=== PATIENT | male | born 1945 | race Caucasian/White ===

== ENCOUNTER 2022-10-17 13:44 | Inpatient (IN) | payer OTHER ==
--- OUTSIDE RECORDS SUMMARY | 2022-10-17 14:17 | XMS REPORT | Continuity of Care Document ---
:1945 Author Organization [facility] t Address [address] [place] [address] Care Team Providers Name Role Phone No, Pcp [facility] Primary Care Physician Unavailable HARISH SUMMERS Attending Clinician Unavailable Radha Art Attending Clinician Unavailable Jimmy Mcgill Attending Clinician Payers Payer Name Policy Type Policy Number Effective Date Expiration Date S bran [employer] MEDICARE [id number] 2019 ADVANTAGE HMO 00:00:00 Problems Condition Condition Condition Status Onset Resolution Last Treating Co mments Source Name Details Category Date Date Treatment Clinician Date BILATERAL BILATERAL Diagnosis Active 2013-12-07 Memoria INCISIONAL INCISIONAL 3-03 09:07:00 l HERNIA HERNIA 00:00: Ari Active 00 11/30/2013 [facility] OBSTR OBSTR Diagnosis Active 2013-12-07 Wi moria INCISIONAL INCISIONAL 09:07:00 l HERNIA HERNIA Ari Active [facility] Injury of Injury of Problem Resolve 2013-12-09 Memoria kidney kidney d 21:08:07 l without without Ari open wound open wound into into abdominal abdominal cavity cavity (disorder) (disorder) Resolved Problem 12/09/2013 [facility] Allergies, Adverse Reactions, Alerts Allergy Allergy Status Severity Reaction(s) Onset Inactive Treating Comm ents Source Name Type Date Date Clinician Morphine Propensi Active Nausea [facility]: Medical reaction 00 Center s morphine morphine Active Jose Chapman Social History Social Habit Start Date Stop Date Quantity Comments Source History SDOH [facility] Alcohol Std Drinks [facility] History SDOH [facility] Alcohol Binge Medical [facility] History SDCA [facility] Alcohol Comment Medical C enter Tobacco Comment 2019-02-10 2019-02-10 had use marijuana [facility] before [facility] Tobacco use and 2019-02-10 2019-02-[address] [facility] exposure 00:00:00 00:00:00 Medical Center Alcohol intake 2019-02-10 2019-02-10 [facility] alcohol Medical Center (finding) History SDOH 2019-02-10 2019-02-[address] [facility] Alcohol Frequency 00:00:00 00:00:00 [facility] Social History 2013-11-30 2013-11-30 [facility] 18:01:34 18:01:34 Sex Assigned At [address] [facility] 00:00[facility]00 [facility]00 [facility] Center Smoking Status Start Date Stop Date Source Never smoker [facility] Medications Ordered Filled Start Stop Current Ordering Indication Dosage Frequency Signature Comments Components Source Medication Medication Date Date Medication? Clinician (SIG) Name Name zolpidem Yes 10mg Take [address] (AMBIEN) 10 5-14 by mouth Luke s mg tablet 13:06: every Medical 19 night as Center needed for Insomnia. aspirin 325 Yes 325mg Take [address] MG tablet 5-14 mg by [facility] 13:06: mouth as Medical 19 needed for Center Pain. Zofran No 4 mg, 2 Memoria 3-10 mL, Route: l 16:51: IVP, Drug form: INJ, Q4H, Dosing Weight 77.8, kg, PRN Nausea, Start date: 12/07/13 11:51:00, Duration: 30 day, Stop date: 01/06/14 11:50:00(S sanjiv as: Zofran) Demerol HCl No 75 mg, 1.5 Memoria 3-10 mL, Route: l 16:51: IM, Drug form: SOLN, Q3H, Dosing Weight 77.8, kg, PRN Pain, Start date: 12/07/13 11:51:00, Duration: 4 day, Stop date: 12/11/13 11:50:00Sa me as: Demerol "Use Precaution in Elderly, Seizure disorders, and Renal impairment " Morphine 2013- No 1 mg, 0.5 [facility] [place] carmen 3-10 mL, Route: l 16:51: IVP, Drug form: INJ, Q2H, Dosing Weight 77.8, kg, PRN Pain, Start date: 12/07/13 11:51:00, Duration: 30 day, Stop date: 01/06/14 11:50:00(S sanjiv as:MORPhin e Sulfate) Phenergan 2013- No 25 mg, 1 [facility] [place]ia [place] carmen 3-10 mL, Route: l 16:51: IM, Drug form: INJ, Q3H, Dosing Weight 77.8, kg, PRN Nausea, Start date: 12/07/13 11:51:00, Duration: 30 day, Stop date: 01/06/14 11:50:00, to be given with DemerolDo not give IV push. (Same as: Phenergan) Ketorolac No 30 mg, Memori a 3-10 Route: IV, l 16:51: Drug form: INJ, ONCE, Dosing Weight 77.8, kg, Start date: 12/07/13 11:51:00, Duration: 1 doses or times, Stop date: 12/07/13 11:51:00 Naloxone 2013- No 0.04 mg, Memor ia 3-10 0.1 mL, l 15:03: Route: IVP, Drug form: INJ, Q2MIN, Dosing Weight 77.8, kg, PRN Narcotic Reversal, Start date: 12/07/13 10:03:00, Duration: 8 doses or times, Stop date: Limited # of times(Same as: Narcan) Flumazenil 2013- No 0.2 mg, 2 Me moria 3-10 mL, Route: l 15:03: IVP, Drug form: INJ, PRN, Dosing Weight 77.8, kg, PRN Benzodiaze pine Reversal, Initial dose, Start date: 12/07/13 10:03:00, Duration: 30 day, Stop date: 01/06/14 10:02:00(S sanjiv as: Romazicon) Hydromorpho 2013-0 No 0.5 mg, Mem oria ne 3-10 0.5 mL, l 15:03: Route: IVP, Drug form: INJ, Q5Min, Dosing Weight 77.8, kg, PRN Pain Score 7-10, Start date: 12/07/13 10:03:00, Duration: 4 doses or times, Stop date: Limited # of times Fentanyl 2013- No 25 Memoria 3-10 microgram, l 15:03: 0.5 mL, Route: IVP, Drug form: INJ, Q5Min, Dosing Weight 77.8, kg, PRN Pain Score 4-6, Start date: 12/07/13 10:03:00, Duration: 4 doses or times, Stop date: Limited # of times(Same as: Sublimaze) Preservati ve free. Labetalol No 10 mg, 2 [facility] maria [place] carmen 3-10 mL, Route: l 15:03: IVP, Drug form: INJ, Q5Min, Dosing Weight 77.8, kg, PRN Elevated BP, Start date: 12/07/13 10:03:00, Duration: 5 doses or times, Stop date: Limited # of times(Same as: Normodyne, Trandate) Push over 2 minutes Give bolus over 2-3 minutes. Oxycodone 2013-0 No 5 mg, 1 Memor ia 3-10 tab, l 15:03: Route: PO, Drug form: TAB, Q4H, Dosing Weight 77.8, kg, PRN Pain Score 4-6, Start date: 12/07/13 10:03:00, Duration: 30 day, Stop date: 01/06/14 10:02:00(S sanjiv as: OxyIR) Acetaminoph 2013-0 No 1,000 mg, M emoria en 3-10 100 mL, l 15:03: Route: IVPB, Drug form: INJ, ONCE, Dosing Weight 77.8, kg, PRN Pain Score 1-3, Start date: 12/07/13 10:03:00, Duration: 1 doses or times, Stop date: Limited # of timesInfus e over 15 minutes Do not exceed 4gm/day of acetaminop hen Ondansetron 2013-0 No 4 mg, 2 Mem oria 3-10 mL, Route: l 15:03: IVP, Drug form: INJ, ONCE, Dosing Weight 77.8, kg, PRN Nausea & Vomiting, Start date: 12/07/13 10:03:00(S sanjiv as: Zofran) Hydralazine 2013-0 No 10 mg, 0.5 Memoria 3-10 mL, Route: l 15:03: IVP, Drug form: INJ, Q20Min, Dosing Weight 77.8, kg, PRN Elevated BP, Start date: 12/07/13 10:03:00, Duration: 2 doses or times, Stop date: Limited # of times(Same as: Apresoline ) Push over 5 minutes Calcium 2013-0 No 1,000 mL, Memor ia Chloride 3-10 Rate: 125 l 0.0014 15:03: ml/hr, [place] MEQ/ML / 00 Infuse Potassium over: 8 Chloride hr, Route: 0.004 IV, Dosing MEQ/ML / Weight Sodium 77.8 kg, Chloride Total 0.103 Volume: MEQ/ML / 1,000, Sodium Start Lactate date: 0.028 12/07/13 MEQ/ML 10:03:00, Injectable Duration: Solution 30 day, Stop date: 01/06/14 10:02:00 Calcium 2013-0 No 1,000 mL, Memor ia Chloride 3-10 Rate: 25 l 0.0014 15:02: ml/hr, [place] MEQ/ML / 00 Infuse Potassium over: 40 Chloride hr, Route: 0.004 IV, Dosing MEQ/ML / Weight Sodium 77.8 kg, Chloride Total 0.103 Volume: MEQ/ML / 1,000, Sodium Start Lactate date: 0.028 12/07/13 MEQ/ML 10:02:00, Injectable Duration: Solution 30 day, Stop date: 01/06/14 10:01:00 Vital Signs Vital Name Observation Time Observation Value Comments Source Systolic (mm Hg) 2013-12-07 17:45:00 [facility] rial Ari Diastolic (mm Hg) 2013-12-07 17:45:00 Mem orial [place] Respitory Rate 2013-12-07 17:45:00 Memori al Ari Diastolic (mm Hg) 2013-12-07 17:30:00 Mem orial Ari Systolic (mm Hg) 2013-12-07 17:30:00 [employer] rial [place] Respitory Rate 2013-12-07 17:30:00 Memori al [place] Diastolic (mm Hg) 2013-12-07 17:15:00 Mem orial Ari Systolic (mm Hg) 2013-12-07 17:15:00 [facility] rial [place] Respitory Rate 2013-12-07 17:15:00 Memori al [place] Heart Rate 2013-12-07 14:25:00 [facility] Ari BMI Calculated 2013-12-01 17:57:00 Mem[facility] al [place] Weight 2013-12-01 17:57:00 [facility] Height 2013-12-01 17:57:00 177.8 cm [facility] [place] Heart Rate 2013-11-30 17:43:00 [facility] Ari Weight 2013-11-30 17:37:00 [facility] [place] Height 2013-11-30 17:37:00 177.8 cm [facility] BMI Calculated 2013-11-30 17:37:00 Mem[facility] al [place] Procedures Procedure Date / Time Performed Performing Clinician Sour e Nephrectomy [facility] [place] Encounters Start End Encounter Admission Attending Care Care Encounter Source Date/Time Date/Time Type Type Clinicians Facility Department ID 2022-10-10 Outpatient [facility] [id number] [place] 07:55:04 [id number] [facility] 2022-09-06 Outpatient [facility] [id number] [place] 06:09:48 [id number] [facility] 2022-08-15 Outpatient [facility] [id number] [place] 17:56:14 [id number] [facility] 2022-08-10 Outpatient [facility] [id number] [place] 08:47:10 [id number] [facility] 2022-07-23 Outpatient [facility] [id number] [place] 12:26:07 [id number] [facility] 2022-07-19 Outpatient [facility] [id number] [place] 14:19:15 [id number] [facility] 2022-07-04 Outpatient [facility] [id number] [place] 14:50:47 [id number] Health 2022-06-30 2022-06-30 Outpatient [facility] [id number] [place] 12:30:00 12:30:00 HARISH [facility] 2013-12-07 2013-12-07 [facility] [id number] [facility] 14:07:00 18:45:00 Surgery r [place] [id number] l [address] 2013-12-07 2013-12-07 Outpatient Artem [id number] 09:07:00 13:45:00 Jimmy [id number] Alfredo [id number] Results Test Description Test Time Test Comments Results Result Sourc e Comments U/S, NECK 2019-02-10 Reason for FINAL REPORT PATIENT ID: 14:36:00 Exam:->R22.1 [id number] INDICATION:Right neck mass. Request for image guided fine-needle aspiration. COMPARISON: None. TECHNIQUE / IMPRESSION: Ultrasound of the neck. Fine-needle aspiration was not performed. FINDINGS:The patient's right neck was palpated and a soft small lump at the level of the right mid sternocleidomastoid was palpated. The patient reports that one week ago, at the time of ENT evaluation, there was a masslike swelling in this part of the right neck. He reports that it is markedly decreased in size since then. Ultrasound of this lump demonstrates a 2.3 x 1.8 x 0.5 cm circumscribed slightly hyperechoic lesion, probably representing residual inflammation or infection. Given the marked decrease in size of the patient's right neck mass a biopsy was not performed. No enlarged cervical lymph nodes were demonstrated. The patient is scheduled to return to the ENT clinic. Signed: Rikki Art MDReport Verified Date/Time: 02/10/2019 14:36:41 Reading Location: [address] Ultrasound Reading Room NECK SOFT TIS 2019-01-20 CLINICAL INDICATION: WO 09:06:13 R22.1 Localized swelling, mass and lump, neckMODALITY: [employer] [address] (Iterative dose reduction technique is used).TECHNIQUE: Images are obtained without contrast; helical scans through the neck from the skull base to the thoracic inlet were performed.Computed tomography dose index is 9.5 mGy.IMPRESSION:1. There is a 1.6 cm cyst in the tail of the left parotid gland.2. Diffuse enlargement of the right sternocleidomastoid muscle with diffuse inflammatory changes in the right mid and posterior neck extending to the right paraspinous musculature. Diffuse infiltrating infection such as myositis is considered the most likely diagnosis. Neoplastic infiltration (such as lymphoma) cannot be excluded. Biopsy will likely be required.3. This study of the neck was performed without contrast. Postcontrast imaging may be useful had a neck evaluation and biopsy may be a more beneficial process.FINDINGS:COMPARI SON: Ultrasound of the neck performed 01/13/2019The nasopharynx, oropharynx, oral cavity, hypopharynx and larynx are intact.The tonsils and parapharyngeal spaces are intact.The bilateral submandibular glands and right parotid gland appear normal.The cystic lesion identified in the left neck on ultrasound of 01/13/2019 corresponds to a cyst in the tail of the left parotid gland which measures 1.6 x 1.4 x 1.3 cm. This may be a lymphoepithelial cyst if the patient is HIV positive. Percutaneous biopsy could be performed.There is diffuse enlargement of the right sternocleidomastoid muscle. Inflammatory change is seen throughout the right mid and posterior neck extending to the right paraspinous musculature. The findings suggest a diffuse inflammatory/infiltrativ e process although a neoplastic process cannot be entirely excluded. There is obliteration of fascial planes, infiltration of subcutaneous fat with inflammation and mild skin thickening over this site in the right mid/posterior neck.The thyroid gland is normal.There is no significant adenopathy in the neck, supraclavicular fossa, axilla or superior mediastinum.Intrinsic musculature and osseous structures are intact. Vascular structures are normal.The visualized skull base is intact. Prevertebral soft tissues are intact.The paranasal sinuses and visualized portions of the orbits are normal.The lung apices and visualized portions of superior mediastinum appear intact.RS 436: [id number] (For official use only.) BLOOD BANK RESULTS 2013-12-07 15:05:00 Test Item Value Reference Range Interpretation Comme nts ABO/Rh (test code = ABO/Rh) A POS [facility] B[facility] [id number] 15:05:00 Test Item Value Reference Range Interpretation Comments Antibody Scrn (test Negative (12/07/2013 code = Antibody Scrn) 10:05:00 [employer]) [facility] [employer] [id number] 17:50:00 Test Item Value Reference Range Interpretation Comments Antibody Scrn (test Negative (12/01/2013 code = Antibody Scrn) 11:50:00 [employer]) [facility] [employer] [id number] 17:50:00 Test Item Value Reference Range Interpretation Comments ABO/Rh (test code = ABO/Rh) A POS [facility] [employer] [id number] 17:15:00 Test Item Value Reference Range Interpretation Comments ALANINE AMINOTRANSFERASE 20 See_Comment [A utomated message] (test code = ALANINE The sys tem which AMINOTRANSFERASE) generated this result transmitted ref erence range: <=65. Th e reference range was not used to int erpret this result as normal/abnormal . [facility] [employer] [id number] 17:15:00 Test Item Value Reference Range Interpretation Comments Albumin Lvl (test code = Albumin Lvl) 3.9 3.5-5.0 [facility] [employer] [id number] 17:15:00 Test Item Value Reference Range Interpretation Comments Alk Phos (test code = Alk Phos) 47 39-136 [facility] [employer] [id number] 17:15:00 Test Item Value Reference Range Interpretation Comments Bili Direct (test code 0.1 See_Comment [Aut omated message] The = Bili Direct) system which generated this result tra nsmitted reference range : <=0.3. The reference r tyrese was not used to int erpret this result as wilfrid l/abnormal. [employer]2014-03-03 17:15:00 Test Item Value Reference Range Interpretation Comments Total Protein (test code = Total 8.3 6.4-8.4 Protein) [facility] [employer] [id number] 17:15:00 Test Item Value Reference Range Interpretation Comments Bili Total (test code = Bili Total) 0.4 0.2-1.3 [facility] [employer]2014-03-03 17:15:00 Test Item Value Reference Range Interpretation Comments ASPARTATE TRANSAMINASE 39 See_Comment [Aut omated message] (test code = ASPARTATE The s ystem which TRANSAMINASE) generated this result transmitted ref erence range: <=37. Th e reference range was not used to interpr et this result as normal/abnormal . [facility]2014-03-03 17:15:00 Test Item Value Reference Range Interpretation Comments Globulin (test code = Globulin) 4.4 2.0-4.0 [facility]2014-03-03 17:15:00 Test Item Value Reference Range Interpretation Comments A/G Ratio (test code = A/G Ratio) 0.9 0.7-1.6 [facility]2014-03-03 17:15:00 Test Item Value Reference Range Interpretation Comments Bili Indirect (test 0.3 See_Comment [Automa jeffry message] The code = Bili Indirect) system which generated this result tra nsmitted reference range : <=1.0. The reference r tyrese was not used to int erpret this result as normal/abnormal . [facility] [id number] 17:15:00 Test Item Value Reference Range Interpretation Comments Calcium Lvl (test code = Calcium Lvl) 9.3 8.5-10.5 [facility] [id number] 17:15:00 Test Item Value Reference Range Interpretation Comments eGFR (test code = eGFR) 62 [facility] [id number] 17:15:00 Test Item Value Reference Range Interpretation Comments Creatinine Lvl (test code = Creatinine 1.2 0.5-1.4 Lvl) [facility]2014-03-03 17:15:00 Test Item Value Reference Range Interpretation Comments BUN (test code = BUN) 21 7-22 [facility] [id number] 17:15:00 Test Item Value Reference Range Interpretation Comments Glucose Lvl (test code = Glucose Lvl) 94 70-99 [id number] 17:15:00 Test Item Value Reference Range Interpretation Comments AGAP (test code = AGAP) 10.8 10.0-20.0 [facility] H[id number] 17:15:00 Test Item Value Reference Range Interpretation Comments Sodium Lvl (test code = Sodium Lvl) 138 135-145 [facility] H[id number] 17:15:00 Test Item Value Reference Range Interpretation Comments Potassium Lvl (test code = Potassium 4.8 3.5-5.1 Lvl) [facility] Ho[id number] 17:15:00 Test Item Value Reference Range Interpretation Comments CO2 (test code = CO2) 28 24-32 [facility] Hos[id number] 17:15:00 Test Item Value Reference Range Interpretation Comments Chloride Lvl (test code = Chloride Lvl) 104 95-109 [id number] 17:15:00 Test Item Value Reference Range Interpretation Comments MPV (test code = MPV) 7.7 7.4-10.4 [facility] H[id number] 17:15:00 Test Item Value Reference Range Interpretation Comments RBC X 10x6 (test code = RBC X 10x6) 4.29 4.70-6.10 [facility] [id number] 17:15:00 Test Item Value Reference Range Interpretation Comments Hgb (test code = Hgb) 14.4 14.0-18.0 [facility] [id number] 17:15:00 Test Item Value Reference Range Interpretation Comments MCHC (test code = MCHC) 34.3 32.0-36.0 [facility] H[id number] 17:15:00 Test Item Value Reference Range Interpretation Comments Hct (test code = Hct) 42.0 42.0-54.0 [facility] H[id number] 17:15:00 Test Item Value Reference Range Interpretation Comments RDW (test code = RDW) 14.0 11.5-14.5 [facility] H[id number] 17:15:00 Test Item Value Reference Range Interpretation Comments Platelet (test code = Platelet) 270 133-450 [facility] H[id number] 17:15:00 Test Item Value Reference Range Interpretation Comments MCV (test code = MCV) 97.9 80.0-94.0 [facility] Hos[id number] 17:15:00 Test Item Value Reference Range Interpretation Comments MCH (test code = MCH) 33.6 pg 27.0-31.0 [facility] H[id number] 17:15:00 Test Item Value Reference Range Interpretation Comments WBC X 10x3 (test code = WBC X 10x3) 5.3 3.7-10.4 [facility] [id number] 17:15:00 Test Item Value Reference Range Interpretation Comments INR (test code = INR) 0.92 0.85-1.17 [facility] [id number] 17:15:00 Test Item Value Reference Range Interpretation Comments aPTT (test code = aPTT) 28.2 s 22.9-35.8 [facility] [id number] 17:15:00 Test Item Value Reference Range Interpretation Comments PROTIME (test code = PROTIME) 12.3 s 12.0-14.7 [facility] H[id number] 17:15:00 Test Item Value Reference Range Interpretation Comments Eosinophils # (test code 0.2 See_Comment [A utomated message] The = Eosinophils #) system whic h generated this result tra nsmitted reference range : <=0.5. The reference r tyrese was not used to int erpret this result as normal/abnormal . [facility] H[id number] 17:15:00 Test Item Value Reference Range Interpretation Comments Basophils # (test code 0.0 See_Comment [Aut omated message] The = Basophils #) system which generated this result tra nsmitted reference range : <=0.2. The reference r tyrese was not used to int erpret this result as normal/abnormal . [facility] H[id number] 17:15:00 Test Item Value Reference Range Interpretation Comments Monocytes # (test code 0.6 See_Comment [Aut omated message] The = Monocytes #) system which generated this result tra nsmitted reference range : <=0.8. The reference r tyrese was not used to int erpret this result as normal/abnormal . [facility] H[id number] 17:15:00 Test Item Value Reference Range Interpretation Comments Lymphocytes # (test code = Lymphocytes 1.3 1.0-5.5 #) [facility] [id number] 17:15:00 Test Item Value Reference Range Interpretation Comments Segs-Bands # (test code = Segs-Bands #) 3.2 1.5-8.1 [facility] H[id number] 17:15:00 Test Item Value Reference Range Interpretation Comments Basophils (test code = 0.2 See_Comment [Aut omated message] The Basophils) system which ge nerated this result tra nsmitted reference range : <=1.0. The reference r tyrese was not used to int erpret this result as normal/abnormal . [facility] H[id number] 17:15:00 Test Item Value Reference Range Interpretation Comments Eosinophils (test code = 4.0 See_Comment [A utomated message] The Eosinophils) system which ge nerated this result tra nsmitted reference range : <=4.0. The reference r tyrese was not used to int erpret this result as normal/abnormal . [facility] H[id number] 17:15:00 Test Item Value Reference Range Interpretation Comments Monocytes (test code = Monocytes) 11.1 2.0-12.0 [facility] H[id number] 17:15:00 Test Item Value Reference Range Interpretation Comments Lymphocytes (test code = Lymphocytes) 24.0 20.0-40.0 [facility] H[id number] 17:15:00 Test Item Value Reference Range Interpretation Comments Segs (test code = Segs) 60.7 45.0-75.0 [facility]
--- NOTE | 2022-10-17 16:09 | RAD REPORT ---
EXAM DESCRIPTION: Paige Single View10/17/2022 4:03 pm CLINICAL HISTORY: Osteomyelitis COMPARISON: none FINDINGS: The medial right lung base is hazy The remainder of the lungs appear clear of acute infiltrate. The heart is normal size IMPRESSION: Medial right lung base is hazy which may indicate a mild infiltrate.
[2022-10-17 16:43] LABS: Protime INR 1.23
[2022-10-17 16:46] LABS: Potassium 4.9 mmol/L (3.5-5.1)
[2022-10-17 16:49] LABS: Absolute Lymphocytes (CBC) 1.3 K/uL (0.7-4.9); Hematocrit 29.8 % (39.6-49.0); Lymphocytes % 9.1 % (15.3-44.8); MCV 80.7 fL (80-100); MPV 7.2 fL (7.6-11.3); RBC Red Blood Cell Count 3.69 M/uL (4.33-5.43)
--- NOTE | 2022-10-17 17:42 | P.HP ---
Certification for Inpatient Patient admitted to: Inpatient With expected LOS: >2 Midnights Practitioner: I am a practitioner with admitting privileges, knowledge of patient current condition, hospital course, and medical plan of care. Services: Services provided to patient in accordance with Admission requirements found in Title 42 Section 412.3 of the Code of Federal Regulations Patient History Date of Service: 10/17/22 Reason for admission: SACRAL OSTEOMYELITIS History of Present Illness: MR PRATT CAME OUT OF [place] AFTER HE WAS PARALYZED WAIST DOWN FALLING FROM ROOF OR SO. IN [place] HE DEVELOPED LARGE BEDSORE IN THE BACK AND BOTH HEELS. HE CAME TO [facility] TIME A WEEK AGO. I ORDERED MRI OF SPINE AND IT WAS DONE TODAY. HE HAS SACRAL OM AND HAS SEVERE SMELL FROM THE WOUND. HE LIVES WITH WHO HAS DEMENTIA AND NOW HE IS TOTALLY PARALYZED. I DECIDED TO ADMIT HIM AND GIVE 6 WEEKS OF ABX AT LTAC. Allergies No Known Allergies Allergy (Unverified 10/17/22 14:19) Home medications list reviewed: Yes - Past Medical/Surgical History Diabetic: No Past Medical History: Patient denies medical history Review of Systems 10-point ROS is otherwise unremarkable General: Weakness Musculoskeletal: As per HPI Integumentary: As per HPI Neurological: As per HPI Physical Examination - Vital Signs Temperature: 99.4 F Blood Pressure: 138/67 Pulse: 109 Respirations: 16 Pulse Ox (%): 96 - Physical Exam General: Oriented x3, Moderate distress HEENT: Atraumatic, PERRLA, Mucous membr. moist/pink, EOMI, Sclerae nonicteric Neck: Supple, 2+ carotid pulse no bruit, No LAD, Without JVD or thyroid abnormality Respiratory: Clear to auscultation bilaterally, Normal air movement Cardiovascular: Regular rate/rhythm, Normal S1 S2 Gastrointestinal: Normal bowel sounds, No tenderness Musculoskeletal: No tenderness Integumentary: No rashes, Pressure ulcer (LARGE COVER ALMOST WHOLE BACK. DEEP TO BONE. PUTRID SMELL. SLOUGH POS IN 1/4 OF IT.) Neurological: Normal speech, Abnormal strength (PARAPLEGIC TOTAL.) Lymphatics: No axilla or inguinal lymphadenopathy - Studies Laboratory Data (last 24 hrs) 10/17/22 16:23: Sodium 129 L, Potassium 4.9, BUN 13, Creatinine 0.53 L, Glucose 120 H 10/17/22 16:23: PT 13.5 H, INR 1.23, APTT 30.7 10/17/22 16:23: WBC 14.50 H, Hgb 9.5 L, Hct 29.8 L, Plt Count 687 H Assessment and Plan - Problems (Diagnosis) (1) Osteomyelitis of sacrum Current Visit: No Status: Chronic Plan: CULTURE THE ULCER AEROBIC AND ANEROBIC IV [facility]. 6 WEEKS OF ABX [facility] PUMP AIR MATTRESS. REFER TO LTAC. PROGNOSIS POOR. (2) Pressure ulcer of sacral region, stage 4 Current Visit: No Status: Acute - Advance Directives Does patient have a Living Will: No Does patient have a Durable POA for Healthcare: No
[2022-10-17 17:44] VITALS: BMI 21.5
[2022-10-17] MEDS ORDERED: Meropenem 1000 MG/VIAL IV ONE (20:31)
[2022-10-17] MEDS ORDERED: NA CHLORIDE 0.9% 100 ML IV ONE (20:47)
[2022-10-17] MEDS ORDERED: Meropenem 1,000 MG in NA CHLORIDE 0.9% 100 ML IV SCH (21:00)
[2022-10-17] MEDS: ACETAMINOPHEN 325 MG TABLET PO PRN (21:06)
[2022-10-17] MEDS: Meropenem 1,000 MG in NA CHLORIDE 0.9% 100 ML IV SCH (21:07)
[2022-10-17] MEDS: ENOXAPARIN 40 MG/0.4 ML SQ SCH (21:07)
[2022-10-17 21:46] LABS: Specific Gravity < 1.005 (1.005-1.030); Urine Bacteria 20-50 /HPF (<20); Urine Bilirubin NEGATIVE (Negative); Urine Blood Negative (Negative); Urine Clarity Clear (Clear); Urine Color Colorless (Yellow); Urine Crystals Unidentified Few /HPF (None Seen); Urine Glucose NEGATIVE (Negative); Urine Protein NEGATIVE (Negative); Urine RBC <5 /HPF (None Seen); Urine Urobilinogen Normal (Normal)
[2022-10-17] MEDS: D5 0.9 NS 1,000 ML IV SCH (22:18)
[2022-10-17] MEDS: TRAZODONE 50 MG TABLET PO SCH (22:18)
[2022-10-18] MEDS ORDERED: Meropenem 1000 MG/VIAL IV ONE ×3 (01:16→16:40)
[2022-10-18] MEDS ORDERED: NA CHLORIDE 0.9% 100 ML IV ONE (01:17)
[2022-10-18] MEDS: Meropenem 1,000 MG in NA CHLORIDE 0.9% 100 ML IV SCH ×3 (01:41→16:41)
[2022-10-18] MEDS: COLLAGENASE 30 GM OINTMENT TOP SCH (09:00)
[2022-10-18] MEDS ORDERED: NA CHLORIDE 0.9% 100 ML ONE ×2 (09:07→16:41)
--- NOTE | 2022-10-18 10:33 | RAD REPORT ---
EXAM DESCRIPTION: RAD - Chest Single View - 10/17/2022 11:49 pm CLINICAL HISTORY: 77 years Male PICC line placement TECHNIQUE: One view of the chest. COMPARISON: No prior exams provided for comparison. FINDINGS: Right-sided PICC line tip projects over the SVC. Lower thoracic/lumbar fusion hardware par tially visualized. Right infrahilar infiltrate. The lungs are otherwise clear without focal consolidation, effusion, or pneumothorax. Aortic atherosclerosis. The cardiomediastinal silhouette and central pulmonary vasculature are normal . No acute osseous abnormalities. Chronic arthrosis of the right shoulder. IMPRESSION: Right-sided PICC line in good position. Right infrahilar infiltrate concerning for infection. Electronically signed by: Luly Ovalles MD 10/18/2022 12:12 AM LABOR AND DELIVERY REGISTERED NURSE Due to temporary technical issues with the PACS/Fluency reporting system, reports are being signed by the in house radiologists without review as a courtesy to insure prompt reporting. The interpreting radiologist is fully responsible for the content of the report.
[2022-10-18] MEDS: D5 0.9 NS 1,000 ML IV SCH (11:10)
--- NOTE | 2022-10-18 12:55 | P.PN ---
Subjective Date of Service: 10/18/22 Chief Complaint: SACRAL OSTEOMYELITIS Subjective: Improving HE IS BED BOUND , PARALYZED AND NOT HAVING ANY ACUTE SS. HE IS HERE FOR SACRAL ACUTE ON CHRONIC OSTEOMYELITIS. Review of Systems 10-point ROS is otherwise unremarkable Physical Examination - Vital Signs Temperature: 97.7 F Blood Pressure: 103/56 Pulse: 86 Respirations: 16 Pulse Ox (%): 96 - Physical Exam General: Alert, In no apparent distress HEENT: Atraumatic, PERRLA, EOMI Neck: Supple, JVD not distended Respiratory: Clear to auscultation bilaterally, Normal air movement Cardiovascular: Regular rate/rhythm, Normal S1 S2 Gastrointestinal: Normal bowel sounds, No tenderness Musculoskeletal: No tenderness Integumentary: Pressure ulcer (LARGE AND DEEP ULCER INVOLVES WHOLE GLUTEAL AND SACRAL DEPENDENT SURFACE. ) Neurological: Normal speech, Normal tone, Normal affect Lymphatics: No axilla or inguinal lymphadenopathy - Studies Laboratory Data (last 24 hrs) 10/17/22 16:23: Sodium 129 L, Potassium 4.9, BUN 13, Creatinine 0.53 L, Glucose 120 H 10/17/22 16:23: PT 13.5 H, INR 1.23, APTT 30.7 10/17/22 16:23: WBC 14.50 H, Hgb 9.5 L, Hct 29.8 L, Plt Count 687 H Medications List Reviewed: Yes Assessment And Plan - Current Problems (Diagnosis) (1) Osteomyelitis of sacrum Current Visit: No Status: Chronic Plan: CULTURE THE ULCER AEROBIC AND ANEROBIC IV [facility]. 6 WEEKS OF ABX [facility] PUMP AIR MATTRESS. REFER TO LTAC. PROGNOSIS POOR. IV ABX HE DOES NOT WANT LTAC HE WANTS TO GO HOME WITH IV ABX. SW IS AWARE. (2) Pressure ulcer of sacral region, stage 4 Current Visit: No Status: Acute
[2022-10-18] MEDS: TRAMADOL HCL 50 MG TAB PO PRN (14:25)
[2022-10-18] MEDS: ENOXAPARIN 40 MG/0.4 ML SQ SCH (16:42)
[2022-10-18] MEDS: TRAZODONE 50 MG TABLET PO SCH (20:58)
[2022-10-18] MEDS: JUVEN PACKET PO SCH (20:58)
[2022-10-18] MEDS: ACETAMINOPHEN 325 MG TABLET PO PRN (20:59)
[2022-10-18] MEDS: ENSURE ENLIVE 237 ML CAN PO SCH (20:59)
[2022-10-19] MEDS ORDERED: NA CHLORIDE 0.9% 100 ML ONE ×3 (00:38→16:23)
[2022-10-19] MEDS ORDERED: Meropenem 1000 MG/VIAL IV ONE ×3 (00:40→16:19)
[2022-10-19] MEDS: Meropenem 1,000 MG in NA CHLORIDE 0.9% 100 ML IV SCH ×3 (00:42→16:25)
[2022-10-19] MEDS: D5 0.9 NS 1,000 ML IV SCH ×2 (00:42→13:52)
[2022-10-19] MEDS: TRAMADOL HCL 50 MG TAB PO PRN ×3 (04:11→21:51)
[2022-10-19 04:37] LABS: Absolute Lymphocytes (CBC) 2.2 K/uL (0.7-4.9); Hematocrit 23.9 % (39.6-49.0); Lymphocytes % 25.8 % (15.3-44.8); MCV 79.6 fL (80-100)
[2022-10-19 04:49] LABS: Magnesium 1.7 mg/dL (1.6-2.4); Potassium 3.8 mmol/L (3.5-5.1)
[2022-10-19] MEDS ORDERED: MAGNESIUM SULFATE 1 gm IVPB 1 GM/100 ML BAG IV ONE (05:30)
[2022-10-19] MEDS: ENSURE ENLIVE 237 ML CAN PO SCH ×2 (09:00→20:39)
[2022-10-19] MEDS: JUVEN PACKET PO SCH ×3 (09:00→20:42)
[2022-10-19] MEDS: COLLAGENASE 30 GM OINTMENT TOP SCH (09:02)
[2022-10-19] MEDS: MEDIHONEY 44 ML TOPICAL TUBE TOP SCH (09:03)
--- NOTE | 2022-10-19 13:54 | P.PN ---
Subjective Date of Service: 10/19/22 Chief Complaint: SACRAL OSTEOMYELITIS Subjective: No new changes HE IS BED BOUND , PARALYZED AND NOT HAVING ANY ACUTE SS. HE IS HERE FOR SACRAL ACUTE ON CHRONIC OSTEOMYELITIS. I AM WAITING FOR ANTIBIOTIC APPROVAL AND COST. HE MAY NOT BE ABLE TO AFFORD. HE IS REFUSING TO GO TO LTAC. NOW DC WILL BE DELAYED UNTIL SATURDAY. Physical Examination - Vital Signs Temperature: 97.4 F Blood Pressure: 111/66 Pulse: 86 Respirations: 16 Pulse Ox (%): 94 - Physical Exam General: Alert, In no apparent distress HEENT: Atraumatic, PERRLA, EOMI Neck: Supple, JVD not distended Respiratory: Clear to auscultation bilaterally, Normal air movement Cardiovascular: Regular rate/rhythm, Normal S1 S2 Gastrointestinal: Normal bowel sounds, No tenderness Musculoskeletal: No tenderness Integumentary: No rashes Neurological: Abnormal strength (PAAPLEGIC.) Lymphatics: No axilla or inguinal lymphadenopathy - Studies Laboratory Data (last 24 hrs) 10/19/22 04:21: Sodium 134 L, Potassium 3.8, BUN 16, Creatinine 0.38 L, Glucose 118 H, Magnesium 1.7 10/19/22 04:21: WBC 8.40, Hgb 7.8 L, Hct 23.9 L, Plt Count 578 H 10/18/22 17:14: Phosphorus 2.9 Microbiology Data (last 24 hrs): 10/17/22 19:55 Wound - Sacral Gram Stain - Final Medications List Reviewed: Yes Assessment And Plan - Current Problems (Diagnosis) (1) Osteomyelitis of sacrum Current Visit: No Status: Chronic Plan: CULTURE THE ULCER AEROBIC AND ANEROBIC IV [facility]. 6 WEEKS OF ABX [facility]CI PUMP AIR MATTRESS. REFER TO LTAC. PROGNOSIS POOR. IV ABX HE DOES NOT WANT LTAC HE WANTS TO GO HOME WITH IV ABX. SW IS AWARE. (2) Pressure ulcer of sacral region, stage 4 Current Visit: No Status: Acute (3) Paraplegia Current Visit: Yes Status: Chronic Plan: HE FELL FROM ATTIC AT HOME AND IS PARLAYZED SINCE THEN. THIS LEAD TO LARGE BEDSORE HE HAS IN THE SACRUM AND TWO HEEL AREAS.
[2022-10-19] MEDS: ENOXAPARIN 40 MG/0.4 ML SQ SCH (16:24)
[2022-10-19] MEDS: TRAZODONE 50 MG TABLET PO SCH (20:40)
[2022-10-20] MEDS ORDERED: NA CHLORIDE 0.9% 100 ML ONE ×3 (00:39→16:22)
[2022-10-20] MEDS ORDERED: Meropenem 1000 MG/VIAL IV ONE ×3 (00:40→16:24)
[2022-10-20] MEDS: Meropenem 1,000 MG in NA CHLORIDE 0.9% 100 ML IV SCH ×3 (00:43→16:51)
[2022-10-20] MEDS: D5 0.9 NS 1,000 ML IV SCH ×2 (03:26→16:50)
[2022-10-20 03:56] LABS: Absolute Lymphocytes (CBC) 2.2 K/uL (0.7-4.9); Hematocrit 24.9 % (39.6-49.0); Lymphocytes % 26.8 % (15.3-44.8); MCV 79.7 fL (80-100); RBC Red Blood Cell Count 3.13 M/uL (4.33-5.43)
[2022-10-20] MEDS: JUVEN PACKET PO SCH ×2 (09:00→20:58)
[2022-10-20] MEDS: ENSURE ENLIVE 237 ML CAN PO SCH ×2 (09:00→20:58)
[2022-10-20] MEDS: MEDIHONEY 44 ML TOPICAL TUBE TOP SCH (10:13)
[2022-10-20] MEDS: ENOXAPARIN 40 MG/0.4 ML SQ SCH (16:50)
[2022-10-20] MEDS: TRAZODONE 50 MG TABLET PO SCH (20:58)
[2022-10-20] MEDS: TRAMADOL HCL 50 MG TAB PO PRN (20:58)
[2022-10-21] MEDS ORDERED: Meropenem 1000 MG/VIAL IV ONE ×3 (01:28→14:39)
[2022-10-21] MEDS ORDERED: NA CHLORIDE 0.9% 100 ML IV ONE (01:30)
[2022-10-21] MEDS: Meropenem 1,000 MG in NA CHLORIDE 0.9% 100 ML IV SCH ×3 (01:45→16:17)
[2022-10-21 05:12] LABS: Absolute Lymphocytes (CBC) 2.1 K/uL (0.7-4.9); Hematocrit 25.7 % (39.6-49.0); Lymphocytes % 22.5 % (15.3-44.8); MCV 79.7 fL (80-100); MPV 7.1 fL (7.6-11.3); RBC Red Blood Cell Count 3.23 M/uL (4.33-5.43)
[2022-10-21 05:30] LABS: Potassium 3.9 mmol/L (3.5-5.1)
[2022-10-21] MEDS ORDERED: NA CHLORIDE 0.9% 100 ML ONE ×2 (08:12→14:39)
[2022-10-21] MEDS: JUVEN PACKET PO SCH ×2 (09:00→20:25)
[2022-10-21] MEDS: ENSURE ENLIVE 237 ML CAN PO SCH ×2 (09:00→20:25)
[2022-10-21] MEDS: D5 0.9 NS 1,000 ML IV SCH ×2 (09:42→19:20)
[2022-10-21] MEDS: MEDIHONEY 44 ML TOPICAL TUBE TOP SCH (09:43)
[2022-10-21] MEDS: TRAMADOL HCL 50 MG TAB PO PRN (10:46)
[2022-10-21] MEDS ORDERED: HYDROMORPHONE HCL 1 MG/ML INJ IV PRN (11:06)
--- NOTE | 2022-10-21 11:24 | P.PN ---
Subjective Date of Service: 10/21/22 Chief Complaint: SACRAL OSTEOMYELITIS Subjective: No new changes HE IS BED BOUND , PARALYZED AND NOT HAVING ANY ACUTE SS. HE IS HERE FOR SACRAL ACUTE ON CHRONIC OSTEOMYELITIS. I AM WAITING FOR ANTIBIOTIC APPROVAL AND COST. HE MAY NOT BE ABLE TO AFFORD. HE IS REFUSING TO GO TO LTAC. NOW DC WILL BE DELAYED UNTIL SATURDAY. HE HAS ABDOMEN PAIN AND THAT DID NOT IMPROVE AFTER BM FROM [facility] Review of Systems 10-point ROS is otherwise unremarkable General: Weakness Gastrointestinal: Abdominal Pain (DIFFUSE) Physical Examination - Vital Signs Temperature: 96.7 F Blood Pressure: 115/73 Pulse: 88 Respirations: 18 Pulse Ox (%): 97 - Physical Exam General: Oriented x3, Mild distress HEENT: Atraumatic, PERRLA, EOMI Neck: Supple, JVD not distended Respiratory: Clear to auscultation bilaterally, Normal air movement Cardiovascular: Regular rate/rhythm, Normal S1 S2 Gastrointestinal: Normal bowel sounds, No tenderness Musculoskeletal: No tenderness Integumentary: No rashes, Pressure ulcer ([facility] SPINE WITH PARAPLEGIA. 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.) Neurological: Normal speech, Normal tone, Normal affect Lymphatics: No axilla or inguinal lymphadenopathy - Studies Laboratory Data (last 24 hrs) 10/21/22 04:45: Sodium 134 L, Potassium 3.9, BUN 11, Creatinine 0.39 L, Glucose 114 H 10/21/22 04:45: WBC 9.20, Hgb 8.4 L, Hct 25.7 L, Plt Count 662 H Microbiology Data (last 24 hrs): 10/17/22 19:55 Wound - Sacral Gram Stain - Final 10/17/22 19:55 Wound - Sacral Culture & Sensitivity - Final Proteus Mirabilis Medications List Reviewed: Yes Assessment And Plan - Current Problems (Diagnosis) (1) Osteomyelitis of sacrum Current Visit: No Status: Chronic Plan: CULTURE THE ULCER AEROBIC AND ANEROBIC IV [facility]. 6 WEEKS OF ABX [facility]CI PUMP AIR MATTRESS. REFER TO LTAC. PROGNOSIS POOR. IV ABX HE DOES NOT WANT LTAC HE WANTS TO GO HOME WITH IV ABX. SW IS AWARE. IV ABX FOR 6 WEEKS OFF LOAD ALL ORDERS GIVEN TO RN (2) Pressure ulcer of sacral region, stage 4 Current Visit: No Status: Acute (3) Paraplegia Current Visit: Yes Status: Chronic Plan: HE FELL FROM ATTIC AT HOME AND IS PARLAYZED SINCE THEN. THIS LEAD TO LARGE BEDSORE HE HAS IN THE SACRUM AND TWO HEEL AREAS. (4) Abdominal pain, diffuse Current Visit: Yes Status: Chronic Plan: HE NEVER TOLD ME WHEN HE CAME IN THE BEGINING. HE MENTIONED LAST NIGHT. ON EXAM HE HAS NO REBOUND OR REGIDITY. I WAS HOPING THIS WILL IMPROVE AFTER SEVERE CONSTIPATION GETS BETTER. HE WILL GET CT SCAN ABDOMEN AND PELVIS TODAY. (5) Anemia Current Visit: Yes Status: Chronic Plan: HE HAS IMPROVED TO 8.4 GM. WILL DO CHILD. THIS CAN BE FROM ANEMIA OF CHRONIC DISEASE LIKE WOUND INFECTION HE HAS.
[2022-10-21 11:56] LABS: RBC Red Blood Cell Count 3.32 M/uL (4.33-5.43)
--- NOTE | 2022-10-21 15:52 | RAD REPORT ---
EXAM DESCRIPTION: CTAbdomen Pelvis W Contrast - 10/21/2022 3:35 pm CLINICAL HISTORY: Abdominal pain. Abdominal pain COMPARISON: Sacrum/Coccyx Wo Cont dated 10/17/2022 TECHNIQUE: Biphasic CT imaging of the abdomen and pelvis was performed with 100 ml non-ionic IV cont rast. All CT scans are performed using dose optimization technique as appropriate and may include automated exposure control or mA/KV adjustment according to patient size. FINDINGS: Areas of atelectasis are present in both lung bases. The liver, spleen, pancreas, adrenal glands and kidneys are within normal limits. No bowel obstruction, free air, free fluid or abscess. There is moderate retained stool. Mild inflamm ation in the rectal region present. Large soft tissue ulceration in the region of the sacrum. No gladys dence of significant lymphadenopathy. Hardware is present in the spine. IMPRESSION: Large soft tissue ulceration present sacral level. No drainable fluid collection seen. O steomyelitis is likely still present, recently diagnosed 10/17/2022 MRI. Mild stercoral colitis suspected in the rectal region.
[2022-10-21] MEDS: ENOXAPARIN 40 MG/0.4 ML SQ SCH (16:17)
[2022-10-21] MEDS: HYDROMORPHONE HCL 1 MG/ML INJ IV PRN ×2 (17:17→23:25)
[2022-10-21] MEDS: METRONIDAZOLE 500mg IVPB 500 MG/100 ML BAG IV SCH ×2 (17:48→23:03)
[2022-10-21] MEDS: TRAZODONE 50 MG TABLET PO SCH (20:25)
[2022-10-22] MEDS: D5 0.9 NS 1,000 ML IV SCH ×4 (00:53→22:00)
[2022-10-22] MEDS ORDERED: NA CHLORIDE 0.9% 100 ML IV ONE (00:53)
[2022-10-22] MEDS ORDERED: Meropenem 1000 MG/VIAL IV ONE ×3 (00:53→15:24)
[2022-10-22] MEDS: Meropenem 1,000 MG in NA CHLORIDE 0.9% 100 ML IV SCH ×3 (00:53→16:26)
[2022-10-22 05:51] LABS: Absolute Lymphocytes (CBC) 1.6 K/uL (0.7-4.9); Hematocrit 25.7 % (39.6-49.0); Lymphocytes % 18.5 % (15.3-44.8); MPV 6.9 fL (7.6-11.3); RBC Red Blood Cell Count 3.21 M/uL (4.33-5.43)
[2022-10-22] MEDS: METRONIDAZOLE 500mg IVPB 500 MG/100 ML BAG IV SCH ×4 (05:55→23:38)
[2022-10-22] MEDS: TRAMADOL HCL 50 MG TAB PO PRN ×2 (05:55→15:44)
[2022-10-22 06:02] LABS: Magnesium 1.9 mg/dL (1.6-2.4); Potassium 4.3 mmol/L (3.5-5.1)
[2022-10-22] MEDS ORDERED: NA CHLORIDE 0.9% 100 ML ONE (07:18)
--- NOTE | 2022-10-22 08:00 | PN ---
Subjective: Patient is stable. Denies chest pain, nausea, vomiting. He says he is having abdominal pain for few days. He is also constipated. Physical Examination: Chest: Clear. Heart: Regular. Abdomen: No guarding, rebound, or rigidity, but there is tenderness which is diffuse in the abdomen a nd sacrum ulcer is large, deep to the bone. Assessment And Plan: 1.Large decubitus ulcer, stage IV with osteomyelitis. I would prefer antibiotic which will penetrat e the bone, for 6 weeks, meropenem is one of them. Culture is growing Proteus mirabilis, but I suspe ct there will be multi-bacterial culture because he also has gram-positive cocci in chains and cluste rs. Do not be surprised if he has methicillin resistant staphylococcus aureus with Proteus _ anaerobic organism which may not have cultured. His discharge from the ulcer was severely putrid. 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 We are waiting for [employer] in approval for ant ibiotics at home. 2.Abdominal pain which is new for him and also weight loss. Patient will get a CT abdomen and pelvi s with contrast tomorrow. He has anemia which is unexplained at this point. I will be working up th e anemia part also while he is here. He is a new patient to me. [facility] just about 3 days ago and he has no primary doctor, I decided to admit him under my service. EUGENIE/LUCY Voice ID: [id number] Report ID: [id number]
[2022-10-22] MEDS: JUVEN PACKET PO SCH ×2 (08:25→21:00)
[2022-10-22] MEDS: ENSURE ENLIVE 237 ML CAN PO SCH ×2 (08:25→21:00)
[2022-10-22] MEDS: MEDIHONEY 44 ML TOPICAL TUBE TOP SCH (08:25)
[2022-10-22] MEDS: HYDROMORPHONE HCL 1 MG/ML INJ IV PRN (13:36)
[2022-10-22] MEDS: ENOXAPARIN 40 MG/0.4 ML SQ SCH (16:27)
--- NOTE | 2022-10-22 17:10 | P.PN ---
Subjective Date of Service: 10/22/22 Chief Complaint: SACRAL OSTEOMYELITIS Subjective: Improving HE IS BED BOUND , PARALYZED AND NOT HAVING ANY ACUTE SS. HE IS HERE FOR SACRAL ACUTE ON CHRONIC OSTEOMYELITIS. I AM WAITING FOR ANTIBIOTIC APPROVAL AND COST. HE MAY NOT BE ABLE TO AFFORD. HE IS REFUSING TO GO TO LTAC. NOW DC WILL BE DELAYED UNTIL SATURDAY. HE HAS ABDOMEN PAIN AND THAT DID NOT IMPROVE AFTER BM FROM [facility] HE IS STABLE. HIS PAIN IS OFF AND ON AND NOT SEVERE BUT HE YELLS AND GETS ANGRY AT TIMES AND AT TIMES HE IS VERY NICE. Physical Examination - Vital Signs Temperature: 97.3 F Blood Pressure: 113/62 Pulse: 85 Respirations: 14 Pulse Ox (%): 97 - Physical Exam General: Oriented x3, Mild distress HEENT: Atraumatic, PERRLA, EOMI Neck: Supple, JVD not distended Respiratory: Clear to auscultation bilaterally, Normal air movement Cardiovascular: Regular rate/rhythm, Normal S1 S2 Gastrointestinal: Normal bowel sounds, No tenderness Musculoskeletal: No tenderness Integumentary: Pressure ulcer (LARGE SACRAL ULCER.) Neurological: Normal speech, Normal tone, Normal affect Lymphatics: No axilla or inguinal lymphadenopathy - Studies Laboratory Data (last 24 hrs) 10/22/22 05:30: Sodium 133 L, Potassium 4.3, BUN 8, Creatinine 0.31 L, Glucose 115 H, Magnesium 1.9 10/22/22 05:30: WBC 8.80, Hgb 8.3 L, Hct 25.7 L, Plt Count 607 H 10/22/22 05:00: Magnesium Cancelled Medications List Reviewed: Yes Assessment And Plan - Current Problems (Diagnosis) (1) Osteomyelitis of sacrum Current Visit: No Status: Chronic Plan: CULTURE THE ULCER AEROBIC AND ANEROBIC IV [facility]. 6 WEEKS OF ABX KCI PUMP AIR MATTRESS. REFER TO LTAC. PROGNOSIS POOR. IV ABX HE DOES NOT WANT LTAC HE WANTS TO GO HOME WITH IV ABX. SW IS AWARE. IV ABX FOR 6 WEEKS OFF LOAD ALL ORDERS GIVEN TO RN IV ABX AT HOME. OFF LOADING AIR MATTRESS AT HOME. (2) Pressure ulcer of sacral region, stage 4 Current Visit: No Status: Acute (3) Paraplegia Current Visit: Yes Status: Chronic Plan: HE FELL FROM ATTIC AT HOME AND IS PARLAYZED SINCE THEN. THIS LEAD TO LARGE BEDSORE HE HAS IN THE SACRUM AND TWO HEEL AREAS. (4) Abdominal pain, diffuse Current Visit: Yes Status: Chronic Plan: HE NEVER TOLD ME WHEN HE CAME IN THE BEGINING. HE MENTIONED LAST NIGHT. ON EXAM HE HAS NO REBOUND OR REGIDITY. I WAS HOPING THIS WILL IMPROVE AFTER SEVERE CONSTIPATION GETS BETTER. HE WILL GET CT SCAN ABDOMEN AND PELVIS TODAY. (5) Anemia Current Visit: Yes Status: Chronic Plan: HE HAS IMPROVED TO 8.4 GM. WILL DO CHILD. THIS CAN BE FROM ANEMIA OF CHRONIC DISEASE LIKE WOUND INFECTION HE HAS.
[2022-10-22] MEDS: TRAZODONE 50 MG TABLET PO SCH (21:00)
[2022-10-22 23:17] VITALS: O2SAT 95
[2022-10-23] MEDS: Meropenem 1,000 MG in NA CHLORIDE 0.9% 100 ML IV SCH ×3 (00:57→14:26)
[2022-10-23 04:55] LABS: Hematocrit 26.8 % (39.6-49.0); Lymphocytes % 22.9 % (15.3-44.8); MCV 79.9 fL (80-100); RBC Red Blood Cell Count 3.36 M/uL (4.33-5.43)
[2022-10-23 05:07] LABS: Potassium 4.2 mmol/L (3.5-5.1)
[2022-10-23] MEDS: METRONIDAZOLE 500mg IVPB 500 MG/100 ML BAG IV SCH ×3 (05:20→17:21)
[2022-10-23] MEDS ORDERED: Meropenem 1000 MG/VIAL IV ONE (08:52)
[2022-10-23] MEDS: MEDIHONEY 44 ML TOPICAL TUBE TOP SCH (09:00)
[2022-10-23] MEDS ORDERED: NA CHLORIDE 0.9% 100 ML ONE (10:16)
[2022-10-23] MEDS: D5 0.9 NS 1,000 ML IV SCH (10:20)
[2022-10-23] MEDS: ENSURE ENLIVE 237 ML CAN PO SCH ×2 (10:23→21:56)
[2022-10-23] MEDS: JUVEN PACKET PO SCH ×2 (10:23→21:00)
--- NOTE | 2022-10-23 12:46 | P.DS ---
Admission Date: 10/17/22 Discharge Date: 10/23/22 Disposition: DC HOME/HOME HEALTH CARE Discharge Condition: SERIOUS Reason for Admission: SACRAL OSTEOMYELITIS - Problems (1) Osteomyelitis of sacrum Current Visit: No Status: Chronic (2) Pressure ulcer of sacral region, stage 4 Current Visit: No Status: Acute (3) Paraplegia Current Visit: Yes Status: Chronic (4) Abdominal pain, diffuse Current Visit: Yes Status: Chronic (5) Anemia Current Visit: Yes Status: Chronic Brief History of Present Illness: [place] PR[place] CAME [place] AFTER HE WAS PARALYZED WAIST DOWN FALLING FROM ROOF OR SO. IN [place] HE DEVELOPED LARGE BEDSORE IN THE BACK AND BOTH HEELS. HE CAME TO [facility]ENTER FIRST TIME A WEEK AGO. I ORDERED MRI OF SPINE AND IT WAS DONE TODAY. HE HAS SACRAL OM AND HAS SEVERE SMELL FROM THE WOUND. HE LIVES WITH WHO HAS DEMENTIA AND NOW HE IS TOTALLY PARALYZED. I DECIDED TO ADMIT HIM AND GIVE 6 WEEKS OF ABX AT LTAC. Hospital Course: HAS DEEP ULCER WITH OSTEOMYELTIS IN SACRUM AND TWO SMALL HEEL ULCERS SINCE HIS STAY IN [place] RECENTLY AFTER HE BROKE HIS SPINE. MRI CONFIRMED ABOVE DIAGNOSIS. I SUSPECT MULTIBACTERIAL ISSUE HERE AND SO I CHOSE MERREM FOR HIS OM. HE IS STABLE FOR DISCHARGE. HE WILL HAVE KCI PUMP, AIR MATTTRESS AND IV ABX FOR 6 WEEKS. [facility] WILL TAKE CARE OF HIM. HIS ABDOMEN PAIN IS LOT BETTER AFTER ADDING FLAGYL FOR COLITIS. HE HAS NO DIARRHEA BUT RATHER CONSTIPATION. Vital Signs/Physical Exam: Temp Pulse Resp BP Pulse Ox 97.2 F 89 16 109/68 94 10/23/22 08:00 10/23/22 08:00 10/23/22 08:00 10/23/22 08:00 10/23/22 08:00 General: Oriented x3, Mild distress, Moderate distress HEENT: Atraumatic, PERRLA, EOMI Neck: Supple, JVD not distended Respiratory: Clear to auscultation bilaterally, Normal air movement Cardiovascular: Regular rate/rhythm, Normal S1 S2 Gastrointestinal: Normal bowel sounds, No tenderness Musculoskeletal: No tenderness Integumentary: No rashes, Pressure ulcer (LARGE DECUBITUS ULCER.) Neurological: Normal speech, Normal tone, Normal affect Lymphatics: No axilla or inguinal lymphadenopathy Laboratory Data at Discharge: WBC 8.90 K/uL (4.3-10.9) 10/23/22 04:23 Hgb 8.7 g/dL (13.6-17.9) L 10/23/22 04:23 Hct 26.8 % (39.6-49.0) L 10/23/22 04:23 Plt Count 636 K/uL (152-406) H 10/23/22 04:23 PT 13.5 SECONDS (9.5-12.5) H 10/17/22 16:23 INR 1.23 10/17/22 16:23 APTT 30.7 SECONDS (24.3-36.9) 10/17/22 16:23 Sodium 133 mmol/L (136-145) L 10/23/22 04:23 Potassium 4.2 mmol/L (3.5-5.1) 10/23/22 04:23 BUN 9 mg/dL (7-18) 10/23/22 04:23 Creatinine 0.33 mg/dL (0.70-1.30) L 10/23/22 04:23 Glucose 120 mg/dL (74-106) H 10/23/22 04:23 Phosphorus 2.9 mg/dL (2.5-4.9) 10/18/22 17:14 Magnesium 1.9 mg/dL (1.6-2.4) 10/22/22 05:30 Home Medications: Gabapentin 300 mg PO TID 10/23/22 Medihoney [Medihoney Woundcare Gel*] 1 appl TOP DAILY tube 10/23/22 Trazodone [Desyrel*] 50 mg PO BEDTIME #90 10/23/22 New Medications: Trazodone [Desyrel*] 50 mg PO BEDTIME #90
[2022-10-23] MEDS: ENOXAPARIN 40 MG/0.4 ML SQ SCH (17:23)
[2022-10-23] MEDS: TRAZODONE 50 MG TABLET PO SCH (21:55)
[2022-10-24] MEDS: METRONIDAZOLE 500mg IVPB 500 MG/100 ML BAG IV SCH ×3 (00:13→14:33)
[2022-10-24] MEDS: D5 0.9 NS 1,000 ML IV SCH ×2 (00:40→04:46)
[2022-10-24] MEDS: Meropenem 1,000 MG in NA CHLORIDE 0.9% 100 ML IV SCH ×2 (00:43→09:48)
[2022-10-24 05:15] LABS: Absolute Lymphocytes (CBC) 1.9 K/uL (0.7-4.9); Hematocrit 26.3 % (39.6-49.0); Lymphocytes % 23.9 % (15.3-44.8); MCV 79.3 fL (80-100); MPV 6.6 fL (7.6-11.3); RBC Red Blood Cell Count 3.31 M/uL (4.33-5.43)
[2022-10-24] MEDS: JUVEN PACKET PO SCH (09:00)
[2022-10-24] MEDS ORDERED: NA CHLORIDE 0.9% 100 ML ONE (09:39)
[2022-10-24] MEDS ORDERED: Meropenem 1000 MG/VIAL IV ONE (09:39)
[2022-10-24] MEDS: ENSURE ENLIVE 237 ML CAN PO SCH (09:48)
[2022-10-24] MEDS: MEDIHONEY 44 ML TOPICAL TUBE TOP SCH (11:46)
[2022-10-24 13:12] VITALS: BP 102/60; TEMP 98.1
[2022-10-24 17:27] LABS: Albumin, (SPE) 2.2 g/dL (3.8-4.8); Alpha-1-Globulins 0.6 g/dL (0.2-0.3); Gamma Globulins 1.7 g/dL (0.8-1.7); INTERPRETATION REPORT
== END 2022-10-24 15:50 | disposition home health service (06) | DRG 539 ==
LOC: 2ND 14:13 → UNDODISIN 10-19 15:18
PROVIDERS: ADMIT Internal Medicine; ATTEND Internal Medicine
PROC: 02HV33Z Insertion of Infusion Device into Superior Vena Cava, Percutaneous Approach (ICD-10-PCS; principal; 2022-10-17)
DX: M86.8X8 Other osteomyelitis, other site (principal); L89.154 Pressure ulcer of sacral region, stage 4; E44.1 Mild protein-calorie malnutrition; G82.21 Paraplegia, complete; D63.1 Anemia in chronic kidney disease; K59.00 Constipation, unspecified; B96.4 Proteus (mirabilis) (morganii) as the cause of diseases classified elsewhere; Z68.21 Body mass index [BMI] 21.0-21.9, adult; Z74.01 Bed confinement status; Z79.899 Other long term (current) drug therapy
CPT/HCPCS: 36415; 71045; 72195; 74177; 80048; 81001; 82607; 82728; 82747; 83540; 83735; 84100; 84165; 84466; 85025; 85044; 85610; 85730; 86140; 87070; 87077; 87186; 87205; 99215; J1170; J1650; J2185; J3475; J3590; J7042; Q9967; U0003

== ENCOUNTER 2023-01-17 14:03 | Observation (INO) | payer OTHER ==
--- OUTSIDE RECORDS SUMMARY | 2023-01-17 14:07 | XMS REPORT | Continuity of Care Document ---
:1945 Author Organization [facility] t Address [address] [place] [address] [place] [id number] Care Team Providers Name Role Phone No, Pcp [facility] Primary Care Physician Unavailable ARIS ORTIZ Attending Clinician Unavailable HARISH SUMMERS Attending Clinician Unavailable Radha Art Attending Clinician Unavailable Jimmy Mcgill Attending Clinician Payers Payer Name Policy Type Policy Number Effective Date Expiration Date S bran [employer] MEDICARE [id number] 2019 ADVANTAGE HMO 00:00:00 Problems Condition Condition Condition Status Onset Resolution Last Treating Co mments Source Name Details Category Date Date Treatment Clinician Date BILATERAL BILATERAL Diagnosis Active 2013-12-07 Memoria INCISIONAL INCISIONAL 3-03 09:07:00 l HERNIA HERNIA 00:00: [place] Active 00 11/30/2013 [facility] Injury of Injury of Problem Resolve 2013-12-09 Memoria kidney kidney d 21:08:07 l without without [place] open wound open wound into into abdominal abdominal cavity cavity (disorder) (disorder) Resolved Problem 12/09/2013 [facility] OBSTR OBSTR Diagnosis Active 2013-12-07 Mem oria INCISIONAL INCISIONAL 09:07:00 l HERNIA HERNIA [place] Active [facility] Allergies, Adverse Reactions, Alerts Allergy Allergy Status Severity Reaction(s) Onset Inactive Treating Comm ents Source Name Type Date Date Clinician Morphine Propensi Active Nausea And 2019-[address] [facility] adverse [facility]: Medical reaction 00 Center s morphine morphine Active Jose a arelis Chapman Social History Social Habit Start Date Stop Date Quantity Comments Source History SDOH [facility] Alcohol Std Drinks [facility] History SDOH [facility] Alcohol Binge Medical [facility] History SDOH [facility] Alcohol Comment Medical C enter Alcohol intake 2019-02-10 2019-02-10 [facility]er [facility] Center (finding) History SDOH 2019-02-10 2019-02-[address] [facility] Alcohol Frequency 00:00:00 00:00:00 Medical Center Tobacco Comment 2019-02-10 2019-02-10 had use marijuana [facility] before [facility] Tobacco use and 2019-02-10 2019-02-[address] [facility] exposure 00:00:00 00:00:00 Medical Center Social History 2013-11-30 2013-11-30 [facility] 18:01:34 18:01:34 Sex Assigned At [address] [facility] 00:[facility]00 [facility]00 [facility] Center Smoking Status Start Date Stop Date Source Never smoker [facility] Medications Ordered Filled Start Stop Current [...] as Medical 19 needed for Center Pain. zolpidem Yes 10mg Take 10 mg [facility] [...] 01/06/14 11:50:00(S sanjiv as: Zofran) Demerol HCl 2013- No 75 mg, 1.5 Memoria 3-10 mL, Route: l 16:51: IM, Drug [place] 00 form: SOLN, Q3H, Dosing Weight 77.8, kg, PRN Pain, Start date: 12/07/13 11:51:00, Duration: 4 day, Stop date: 12/11/13 11:50:00Sa me as: Demerol "Use Precaution in Elderly, Seizure disorders, and Renal impairment " Morphine No 1 mg, 0.5 [facility] [place] carmen 3-10 mL, Route: l 16:51: IVP, Drug [place] 00 form: INJ, Q2H, Dosing Weight 77.8, kg, PRN Pain, Start date: 12/07/13 11:51:00, Duration: 30 day, Stop date: 01/06/14 11:50:00(S sanjiv as:MORPhin e Sulfate) Phenergan 2013- No 25 mg, 1 [facility] [place] carmen 3-10 mL, Route: l 16:51: IM, Drug [place] 00 form: INJ, Q3H, Dosing Weight 77.8, kg, PRN Nausea, Start date: 12/07/13 11:51:00, Duration: 30 day, Stop date: 01/06/14 11:50:00, to be given with DemerolDo not give IV push. (Same as: Phenergan) Ketorolac 2013-0 No 30 mg, Memori a 3-10 Route: IV, l 16:51: Drug form: Ari 00 INJ, ONCE, Dosing Weight 77.8, kg, Start date: 12/07/13 11:51:00, Duration: 1 doses or times, Stop date: 12/07/13 11:51:00 Zofran 2013-0 No 4 mg, 2 Memoria 3-10 mL, Route: l 16:51: IVP, Drug [place] 00 form: INJ, Q4H, Dosing Weight 77.8, kg, [...] Seizure disorders, and Renal impairment " Morphine No 1 mg, 0.5 [facility] maria [place] carmen 3-10 mL, Route: l 16:51: IVP, Drug form: INJ, Q2H, Dosing Weight 77.8, kg, PRN Pain, Start date: 12/07/13 11:51:00, Duration: 30 day, Stop date: 01/06/14 11:50:00(S sanjiv as:MORPhin e Sulfate) Phenergan No 25 mg, 1 [facility] [place] [place] carmen 3-10 mL, Route: l 16:51: IM, Drug form: INJ, Q3H, Dosing Weight 77.8, kg, PRN Nausea, Start date: 12/07/13 11:51:00, Duration: 30 day, Stop date: 01/06/14 11:50:00, to be given with DemerolDo not give IV push. (Same as: Phenergan) Ketorolac No 30 mg, Memori a 3-10 Route: IV, l 16:51: Drug form: Ari 00 INJ, ONCE, Dosing Weight 77.8, kg, Start date: 12/07/13 11:51:00, Duration: 1 doses or times, Stop date: 12/07/13 11:51:00 Naloxone No 0.04 mg, Memor ia 3-10 0.1 mL, l 15:03: Route: Ari 00 IVP, Drug form: INJ, Q2MIN, Dosing Weight [...] Apresoline ) Push over 5 minutes Calcium 2014-0 No 1,000 mL, Memor ia Chloride 3-10 Rate: 125 l 0.0014 15:03: ml/hr, MEQ/ML / 00 Infuse Potassium over: 8 Chloride hr, Route: 0.004 IV, Dosing MEQ/ML / Weight Sodium 77.8 kg, Chloride Total 0.103 Volume: MEQ/ML / 1,000, Sodium Start Lactate date: 0.028 12/07/13 MEQ/ML 10:03:00, Injectable Duration: Solution 30 day, Stop date: 01/06/14 10:02:00 Naloxone 2013-0 No 0.04 mg, Memor ia 3-10 0.1 mL, l 15:03: Route: IVP, Drug form: INJ, Q2MIN, Dosing Weight 77.8, kg, PRN Narcotic Reversal, Start date: 12/07/13 10:03:00, Duration: 8 doses or times, Stop date: Limited # of times(Same as: Narcan) Flumazenil 2013-0 No 0.2 mg, 2 Me moria 3-10 [...] en 3-10 100 mL, l 15:03: Route: Ari 00 IVPB, Drug form: INJ, ONCE, Dosing Weight 77.8, kg, PRN Pain Score 1-3, Start date: 12/07/13 10:03:00, Duration: 1 doses or times, Stop date: Limited # of timesInfus e over 15 minutes Do not exceed 4gm/day of acetaminop hen Ondansetron 2014-0 No 4 mg, 2 Mem oria 3-10 mL, Route: l 15:03: IVP, Drug form: INJ, ONCE, Dosing Weight 77.8, kg, PRN Nausea & Vomiting, Start date: 12/07/13 10:03:00(S sanjiv as: Zofran) Hydralazine 2014-0 No 10 mg, 0.5 Memoria 3-10 mL, Route: l 15:03: IVP, Drug form: INJ, Q20Min, Dosing Weight 77.8, kg, PRN Elevated BP, Start date: 12/07/13 10:03:00, Duration: 2 doses or times, Stop date: Limited # of times(Same as: Apresoline ) Push over 5 minutes Calcium 2014-0 No 1,000 mL, Memor ia Chloride 3-10 Rate: 125 l 0.0014 15:03: ml/hr, [place] MEQ/ML / 00 Infuse Potassium over: 8 Chloride hr, Route: 0.004 IV, Dosing MEQ/ML / Weight Sodium 77.8 kg, Chloride Total 0.103 Volume: MEQ/ML / 1,000, Sodium Start Lactate date: 0.028 12/07/13 MEQ/ML 10:03:00, Injectable Duration: Solution 30 day, Stop date: 01/06/14 10:02:00 Calcium 2014-0 No 1,000 mL, Memor ia Chloride 3-10 Rate: 25 l 0.0014 15:02: ml/hr, [place] MEQ/ML / 00 Infuse Potassium over: 40 Chloride hr, Route: 0.004 IV, Dosing MEQ/ML / Weight Sodium 77.8 kg, Chloride Total 0.103 Volume: MEQ/ML / 1,000, Sodium Start Lactate date: 0.028 12/07/13 MEQ/ML 10:02:00, Injectable Duration: Solution 30 day, Stop date: 01/06/14 10:01:00 Calcium 2014-0 No 1,000 mL, Memor ia Chloride 3-10 Rate: 25 l 0.0014 15:02: ml/hr, Ari MEQ/ML / 00 Infuse Potassium over: 40 Chloride hr, Route: 0.004 IV, Dosing MEQ/ML / Weight Sodium 77.8 kg, Chloride Total 0.103 Volume: MEQ/ML / 1,000, Sodium Start Lactate date: 0.028 12/07/13 MEQ/ML 10:02:00, Injectable Duration: Solution 30 day, Stop date: 01/06/14 10:01:00 Vital Signs Vital Name Observation Time Observation Value Comments Source Systolic (mm Hg) 2013-12-07 17:45:00 [employer] rial [place] Diastolic (mm Hg) 2013-12-07 17:45:00 Mem orial Ari Respitory Rate 2013-12-07 17:45:00 Memori al [place] Diastolic (mm Hg) 2013-12-07 17:30:00 Mem orial [place] Systolic (mm Hg) 2013-12-07 17:30:00 [employer] rial [place] Respitory Rate 2013-12-07 17:30:00 Memori al [place] Respitory Rate 2013-12-07 17:15:00 Memori al [place] Diastolic (mm Hg) 2013-12-07 17:15:00 Mem orial [place] Systolic (mm Hg) 2013-12-07 17:15:00 [employer] rial [place] Heart Rate 2013-12-07 14:25:00 [facility] [place] BMI Calculated 2013-12-01 17:57:00 Memori al Ari Weight 2013-12-01 17:57:00 [facility] [place] Height 2013-12-01 17:57:00 177.8 cm [facility] [place] Heart Rate 2013-11-30 17:43:00 [facility] [place] Weight 2013-11-30 17:37:00 [facility] [place] Height 2013-11-30 17:37:00 177.8 cm [facility] [place] BMI Calculated 2013-11-30 17:37:00 Memori al [place] Procedures Procedure Date / Time Performed Performing Clinician Kaylee e Nephrectomy [facility] [place] Encounters Start End Encounter Admission Attending Care Care Encounter Source Date/Time Date/Time Type Type Clinicians Facility Department ID 2022-10-10 Outpatient [facility] [id number] [place] 07:55:04 [id number] Health 2022-09-06 Outpatient [facility] [id number] [place] 06:09:48 [id number] [facility] 2022-08-15 Outpatient [facility] [id number] [place] 17:56:14 [id number] [facility] 2022-08-10 Outpatient [facility] [id number] [place] 08:47:10 [id number] [facility] 2022-07-23 Outpatient [facility] [id number] [place] 12:26:07 [id number] [facility] 2022-07-19 Outpatient [facility] [id number] [place] 14:19:15 [id number] [facility] 2022-07-04 Outpatient [facility] [id number] [place] 14:50:47 [id number] [facility] 2022-10-11 2022-10-11 [id number] [place] 14:00:00 14:00:00 Catarina COUCH ARIS 2022-06-30 2022-06-30 [facility] [id number] [place] 12:30:00 12:30:00 HARISH Velasco [facility] 2013-12-07 2013-12-07 OBS Day nullFlavo [facility] [id number] Memoria 14:07:00 18:45:00 Surgery r [place] [id number] l [address] 2013-12-07 2013-12-07 [facility] [id number] Memoria 14:07:00 18:45:00 Surgery r [place] [id number] l [address] 2013-12-07 2013-12-07 Outpatient Artem [id number] 09:07:00 13:45:00 Jimmy [id number] Alfredo [id number] Results Test Description Test Time Test Comments Results Result [facility] e Comments U/S, NECK 2019-02-10 Reason for FINAL REPORT PATIENT ID: 14:36:00 Exam:->R22.1 [id number] INDICATION:Right neck mass. Request for image guided [...] MDReport Verified Date/Time: 02/10/2019 14:36:41 Reading Location: [address] Ultrasound Reading Room NECK SOFT TIS 2019-01-20 CLINICAL INDICATION: WO 09:06:13 R22.1 Localized swelling, mass and lump, neckMODALITY: [employer] [address] (Iterative dose reduction technique [...] ABO/Rh (test code = ABO/Rh) A POS [facility] [id number] 15:05:00 Test Item Value Reference Range Interpretation Comments Antibody Scrn (test Negative (12/07/2013 code = Antibody Scrn) 10:05:00 [place]/[place]) [facility] [id number] 15:05:00 Test Item Value Reference Range Interpretation Comments ABO/Rh (test code = ABO/Rh) A POS [facility] b[employer] BANK [id number] 15:05:00 Test Item Value Reference Range Interpretation Comments Antibody Scrn (test Negative (12/07/2013 code = Antibody Scrn) 10:05:00 [place]) [facility] [employer] BANK [id number] 17:50:00 Test Item Value Reference Range Interpretation Comments Antibody Scrn (test Negative (12/01/2013 code = Antibody Scrn) 11:50:00 [place]) [facility] [employer] BANK [id number] 17:50:00 Test Item Value Reference Range Interpretation Comments ABO/Rh (test code = ABO/Rh) A POS [facility] [id number] 17:50:00 Test Item Value Reference Range Interpretation Comments Antibody Scrn (test Negative (12/01/2013 code = Antibody Scrn) 11:50:00 [facility] [id number] 17:50:00 Test Item Value Reference Range Interpretation Comments ABO/Rh (test code = ABO/Rh) A POS [facility] [employer] [id number] 17:15:00 Test Item Value Reference Range Interpretation Comments ALANINE AMINOTRANSFERASE 20 See_Comment [A utomated message] (test code = ALANINE The sys tem which AMINOTRANSFERASE) generated this result transmitted ref erence range: <=65. Th e reference range was not used to int erpret this result as normal/abnormal . [facility] [employer] [id number] 17:15:00 Test Item Value Reference Range Interpretation Comments Albumin Lvl (test code = Albumin Lvl) 3.9 3.5-5.0 [facility] [id number] 17:15:00 Test Item Value Reference Range Interpretation Comments Alk Phos (test code = Alk Phos) 47 39-136 [facility] [id number] 17:15:00 Test Item Value Reference Range Interpretation Comments Bili Direct (test code 0.1 See_Comment [Aut omated message] The = Bili Direct) system which generated this result tra nsmitted reference range : <=0.3. The reference r tyrese was not used to int erpret this result as wilfrid l/abnormal. [facility] [employer] [id number] 17:15:00 Test Item Value Reference Range Interpretation Comments Total Protein (test code = Total 8.3 6.4-8.4 Protein) [facility] [id number] 17:15:00 Test Item Value Reference Range Interpretation Comments Bili Total (test code = Bili Total) 0.4 0.2-1.3 [facility] [employer] [id number] 17:15:00 Test Item Value Reference Range Interpretation Comments ASPARTATE TRANSAMINASE 39 See_Comment [Aut omated message] (test code = ASPARTATE The s ystem which TRANSAMINASE) generated this result transmitted ref erence range: <=37. Th e reference range was not used to interpr et this result as normal/abnormal . [facility]2014-03-03 17:15:00 Test Item Value Reference Range Interpretation Comments Globulin (test code = Globulin) 4.4 2.0-4.0 [facility]2014-03-03 17:15:00 Test Item Value Reference Range Interpretation Comments A/G Ratio (test code = A/G Ratio) 0.9 0.7-1.6 [place] [id number] 17:15:00 Test Item Value Reference Range Interpretation Comments Bili Indirect (test 0.3 See_Comment [Automa jeffry message] The code = Bili Indirect) system which generated this result tra nsmitted reference range : <=1.0. The reference r tyrese was not used to int erpret this result as normal/abnormal . [facility]2014-03-03 17:15:00 Test Item Value Reference Range Interpretation Comments Calcium Lvl (test code = Calcium Lvl) 9.3 8.5-10.5 [facility]2014-03-03 17:15:00 Test Item Value Reference Range Interpretation Comments eGFR (test code = eGFR) 62 [facility]2014-03-03 17:15:00 Test Item Value Reference Range Interpretation Comments Creatinine Lvl (test code = Creatinine 1.2 0.5-1.4 Lvl) [facility]2014-03-03 17:15:00 Test Item Value Reference Range Interpretation Comments BUN (test code = BUN) 21 7-22 [facility]2014-03-03 17:15:00 Test Item Value Reference Range Interpretation Comments Glucose Lvl (test code = Glucose Lvl) 94 70-99 [id number] 17:15:00 Test Item Value Reference Range Interpretation Comments AGAP (test code = AGAP) 10.8 10.0-20.0 [facility] R[id number] 17:15:00 Test Item Value Reference Range Interpretation Comments Sodium Lvl (test code = Sodium Lvl) 138 135-145 [facility] R[id number] 17:15:00 Test Item Value Reference Range Interpretation Comments Potassium Lvl (test code = Potassium 4.8 3.5-5.1 Lvl) [place] [id number] 17:15:00 Test Item Value Reference Range Interpretation Comments CO2 (test code = CO2) 28 24-32 [facility]er[id number] 17:15:00 Test Item Value Reference Range Interpretation Comments Chloride Lvl (test code = Chloride Lvl) 104 95-109 [facility] [id number] 17:15:00 Test Item Value Reference Range Interpretation Comments MPV (test code = MPV) 7.7 7.4-10.4 [facility] [id number] 17:15:00 Test Item Value Reference Range Interpretation Comments RBC X 10x6 (test code = RBC X 10x6) 4.29 4.70-6.10 [facility] [id number] 17:15:00 Test Item Value Reference Range Interpretation Comments Hgb (test code = Hgb) 14.4 14.0-18.0 [facility] [id number] 17:15:00 Test Item Value Reference Range Interpretation Comments MCHC (test code = MCHC) 34.3 32.0-36.0 [facility] [id number] 17:15:00 Test Item Value Reference Range Interpretation Comments Hct (test code = Hct) 42.0 42.0-54.0 [facility] I[id number] 17:15:00 Test Item Value Reference Range Interpretation Comments RDW (test code = RDW) 14.0 11.5-14.5 [facility] [id number] 17:15:00 Test Item Value Reference Range Interpretation Comments Platelet (test code = Platelet) 270 133-450 [facility] [id number] 17:15:00 Test Item Value Reference Range Interpretation Comments MCV (test code = MCV) 97.9 80.0-94.0 [facility] [id number] 17:15:00 Test Item Value Reference Range Interpretation Comments MCH (test code = MCH) 33.6 pg 27.0-31.0 [facility] [id number] 17:15:00 Test Item Value Reference Range Interpretation Comments WBC X 10x3 (test code = WBC X 10x3) 5.3 3.7-10.4 [facility] [id number] 17:15:00 Test Item Value Reference Range Interpretation Comments INR (test code = INR) 0.92 0.85-1.17 [facility] [id number] 17:15:00 Test Item Value Reference Range Interpretation Comments aPTT (test code = aPTT) 28.2 s 22.9-35.8 [facility] [id number] 17:15:00 Test Item Value Reference Range Interpretation Comments PROTIME (test code = PROTIME) 12.3 s 12.0-14.7 [facility] [id number] 17:15:00 Test Item Value Reference Range Interpretation Comments Eosinophils # (test code 0.2 See_Comment [A utomated message] The = Eosinophils #) system whic h generated this result tra nsmitted reference range : <=0.5. The reference r tyrese was not used to int erpret this result as normal/abnormal . [facility] [id number] 17:15:00 Test Item Value Reference Range Interpretation Comments Basophils # (test code 0.0 See_Comment [Aut omated message] The = Basophils #) system which generated this result tra nsmitted reference range : <=0.2. The reference r tyrese was not used to int erpret this result as normal/abnormal . [facility] [id number] 17:15:00 Test Item Value Reference Range Interpretation Comments Monocytes # (test code 0.6 See_Comment [Aut omated message] The = Monocytes #) system which generated this result tra nsmitted reference range : <=0.8. The reference r tyrese was not used to int erpret this result as normal/abnormal . [facility] [id number] 17:15:00 Test Item Value Reference Range Interpretation Comments Lymphocytes # (test code = Lymphocytes 1.3 1.0-5.5 #) [facility] [id number] 17:15:00 Test Item Value Reference Range Interpretation Comments Segs-Bands # (test code = Segs-Bands #) 3.2 1.5-8.1 [facility] [id number] 17:15:00 Test Item Value Reference Range Interpretation Comments Basophils (test code = 0.2 See_Comment [Aut omated message] The Basophils) system which ge nerated this result tra nsmitted reference range : <=1.0. The reference r tyrese was not used to int erpret this result as normal/abnormal . [facility] [id number] 17:15:00 Test Item Value Reference Range Interpretation Comments Eosinophils (test code = 4.0 See_Comment [A utomated message] The Eosinophils) system which ge nerated this result tra nsmitted reference range : <=4.0. The reference r tyrese was not used to int erpret this result as normal/abnormal . [facility] [id number] 17:15:00 Test Item Value Reference Range Interpretation Comments Monocytes (test code = Monocytes) 11.1 2.0-12.0 [facility] [id number] 17:15:00 Test Item Value Reference Range Interpretation Comments Lymphocytes (test code = Lymphocytes) 24.0 20.0-40.0 [facility] [id number] 17:15:00 Test Item Value Reference Range Interpretation Comments Segs (test code = Segs) 60.7 45.0-75.0 [facility]2014-03-03 17:15:00 Test Item Value Reference Range Interpretation Comments ALANINE AMINOTRANSFERASE 20 See_Comment [A utomated message] (test code = ALANINE The sys tem which AMINOTRANSFERASE) generated this result transmitted ref erence range: <=65. Th e reference range was not used to int erpret this result as normal/abnormal . [facility]2014-03-03 17:15:00 Test Item Value Reference Range Interpretation Comments Albumin Lvl (test code = Albumin Lvl) 3.9 3.5-5.0 [facility]2014-03-03 17:15:00 Test Item Value Reference Range Interpretation Comments Alk Phos (test code = Alk Phos) 47 39-136 [facility]2014-03-03 17:15:00 Test Item Value Reference Range Interpretation Comments Bili Direct (test code 0.1 See_Comment [Aut omated message] The = Bili Direct) system which generated this result tra nsmitted reference range : <=0.3. The reference r tyrese was not used to int erpret this result as wilfrid l/abnormal. [facility]2014-03-03 17:15:00 Test Item Value Reference Range Interpretation Comments Total Protein (test code = Total 8.3 6.4-8.4 Protein) [facility]2014-03-03 17:15:00 Test Item Value Reference Range Interpretation Comments Bili Total (test code = Bili Total) 0.4 0.2-1.3 [place] [id number] 17:15:00 Test Item Value Reference Range Interpretation Comments ASPARTATE TRANSAMINASE 39 See_Comment [Aut omated message] (test code = ASPARTATE The s ystem which TRANSAMINASE) generated this result transmitted ref erence range: <=37. Th e reference range was not used to interpr et this result as normal/abnormal . [facility]2014-03-03 17:15:00 Test Item Value Reference Range Interpretation Comments Globulin (test code = Globulin) 4.4 2.0-4.0 [facility]2014-03-03 17:15:00 Test Item Value Reference Range Interpretation Comments A/G Ratio (test code = A/G Ratio) 0.9 0.7-1.6 [place] [id number] 17:15:00 Test Item Value Reference Range Interpretation Comments Bili Indirect (test 0.3 See_Comment [Automa jeffry message] The code = Bili Indirect) system which generated this result tra nsmitted reference range : <=1.0. The reference r tyrese was not used to int erpret this result as normal/abnormal . [facility]2014-03-03 17:15:00 Test Item Value Reference Range Interpretation Comments Calcium Lvl (test code = Calcium Lvl) 9.3 8.5-10.5 [facility]2014-03-03 17:15:00 Test Item Value Reference Range Interpretation Comments eGFR (test code = eGFR) 62 [facility]2014-03-03 17:15:00 Test Item Value Reference Range Interpretation Comments Creatinine Lvl (test code = Creatinine 1.2 0.5-1.4 Lvl) [facility]2014-03-03 17:15:00 Test Item Value Reference Range Interpretation Comments BUN (test code = BUN) 21 7-22 [facility]2014-03-03 17:15:00 Test Item Value Reference Range Interpretation Comments Glucose Lvl (test code = Glucose Lvl) 94 70-99 [id number] 17:15:00 Test Item Value Reference Range Interpretation Comments AGAP (test code = AGAP) 10.8 10.0-20.0 [id number] 17:15:00 Test Item Value Reference Range Interpretation Comments Sodium Lvl (test code = Sodium Lvl) 138 135-145 [facility] R[id number] 17:15:00 Test Item Value Reference Range Interpretation Comments Potassium Lvl (test code = Potassium 4.8 3.5-5.1 Lvl) [facility] Re[id number] 17:15:00 Test Item Value Reference Range Interpretation Comments CO2 (test code = CO2) 28 24-32 [facility] R[id number] 17:15:00 Test Item Value Reference Range Interpretation Comments Chloride Lvl (test code = Chloride Lvl) 104 95-109 [id number] 17:15:00 Test Item Value Reference Range Interpretation Comments MPV (test code = MPV) 7.7 7.4-10.4 [facility] [id number] 17:15:00 Test Item Value Reference Range Interpretation Comments RBC X 10x6 (test code = RBC X 10x6) 4.29 4.70-6.10 [facility] [id number] 17:15:00 Test Item Value Reference Range Interpretation Comments Hgb (test code = Hgb) 14.4 14.0-18.0 [facility] [id number] 17:15:00 Test Item Value Reference Range Interpretation Comments MCHC (test code = MCHC) 34.3 32.0-36.0 [facility] [id number] 17:15:00 Test Item Value Reference Range Interpretation Comments Hct (test code = Hct) 42.0 42.0-54.0 [facility] [id number] 17:15:00 Test Item Value Reference Range Interpretation Comments RDW (test code = RDW) 14.0 11.5-14.5 [facility] [id number] 17:15:00 Test Item Value Reference Range Interpretation Comments Platelet (test code = Platelet) 270 133-450 [facility] [id number] 17:15:00 Test Item Value Reference Range Interpretation Comments MCV (test code = MCV) 97.9 80.0-94.0 [facility] [id number] 17:15:00 Test Item Value Reference Range Interpretation Comments MCH (test code = MCH) 33.6 pg 27.0-31.0 [facility] [id number] 17:15:00 Test Item Value Reference Range Interpretation Comments WBC X 10x3 (test code = WBC X 10x3) 5.3 3.7-10.4 [facility] [id number] 17:15:00 Test Item Value Reference Range Interpretation Comments INR (test code = INR) 0.92 0.85-1.17 [facility] [id number] 17:15:00 Test Item Value Reference Range Interpretation Comments aPTT (test code = aPTT) 28.2 s 22.9-35.8 [facility] [id number] 17:15:00 Test Item Value Reference Range Interpretation Comments PROTIME (test code = PROTIME) 12.3 s 12.0-14.7 [facility] [id number] 17:15:00 Test Item Value Reference Range Interpretation Comments Eosinophils # (test code 0.2 See_Comment [A utomated message] The = Eosinophils #) system whic h generated this result tra nsmitted reference range : <=0.5. The reference r tyrese was not used to int erpret this result as normal/abnormal . [facility] [id number] 17:15:00 Test Item Value Reference Range Interpretation Comments Basophils # (test code 0.0 See_Comment [Aut omated message] The = Basophils #) system which generated this result tra nsmitted reference range : <=0.2. The reference r tyrese was not used to int erpret this result as normal/abnormal . [facility] [id number] 17:15:00 Test Item Value Reference Range Interpretation Comments Monocytes # (test code 0.6 See_Comment [Aut omated message] The = Monocytes #) system which generated this result tra nsmitted reference range : <=0.8. The reference r tyrese was not used to int erpret this result as normal/abnormal . [facility] [id number] 17:15:00 Test Item Value Reference Range Interpretation Comments Lymphocytes # (test code = Lymphocytes 1.3 1.0-5.5 #) [facility] [id number] 17:15:00 Test Item Value Reference Range Interpretation Comments Segs-Bands # (test code = Segs-Bands #) 3.2 1.5-8.1 [facility] [id number] 17:15:00 Test Item Value Reference Range Interpretation Comments Basophils (test code = 0.2 See_Comment [Aut omated message] The Basophils) system which ge nerated this result tra nsmitted reference range : <=1.0. The reference r tyrese was not used to int erpret this result as normal/abnormal . [facility] [id number] 17:15:00 Test Item Value Reference Range Interpretation Comments Eosinophils (test code = 4.0 See_Comment [A utomated message] The Eosinophils) system which ge nerated this result tra nsmitted reference range : <=4.0. The reference r tyrese was not used to int erpret this result as normal/abnormal . [facility] [id number] 17:15:00 Test Item Value Reference Range Interpretation Comments Monocytes (test code = Monocytes) 11.1 2.0-12.0 [facility] [id number] 17:15:00 Test Item Value Reference Range Interpretation Comments Lymphocytes (test code = Lymphocytes) 24.0 20.0-40.0 [facility] [id number] 17:15:00 Test Item Value Reference Range Interpretation Comments Segs (test code = Segs) 60.7 45.0-75.0 [facility]
[2023-01-17 15:31] LABS: Absolute Lymphocytes (CBC) 1.9 K/uL (0.7-4.9); Hematocrit 30.1 % (39.6-49.0); Lymphocytes % 21.8 % (15.3-44.8); MPV 7.1 fL (7.6-11.3); RBC Red Blood Cell Count 3.71 M/uL (4.33-5.43)
[2023-01-17] MEDS ORDERED: ACETAMINOPHEN 500 MG TAB ONE (15:36)
[2023-01-17 15:40] LABS: Protime INR 1.17
--- NOTE | 2023-01-17 15:46 | RAD REPORT ---
EXAM DESCRIPTION: RAD - Foot Right 3 View - 01/17/2023 3:34 pm CLINICAL HISTORY: Right foot pain FINDINGS: A screw has been placed into the calcaneus. Left ankle prosthesis in place Ulceration posterior hindfoot. 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
[2023-01-17 15:48] LABS: AST/SGOT 16 U/L (15-37); Albumin 2.6 g/dL (3.4-5.0); Alkaline Phosphatase 97 U/L (45-117); BUN Blood Urea Nitrogen 21 mg/dL (7-18); Bicarbonate 26 mEq/L (21-32); Bilirubin Total 0.2 mg/dL (0.2-1.0); Glomerular Filtration Rate 106 ml/min (=/>90); Glucose Level 182 mg/dL (74-106); Potassium 3.5 mEq/L (3.5-5.1); Protein, Total 8.6 g/dL (6.4-8.2); Sodium Level 131 mEq/L (136-145)
[2023-01-17 15:49] LABS: ALT/SGPT < 10 U/L (16-61)
--- NOTE | 2023-01-17 15:53 | RAD REPORT ---
EXAM DESCRIPTION: Paige Single View01/17/2023 3:34 pm CLINICAL HISTORY: Leukopenia COMPARISON: September 2022 FINDINGS: The right basilar opacity partially resolved presumably atelectasis Remaining lungs appear clear Heart is normal size IMPRESSION: No acute abnormalities displayed
[2023-01-17] MEDS ORDERED: ASPIRIN EC 325 MG TABLET PO ONE (15:59)
--- NOTE | 2023-01-17 16:25 | EDPHYS ---
Physician Documentation [facility] Name: Jatinder Garner Age: 77 yrs Sex: Male : 1945 Arrival Date: 01/17/2023 Time: 14:03 Bed 17 Private MD: Nadir Harper V ED Physician Dereck Tran HPI: 01/17 15:09 This 77 yrs old Male presents to ER via Wheelchair with complaints of Abnormal Lab rt Results. 15:09 Patient with history of paraplegia, wounds to the sacrum and right heel presents to the rt ED with reported low white cell counts and anemia on outpatient labs that were drawn today. Patient does not know which levels these were. The patient has had ongoing issues with a wound to the sacrum for which she has a wound VAC, his caregiver states that that is improving, however, the wound on his right heel continues to worsen. They deny other acute complaints at this time, patient states that he feels well otherwise. Symptoms are moderate in severity, no other aggravating or alleviating factors.. Historical: - Allergies: 14:24 No Known Allergies; iw - Home Meds: 14:24 Trazodone Oral [Active]; Cipro Oral [Active]; iw 14:26 Tramadol Oral [Active]; iw - PMHx: 14:26 paraplegic; iw - PSHx: 14:26 spinal injury; iw 14:28 kidney removed, s/p fall; iw - Immunization history:: Adult Immunizations up to date. - Family history:: not pertinent. - Social history:: Smoking status: unknown. ROS: 15:09 Constitutional: Negative for fever, chills, and weight loss, Cardiovascular: Negative rt for chest pain, palpitations, and edema, Respiratory: Negative for shortness of breath, cough, wheezing, and pleuritic chest pain, Abdomen/GI: Negative for abdominal pain, nausea, vomiting, diarrhea, and constipation, MS/Extremity: Negative for injury and deformity, Psych: Negative for depression, anxiety, suicide ideation, homicidal ideation, and hallucinations. 15:09 Skin: Positive for Positive for wounds, negative for cellulitis, drainage. Exam: 15:09 Constitutional: This is a well developed, well nourished patient who is awake, alert, rt and in no acute distress. Head/Face: Normocephalic, atraumatic. Chest/axilla: Normal chest wall appearance and motion. Nontender with no deformity. No lesions are appreciated. Cardiovascular: Regular rate and rhythm with a normal S1 and S2. No gallops, murmurs, or rubs. Normal PMI, no JVD. No pulse deficits. Respiratory: Lungs have equal breath sounds bilaterally, clear to auscultation and percussion. No rales, rhonchi or wheezes noted. No increased work of breathing, no retractions or nasal flaring. Abdomen/GI: Soft, non-tender, with normal bowel sounds. No distension or tympany. No guarding or rebound. No evidence of tenderness throughout. Psych: Awake, alert, with orientation to person, place and time. Behavior, mood, and affect are within normal limits. 15:09 Back: Sacral decubitus ulcer with wound VAC noted.. 15:09 Musculoskeletal/extremity: Wound noted to the right heel, no purulence, no surrounding erythema, no eschar noted, pulses are intact. 15:09 Skin: As per MSK exam. 15:09 Neuro: Paralyzed below the waist, at baseline, normal speech. 15:51 ECG was reviewed by the Attending Physician. rt Vital Signs: 14:21 BP 109 / 68; Pulse 74; Resp 18; Temp 97.4; iw 15:30 BP 103 / 71; Pulse 92; Resp 18; Pulse Ox 96% on R/A; eh3 16:30 BP 126 / 69; Pulse 90; Resp 17; Pulse Ox 100% on R/A; eh3 17:30 BP 113 / 94; Pulse 91; Resp 17; Pulse Ox 100% on R/A; eh3 18:30 BP 114 / 84; Pulse 90; Resp 15; Pulse Ox 100% on R/A; eh3 MDM: 14:28 Patient medically screened. rt 16:25 Differential Diagnosis sepsis, Osteomyelitis, UTI, pneumonia. Data reviewed: vital rt signs, nurses notes, lab test result(s), EKG, radiologic studies. Consideration of Admission/Observation Patient was admitted/placed on observation. Management of patient was discussed with the following: Hospitalist: Agrees to admit. I considered the following discharge prescriptions or medication management in the emergency department Medications were administered in the Emergency Department. See MAR. Care significantly affected by the following chronic conditions: Paraplegia. Counseling: I had a detailed discussion with the patient and/or guardian regarding: the historical points, exam findings, and any diagnostic results supporting the discharge/admit diagnosis, lab results, radiology results, the need for further work-up and treatment in the hospital. 01/17 14:35 Order name: Blood Culture Adult (2) rt 01/17 14:35 Order name: CBC with Diff; Complete Time: 15:50 rt 01/17 14:35 Order name: CMP; Complete Time: 15:50 rt 01/17 14:35 Order name: Lactate w/ 2H reflex if indic.; Complete Time: 15:55 rt 01/17 14:35 Order name: Protime (+inr); Complete Time: 15:50 rt 01/17 14:35 Order name: Ptt, Activated; Complete Time: 15:50 rt 01/17 14:35 Order name: Urinalysis w/ reflexes rt 01/17 16:08 Order name: Glucose, Ancillary Testing EDMS 01/17 16:13 Order name: Glucose, Ancillary Testing EDMS 01/17 14:35 Order name: Chest Single View XRAY; Complete Time: 15:55 rt 01/17 15:07 Order name: Foot Right 3 View XRAY; Complete Time: 15:50 rt 01/17 14:35 Order name: EKG; Complete Time: 14:37 rt 01/17 14:35 Order name: Accucheck; Complete Time: 16:11 rt 01/17 14:35 Order name: Cardiac monitoring; Complete Time: 15:29 rt 01/17 14:35 Order name: EKG - Nurse/Tech; Complete Time: 15:50 rt 01/17 14:35 Order name: IV Saline Lock - Large Bore; Complete Time: 15:29 rt 01/17 14:35 Order name: Labs collected and sent; Complete Time: 15:29 rt 01/17 14:35 Order name: O2 Per Protocol; Complete Time: 15:29 rt 01/17 14:35 Order name: O2 Sat Monitoring; Complete Time: 15:29 rt 01/17 14:35 Order name: Vital Signs; Complete Time: 15:29 rt EC:51 Rate is 91 beats/min. Rhythm is regular, Normal Sinus Rhythm with Right bundle branch rt block. ID interval is normal. QRS interval is normal. QT interval is normal. No Q waves. Interpreted by me. Administered Medications: 15:50 Not Given (Patient Refused): Acetaminophen PO 1000 mg PO once [facility] 16:00 Drug: Aspirin PO 325 mg Route: PO; 3 17:00 Follow up: Response: Pain is decreased [facility] 16:45 Drug: NS 0.9% IV 1000 ml Route: IV; Rate: 1 bolus; Site: right antecubital; 3 18:30 Follow up: IV Status: Completed infusion; IV Intake: 1000ml [facility] 16:45 Drug: Cefepime IVPB 2 grams Route: IVPB; Rate: 200 ml/hr; Infused Over: 30 mins; Site: [facility] right antecubital; 17:15 Follow up: Response: No adverse reaction; IV Status: Completed infusion; IV Intake: eh3 100ml 17:20 Drug: vancoMYCIN IVPB 1 grams Route: IVPB; Infused Over: 2 hrs; Site: right antecubital;[facility] 18:30 Follow up: Response: No adverse reaction; IV Status: Infusion continued upon admission; [facility] IV Intake: 125ml Disposition Summary: 01/17/23 16:25 Hospitalization Ordered Hospitalization Status: Inpatient Admission rt Provider: Ana Montes rt Location: Telemetry/MedSurg (Inpatient) rt Condition: Stable rt Problem: new rt Symptoms: are unchanged rt Bed/Room Type: Standard rt Room Assignment: [facility](01/17/23 17:28) Diagnosis - Osteomyelitis of right calcaneus rt Forms: - Medication Reconciliation Form rt - SBAR form rt Signatures: Dispatcher [employer] Millie Rey RN RN dw Williams, Irene, RN RN Emily Shah RN RN [facility] Dereck Tran MD MD rt Corrections: (The following items were deleted from the chart) : 16:25 rt dw
--- NOTE | 2023-01-17 16:25 | ER ---
Nurse's Notes [facility] Name: Jatinder Garner Age: 77 yrs Sex: Male : 1945 Arrival Date: 01/17/2023 Time: 14:03 Bed 17 Private MD: Nadir Harper V Diagnosis: Osteomyelitis of right calcaneus Presentation: 01/17 14:21 Chief complaint: Patient states: WBC count was low, has a wound vac on sacrum and also iw has wounds on his heels, his wounds came after being in a prison/rehab for a while, pt is paraplegic . Sees Dr. Harper and had blood work yesterday , he goes to wound care weekly. Coronavirus screen: At this time, the client does not indicate any symptoms associated with coronavirus-19. Ebola Screen: Patient negative for fever greater than or equal to 101.5 degrees Fahrenheit, and additional compatible Ebola Virus Disease symptoms Patient denies exposure to infectious person. Patient denies travel to an Ebola-affected area in the 21 days before illness onset. No symptoms or risks identified at this time. Onset of symptoms was January 17, 2023. 14:21 Method Of Arrival: Wheelchair iw 14:21 Acuity: NANNETTE 3 iw 14:28 Initial Sepsis Screen: Does the patient meet any 2 criteria? No. Patient's initial iw sepsis screen is negative. Does the patient have a suspected source of infection? No. Patient's initial sepsis screen is negative. Risk Assessment: Do you want to hurt yourself or someone else? Patient reports no desire to harm self or others. Triage Assessment: 15:00 General: Appears in no apparent distress. comfortable, Behavior is calm, cooperative, eh3 appropriate for age. Historical: - Allergies: 14:24 No Known Allergies; iw - Home Meds: 14:24 Trazodone Oral [Active]; Cipro Oral [Active]; iw 14:26 Tramadol Oral [Active]; iw - PMHx: 14:26 paraplegic; iw - PSHx: 14:26 spinal injury; iw 14:28 kidney removed, s/p fall; iw - Immunization history:: Adult Immunizations up to date. - Family history:: not pertinent. - Social history:: Smoking status: unknown. Screenin:00 [facility] ED Fall Risk Assessment (Adult) Score/Fall Risk Level 0 - 2 = Low Risk. Abuse eh3 screen: Denies threats or abuse. Denies injuries from another. Nutritional screening: No deficits noted. Tuberculosis screening: No symptoms or risk factors identified. Assessment: 15:00 General: Appears in no apparent distress. comfortable, Behavior is calm, cooperative, eh3 appropriate for age. Pain: Denies pain. Neuro: Level of Consciousness is awake, alert, obeys commands, Oriented to person, place, time, situation. Cardiovascular: Capillary refill < 3 seconds Patient's skin is warm and dry. Respiratory: Airway is patent Respiratory effort is even, unlabored, Respiratory pattern is regular, symmetrical. GI: Abdomen is round non-distended. : Cort[place] in place to gravity drainage Urine is clear. EENT: No signs and/or symptoms were reported regarding the EENT system. Derm: Decubitus located on sacrum and bilateral heels is draining serosanguinous wound vac in place in sacral wound. Musculoskeletal: No signs and/or symptoms reported regarding the musculoskeletal system. 15:30 Reassessment: Patient appears in no apparent distress at this time. Patient and/or eh3 family updated on plan of care and expected duration. Pain level reassessed. Patient is alert, oriented x 3, equal unlabored respirations, skin warm/dry/pink. 15:50 Reassessment: Lactate 2.4. eh3 16:30 Reassessment: Patient appears in no apparent distress at this time. Patient and/or eh3 family updated on plan of care and expected duration. Pain level reassessed. Patient is alert, oriented x 3, equal unlabored respirations, skin warm/dry/pink. 17:30 Reassessment: Patient appears in no apparent distress at this time. Patient and/or eh3 family updated on plan of care and expected duration. Pain level reassessed. Patient is alert, oriented x 3, equal unlabored respirations, skin warm/dry/pink. 18:30 Reassessment: Patient appears in no apparent distress at this time. Patient and/or eh3 family updated on plan of care and expected duration. Pain level reassessed. Patient is alert, oriented x 3, equal unlabored respirations, skin warm/dry/pink. Vital Signs: 14:21 BP 109 / 68; Pulse 74; Resp 18; Temp 97.4; iw 15:30 BP 103 / 71; Pulse 92; Resp 18; Pulse Ox 96% on R/A; eh3 16:30 BP 126 / 69; Pulse 90; Resp 17; Pulse Ox 100% on R/A; eh3 17:30 BP 113 / 94; Pulse 91; Resp 17; Pulse Ox 100% on R/A; eh3 18:30 BP 114 / 84; Pulse 90; Resp 15; Pulse Ox 100% on R/A; eh3 ED Course: 14:05 Patient arrived in ED. mr 14:05 Nadir Harper MD is Private Physician. mr 14:13 Dereck Tran MD is Attending Physician. rt 14:23 Triage completed. iw 14:28 Arm band placed on. iw 14:58 Emily Shah, ТАТЬЯНА is Primary Nurse. eh3 15:00 Patient has correct armband on for positive identification. Bed in low position. Call 3 light in reach. Side rails up X2. Adult w/ patient. Client placed on continuous cardiac and pulse oximetry monitoring. NIBP monitoring applied. Door closed. Noise minimized. Lights dimmed. Warm blanket given. Pillow given. 15:29 Inserted saline lock: 20 gauge 24 gauge antecubital area, using aseptic technique. eh3 Blood collected. 15:36 Chest Single View XRAY In Process Unspecified. EDMS 15:36 Foot Right 3 View XRAY In Process Unspecified. EDMS 16:24 Ana Montes MD is Hospitalizing Provider. rt 16:56 Glucose, Ancillary Testing Sent. eh3 18:32 No provider procedures requiring assistance completed. Patient admitted, IV remains in eh3 place. Administered Medications: 15:50 Not Given (Patient Refused): Acetaminophen PO 1000 mg PO once eh3 16:00 Drug: Aspirin PO 325 mg Route: PO; eh3 17:00 Follow up: Response: Pain is decreased 3 16:45 Drug: NS 0.9% IV 1000 ml Route: IV; Rate: 1 bolus; Site: right antecubital; eh3 18:30 Follow up: IV Status: Completed infusion; IV Intake: 1000ml 3 16:45 Drug: Cefepime IVPB 2 grams Route: IVPB; Rate: 200 ml/hr; Infused Over: 30 mins; Site: [facility] right antecubital; 17:15 Follow up: Response: No adverse reaction; IV Status: Completed infusion; IV Intake: eh3 100ml 17:20 Drug: vancoMYCIN IVPB 1 grams Route: IVPB; Infused Over: 2 hrs; Site: right antecubital;3 18:30 Follow up: Response: No adverse reaction; IV Status: Infusion continued upon admission; 3 IV Intake: 125ml Medication: 18:32 VIS not applicable for this client. 3 Intake: 17:15 IV: 100ml; Total: 100ml. eh3 18:30 IV: 125ml; Total: 225ml. eh3 18:30 IV: 1000ml; Total: 1225ml. 3 Outcome: 16:25 Decision to Hospitalize by Provider. rt 18:32 Admitted to Med/surg accompanied by tech, via stretcher, room 232, with chart, Report [address] [facility] 18:33 Condition: stable [facility] 18:33 Instructed on the need for admit. 18:33 Patient left the ED. 3 Signatures: Dispatcher [employer] EDWV Sonia Orosco mr Martita Cruz RN RN iw Emily Shah RN RN 3 Dereck Tran MD MD rt Corrections: (The following items were deleted from the chart) 14:24 14:21 BP 109 / 68; Pulse 74bpm; iw iw 18:32 18:31 BP 113 / 94; Pulse 91bpm; Resp 17bpm; Pulse Ox 100% RA; 3 3
[2023-01-17] MEDS ORDERED: CEFEPIME 2 GM VIAL ONE (16:51)
[2023-01-17] MEDS ORDERED: NA CHLORIDE 0.9% 1,000 ML ONE (16:51)
[2023-01-17] MEDS ORDERED: VANCOMYCIN 1 GM/VIAL ONE (16:51)
[2023-01-17] MEDS ORDERED: NA CHLORIDE 0.9% 250 ML ONE (16:51)
[2023-01-17] MEDS ORDERED: NA CHLORIDE 0.9% 100 ML ONE (16:51)
--- NOTE | 2023-01-17 16:59 | P.HP ---
Certification for Inpatient Patient admitted to: Inpatient With expected LOS: >2 Midnights Patient will require the following post-hospital care: None Practitioner: I am a practitioner with admitting privileges, knowledge of patient current condition, hospital course, and medical plan of care. 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 Patient was sent to the emergency room for complaints of abnormal labs. Per patient, his labs were drawn outpatient and was told to come to the emergency room due to abnormal results. Patient is a paraplegic. He present with a chronic sacral wound and wounds to his bilateral lower extremities. Patient also has a wound VAC. Patient is followed by Dr. Harper. In the ER his labs were significant for elevated lactic of 2.4 and hyponatremia with sodium of 131. Patient will be admitted under care of Dr. Montes. Infectious disease will be consulted for further recommendation and management along with the wound center. Allergies No Known Allergies Allergy (Unverified 10/17/22 14:19) Home Medications: Gabapentin 300 mg PO TID 10/23/22 Medihoney [Medihoney Woundcare Gel*] 1 appl TOP DAILY tube 10/23/22 Trazodone [Desyrel*] 50 mg PO BEDTIME #90 tab 10/23/22 - Past Medical/Surgical History Diabetic: No - Social History Alcohol use: Yes CD- Drugs: No Caffeine use: No Review of Systems 10-point ROS is otherwise unremarkable Musculoskeletal: As per HPI Integumentary: As per HPI Physical Examination - Vital Signs Temperature: 97.4 F Blood Pressure: 103/71 Pulse: 92 Respirations: 18 Pulse Ox (%): 96 - Physical Exam General: Alert, In no apparent distress, Oriented x3 HEENT: Atraumatic, Normocephalic Neck: Supple, 2+ carotid pulse no bruit Respiratory: Clear to auscultation bilaterally, Normal air movement Cardiovascular: No edema, Normal pulses Capillary refill: <2 Seconds Gastrointestinal: Normal bowel sounds Musculoskeletal: Other (paraplegia) Integumentary: Other (Osteomyelitis of sacrum, chronic would BLE) Neurological: Normal speech, Sensation intact Lymphatics: No axilla or inguinal lymphadenopathy - Studies Laboratory Data (last 24 hrs) 01/17/23 15:18: PT 12.9 H, INR 1.17, APTT 33.7 01/17/23 15:18: Sodium 131 L, Potassium 3.5, BUN 21 H, Creatinine 0.50 L, Glucose 182 H, Total Bilirubin 0.2, AST 16, ALT < 10 L, Alkaline Phosphatase 97 01/17/23 15:18: WBC 8.60, Hgb 9.6 L, Hct 30.1 L, Plt Count 571 H Assessment and Plan - Plan Assessment Osteomyelitis of sacrum Hyponatremia Plan Continue IV antibiotics Continue IV fluids, patient received 1 L of lactated Ringer's in the ED Trend lactate Infectious disease consulted, recommendations appreciated Continue wound care with Medihoney. Offload patient while in bed, order air mattress if appropriate Wound center consulted Continue with wound VAC from home Resume home medications as appropriate DVT PPx-Lovenox Full code (please confirm with caregiver) Discharge Plan: Home Plan to discharge in: Greater than 2 days - Advance Directives Does patient have a Living Will: No Does patient have a Durable POA for Healthcare: No - Code Status/Comfort Care Code Status Assessed: Yes (Full code) Critical Care: No Time Spent Managing Pts Care (In Minutes): 50
[2023-01-17] MEDS ORDERED: ACETAMINOPHEN 500 MG TAB PO PRN (17:12)
[2023-01-17] MEDS ORDERED: NA CHLORIDE 0.9% 1,000 ML IV SCH (18:00)
[2023-01-17] MEDS: VANCOMYCIN 1 GM in NA CHLORIDE 0.9% 250 ML IVPB SCH (18:00)
[2023-01-17 18:50] VITALS: O2SAT 100
[2023-01-17] MEDS: GABAPENTIN 300 MG CAP PO SCH (20:36)
[2023-01-17] MEDS: Meropenem 1,000 MG in NA CHLORIDE 0.9% 100 ML IV SCH (20:37)
[2023-01-17] MEDS ORDERED: TRAZODONE 50 MG TABLET PO SCH (21:00)
[2023-01-18 00:22] VITALS: BMI 16.9
[2023-01-18] MEDS: Meropenem 1,000 MG in NA CHLORIDE 0.9% 100 ML IV SCH (01:00)
[2023-01-18] MEDS ORDERED: Meropenem 1,000 MG in NA CHLORIDE 0.9% 100 ML IV SCH (05:00)
[2023-01-18] MEDS: VANCOMYCIN 1 GM in NA CHLORIDE 0.9% 250 ML IVPB SCH (06:08)
[2023-01-18 07:27] LABS: Potassium 3.4 mEq/L (3.5-5.1)
[2023-01-18] MEDS ORDERED: COLLAGENASE 30 GM OINTMENT TOP SCH (09:00)
[2023-01-18] MEDS ORDERED: ENOXAPARIN 40 MG/0.4 ML SQ SCH (09:00)
[2023-01-18] MEDS ORDERED: MEDIHONEY 44 ML TOPICAL TUBE TOP SCH (09:00)
--- NOTE | 2023-01-18 09:31 | P.CNS ---
Date of Consult: 01/18/23 Primary Care Provider: Meredith Chief Complaint: Osteomyelitis of sacram History of Present Illness: Patient is a 77 yo male with a medical history significant for paraplegia, chronic sacral wounds and bilateral lower extremity wounds and history of osteomyelitis. Patient presented to the ED with concerns of abnormals labs. Patient had labs drawn as outpatient and was notified of abnormal results and advised to go to the ED for further management/workup. ID was consulted for Osteomyelitis. Patient is in bed, not in distress, awake and oriented x3 at this time. 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 Allergies No Known Allergies Allergy (Unverified 01/17/23 21:05) Home medications list reviewed: Yes Home Medications: Gabapentin 300 mg PO TID 10/23/22 Trazodone [Desyrel*] 50 mg PO BEDTIME #90 tab 10/23/22 - Past Medical/Surgical History Diabetic: No -: paraplegic -: spinal sx due to fall from roof -: nephrectomy - Social History Smoking Status: Unknown if ever smoked Alcohol use: Yes CD- Drugs: No Caffeine use: Yes Place of Residence: Home Review of Systems 10-point ROS is otherwise unremarkable General: Weakness Musculoskeletal: As per HPI Integumentary: As per HPI Physical Examination Temp Pulse Resp BP Pulse Ox 97.5 F 85 16 96/57 L 98 01/18/23 08:00 01/18/23 08:00 01/18/23 08:00 01/18/23 08:00 01/18/23 08:00 General: Alert, In no apparent distress, Oriented x3 HEENT: Atraumatic, Normocephalic Neck: Supple, JVD not distended Respiratory: Clear to auscultation bilaterally, Normal air movement Cardiovascular: No edema, Normal pulses Capillary refill: <2 Seconds Gastrointestinal: Normal bowel sounds, Soft and benign, Non-distended Musculoskeletal: Other (paraplegia) Integumentary: Pressure ulcer (Right heel stage 4; left heel stage 3; sacrum with wound vac) Neurological: Normal speech, Normal tone, Normal affect, Other (paraplegia) Urinary: Cortez catheter Laboratory Data (last 24 hrs) 01/17/23 15:18: PT 12.9 H, INR 1.17, APTT 33.7 01/17/23 15:18: Sodium 131 L, Potassium 3.5, BUN 21 H, Creatinine 0.50 L, Glucose 182 H, Total Bilirubin 0.2, AST 16, ALT < 10 L, Alkaline Phosphatase 97 01/17/23 15:18: WBC 8.60, Hgb 9.6 L, Hct 30.1 L, Plt Count 571 H Microbiology Data - Blood cultures 01/17: pending - Wound culture left heel 01/18: pending - Wound culture right heel 01/18: pending Imagings Data: - XR right foot 01/17: "A screw has been placed into the calcaneus. Left ankle prosthesis in place. Ulceration posterior hindfoot. Cortical irregularity involves the posterior calcaneus probably osteomyelitis." Conclusions/Impression: Problem List - Pressure injury of sacrum and bilateral heels - Osteomyelitis - Paraplegia No leukocytosis Afebrile Pressure Injuries - Right heel stage 4 - Left heel stage 3 - Sacrum stage 4, with wound vac Possible Osteomyelitis of Right Heel - Right foot hardware protrusion from wound. Has been seeing Dr. Harper as outpatient and treatment of wounds. - Orthopedic and General Surgery consulted - Placed on empiric IV Vancomycin and IV Merrem 01/17 - MRI Foot 01/18: Pending Recommendations Spoke with Dr. Hurst, pt will have MRI of right foot while inpatient. Pt to be discharged home, as he is being treated for current wounds as outpatient by Dr. Harper. Patient already with home health care. Plan for patient to resume all previous medications/plan of care per Dr. Harper. Id will follow up and monitor the patient closely. Case discussed with Noelle Corbin
[2023-01-18] MEDS: GABAPENTIN 300 MG CAP PO SCH ×2 (10:37→16:14)
[2023-01-18 11:52] LABS: Specific Gravity 1.007 (1.005-1.030); Urine Bacteria <20 /HPF (<20); Urine Bilirubin NEGATIVE (Negative); Urine Blood Negative (Negative); Urine Clarity Clear (Clear); Urine Color Colorless (Yellow); Urine Glucose NEGATIVE (Negative); Urine Mucus Slight /HPF (None Seen); Urine Protein NEGATIVE (Negative); Urine RBC <5 /HPF (None Seen); Urine Urobilinogen Normal (Normal); Urine pH 5.5 (5.0-7.0)
--- NOTE | 2023-01-18 12:07 | P.DS ---
Admission Date: 01/17/23 Discharge Date: 01/18/23 Primary Care Provider: Meredith Disposition: ROUTINE DISCHARGE Discharge Condition: FAIR Reason for Admission: Osteomyelitis of sacram Brief History of Present Illness: Patient is 77 years of age admitted to the hospital for apparently an abnormal lab chronic ulcerations in his heels the left side is healing in the right side protrusion of the hardware otherwise he has no other complaints patient is paraplegic Hospital Course: Patient was admitted to the hospital for observation chemistries vital signs all stable normal white count X-ray of the foot FINDINGS: A screw has been placed into the calcaneus. Left ankle prosthesis in place Ulceration posterior hindfoot. Cortical irregularity involves the posterior calcaneus probably osteomyelitis MRI was also ordered patient to be discharged home he does have some antibiotics that was ordered by Dr. Harper is also seeing Dr. Yessenia Lovelace-Dr. Herrera was also consulted including infectious disease Vital Signs/Physical Exam: Temp Pulse Resp BP Pulse Ox 97.5 F 85 16 96/57 L 98 01/18/23 08:00 01/18/23 08:00 01/18/23 08:00 01/18/23 08:00 01/18/23 08:00 Laboratory Data at Discharge: WBC 8.60 thou/uL (4.3-10.9) 01/17/23 15:18 Hgb 9.6 g/dL (13.6-17.9) L 01/17/23 15:18 Hct 30.1 % (39.6-49.0) L 01/17/23 15:18 Plt Count 571 thou/uL (152-406) H 01/17/23 15:18 PT 12.9 SECONDS (9.5-12.5) H 01/17/23 15:18 INR 1.17 01/17/23 15:18 APTT 33.7 SECONDS (24.3-36.9) 01/17/23 15:18 Sodium 133 mEq/L (136-145) L 01/18/23 06:52 Potassium 3.4 mEq/L (3.5-5.1) L 01/18/23 06:52 BUN 12 mg/dL (7-18) 01/18/23 06:52 Creatinine 0.33 mg/dL (0.70-1.30) L 01/18/23 06:52 Glucose 108 mg/dL (74-106) H 01/18/23 06:52 Total Bilirubin 0.2 mg/dL (0.2-1.0) 01/17/23 15:18 AST 16 U/L (15-37) 01/17/23 15:18 ALT < 10 U/L (16-61) L 01/17/23 15:18 Alkaline Phosphatase 97 U/L (45-117) 01/17/23 15:18 Home Medications: Gabapentin 300 mg PO TID 10/23/22 Trazodone [Desyrel*] 50 mg PO BEDTIME #90 tab 10/23/22 Diet: Regular Followup: Nadir Harper MD [Primary Care Provider] -
--- NOTE | 2023-01-18 15:51 | RAD REPORT ---
EXAM DESCRIPTION: MRI - Foot Right Wo Cont - 01/18/2023 3:45 pm CLINICAL HISTORY: Rheel RO osteomyelitis Pain and swelling COMPARISON: Foot Right 3 View dated 01/17/2023; Ankle Right Wo Cont dated 11/22/2022 FINDINGS: Blooming artifact is seen in the heel region from hardware. There is mild abnormal signal in the posterior lateral aspect of the calcaneus. Irregular soft tissue ulceration is seen adjacent t o this level. The plantar fascia and Achilles tendon insertion remains intact. Elsewhere, osteomyelit is seen. IMPRESSION: Osteomyelitis is seen in the calcaneus posterolateral aspect, appears mildly progressive since 11/22/2022. The examination is limited by significant blooming artifact in the region.
[2023-01-18 16:44] VITALS: BP 93/59; TEMP 97.4
[2023-01-18] MEDS ORDERED: ENSURE ENLIVE 237 ML CAN PO SCH (21:00)
[2023-01-18] MEDS ORDERED: JUVEN PACKET PO SCH (21:00)
--- NOTE | 2023-01-20 08:55 | EKG ---
Test Date: 2023-01-17 Test Time: 15:34:20 Data Governance Consultant: ALBERTO MEASUREMENT RESULTS: Intervals: Rate: 91 WI: 176 QRSD: 138 QT: 388 QTc: 477 [place]: P: 48 WI: 176 QRS: 88 T: 54 INTERPRETIVE STATEMENTS: Normal sinus rhythm Right bundle branch block Abnormal ECG No previous ECG available for comparison Electronically Signed On 01-20-23 08:50:15 CDT by Vincent Farmer
--- NOTE | 2023-01-23 18:31 | CON ---
Date of Consultation: 01/18/2023 History Of Present Illness: This is my first time seeing Mr. Garner to my knowledge. He is a 77-yea r-old gentleman, who unfortunately has paralysis and I am called to see him for the possibility of os teomyelitis of his right calcaneus. He does have other issues, which I am consulted for, specificall y as there appears to be a visible screw from previous fixation of his calcaneus. Physical Examination: On physical examination, he does have a dressed wound; however, there was a picture of the wound, whi ch has been supplied to me as his ankle was just recently dressed, and nurse and caregiver say this i s how it appears. I do have information from General Surgery that the screw in his heel is definitel y palpable and questions regarding the possibility of osteomyelitis or further treatment. Imaging: Review of radiographs demonstrate a screw in the calcaneus, although there does not appear to be active destructive lesion of the calcaneus essentially by definition. He does have osteomyelit is of the calcaneus. He does have an exposed screw into bone for any period of time. He was admitte d for high lactic acid levels and decreased health status; however, he is able to speak to me quite w ell. 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 Assessment: This is a 77-year-old gentleman, who does have exposed screw and osteomyelitis of the ca lcaneus, but I am consulted to see. Plan: They are going to go ahead I believe and get an MRI of his calcaneus, which will most likely s how changes of osteomyelitis. I spoke with his primary care physician as well as the general surgeon who has been taking care of him and it appears that he has already seen a mechanic foreman for this proble m and his health has improved since being in the hospital. Almost certainly, he will be discharged t o follow up with the mechanic foreman. This has been discussed with the patient. The patient says he woul d like this done as possible with regard to any sort of surgical intervention; however, his diagnosis has been discussed with him. I do not believe the osteomyelitis of the calcaneus would cause acute medical issues and I have informed General Surgery and primary care physician that this heel could be taken care was an outpatient; however, he may have overriding medical problems, which they are atten ding to. DANISHA Voice ID: [id number] Report ID: [id number]
== END 2023-01-18 18:58 | disposition home or self-care (01) ==
LOC: ER 14:03 → ERHOLD 16:30 → INTOOBSV 16:30 → 2ND 18:02
PROVIDERS: ADMIT Hospitalist; ATTEND Internal Medicine Sleep Medicine
DX: M46.28 Osteomyelitis of vertebra, sacral and sacrococcygeal region (principal); M86.8X7 Other osteomyelitis, ankle and foot; D72.819 Decreased white blood cell count, unspecified; E87.1 Hypo-osmolality and hyponatremia; G82.20 Paraplegia, unspecified; S91.302A Unspecified open wound, left foot, initial encounter; S91.301A Unspecified open wound, right foot, initial encounter; S31.000A Unspecified open wound of lower back and pelvis without penetration into retroperitoneum, initial encounter; X58.XXXA Exposure to other specified factors, initial encounter
CPT/HCPCS: 96365; 96367; 93005; 87040 ×2; 87070 ×2; 85025; 81001; 80048; 36415 ×2; 87205 ×2; 85610; 82947; 83605 ×2; 85730; 87077 ×2; 87186 ×2; 80053; 71045; 73630; 73718; 99285; J3590; J1650; J0692; J2185 ×2; J7050 ×2; J7030 ×2; G0378 ×3

== ENCOUNTER 2023-01-24 11:41 | Inpatient (IN) | payer OTHER ==
--- OUTSIDE RECORDS SUMMARY | 2023-01-24 11:46 | XMS REPORT | Continuity of Care Document ---
:1945 Author Organization [facility] t Address [address] [place] [address] [place] [id number] Care Team Providers Name Role Phone No, Pcp [facility] Primary Care Physician Unavailable ARIS ORTIZ Attending Clinician Unavailable HARISH SUMMERS Attending Clinician Unavailable Radha Art Attending Clinician Unavailable Jimmy Mcgill Attending Clinician Payers Payer Name Policy Type Policy Number Effective Date Expiration Date S bran [employer] MEDICARE [id number] 2019 ADVANTAGE HMO 00:00:00 Problems Condition Condition Condition Status Onset Resolution Last Treating Co mments Source Name Details Category Date Date Treatment Clinician Date BILATERAL BILATERAL Diagnosis Active 2013-12-07 Memoria INCISIONAL INCISIONAL 3-03 09:07:00 l HERNIA HERNIA 00:00: [place] Active 00 11/30/2013 [facility] Injury of Injury of Problem Resolve 2013-12-09 Memoria kidney kidney d 21:08:07 l without without [place] open wound open wound into into abdominal abdominal cavity cavity (disorder) (disorder) Resolved Problem 12/09/2013 [facility] OBSTR OBSTR Diagnosis Active 2013-12-07 Mem oria INCISIONAL INCISIONAL 09:07:00 l HERNIA HERNIA [place] Active [facility] Allergies, Adverse Reactions, Alerts Allergy Allergy [...] Source History SDOH [facility] Alcohol Comment Medical C enter History SDOH [facility] Alcohol Std Drinks Medica l Center History SDIL [facility] Alcohol Binge Medical [address] [facility] Tobacco use and 2019-02-10 2019-02-10 Smokeless tobacco [facility] exposure 00:00:00 00:00:00 non-user Medical Center Alcohol intake 2019-02-10 2019-02-10 Current [facility]er [facility]:00 of alcohol Medical Center (finding) History SDOH 2019-02-10 2019-02-[address] [facility] Alcohol Frequency 00:00:00 00:00:00 Medical Center Tobacco Comment 2019-02-10 2019-02-10 had use marijuana [facility] 00:00:00 00:00:00 before Medical Center Social History 2013-11-30 2013-11-30 [facility] 18:01:34 18:01:34 Sex Ass[birth year] At [birth year] [facility] 00:[facility]:00 [facility]00 Medical Center Smoking Status Start Date Stop Date Source [facility] Medications Ordered Filled Start Stop Current Ordering [...] as Center needed for Insomnia. aspirin 325 2018- Yes 325mg Take [address] [...] Medical 19 needed for Center Pain. Zofran 2013- No 4 mg, 2 Memoria 3-10 mL, Route: l 16:51: IVP, Drug Ari 00 form: INJ, Q4H, Dosing Weight 77.8, kg, PRN Nausea, Start date: 12/07/13 11:51:00, Duration: 30 day, Stop date: 01/06/14 11:50:00(S sanjiv as: Zofran) Demerol HCl No 75 mg, 1.5 Memoria 3-10 mL, Route: l 16:51: IM, Drug [place] 00 form: SOLN, Q3H, Dosing Weight 77.8, kg, PRN Pain, Start date: 12/07/13 11:51:00, Duration: 4 day, Stop date: 12/11/13 11:50:00Sa me as: Demerol "Use Precaution in Elderly, Seizure disorders, and Renal impairment " Morphine 2013- No 1 mg, 0.5 [facility] maria [place] carmen 3-10 mL, Route: l 16:51: IVP, Drug [place] 00 form: INJ, Q2H, Dosing Weight 77.8, kg, PRN Pain, Start date: 12/07/13 11:51:00, Duration: 30 day, Stop date: 01/06/14 11:50:00(S sanjiv as:MORPhin e Sulfate) Phenergan 2013-0 No 25 mg, 1 [facility] maria [place] carmen 3-10 mL, Route: l 16:51: IM, Drug Ari 00 form: INJ, Q3H, Dosing Weight 77.8, kg, PRN Nausea, Start date: 12/07/13 11:51:00, Duration: 30 day, Stop date: 01/06/14 11:50:00, to be given with DemerolDo not give IV push. (Same as: Phenergan) Phenergan 2013-0 No 25 mg, 1 [facility] maria del carmen 3-10 mL, Route: l 16:51: IM, Drug [place] 00 form: INJ, Q3H, Dosing Weight 77.8, kg, PRN Nausea, Start date: 12/07/13 11:51:00, Duration: 30 day, Stop date: 01/06/14 11:50:00, to be given with DemerolDo not give IV push. (Same as: Phenergan) Ketorolac 2014-0 No 30 mg, Memori a 3-10 Route: IV, l 16:51: Drug form: Ari 00 INJ, ONCE, Dosing Weight 77.8, kg, Start date: 12/07/13 11:51:00, Duration: 1 doses or times, Stop date: 12/07/13 11:51:00 Ketorolac 2014-0 No 30 mg, Memori a 3-10 Route: IV, l 16:51: Drug form: [place] 00 INJ, ONCE, Dosing Weight 77.8, kg, Start date: 12/07/13 11:51:00, Duration: 1 doses or times, Stop date: 12/07/13 11:51:00 Zofran 2014-0 No 4 mg, 2 Memoria 3-10 mL, Route: l 16:51: IVP, Drug form: INJ, Q4H, Dosing Weight 77.8, kg, PRN Nausea, Start date: 12/07/13 11:51:00, Duration: 30 day, Stop date: 01/06/14 11:50:00(S sanjiv as: Zofran) Demerol HCl 2013-0 No 75 mg, 1.5 Memoria 3-10 mL, Route: l 16:51: IM, Drug form: SOLN, Q3H, Dosing Weight 77.8, kg, PRN Pain, Start date: 12/07/13 11:51:00, Duration: 4 day, Stop date: 12/11/13 11:50:00Sa me as: Demerol "Use Precaution in Elderly, Seizure disorders, and Renal impairment " Morphine 2013-0 No 1 mg, 0.5 [facility] maria del carmen 3-10 mL, Route: l 16:51: IVP, Drug [place] 00 form: INJ, Q2H, Dosing Weight 77.8, kg, PRN Pain, Start date: 12/07/13 11:51:00, Duration: 30 day, Stop date: 01/06/14 11:50:00(S sanjiv as:MORPhin e Sulfate) Zofran 2014-0 No 4 mg, 2 Memoria 3-10 mL, [...] give IV push. (Same as: Phenergan) Ketorolac 2013- No 30 mg, Memori a 3-10 Route: IV, l 16:51: Drug form: Ari 00 INJ, ONCE, Dosing Weight 77.8, kg, Start date: 12/07/13 11:51:00, Duration: 1 doses or times, Stop date: 12/07/13 11:51:00 Acetaminoph 2013-0 No 1,000 mg, M emoria en 3-10 100 mL, l 15:03: Route: Ari 00 IVPB, Drug form: INJ, ONCE, Dosing Weight 77.8, kg, PRN Pain Score 1-3, Start date: 12/07/13 10:03:00, Duration: 1 doses or times, Stop date: Limited # of timesInfus e over 15 minutes Do not exceed 4gm/day of acetaminop hen Ondansetron No 4 mg, 2 Mem oria 3-10 mL, Route: l 15:03: IVP, Drug form: INJ, ONCE, Dosing Weight 77.8, kg, PRN Nausea & Vomiting, Start date: 12/07/13 10:03:00(S sanjiv as: Zofran) Hydralazine No 10 mg, 0.5 Memoria 3-10 mL, Route: l 15:03: IVP, Drug form: INJ, Q20Min, Dosing Weight 77.8, kg, PRN Elevated BP, Start date: 12/07/13 10:03:00, Duration: 2 doses or times, Stop date: Limited # of times(Same as: Apresoline ) Push over 5 minutes Calcium No 1,000 mL, Memor ia Chloride 3-10 Rate: 125 l 0.0014 15:03: ml/hr, MEQ/ML / 00 Infuse Potassium over: 8 Chloride hr, Route: 0.004 IV, Dosing MEQ/ML / Weight Sodium 77.8 kg, Chloride Total 0.103 Volume: MEQ/ML / 1,000, Sodium Start Lactate date: 0.028 12/07/13 MEQ/ML 10:03:00, Injectable Duration: Solution 30 day, Stop date: 01/06/14 10:02:00 Naloxone No 0.04 mg, Memor ia 3-10 0.1 mL, l 15:03: Route: IVP, Drug form: INJ, Q2MIN, Dosing Weight 77.8, kg, PRN Narcotic Reversal, Start date: 12/07/13 10:03:00, Duration: 8 doses or times, Stop date: Limited # of times(Same as: Narcan) Flumazenil No 0.2 mg, 2 Me moria 3-10 [...] minutes Give bolus over 2-3 minutes. Oxycodone 2013- No 5 mg, 1 Memor ia 3-10 [...] not exceed 4gm/day of acetaminop hen Ondansetron No 4 mg, 2 Mem oria 3-10 mL, Route: l 15:03: IVP, Drug form: INJ, ONCE, Dosing Weight 77.8, kg, PRN Nausea & Vomiting, Start date: 12/07/13 10:03:00(S sanjiv as: Zofran) Hydralazine No 10 mg, 0.5 Memoria 3-10 mL, Route: l 15:03: IVP, Drug form: INJ, Q20Min, Dosing Weight 77.8, kg, PRN Elevated BP, Start date: 12/07/13 10:03:00, Duration: 2 doses or times, Stop date: Limited # of times(Same as: Apresoline ) Push over 5 minutes Calcium No 1,000 mL, Memor ia Chloride 3-10 Rate: 125 l 0.0014 15:03: ml/hr, MEQ/ML / 00 Infuse Potassium over: 8 Chloride hr, Route: 0.004 IV, Dosing MEQ/ML / Weight Sodium 77.8 kg, Chloride Total 0.103 Volume: MEQ/ML / 1,000, Sodium Start Lactate date: 0.028 12/07/13 MEQ/ML 10:03:00, Injectable Duration: Solution 30 day, Stop date: 01/06/14 10:02:00 Naloxone No 0.04 mg, Memor ia 3-10 0.1 mL, l 15:03: Route: 00 IVP, Drug form: INJ, Q2MIN, Dosing Weight 77.8, kg, PRN Narcotic Reversal, Start date: 12/07/13 10:03:00, Duration: 8 doses or times, Stop date: Limited # of times(Same as: Narcan) Flumazenil No 0.2 mg, 2 Me moria 3-10 [...] minutes Give bolus over 2-3 minutes. Oxycodone 2013- No 5 mg, 1 Memor ia 3-10 tab, l 15:03: Route: PO, Drug form: TAB, Q4H, Dosing Weight 77.8, kg, PRN Pain Score 4-6, Start date: 12/07/13 10:03:00, Duration: 30 day, Stop date: 01/06/14 10:02:00(S sanjiv as: OxyIR) Naloxone 2013- No 0.04 mg, Memor ia [...] times(Same as: Sublimaze) Preservati ve free. Labetalol 2013-0 No 10 mg, 2 [facility] maria del [...] en 3-10 100 mL, l 15:03: Route: [place] 00 IVPB, Drug form: INJ, ONCE, Dosing Weight 77.8, kg, PRN Pain Score 1-3, Start date: 12/07/13 10:03:00, Duration: 1 doses or times, Stop date: Limited # of timesInfus e over 15 minutes Do not exceed 4gm/day of acetaminop hen Ondansetron 2013-0 No 4 mg, 2 Mem oria 3-10 mL, Route: l 15:03: IVP, Drug 00 form: INJ, ONCE, Dosing Weight 77.8, kg, PRN Nausea & Vomiting, Start date: 12/07/13 10:03:00(S sanjiv as: Zofran) Hydralazine 2013-0 No 10 mg, 0.5 Memoria 3-10 mL, Route: l 15:03: IVP, Drug 00 form: INJ, Q20Min, Dosing Weight 77.8, kg, PRN Elevated BP, Start date: 12/07/13 10:03:00, Duration: 2 doses or times, Stop date: Limited # of times(Same as: Apresoline ) Push over 5 minutes Calcium 2013-0 No 1,000 mL, Memor ia Chloride 3-10 Rate: 125 l 0.0014 15:03: ml/hr, Ari MEQ/ML / 00 Infuse Potassium over: 8 Chloride hr, Route: 0.004 IV, Dosing MEQ/ML / Weight Sodium 77.8 kg, Chloride Total 0.103 Volume: MEQ/ML / 1,000, Sodium Start Lactate date: 0.028 12/07/13 MEQ/ML 10:03:00, Injectable Duration: Solution 30 day, Stop date: 01/06/14 10:02:00 Calcium 2014-0 No 1,000 mL, Memor ia Chloride 3-10 Rate: 25 l 0.0014 15:02: ml/hr, [place] MEQ/ML / 00 Infuse Potassium over: 40 Chloride hr, Route: 0.004 IV, Dosing MEQ/ML / Weight Sodium 77.8 kg, Chloride Total 0.103 Volume: MEQ/ML / 1,000, Sodium Start Lactate date: 0.028 12/07/13 MEQ/ML 10:02:00, Injectable Duration: Solution 30 day, Stop date: 01/06/14 10:01:00 Calcium 2014-0 No 1,000 mL, Memor ia Chloride 3-10 Rate: 25 l 0.0014 15:02: ml/hr, [place] MEQ/ML / 00 Infuse Potassium over: 40 Chloride hr, Route: 0.004 IV, Dosing MEQ/ML / Weight Sodium 77.8 kg, Chloride Total 0.103 Volume: MEQ/ML / 1,000, Sodium Start Lactate date: 0.028 12/07/13 MEQ/ML 10:02:00, Injectable Duration: Solution 30 day, Stop date: 01/06/14 10:01:00 Calcium 2014-0 No 1,000 mL, Memor ia Chloride 3-10 Rate: 25 l 0.0014 15:02: ml/hr, [place] MEQ/ML / 00 Infuse Potassium over: 40 Chloride hr, Route: 0.004 IV, Dosing MEQ/ML / Weight Sodium 77.8 kg, Chloride Total 0.103 Volume: MEQ/ML / 1,000, Sodium Start Lactate date: 0.028 12/07/13 MEQ/ML 10:02:00, Injectable Duration: Solution 30 day, Stop date: 01/06/14 10:01:00 Vital Signs Vital Name Observation Time Observation Value Comments Source Systolic (mm Hg) 2013-12-07 17:45:00 [employer]ak rial [place] Diastolic (mm Hg) 2013-12-07 17:45:00 Mem orial Ari Respitory Rate 2013-12-07 17:45:00 Memori al [place] Diastolic (mm Hg) 2013-12-07 17:30:00 Mem orial [place] Systolic (mm Hg) 2013-12-07 17:30:00 Kodka rial Ari Respitory Rate 2013-12-07 17:30:00 Memori al [place] Diastolic (mm Hg) 2013-12-07 17:15:00 Mem orial [place] Systolic (mm Hg) 2013-12-07 17:15:00 [employer] rial [place] Respitory Rate 2013-12-07 17:15:00 Memori al [place] Heart Rate 2013-12-07 14:25:00 [facility] [place] BMI Calculated 2013-12-01 17:57:00 Memori al [place] Weight 2013-12-01 17:57:00 [facility] [place] Height 2013-12-01 17:57:00 177.8 cm Memorial [place] Heart Rate 2013-11-30 17:43:00 [facility] [place] Weight 2013-11-30 17:37:00 [facility] [place] Height 2013-11-30 17:37:00 177.8 cm Memorial [place] BMI Calculated 2013-11-30 17:37:00 Memori al Ari Procedures Procedure Date / Time Performed Performing Clinician Sourc e Nephrectomy Memorial Ari Encounters Start End Encounter Admission Attending Care Care Encounter Source Date/Time Date/Time Type Type Clinicians Facility Department ID 2022-10-10 Outpatient [facility] [id number] [place] 07:55:04 [id number] [facility] 2022-09-06 Outpatient [facility] [id number] [place] 06:09:48 [id number] [facility] 2022-08-15 Outpatient [facility] [id number] [place] 17:56:14 [id number] [facility] 2022-08-10 Outpatient [facility] [id number] [place] 08:47:10 [id number] [facility] 2022-07-23 Outpatient [facility] [id number] [place] 12:26:07 [id number] [facility] 2022-07-19 Outpatient [facility] [id number] [place] 14:19:15 [id number] [facility] 2022-07-04 Outpatient [facility] [id number] [place] 14:50:47 [id number] [facility] 2022-10-11 2022-10-11 Outpatient [facility] [id number] [place] 14:00:00 14:00:00 Catarina COUCH 2022-06-30 2022-06-30 Outpatient KRISTOPHER [facility] [id number] [place] 12:30:00 12:30:00 HARISH Velasco [facility] 2013-12-07 2013-12-07 OBS Day nullFlavo [facility] [id number] Memoria 14:07:00 18:45:00 Surgery r [place] [id number] l [address] 2013-12-07 2013-12-07 OBS Day nullFlavo [facility] [id number] Memoria 14:07:00 18:45:00 Surgery r [place] [id number] l [address] 2013-12-07 2013-12-07 Outpatient Artem [id number] 09:07:00 13:45:00 Jimmy Santana131415. [id number] Alfredo [id number] 01 Results Test Description Test Time Test Comments Results Result Sour e Comments U/S, NECK 2019-02-10 Reason for FINAL REPORT PATIENT ID: 14:36:00 Exam:->R22.1 [id number] INDICATION:Right neck mass. Request for image guided [...] MDReport Verified Date/Time: 02/10/2019 14:36:41 Reading Location: [facility] Ultrasound Reading Room NECK SOFT TIS 2019-01-20 CLINICAL INDICATION: WO 09:06:13 R22.1 Localized swelling, mass and lump, neckMODALITY: Reonomy Supria [address] (Iterative dose reduction [...] ABO/Rh (test code = ABO/Rh) A POS [employer] [id number] 15:05:00 Test Item Value Reference Range Interpretation Comments Antibody Scrn (test Negative (12/07/2013 code = Antibody Scrn) 10:05:00 V[place]) [employer] [id number] 15:05:00 Test Item Value Reference Range Interpretation Comments ABO/Rh (test code = ABO/Rh) A POS [facility] [employer] [id number] 15:05:00 Test Item Value Reference Range Interpretation Comments Antibody Scrn (test Negative (12/07/2013 code = Antibody Scrn) 10:05:00 [place]) [facility] [employer] [id number] 15:05:00 Test Item Value Reference Range Interpretation Comments ABO/Rh (test code = ABO/Rh) A POS [facility] [employer] [id number] 15:05:00 Test Item Value Reference Range Interpretation Comments Antibody Scrn (test Negative (12/07/2013 code = Antibody Scrn) 10:05:00 [place]) [facility] [employer] [id number] 17:50:00 Test Item Value Reference Range Interpretation Comments Antibody Scrn (test Negative (12/01/2013 code = Antibody Scrn) 11:50:00 [place]) [facility] [employer] [id number] 17:50:00 Test Item Value Reference Range Interpretation Comments ABO/Rh (test code = ABO/Rh) A [facility] [employer] [id number] 17:50:00 Test Item Value Reference Range Interpretation Comments Antibody Scrn (test Negative (12/01/2013 code = Antibody Scrn) 11:50:00 [place]) [facility] [employer] [id number] 17:50:00 Test Item Value Reference Range Interpretation Comments ABO/Rh (test code = ABO/Rh) A [facility] [employer] [id number] 17:50:00 Test Item Value Reference Range Interpretation Comments Antibody Scrn (test Negative (12/01/2013 code = Antibody Scrn) 11:50:00 [place]) [employer] [id number] 17:50:00 Test Item Value Reference Range Interpretation Comments ABO/Rh (test code = ABO/Rh) A [facility] [id number] 17:15:00 Test Item Value Reference Range Interpretation Comments CO2 (test code = CO2) 28 24-32 [facility] [id number] 17:15:00 Test Item Value Reference Range Interpretation Comments Chloride Lvl (test code = Chloride Lvl) 104 95-109 [id number] 17:15:00 Test Item Value Reference Range Interpretation Comments MPV (test code = MPV) 7.7 7.4-10.4 [facility] [id number] 17:15:00 Test Item Value Reference Range Interpretation Comments RBC X 10x6 (test code = RBC X 10x6) 4.29 4.70-6.10 [facility] [id number] 17:15:00 Test Item Value Reference Range Interpretation Comments Hgb (test code = Hgb) 14.4 14.0-18.0 [facility] [id number] 17:15:00 Test Item Value Reference Range Interpretation Comments MCHC (test code = MCHC) 34.3 32.0-36.0 [facility] [id number] 17:15:00 Test Item Value Reference Range Interpretation Comments Hct (test code = Hct) 42.0 42.0-54.0 [facility] [id number] 17:15:00 Test Item Value Reference Range Interpretation Comments RDW (test code = RDW) 14.0 11.5-14.5 [facility] H[id number] 17:15:00 Test Item Value Reference Range Interpretation Comments Platelet (test code = Platelet) 270 133-450 [facility] H[id number] 17:15:00 Test Item Value Reference Range Interpretation Comments MCV (test code = MCV) 97.9 80.0-94.0 [facility] H[id number] 17:15:00 Test Item Value Reference Range Interpretation Comments MCH (test code = MCH) 33.6 pg 27.0-31.0 [facility] H[id number] 17:15:00 Test Item Value Reference Range Interpretation Comments WBC X 10x3 (test code = WBC X 10x3) 5.3 3.7-10.4 [facility] H[id number] 17:15:00 Test Item Value Reference Range Interpretation Comments INR (test code = INR) 0.92 0.85-1.17 [facility] Ho[id number] 17:15:00 Test Item Value Reference Range Interpretation Comments aPTT (test code = aPTT) 28.2 s 22.9-35.8 [facility] Hos[id number] 17:15:00 Test Item Value Reference Range Interpretation Comments PROTIME (test code = PROTIME) 12.3 s 12.0-14.7 [facility] [id number] 17:15:00 Test Item Value Reference Range Interpretation Comments Eosinophils # (test code 0.2 See_Comment [A utomated message] The = Eosinophils #) system whic h generated this result tra nsmitted reference range : <=0.5. The reference r tyrese was not used to int erpret this result as normal/abnormal . [facility] [id number] 17:15:00 Test Item Value Reference Range Interpretation Comments Basophils # (test code 0.0 See_Comment [Aut omated message] The = Basophils #) system which generated this result tra nsmitted reference range : <=0.2. The reference r tyrese was not used to int erpret this result as normal/abnormal . [facility] H[id number] 17:15:00 Test Item Value Reference Range Interpretation Comments Monocytes # (test code 0.6 See_Comment [Aut omated message] The = Monocytes #) system which generated this result tra nsmitted reference range : <=0.8. The reference r tyrese was not used to int erpret this result as normal/abnormal . [facility] H[id number] 17:15:00 Test Item Value Reference Range Interpretation Comments Lymphocytes # (test code = Lymphocytes 1.3 1.0-5.5 #) [facility] [id number] 17:15:00 Test Item Value Reference Range Interpretation Comments Segs-Bands # (test code = Segs-Bands #) 3.2 1.5-8.1 [facility] [id number] 17:15:00 Test Item Value Reference Range Interpretation Comments Basophils (test code = 0.2 See_Comment [Aut omated message] The Basophils) system which ge nerated this result tra nsmitted reference range : <=1.0. The reference r tyrese was not used to int erpret this result as normal/abnormal . [facility] H[id number] 17:15:00 Test Item Value Reference Range Interpretation Comments Eosinophils (test code = 4.0 See_Comment [A utomated message] The Eosinophils) system which ge nerated this result tra nsmitted reference range : <=4.0. The reference r tyrese was not used to int erpret this result as normal/abnormal . [facility] [id number] 17:15:00 Test Item Value Reference Range Interpretation Comments Monocytes (test code = Monocytes) 11.1 2.0-12.0 [facility] H[id number] 17:15:00 Test Item Value Reference Range Interpretation Comments Lymphocytes (test code = Lymphocytes) 24.0 20.0-40.0 [facility] H[id number] 17:15:00 Test Item Value Reference Range Interpretation Comments Segs (test code = Segs) 60.7 45.0-75.0 [facility]2014-03-03 17:15:00 Test Item Value Reference Range Interpretation Comments ALANINE AMINOTRANSFERASE 20 See_Comment [A utomated message] (test code = ALANINE The sys tem which AMINOTRANSFERASE) generated this result transmitted ref erence range: <=65. Th e reference range was not used to int erpret this result as normal/abnormal . [facility]2014-03-03 17:15:00 Test Item Value Reference Range Interpretation Comments Albumin Lvl (test code = Albumin Lvl) 3.9 3.5-5.0 [facility]2014-03-03 17:15:00 Test Item Value Reference Range Interpretation Comments Alk Phos (test code = Alk Phos) 47 39-136 [facility]2014-03-03 17:15:00 Test Item Value Reference Range Interpretation Comments Bili Direct (test code 0.1 See_Comment [Aut omated message] The = Bili Direct) system which generated this result tra nsmitted reference range : <=0.3. The reference r tyrese was not used to int erpret this result as wilfrid l/abnormal. [facility]2014-03-03 17:15:00 Test Item Value Reference Range Interpretation Comments Total Protein (test code = Total 8.3 6.4-8.4 Protein) [facility]2014-03-03 17:15:00 Test Item Value Reference Range Interpretation Comments Bili Total (test code = Bili Total) 0.4 0.2-1.3 [facility]2014-03-03 17:15:00 Test Item Value Reference Range Interpretation Comments ASPARTATE TRANSAMINASE 39 See_Comment [Aut omated message] (test code = ASPARTATE The s ystem which TRANSAMINASE) generated this result transmitted ref erence range: <=37. Th e reference range was not used to interpr et this result as normal/abnormal . [facility] [id number] 17:15:00 Test Item Value Reference Range Interpretation Comments Globulin (test code = Globulin) 4.4 2.0-4.0 [facility] CenterLY.comSCIONHEALTHFGWIL9101-04-40 17:15:00 Test Item Value Reference Range Interpretation Comments A/G Ratio (test code = A/G Ratio) 0.9 0.7-1.6 [facility]2014-03-03 17:15:00 Test Item Value Reference Range Interpretation Comments Bili Indirect (test 0.3 See_Comment [Automa jeffry message] The code = Bili Indirect) system which generated this result tra nsmitted reference range : <=1.0. The reference r tyrese was not used to int erpret this result as normal/abnormal . [facility] CenterWit [facility] Inc [id number] 17:15:00 Test Item Value Reference Range Interpretation Comments Calcium Lvl (test code = Calcium Lvl) 9.3 8.5-10.5 [facility] Center[facility] [id number] 17:15:00 Test Item Value Reference Range Interpretation Comments eGFR (test code = eGFR) 62 [facility] CenterW[facility] [id number] 17:15:00 Test Item Value Reference Range Interpretation Comments Creatinine Lvl (test code = Creatinine 1.2 0.5-1.4 Lvl) [facility] CenterLY.[id number] 17:15:00 Test Item Value Reference Range Interpretation Comments BUN (test code = BUN) 21 7-22 [facility] Center[facility] [id number] 17:15:00 Test Item Value Reference Range Interpretation Comments Glucose Lvl (test code = Glucose Lvl) 94 70-99 [facility]nip[facility]ckPUPLIJSAOSQE3341-94-05 17:15:00 Test Item Value Reference Range Interpretation Comments AGAP (test code = AGAP) 10.8 10.0-20.0 [facility]TxjuxuqPIMDSGMDZVDQ5826-67-99 17:15:00 Test Item Value Reference Range Interpretation Comments Sodium Lvl (test code = Sodium Lvl) 138 135-145 [facility]EkyhcsmGBUQCJSCUDMT7933-46-04 17:15:00 Test Item Value Reference Range Interpretation Comments Potassium Lvl (test code = Potassium 4.8 3.5-5.1 Lvl) [facility] HospitalWzbudsiELYSCLSAMCDG8635-44-75 17:15:00 Test Item Value Reference Range Interpretation Comments CO2 (test code = CO2) 28 24-32 [facility] HospitalEqcnvbjJMUIJEOJJFDJ9919-06-76 17:15:00 Test Item Value Reference Range Interpretation Comments Chloride Lvl (test code = Chloride Lvl) 104 95-109 [facility]LcnhskpYVICOZWYVF6654-90-50 17:15:00 Test Item Value Reference Range Interpretation Comments MPV (test code = MPV) 7.7 7.4-10.4 [facility]DvtsjuvALNDXHKECR0763-10-30 17:15:00 Test Item Value Reference Range Interpretation Comments RBC X 10x6 (test code = RBC X 10x6) 4.29 4.70-6.10 [facility] HospitalYnzbsgcUDHMPIKIRK0957-52-09 17:15:00 Test Item Value Reference Range Interpretation Comments Hgb (test code = Hgb) 14.4 14.0-18.0 [facility] HospitalPejcxceIQUSRFYWOT5411-95-54 17:15:00 Test Item Value Reference Range Interpretation Comments MCHC (test code = MCHC) 34.3 32.0-36.0 [facility] HospitalOqjhzgaQRMKEPSYZD2533-96-38 17:15:00 Test Item Value Reference Range Interpretation Comments Hct (test code = Hct) 42.0 42.0-54.0 [facility] HospitalOhmojugMVDHOTMEWV8993-40-13 17:15:00 Test Item Value Reference Range Interpretation Comments RDW (test code = RDW) 14.0 11.5-14.5 [facility] HospitalAjjuybiGJMEOZZUYA8512-39-84 17:15:00 Test Item Value Reference Range Interpretation Comments Platelet (test code = Platelet) 270 133-450 [facility] HospitalJtvsucxROJAAVSIGO0218-76-76 17:15:00 Test Item Value Reference Range Interpretation Comments MCV (test code = MCV) 97.9 80.0-94.0 [facility] HospitalYthqllmROIXQAVTRE3919-42-64 17:15:00 Test Item Value Reference Range Interpretation Comments MCH (test code = MCH) 33.6 pg 27.0-31.0 [facility] HospitalSphxsbgHDGTKIUNIO0183-43-86 17:15:00 Test Item Value Reference Range Interpretation Comments WBC X 10x3 (test code = WBC X 10x3) 5.3 3.7-10.4 [facility] HospitalLogtnefMONQZWYYRW5523-56-95 17:15:00 Test Item Value Reference Range Interpretation Comments INR (test code = INR) 0.92 0.85-1.17 [facility] HospitalOnlvzcoQJXCOYUESR1370-15-91 17:15:00 Test Item Value Reference Range Interpretation Comments aPTT (test code = aPTT) 28.2 s 22.9-35.8 [facility] HospitalFwrglyfFKJIZQTNKN6425-23-26 17:15:00 Test Item Value Reference Range Interpretation Comments PROTIME (test code = PROTIME) 12.3 s 12.0-14.7 [facility] HospitalXtjjdgrXKVEBLENHZ7817-22-46 17:15:00 Test Item Value Reference Range Interpretation Comments Eosinophils # (test code 0.2 See_Comment [A utomated message] The = Eosinophils #) system whic h generated this result tra nsmitted reference range : <=0.5. The reference r tyrese was not used to int erpret this result as normal/abnormal . [facility] HospitalFwwjngiXEUMMYVQHP9046-10-90 17:15:00 Test Item Value Reference Range Interpretation Comments Basophils # (test code 0.0 See_Comment [Aut omated message] The = Basophils #) system which generated this result tra nsmitted reference range : <=0.2. The reference r tyrese was not used to int erpret this result as normal/abnormal . [facility] HospitalXpmuwcsEWKGVXWOTN0578-71-85 17:15:00 Test Item Value Reference Range Interpretation Comments Monocytes # (test code 0.6 See_Comment [Aut omated message] The = Monocytes #) system which generated this result tra nsmitted reference range : <=0.8. The reference r tyrese was not used to int erpret this result as normal/abnormal . [facility] HospitalGamgbhuHRRKWDSRZN6169-18-92 17:15:00 Test Item Value Reference Range Interpretation Comments Lymphocytes # (test code = Lymphocytes 1.3 1.0-5.5 #) [facility] HospitalHimgnktBREYKDXXSL5596-35-53 17:15:00 Test Item Value Reference Range Interpretation Comments Segs-Bands # (test code = Segs-Bands #) 3.2 1.5-8.1 [facility] HospitalUldjsvlYYYUXMMJFH1702-23-20 17:15:00 Test Item Value Reference Range Interpretation Comments Basophils (test code = 0.2 See_Comment [Aut omated message] The Basophils) system which ge nerated this result tra nsmitted reference range : <=1.0. The reference r tyrese was not used to int erpret this result as normal/abnormal . [facility] HospitalJvtzeuxALRTJBYMCY9991-88-93 17:15:00 Test Item Value Reference Range Interpretation Comments Eosinophils (test code = 4.0 See_Comment [A utomated message] The Eosinophils) system which ge nerated this result tra nsmitted reference range : <=4.0. The reference r tyrese was not used to int erpret this result as normal/abnormal . [facility] HospitalSjvfedgTYJBBXDQQR1032-76-29 17:15:00 Test Item Value Reference Range Interpretation Comments Monocytes (test code = Monocytes) 11.1 2.0-12.0 [facility] HospitalRwuwhxyAPHMCQAWPN3103-66-69 17:15:00 Test Item Value Reference Range Interpretation Comments Lymphocytes (test code = Lymphocytes) 24.0 20.0-40.0 [facility] HospitalAbpvvpaSOCQBYJONV8372-69-95 17:15:00 Test Item Value Reference Range Interpretation Comments Segs (test code = Segs) 60.7 45.0-75.0 [facility]2014-03-03 17:15:00 Test Item Value Reference Range Interpretation Comments ALANINE AMINOTRANSFERASE 20 See_Comment [A utomated message] (test code = ALANINE The sys tem which AMINOTRANSFERASE) generated this result transmitted ref erence range: <=65. Th e reference range was not used to int erpret this result as normal/abnormal . [facility]Mers[facility] CDDWF0472-25-35 17:15:00 Test Item Value Reference Range Interpretation Comments Albumin Lvl (test code = Albumin Lvl) 3.9 3.5-5.0 [facility]2014-03-03 17:15:00 Test Item Value Reference Range Interpretation Comments Alk Phos (test code = Alk Phos) 47 39-136 [facility] HospitalMersimo [id number] 17:15:00 Test Item Value Reference Range Interpretation Comments Bili Direct (test code 0.1 See_Comment [Aut omated message] The = Bili Direct) system which generated this result tra nsmitted reference range : <=0.3. The reference r tyrese was not used to int erpret this result as wilfrid l/abnormal. [place] [id number] 17:15:00 Test Item Value Reference Range Interpretation Comments Total Protein (test code = Total 8.3 6.4-8.4 Protein) [facility]2014-03-03 17:15:00 Test Item Value Reference Range Interpretation Comments Bili Total (test code = Bili Total) 0.4 0.2-1.3 [facility]2014-03-03 17:15:00 Test Item Value Reference Range Interpretation Comments ASPARTATE TRANSAMINASE 39 See_Comment [Aut omated message] (test code = ASPARTATE The s ystem which TRANSAMINASE) generated this result transmitted ref erence range: <=37. Th e reference range was not used to interpr et this result as normal/abnormal . [facility]2014-03-03 17:15:00 Test Item Value Reference Range Interpretation Comments Globulin (test code = Globulin) 4.4 2.0-4.0 [facility]2014-03-03 17:15:00 Test Item Value Reference Range Interpretation Comments A/G Ratio (test code = A/G Ratio) 0.9 0.7-1.6 [facility]2014-03-03 17:15:00 Test Item Value Reference Range Interpretation Comments Bili Indirect (test 0.3 See_Comment [Automa jeffry message] The code = Bili Indirect) system which generated this result tra nsmitted reference range : <=1.0. The reference r tyrese was not used to int erpret this result as normal/abnormal . [facility]2014-03-03 17:15:00 Test Item Value Reference Range Interpretation Comments Calcium Lvl (test code = Calcium Lvl) 9.3 8.5-10.5 [facility]2014-03-03 17:15:00 Test Item Value Reference Range Interpretation Comments eGFR (test code = eGFR) 62 [facility]2014-03-03 17:15:00 Test Item Value Reference Range Interpretation Comments Creatinine Lvl (test code = Creatinine 1.2 0.5-1.4 Lvl) [facility]2014-03-03 17:15:00 Test Item Value Reference Range Interpretation Comments BUN (test code = BUN) 21 7-22 [facility]2014-03-03 17:15:00 Test Item Value Reference Range Interpretation Comments Glucose Lvl (test code = Glucose Lvl) 94 70-99 [facility]OknmjgiJUDUQHKJJMJO7308-58-76 17:15:00 Test Item Value Reference Range Interpretation Comments AGAP (test code = AGAP) 10.8 10.0-20.0 [facility] HospitalEdxrcczVRZVNJKMPOLW2069-69-54 17:15:00 Test Item Value Reference Range Interpretation Comments Sodium Lvl (test code = Sodium Lvl) 138 135-145 [facility]OewglwiMPAMJLKPGLIZ7951-88-24 17:15:00 Test Item Value Reference Range Interpretation Comments Potassium Lvl (test code = Potassium 4.8 3.5-5.1 Lvl) [facility] HospitalIypupqeIBPNFJQSGWXG2764-49-84 17:15:00 Test Item Value Reference Range Interpretation Comments CO2 (test code = CO2) 28 24-32 [facility] HospitalWzykhavTOXTZZLQCETJ5519-74-36 17:15:00 Test Item Value Reference Range Interpretation Comments Chloride Lvl (test code = Chloride Lvl) 104 95-109 [facility] HospitalOemsmouOHVQTFXGUM0772-49-16 17:15:00 Test Item Value Reference Range Interpretation Comments MPV (test code = MPV) 7.7 7.4-10.4 [facility] HospitalZizysweSLBAZEVJWX2051-21-74 17:15:00 Test Item Value Reference Range Interpretation Comments RBC X 10x6 (test code = RBC X 10x6) 4.29 4.70-6.10 [facility] HospitalEezmyyqISRFGVIBXA8919-00-69 17:15:00 Test Item Value Reference Range Interpretation Comments Hgb (test code = Hgb) 14.4 14.0-18.0 [facility] HospitalHojnegpZDFCOJSSOF4658-15-31 17:15:00 Test Item Value Reference Range Interpretation Comments MCHC (test code = MCHC) 34.3 32.0-36.0 [facility] HospitalXuivbeaLTCGRVNIDH3395-33-49 17:15:00 Test Item Value Reference Range Interpretation Comments Hct (test code = Hct) 42.0 42.0-54.0 [facility] HospitalXdlzfmdOXEIFDGJRJ0117-05-00 17:15:00 Test Item Value Reference Range Interpretation Comments RDW (test code = RDW) 14.0 11.5-14.5 [facility] HospitalJjokmqpLJUHSQRJTF9163-08-65 17:15:00 Test Item Value Reference Range Interpretation Comments Platelet (test code = Platelet) 270 133-450 [facility] HospitalAdzqjeyHTQPFXOFSX5288-87-04 17:15:00 Test Item Value Reference Range Interpretation Comments MCV (test code = MCV) 97.9 80.0-94.0 [facility] HospitalBxkxoxrHRNRUFDIFZ4708-47-27 17:15:00 Test Item Value Reference Range Interpretation Comments MCH (test code = MCH) 33.6 pg 27.0-31.0 [facility] HospitalBzztwtuXHGZRDGTCJ8942-64-53 17:15:00 Test Item Value Reference Range Interpretation Comments WBC X 10x3 (test code = WBC X 10x3) 5.3 3.7-10.4 [facility] HospitalZkrzxbpIAYMXPBPUB0442-13-84 17:15:00 Test Item Value Reference Range Interpretation Comments INR (test code = INR) 0.92 0.85-1.17 [facility] HospitalRcidrgjSGPYQHHHTC8565-49-38 17:15:00 Test Item Value Reference Range Interpretation Comments aPTT (test code = aPTT) 28.2 s 22.9-35.8 [facility] HospitalZiaxrjoMWEILTNPBL9609-10-24 17:15:00 Test Item Value Reference Range Interpretation Comments PROTIME (test code = PROTIME) 12.3 s 12.0-14.7 [facility] HospitalGnodgedGBVGMVZUQD5225-00-73 17:15:00 Test Item Value Reference Range Interpretation Comments Eosinophils # (test code 0.2 See_Comment [A utomated message] The = Eosinophils #) system whic h generated this result tra nsmitted reference range : <=0.5. The reference r tyrese was not used to int erpret this result as normal/abnormal . [facility] HospitalYanqvsyEVEXNKVLHR5463-13-53 17:15:00 Test Item Value Reference Range Interpretation Comments Basophils # (test code 0.0 See_Comment [Aut omated message] The = Basophils #) system which generated this result tra nsmitted reference range : <=0.2. The reference r tyrese was not used to int erpret this result as normal/abnormal . [facility] HospitalVaesokeYHTJEOAQAZ3199-13-73 17:15:00 Test Item Value Reference Range Interpretation Comments Monocytes # (test code 0.6 See_Comment [Aut omated message] The = Monocytes #) system which generated this result tra nsmitted reference range : <=0.8. The reference r tyrese was not used to int erpret this result as normal/abnormal . [facility] HospitalXgtfuhuXBWMQIFTRL3884-67-19 17:15:00 Test Item Value Reference Range Interpretation Comments Lymphocytes # (test code = Lymphocytes 1.3 1.0-5.5 #) [facility] HospitalHxpxlusPRSASQJDXL1852-26-06 17:15:00 Test Item Value Reference Range Interpretation Comments Segs-Bands # (test code = Segs-Bands #) 3.2 1.5-8.1 [facility] HospitalAvogrdfSOFPFTHUBU8739-89-15 17:15:00 Test Item Value Reference Range Interpretation Comments Basophils (test code = 0.2 See_Comment [Aut omated message] The Basophils) system which ge nerated this result tra nsmitted reference range : <=1.0. The reference r tyrese was not used to int erpret this result as normal/abnormal . [facility] HospitalPxjjmyxDXSQQNQTMT8858-73-86 17:15:00 Test Item Value Reference Range Interpretation Comments Eosinophils (test code = 4.0 See_Comment [A utomated message] The Eosinophils) system which ge nerated this result tra nsmitted reference range : <=4.0. The reference r tyrese was not used to int erpret this result as normal/abnormal . [facility] HospitalTubogxrTVGBKUPNLE0002-50-68 17:15:00 Test Item Value Reference Range Interpretation Comments Monocytes (test code = Monocytes) 11.1 2.0-12.0 [facility] HospitalQszqeolVHQFTEWLJT6317-75-24 17:15:00 Test Item Value Reference Range Interpretation Comments Lymphocytes (test code = Lymphocytes) 24.0 20.0-40.0 [facility] HospitalFwzuyymUEZKYSFTFV5681-87-25 17:15:00 Test Item Value Reference Range Interpretation Comments Segs (test code = Segs) 60.7 45.0-75.0 [facility]2014-03-03 17:15:00 Test Item Value Reference Range Interpretation Comments ALANINE AMINOTRANSFERASE 20 See_Comment [A utomated message] (test code = ALANINE The sys tem which AMINOTRANSFERASE) generated this result transmitted ref erence range: <=65. Th e reference range was not used to int erpret this result as normal/abnormal . [facility]2014-03-03 17:15:00 Test Item Value Reference Range Interpretation Comments Albumin Lvl (test code = Albumin Lvl) 3.9 3.5-5.0 [facility]2014-03-03 17:15:00 Test Item Value Reference Range Interpretation Comments Alk Phos (test code = Alk Phos) 47 39-136 [facility]2014-03-03 17:15:00 Test Item Value Reference Range Interpretation Comments Bili Direct (test code 0.1 See_Comment [Aut omated message] The = Bili Direct) system which generated this result tra nsmitted reference range : <=0.3. The reference r tyrese was not used to int erpret this result as wilfrid l/abnormal. [facility]2014-03-03 17:15:00 Test Item Value Reference Range Interpretation Comments Total Protein (test code = Total 8.3 6.4-8.4 Protein) [facility]2014-03-03 17:15:00 Test Item Value Reference Range Interpretation Comments Bili Total (test code = Bili Total) 0.4 0.2-1.3 [facility]2014-03-03 17:15:00 Test Item Value Reference Range Interpretation Comments ASPARTATE TRANSAMINASE 39 See_Comment [Aut omated message] (test code = ASPARTATE The s ystem which TRANSAMINASE) generated this result transmitted ref erence range: <=37. Th e reference range was not used to interpr et this result as normal/abnormal . [facility]2014-03-03 17:15:00 Test Item Value Reference Range Interpretation Comments Globulin (test code = Globulin) 4.4 2.0-4.0 [facility]2014-03-03 17:15:00 Test Item Value Reference Range Interpretation Comments A/G Ratio (test code = A/G Ratio) 0.9 0.7-1.6 [facility]2014-03-03 17:15:00 Test Item Value Reference Range Interpretation Comments Bili Indirect (test 0.3 See_Comment [Automa jeffry message] The code = Bili Indirect) system which generated this result tra nsmitted reference range : <=1.0. The reference r tyrese was not used to int erpret this result as normal/abnormal . [facility]2014-03-03 17:15:00 Test Item Value Reference Range Interpretation Comments Calcium Lvl (test code = Calcium Lvl) 9.3 8.5-10.5 [facility]2014-03-03 17:15:00 Test Item Value Reference Range Interpretation Comments eGFR (test code = eGFR) 62 [facility]2014-03-03 17:15:00 Test Item Value Reference Range Interpretation Comments Creatinine Lvl (test code = Creatinine 1.2 0.5-1.4 Lvl) [facility]2014-03-03 17:15:00 Test Item Value Reference Range Interpretation Comments BUN (test code = BUN) 21 7-22 [facility]2014-03-03 17:15:00 Test Item Value Reference Range Interpretation Comments Glucose Lvl (test code = Glucose Lvl) 94 70-99 [facility]RgfdtlaBTMRVKQZTOID8210-79-08 17:15:00 Test Item Value Reference Range Interpretation Comments AGAP (test code = AGAP) 10.8 10.0-20.0 [facility] HospitalFdazkeyQZBVAEENKOZO8013-16-48 17:15:00 Test Item Value Reference Range Interpretation Comments Sodium Lvl (test code = Sodium Lvl) 138 135-145 [facility] HospitalFnbptxtIZMRRZPHXEIG4735-52-99 17:15:00 Test Item Value Reference Range Interpretation Comments Potassium Lvl (test code = Potassium 4.8 3.5-5.1 Lvl) [facility]
[2023-01-24 12:56] VITALS: BMI 18.9
[2023-01-24] MEDS ORDERED: POLYETHYL GLY 3350 17 GM/DOSE PO PRN (13:00)
[2023-01-24] MEDS ORDERED: LOPERAMIDE HCL 2 MG CAPSULE PO PRN (13:00)
[2023-01-24] MEDS ORDERED: ONDANSETRON 4 MG/2 ML VIAL IV PRN (13:00)
[2023-01-24] MEDS ORDERED: ONDANSETRON 4 MG (ODT) TAB PO PRN (13:00)
[2023-01-24] MEDS ORDERED: ACETAMINOPHEN 325 MG TABLET PO PRN (13:00)
[2023-01-24] MEDS: Meropenem 1,000 MG in NA CHLORIDE 0.9% 100 ML IV SCH ×2 (13:14→20:03)
[2023-01-24] MEDS: NACHLORIDE 0.45% 1,000 ML IV SCH (13:20)
[2023-01-24 13:56] LABS: Hematocrit 27.7 % (39.6-49.0); Lymphocytes % 25.4 % (15.3-44.8); MCV 80.6 fL (80-100); MPV 7.1 fL (7.6-11.3); RBC Red Blood Cell Count 3.43 M/uL (4.33-5.43)
[2023-01-24 14:01] LABS: Protime INR 1.11
--- NOTE | 2023-01-24 16:58 | CON ---
Date of Consultation: 01/24/2023 Reason For Consultation: Nonhealing right heel wound with foreign body, chronic osteomyelitis. History Of Present Illness: The patient is a 77-year-old gentleman, paraplegic following a fall many years ago and had a hardware in his right ankle from injury sustained long time ago and following iverson rgery, he had a hardware that was placed the hardware is poking through his heel. He is u nable to walk and the patient had an MRI done a week ago, which shows osteomyelitis with probable bon e exposure and performed by me. He denies any purulent discharge. He has no feeling in the heel. T he patient denies any sore throat, runny nose, cough, headaches, or dizziness. No chest pain. No fe bel or chills. Review of Systems: Otherwise unremarkable. Past Medical History: Significant for paralysis, peripheral vascular disease. Allergies: NO ALLERGIES. Social History: The patient currently does not smoke or drink. Family History: Noncontributory. Physical Examination: Vital Signs: Currently stable. He is afebrile. General: He is awake, alert, and oriented x3. Head and Neck: Cranial nerves 2 through 12 are grossly within normal limits. No neck masses. No JV D. Throat clear. Neck is supple. Chest: Clear. Heart: S1, S2. Abdomen: Soft. Extremity: Diminished dorsalis pedis and posterior tibial pulses bilaterally. The patient has paral ysis of lower extremities. He has a heel wound approximately 6 x 6 cm with some granulation tissue, palpable bone, palpable foreign body, surrounding erythema, edema, some warmth. Laboratory Data: Pending. Assessment: A 77-year-old gentleman with multiple medical problems with right heel nonhealing wound with osteomyelitis and foreign body. Recommendations: As the patient is nonambulatory and has an infection that is significant with nonhe aling wound, best option for the patient is right xucjt-glb-usgu amputation. The patient does prefer to flap to be as low as possible and we will do that as safely as we can with proper flap closure. The patient understands risks, benefits, and alternatives and agrees to procedure. Plan of care disc ussed with the patient as well as Dr. Harper. RAFAL/LUCY Voice ID: [id number] Report ID: [id number]
[2023-01-24 17:26] LABS: AST/SGOT 18 U/L (15-37); Albumin 2.6 g/dL (3.4-5.0); Alkaline Phosphatase 92 U/L (45-117); BUN Blood Urea Nitrogen 27 mg/dL (7-18); Bicarbonate 25 mEq/L (21-32); Bilirubin Total 0.2 mg/dL (0.2-1.0); Glomerular Filtration Rate 104 ml/min (=/>90); Glucose Level 97 mg/dL (74-106); Magnesium 1.6 mg/dL (1.6-2.4); Potassium 3.9 mEq/L (3.5-5.1); Protein, Total 8.8 g/dL (6.4-8.2); Sodium Level 127 mEq/L (136-145)
[2023-01-24 17:28] LABS: ALT/SGPT < 10 U/L (16-61); Bilirubin Direct < 0.1 mg/dL (0-0.2)
--- NOTE | 2023-01-24 19:45 | RAD REPORT ---
EXAM DESCRIPTION: RADAmericot Pa And Lat (2 Views)01/24/2023 3:56 pm CLINICAL HISTORY: Cellulitis, infection COMPARISON: Chest Single View dated 01/17/2023; Chest Single View dated 10/17/2022; Chest Single View dated 10/17/2022; Knee Right 2 View dated 01/24/2023 TECHNIQUE: Portable AP view of the chest. FINDINGS: The lungs are clear. No pneumothorax or effusion. The cardiomediastinal contours are unrem arkable. IMPRESSION: No acute cardiopulmonary process.
[2023-01-24] MEDS: TRAZODONE 50 MG TABLET PO SCH (20:02)
--- NOTE | 2023-01-24 20:23 | RAD REPORT ---
EXAM DESCRIPTION: RAD - Knee Right 2 View - 01/24/2023 3:56 pm CLINICAL HISTORY: cellulitis COMPARISON: No comparisons TECHNIQUE: Right knee, 2 views. FINDINGS: No fracture, dislocation or periosteal reaction.Soft tissue swelling and mild effusion sukumar ng the suprapatellar space. Edema within the infrapatellar fat pad. No joint space narrowing. No soft tissue gas. Clinical concerns for internal derangement or occult bony injury could be further assessed with MR im aging. IMPRESSION: No acute osseous abnormality. Suprapatellar soft tissue swelling and small effusion as a isaac.
[2023-01-25] MEDS: TRAMADOL HCL 50 MG TAB PO PRN (02:20)
[2023-01-25 05:26] LABS: Absolute Lymphocytes (CBC) 0.9 K/uL (0.7-4.9); Lymphocytes % 13.8 % (15.3-44.8); MCV 80.4 fL (80-100); MPV 7.2 fL (7.6-11.3); RBC Red Blood Cell Count 3.11 M/uL (4.33-5.43)
[2023-01-25 05:38] LABS: Potassium 3.6 mEq/L (3.5-5.1)
[2023-01-25] MEDS ORDERED: Ringers Lactate 1,000 ML IV ONE (08:51)
[2023-01-25] MEDS: ENOXAPARIN 40 MG/0.4 ML SQ SCH (09:00)
[2023-01-25] MEDS: Meropenem 1,000 MG in NA CHLORIDE 0.9% 100 ML IV SCH ×2 (09:00→20:49)
[2023-01-25] MEDS ORDERED: POTASSIUM CL SA 10 MEQ TAB PO ONE (09:00)
[2023-01-25] MEDS: NACHLORIDE 0.45% 1,000 ML IV SCH ×2 (09:00→18:35)
[2023-01-25] MEDS ORDERED: propofoL 200 MG/20 ML VIAL IV ONE (09:50)
[2023-01-25] MEDS ORDERED: FENTANYL CITR 100 MCG/2 ML ONE (09:51)
[2023-01-25] MEDS ORDERED: LIDOCAINE 2% MPF 5 ML VIAL ONE (09:51)
[2023-01-25] MEDS ORDERED: ONDANSETRON 4 MG/2 ML VIAL ONE (09:52)
[2023-01-25] MEDS ORDERED: Phenylephrine HCl 10 MG/ML 1 ML VIAL ONE (10:12)
--- NOTE | 2023-01-25 12:05 | P.OP ---
Date of Service: 01/25/23 Preop diagnosis: Nonhealing wound right heel with osteomyelitis and exposed hardware, paraplegia Postop diagnosis: Same Procedure performed: Right below-knee amputation Surgeon: Amado Perez MD Weir Fisherman: None Estimated blood loss: Minimal Specimen: Right leg Findings: As above Anesthesia: General Complications: None Drains: None Fluids and blood products: Nonapplicable Disposition: Recovery room Operative note: Patient brought to the OR and placed in the supine position. General anesthesia begun. Patient prepped and draped in usual sterile fashion. Then in the distal third of the right leg a transverse incision was made as per patient request. Posterior flap was created to cover the wound. Subcutaneous tissue divided. Fascia identified and divided. Neurovascular bundle and muscles identified and divided between clamps. 2-0 silk and 0 silk used to tie off the neurovascular bundles. Jigsaw used to divide the tibia. Battery- operated bone cutter used to divide the fibula. All muscle divided and the flaps created. Flap measured to appropriate size to cover the wound. Wound irrigated bleeding controlled with cautery and 3-0 silk suture. 2-0 chromic used to reapproximate subcutaneous tissue and fascia. Lorenzo used to close skin. Sterile dressing applied. Patient awakened and taken to recovery room in good general condition. CC: Dr. Harper's office
[2023-01-25 15:05] LABS: Hematocrit 24.7 % (39.6-49.0)
[2023-01-25] MEDS: TRAZODONE 50 MG TABLET PO SCH (20:48)
[2023-01-25] MEDS: DIPHENHYDRAMINE 25 MG TAB/CAP PO PRN (20:53)
--- NOTE | 2023-01-25 22:23 | P.PN ---
Subjective Date of Service: 01/25/23 Chief Complaint: RIGHT BKA Subjective: Improving MR PAIGE HAS COMPLICATED OSTEOMYELITIS THAT WILL NOT HEAL HE HAS HARDWARE COMING OUT OF THE WOUND. HIS FOOT IS NOT IN A SHAPE FOR ANY REPAIR. HE HAS AGREED TO AMPUTATION AND DR. BARRETT PERFORMED TODAY. Review of Systems 10-point ROS is otherwise unremarkable General: Weakness Neurological: As per HPI (PARAPLEGIC) Physical Examination - Vital Signs Temperature: 97.5 F Blood Pressure: 101/55 Pulse: 89 Respirations: 17 Pulse Ox (%): 96 - Physical Exam General: Oriented x3, Mild distress HEENT: Atraumatic, PERRLA, EOMI Neck: Supple, JVD not distended Respiratory: Clear to auscultation bilaterally, Normal air movement Cardiovascular: Regular rate/rhythm, Normal S1 S2 Gastrointestinal: Normal bowel sounds, No tenderness Musculoskeletal: No tenderness Integumentary: No rashes Neurological: Normal speech, Abnormal strength (BOTH LEGS PARALYZED SINCE FALL FROM ATTIC.) Lymphatics: No axilla or inguinal lymphadenopathy - Studies Laboratory Data (last 24 hrs) 01/25/23 14:33: Hgb 8.1 L, Hct 24.7 L 01/25/23 04:49: Sodium 130 L, Potassium 3.6, BUN 21 H, Creatinine 0.30 L, Glucose 115 H 01/25/23 04:49: WBC 6.60, Hgb 8.2 L, Hct 25.0 L, Plt Count 563 H Medications List Reviewed: Yes Assessment And Plan - Current Problems (Diagnosis) (1) Pressure ulcer of sacral region, stage 4 Current Visit: No Status: Chronic (2) Osteomyelitis of sacrum Current Visit: No Status: Chronic (3) Foot osteomyelitis, right Current Visit: Yes Status: Chronic Plan: SURGERY BKA. INCURABLE FOOT OM. SURGERY WILL NOT CURE THIS ISSUE. HE HAS NO CHOICE BUT BKA THE FOOT HAS SEVERE COMPLICATIONS. HE IS NEVER GOING TO WALK WITH TOTAL PARAPLEGIA. HE SO HAS AGREED FOR BKA. (4) Foot osteomyelitis, left Current Visit: Yes Status: Acute (5) Foot osteomyelitis, right Current Visit: Yes Status: Acute
--- NOTE | 2023-01-25 22:29 | P.HP ---
Certification for Inpatient Patient admitted to: Inpatient With expected LOS: >2 Midnights Practitioner: I am a practitioner with admitting privileges, knowledge of patient current condition, hospital course, and medical plan of care. Services: Services provided to patient in accordance with Admission requirements found in Title 42 Section 412.3 of the Code of Federal Regulations Patient History Date of Service: 01/24/23 Reason for admission: RIGHT BKA History of Present Illness: RENÉE HAS BEEN TOTALLY PARAYZED BELOW HIPS AFTER FALL FORM ATTIC. SINCE HE WAS IN HOSPITAL AND THEN NH. SINCE THEN HE HAS LARGE SACRAL ULCER AND BOTH HEEL ULCERS. ALL 3 LOCATIONS HAVE OSTEOMYELITIS. HE IMPROVE IN SACRUM WITH KCI PUMP BUT HI SR HEEL GOT WORSE AFTE RIMPROVEMENT . R HEEL NAIL PROTRUDED FROM THE ULCER FLOOR. THIS FOOT WITH DEFORMED AND PREVIOUSLY REPAIRED FOOT WILL BE HARD TO CURE. HE IS NOT GOING TO EVER AMBULATE ANY LONGER. HE HAS AGREED TO BKA INSTEAD OF FUTILE TIRAL FOR MONTHS IN SOME [facility]. Allergies No Known Allergies Allergy (Unverified 01/24/23 12:33) Home medications list reviewed: Yes Home Medications: Trazodone [Desyrel*] 50 mg PO BEDTIME #90 tab 10/23/22 Tramadol HCl [Ultram] 50 mg PO Q6HP PRN 01/24/23 - Past Medical/Surgical History Has patient received pneumonia vaccine in the past: Yes Diabetic: No -: paraplegic -: bed sores -: coccyx stage 4 ulcer -: spinal sx due to fall from roof -: nephrectomy - Social History Smoking Status: Never smoker Alcohol use: Yes CD- Drugs: No Caffeine use: Yes Place of Residence: Home Review of Systems 10-point ROS is otherwise unremarkable General: Weakness Neurological: As per HPI Physical Examination - Vital Signs Temperature: 97.5 F Blood Pressure: 101/55 Pulse: 89 Respirations: 17 Pulse Ox (%): 96 - Physical Exam General: Oriented x3, Mild distress HEENT: Atraumatic, PERRLA, Mucous membr. moist/pink, EOMI, Sclerae nonicteric Neck: Supple, 2+ carotid pulse no bruit, No LAD, Without JVD or thyroid abnormality Respiratory: Clear to auscultation bilaterally, Normal air movement Cardiovascular: Regular rate/rhythm, Normal S1 S2 Gastrointestinal: Normal bowel sounds, No tenderness Musculoskeletal: No tenderness Integumentary: No rashes, Pressure ulcer (3 ULCERS ABOVE. LARGE ADN COMPLICATED.) Neurological: Normal gait, Normal speech, Normal strength at 5/5 x4 extr, Normal tone, Normal affect Lymphatics: No axilla or inguinal lymphadenopathy - Studies Laboratory Data (last 24 hrs) 01/25/23 14:33: Hgb 8.1 L, Hct 24.7 L 01/25/23 04:49: Sodium 130 L, Potassium 3.6, BUN 21 H, Creatinine 0.30 L, Glucose 115 H 01/25/23 04:49: WBC 6.60, Hgb 8.2 L, Hct 25.0 L, Plt Count 563 H Assessment and Plan - Problems (Diagnosis) (1) Pressure ulcer of sacral region, stage 4 Current Visit: No Status: Chronic Plan: KCI PUMP. OFF LOAD AIR MATTRESS. (2) Osteomyelitis of sacrum Current Visit: No Status: Chronic (3) Foot osteomyelitis, right Current Visit: Yes Status: Chronic Plan: SURGERY BKA. INCURABLE FOOT OM. SURGERY WILL NOT CURE THIS ISSUE. HE HAS NO CHOICE BUT BKA THE FOOT HAS SEVERE COMPLICATIONS. HE IS NEVER GOING TO WALK WITH TOTAL PARAPLEGIA. HE SO HAS AGREED FOR BKA. (4) Foot osteomyelitis, left Current Visit: Yes Status: Acute (5) Foot osteomyelitis, right Current Visit: Yes Status: Acute - Advance Directives Does patient have a Living Will: No Does patient have a Durable POA for Healthcare: No
[2023-01-26 06:29] LABS: Absolute Lymphocytes (CBC) 1.1 K/uL (0.7-4.9); Hematocrit 23.7 % (39.6-49.0); Lymphocytes % 17.2 % (15.3-44.8); MCV 80.7 fL (80-100); MPV 7.5 fL (7.6-11.3); RBC Red Blood Cell Count 2.94 M/uL (4.33-5.43)
[2023-01-26] MEDS ORDERED: NA CHLORIDE 0.9% 250 ML ONE (06:52)
[2023-01-26 07:02] LABS: Magnesium 1.6 mg/dL (1.6-2.4); Potassium 4.2 mEq/L (3.5-5.1)
[2023-01-26 07:04] LABS: Specific Gravity 1.016 (1.005-1.030); Urine Bacteria <20 /HPF (<20); Urine Bilirubin NEGATIVE (Negative); Urine Blood Negative (Negative); Urine Clarity Turbid (Clear); Urine Color Light-Yellow (Yellow); Urine Crystals Unidentified Few /HPF (None Seen); Urine Glucose NEGATIVE (Negative); Urine Mucus Slight /HPF (None Seen); Urine Protein TRACE (Negative); Urine Urobilinogen Normal (Normal); Urine pH 5.5 (5.0-7.0)
[2023-01-26] MEDS: ENOXAPARIN 40 MG/0.4 ML SQ SCH (08:38)
[2023-01-26] MEDS ORDERED: MAGNESIUM SULFATE 1 gm IVPB 1 GM/100 ML BAG IV ONE (09:00)
[2023-01-26] MEDS: Meropenem 1,000 MG in NA CHLORIDE 0.9% 100 ML IV SCH ×2 (10:18→20:39)
--- NOTE | 2023-01-26 10:19 | P.PN ---
Subjective Date of Service: 01/26/23 Chief Complaint: RIGHT BKA Subjective: Improving MR PAIGE HAS COMPLICATED OSTEOMYELITIS THAT WILL NOT HEAL HE HAS HARDWARE COMING OUT OF THE WOUND. HIS FOOT IS NOT IN A SHAPE FOR ANY REPAIR. HE HAS AGREED TO AMPUTATION AND DR. BARRETT PERFORMED TODAY. RENÉE IS DOING GOOD. HE HAS NO PAIN. HIS HG IS DOWN TO 7.5 GM. HE WILL GET TWO UNITS OF PRBCS Review of Systems 10-point ROS is otherwise unremarkable Physical Examination - Vital Signs Temperature: 97.9 F Blood Pressure: 102/58 Pulse: 80 Respirations: 16 Pulse Ox (%): 96 - Physical Exam General: Alert, In no apparent distress HEENT: Atraumatic, PERRLA, EOMI Neck: Supple, JVD not distended Respiratory: Clear to auscultation bilaterally, Normal air movement Cardiovascular: Regular rate/rhythm, Normal S1 S2 Gastrointestinal: Normal bowel sounds, No tenderness Musculoskeletal: No tenderness Integumentary: No rashes, Pressure ulcer (L HEEL AND SACRUM WITH OM. ) Neurological: Normal speech, Normal tone, Normal affect, Abnormal strength (PARAPLEGIC, SP R BKA NOW FOR ABOVE REASONS. ) Lymphatics: No axilla or inguinal lymphadenopathy - Studies Laboratory Data (last 24 hrs) 01/26/23 05:42: WBC 6.70, Hgb 7.5 L, Hct 23.7 L, Plt Count 547 H 01/26/23 05:42: Sodium 132 L, Potassium 4.2 D, BUN 11, Creatinine 0.28 L, Glucose 110 H, Magnesium 1.6 01/25/23 14:33: Hgb 8.1 L, Hct 24.7 L Medications List Reviewed: Yes Assessment And Plan - Current Problems (Diagnosis) (1) Pressure ulcer of sacral region, stage 4 Current Visit: No Status: Chronic Plan: KCI PUMP. OFF LOAD AIR MATTRESS. IV ABX FOR NOW LATER ORAL ABX HE HAS DONE 6 WEEKS OF IV ABX. HE WILL CONTINUE ORAL ABX OUTPATIENT. PROGRESS IS SLOW. HE MAY BENEFIT BY HBO. HE MAY REJECT IT. I WILL DISCUSS WITH HIM IN AM. (2) Osteomyelitis of sacrum Current Visit: No Status: Chronic (3) Foot osteomyelitis, right Current Visit: Yes Status: Chronic Plan: SURGERY BKA. INCURABLE FOOT OM. SURGERY WILL NOT CURE THIS ISSUE. HE HAS NO CHOICE BUT BKA THE FOOT HAS SEVERE COMPLICATIONS. HE IS NEVER GOING TO WALK WITH TOTAL PARAPLEGIA. HE SO HAS AGREED FOR BKA. (4) Foot osteomyelitis, left Current Visit: Yes Status: Acute (5) Foot osteomyelitis, right Current Visit: Yes Status: Acute
--- NOTE | 2023-01-26 13:22 | PN ---
Date of Progress Note: 01/26/2023 Subjective: The patient is awake, alert. No complaints. Objective: Vital Signs: Stable. Afebrile Laboratory Data: Reviewed. His H and H went down to 7.5 and 23.7. Patient had 1 unit of blood meza sfusion and he is getting another unit. His preop H and H was 8.2 and 25.0. His dressing is clean, dry, and intact. Assessment: Status post right below-knee amputation. Recommendations: Once patient is medically stable, patient can be discharged home on oral antibiotic s, and I can [facility]. Dressing changes will be done by me next week 5 days after surgery and then [id number] dressing changes daily. /MODL Voice ID: [id number] Report ID: [id number]
[2023-01-26 16:36] LABS: Hematocrit 28.5 % (39.6-49.0)
[2023-01-26] MEDS: DIPHENHYDRAMINE 25 MG TAB/CAP PO PRN (20:40)
[2023-01-26] MEDS: TRAZODONE 50 MG TABLET PO SCH (20:40)
[2023-01-27] MEDS: TRAMADOL HCL 50 MG TAB PO PRN ×2 (00:44→20:32)
[2023-01-27] MEDS: NACHLORIDE 0.45% 1,000 ML IV SCH ×2 (00:45→21:16)
[2023-01-27 06:31] LABS: Magnesium 1.8 mg/dL (1.6-2.4)
[2023-01-27] MEDS ORDERED: TRIAMCINOLONE 0.1% OINT 15 GM TOP PRN (08:59)
[2023-01-27] MEDS: ENOXAPARIN 40 MG/0.4 ML SQ SCH (09:12)
[2023-01-27] MEDS: Meropenem 1,000 MG in NA CHLORIDE 0.9% 100 ML IV SCH ×2 (09:14→20:22)
--- NOTE | 2023-01-27 10:41 | PN ---
Date of Progress Note: 01/27/2023 Subjective: The patient is awake, alert. No complaints. Objective: Vital Signs: Stable, afebrile. Extremities: His dressing is clean, dry, and intact. Laboratory Data: H and H have come up appropriately after transfusion. Assessment: Status post right below-knee amputation. Recommendations: Medical management per Dr. Harper. The patient cleared from Surgery standpoint for discharge. Can follow up with me in [facility] later this week. /MODL Voice ID: [id number] Report ID: [id number]
[2023-01-27] MEDS ORDERED: TRIAMCINOLONE 0.1% CREAM 15GM TOP PRN (11:00)
[2023-01-27] MEDS: TRAZODONE 50 MG TABLET PO SCH (20:22)
[2023-01-27] MEDS: DIPHENHYDRAMINE 25 MG TAB/CAP PO PRN (21:16)
[2023-01-28] MEDS: TRAMADOL HCL 50 MG TAB PO PRN (02:54)
[2023-01-28 07:05] LABS: Magnesium 1.7 mg/dL (1.6-2.4); Potassium 3.9 mEq/L (3.5-5.1)
[2023-01-28] MEDS: Meropenem 1,000 MG in NA CHLORIDE 0.9% 100 ML IV SCH (08:18)
[2023-01-28] MEDS: ENOXAPARIN 40 MG/0.4 ML SQ SCH (08:19)
[2023-01-28 08:52] VITALS: BP 116/61; TEMP 97.6
[2023-01-28 10:22] VITALS: O2SAT 95
--- NOTE | 2023-01-28 13:02 | P.DS ---
Admission Date: 01/25/23 Discharge Date: 01/28/23 Disposition: ROUTINE DISCHARGE Discharge Condition: FAIR Reason for Admission: RIGHT BKA - Problems (1) Pressure ulcer of sacral region, stage 4 Current Visit: No Status: Chronic (2) Osteomyelitis of sacrum Current Visit: No Status: Chronic (3) Foot osteomyelitis, right Current Visit: Yes Status: Chronic (4) Foot osteomyelitis, left Current Visit: Yes Status: Acute (5) Foot osteomyelitis, right Current Visit: Yes Status: Acute Brief History of Present Illness: RENÉE HAS BEEN TOTALLY PARAYZED BELOW HIPS AFTER FALL FORM ATTIC. SINCE HE WAS IN HOSPITAL AND THEN NH. SINCE THEN HE HAS LARGE SACRAL ULCER AND BOTH HEEL ULCERS. ALL 3 LOCATIONS HAVE OSTEOMYELITIS. HE IMPROVE IN SACRUM WITH KCI PUMP BUT HI SR HEEL GOT WORSE AFTE RIMPROVEMENT . R HEEL NAIL PROTRUDED FROM THE ULCER FLOOR. THIS FOOT WITH DEFORMED AND PREVIOUSLY REPAIRED FOOT WILL BE HARD TO CURE. HE IS NOT GOING TO EVER AMBULATE ANY LONGER. HE HAS AGREED TO BKA INSTEAD OF FUTILE TIRAL FOR MONTHS IN SOME [facility]. Hospital Course: RENÉE'S DISCHARGE WAS DELAYED ONE DAY TEHRE WAS TRANSPORTATION ISSUES FOR MOTORIZED WC TO HOME. HE IS STABLE AFTER R BKA FOR ISSUES DESCRIBED ABOVE. HE STILL HAS LARGE SACRAL ULCER WITH OM AND HEEL WITH OM. I TOLD HIM THAT HE WILL NEED HBO AT [facility] MORE THAN 6 WEEKS OF IV ABX HAVE FAILED TO CURE HIS ULCERS, MAINLY THE ONE IN SACRUM. I WILL SEE HIM ON SAT TO RFER HIM THERE FROM [facility]. Vital Signs/Physical Exam: Temp Pulse Resp BP Pulse Ox 97.6 F 76 16 116/61 95 01/28/23 08:00 01/28/23 08:00 01/28/23 08:00 01/28/23 08:00 01/28/23 08:00 General: Alert, In no apparent distress HEENT: Atraumatic, PERRLA, EOMI Neck: Supple, JVD not distended Respiratory: Clear to auscultation bilaterally, Normal air movement Cardiovascular: Regular rate/rhythm, Normal S1 S2 Gastrointestinal: Normal bowel sounds, No tenderness Musculoskeletal: No tenderness Integumentary: No rashes Neurological: Normal speech, Abnormal strength (PARAPLEGIC.) Lymphatics: No axilla or inguinal lymphadenopathy Laboratory Data at Discharge: WBC 6.70 thou/uL (4.3-10.9) 01/26/23 05:42 Hgb 9.6 g/dL (13.6-17.9) L D 01/26/23 16:18 Hct 28.5 % (39.6-49.0) L 01/26/23 16:18 Plt Count 547 thou/uL (152-406) H 01/26/23 05:42 PT 12.2 SECONDS (9.5-12.5) 01/24/23 13:28 INR 1.11 01/24/23 13:28 APTT 33.0 SECONDS (24.3-36.9) 01/24/23 13:28 Sodium 132 mEq/L (136-145) L 01/28/23 06:28 Potassium 3.9 mEq/L (3.5-5.1) 01/28/23 06:28 BUN 8 mg/dL (7-18) 01/28/23 06:28 Creatinine 0.27 mg/dL (0.70-1.30) L 01/28/23 06:28 Glucose 100 mg/dL (74-106) 01/28/23 06:28 Phosphorus 4.0 mg/dL (2.5-4.9) 01/24/23 13:28 Magnesium 1.7 mg/dL (1.6-2.4) 01/28/23 06:28 Total Bilirubin 0.2 mg/dL (0.2-1.0) 01/24/23 13:28 AST 18 U/L (15-37) 01/24/23 13:28 ALT < 10 U/L (16-61) L 01/24/23 13:28 Alkaline Phosphatase 92 U/L (45-117) 01/24/23 13:28 Home Medications: Trazodone [Desyrel*] 50 mg PO BEDTIME #90 tab 10/23/22 Tramadol HCl [Ultram] 50 mg PO Q6HP PRN 01/24/23
[2023-01-30 16:05] LABS: Vitamin D 1,25-Dihydroxy Total <8 pg/mL (18-72); Vitamin D,1,25-OH2, D2 <8 pg/mL
== END 2023-01-28 17:30 | disposition home health service (06) | DRG 474 ==
LOC: 4TH 11:41 → OBSVTOIN 01-25 16:15
PROVIDERS: ADMIT Internal Medicine; ATTEND Internal Medicine
PROC: 0Y6H0Z3 Detachment at Right Lower Leg, Low, Open Approach (ICD-10-PCS; principal; 2023-01-25 09:30)
PROC: 30233N1 Transfusion of Nonautologous Red Blood Cells into Peripheral Vein, Percutaneous Approach (ICD-10-PCS; 2023-01-26)
DX: M86.8X7 Other osteomyelitis, ankle and foot (principal); L89.154 Pressure ulcer of sacral region, stage 4; G82.20 Paraplegia, unspecified; L89.629 Pressure ulcer of left heel, unspecified stage; L89.619 Pressure ulcer of right heel, unspecified stage; M86.8X8 Other osteomyelitis, other site; Z79.899 Other long term (current) drug therapy
CPT/HCPCS: 36415; 36430; 71046; 80048; 80076; 81001; 82607; 82652; 83735; 84100; 84443; 85014; 85018; 85025; 85610; 85730; 86140; 86850; 86900; 86901; 86920; 87040; 87086; 87088; 88307; 88311; G0378; J1650; J2001; J2185; J2370; J2405; J2704; J3010; J3475; J7050; J7120; P9016

== ENCOUNTER 2023-04-03 16:37 | Inpatient (IN) | payer OTHER ==
--- OUTSIDE RECORDS SUMMARY | 2023-04-03 16:52 | XMS REPORT | Continuity of Care Document ---
:1945 Author Organization [facility] t Address [address] [place] [address] [place] [id number] Care Team Providers Name Role Phone No, Pcp [facility] Primary Care Physician Unavailable ARIS ORTIZ Attending Clinician Unavailable HARISH SUMMERS Attending Clinician Unavailable Radha Art Attending Clinician Unavailable Jimmy Mcgill Attending Clinician Payers Payer Name Policy Type Policy Number Effective Date Expiration Date S bran [employer] MEDICARE [id number] 2019 ADVANTAGE HMO 00:00:00 Problems Condition Condition Condition Status Onset Resolution Last Treating Co mments Source Name Details Category Date Date Treatment Clinician Date BILATERAL BILATERAL Diagnosis Active 2013-12-07 Memoria INCISIONAL INCISIONAL 3-03 09:07:00 l HERNIA HERNIA 00:00: Deeth Active 00 11/30/2013 [facility] Injury of Injury of Problem Resolve 2013-12-09 Memoria kidney kidney d 21:08:07 l without without Ari open wound open wound into into abdominal abdominal cavity cavity (disorder) (disorder) Resolved Problem 12/09/2013 [facility] OBSTR OBSTR Diagnosis Active 2013-12-07 Mem oria INCISIONAL INCISIONAL 09:07:00 l HERNIA HERNIA Ari Active [facility] Allergies, Adverse Reactions, Alerts Allergy Allergy [...] Alcohol Std Drinks Medica l Center History SDTN [facility] Alcohol Binge Medical Hubert [...] before Medical Center Social History 2013-11-30 2013-11-30 [facility] 18:01:34 18:01:34 Sex Ass[birth year] At [birth year] [facility] 00:00:00 [facility]:00 [facility] Smoking Status Start Date Stop Date Source [facility] Medications Ordered Filled Start Stop Current Ordering [...] Medical 19 needed for Center Pain. zolpidem 2018-0 Yes 10mg Take [address] [facility] [address] (AMBIEN) 10 5-14 by mouth Luke s mg tablet 13:06: every Medical 19 night as Center needed for Insomnia. aspirin 325 2018-0 Yes 325mg Take [address] [...] 16:51: IVP, Drug Ari 00 form: INJ, Q2H, Dosing Weight 77.8, kg, PRN Pain, Start date: 12/07/13 11:51:00, Duration: 30 day, Stop date: 01/06/14 11:50:00(S sanjiv as:MORPhin e Sulfate) Phenergan No 25 mg, 1 [employer] [place] carmen 3-10 mL, Route: l 16:51: IM, Drug Deeth 00 form: INJ, Q3H, Dosing Weight 77.8, [...] 3-10 mL, Route: l 16:51: IVP, Drug Deeth 00 form: INJ, Q4H, Dosing Weight 77.8, kg, PRN Nausea, Start date: 12/07/13 11:51:00, Duration: 30 day, Stop date: 01/06/14 11:50:00(S sanjiv as: Zofran) Demerol HCl 2013- No 75 mg, 1.5 Memoria 3-10 mL, Route: l 16:51: IM, Drug Ari 00 form: SOLN, Q3H, Dosing Weight 77.8, kg, PRN Pain, Start date: 12/07/13 11:51:00, Duration: 4 day, Stop date: 12/11/13 11:50:00Sa me as: Demerol "Use Precaution in Elderly, Seizure disorders, and Renal impairment " Morphine 2013-0 No 1 mg, 0.5 [employer] maria [place] carmen 3-10 mL, Route: l 16:51: IVP, Drug Ari 00 form: INJ, Q2H, Dosing Weight 77.8, kg, PRN Pain, Start date: 12/07/13 11:51:00, Duration: 30 day, Stop date: 01/06/14 11:50:00(S sanjiv as:MORPhin e Sulfate) Phenergan 2013-0 No 25 mg, 1 [employer] maria del carmen 3-10 mL, Route: l 16:51: IM, Drug Deeth 00 form: INJ, Q3H, Dosing Weight 77.8, [...] 3-10 Route: IV, l 16:51: Drug form: Deeth 00 INJ, ONCE, Dosing Weight 77.8, kg, [...] Seizure disorders, and Renal impairment " Morphine 2014-0 No 1 mg, 0.5 [employer] maria del carmen 3-10 mL, Route: l 16:51: IVP, Drug Deeth 00 form: INJ, Q2H, Dosing Weight 77.8, kg, PRN Pain, Start date: 12/07/13 11:51:00, Duration: 30 day, Stop date: 01/06/14 11:50:00(S sanjiv as:MORPhin e Sulfate) Zofran 2013- No 4 mg, 2 Memoria 3-10 mL, Route: l 16:51: IVP, Drug Ari 00 form: INJ, Q4H, Dosing Weight 77.8, kg, PRN Nausea, Start date: 12/07/13 11:51:00, Duration: 30 day, Stop date: 01/06/14 11:50:00(S sanjiv as: Zofran) Demerol HCl No 75 mg, 1.5 Memoria 3-10 mL, Route: l 16:51: IM, Drug Deeth 00 form: SOLN, Q3H, Dosing Weight 77.8, kg, PRN Pain, Start date: 12/07/13 11:51:00, Duration: 4 day, Stop date: 12/11/13 11:50:00Sa me as: Demerol "Use Precaution in Elderly, Seizure disorders, and Renal impairment " Morphine No 1 mg, 0.5 [employer] maria del carmen 3-10 mL, Route: l 16:51: IVP, Drug Deeth 00 form: INJ, Q2H, Dosing Weight 77.8, kg, PRN Pain, Start date: 12/07/13 11:51:00, Duration: 30 day, Stop date: 01/06/14 11:50:00(S sanjiv as:MORPhin e Sulfate) Phenergan 2013- No 25 mg, 1 [employer] maria del carmen 3-10 mL, Route: l 16:51: IM, Drug Deeth 00 form: INJ, Q3H, Dosing Weight 77.8, [...] en 3-10 100 mL, l 15:03: Route: Deeth 00 IVPB, Drug form: INJ, ONCE, Dosing [...] ne 3-10 0.5 mL, l 15:03: Route: Deeth IVP, Drug form: INJ, Q5Min, Dosing Weight 77.8, kg, PRN Pain Score 7-10, Start date: 12/07/13 10:03:00, Duration: 4 doses or times, Stop date: Limited # of times Naloxone 2013- No 0.04 mg, Memor ia [...] ne 3-10 0.5 mL, l 15:03: Route: Deeth 00 IVP, Drug form: INJ, Q5Min, Dosing Weight [...] of times(Same as: Sublimaze) Preservati ve free. Fentanyl 2013-0 No 25 Memoria 3-10 microgram, l 15:03: [...] Solution 30 day, Stop date: 01/06/14 10:02:00 Labetalol 2013-0 No 10 mg, 2 [employer] [...] en 3-10 100 mL, l 15:03: Route: Deeth 00 IVPB, Drug form: INJ, ONCE, Dosing [...] ne 3-10 0.5 mL, l 15:03: Route: 00 IVP, Drug form: INJ, Q5Min, Dosing Weight [...] times(Same as: Sublimaze) Preservati ve free. Labetalol 2013- No 10 mg, 2 [employer] maria del [...] en 3-10 100 mL, l 15:03: Route: Deeth 00 IVPB, Drug form: INJ, ONCE, Dosing [...] 3-10 Rate: 25 l 0.0014 15:02: ml/hr, Deeth MEQ/ML / 00 Infuse Potassium over: 40 Chloride hr, Route: 0.004 IV, Dosing MEQ/ML / Weight Sodium 77.8 kg, Chloride Total 0.103 Volume: MEQ/ML / 1,000, Sodium Start Lactate date: 0.12/07/13 MEQ/ML 10:02:00, Injectable Duration: Solution 30 day, Stop date: 01/06/14 10:01:00 Calcium 2014-0 No 1,000 mL, Memor ia Chloride 3-10 Rate: 25 l 0.0014 15:02: ml/hr, Deeth MEQ/ML / 00 Infuse Potassium over: 40 Chloride hr, Route: 0.004 IV, Dosing MEQ/ML / Weight Sodium 77.8 kg, Chloride Total 0.103 Volume: MEQ/ML / 1,000, Sodium Start Lactate date: 0.12/07/13 MEQ/ML 10:02:00, Injectable Duration: Solution 30 day, [...] Diastolic (mm Hg) 2013-12-07 17:45:00 Mem orial Deeth Respitory Rate 2013-12-07 17:45:00 Memori al Deeth Diastolic (mm Hg) 2013-12-07 17:30:00 Mem orial Deeth Systolic (mm Hg) 2013-12-07 17:30:00 [employer] rial Deeth Respitory Rate 2013-12-07 17:30:00 Memori al Ari Diastolic (mm Hg) 2013-12-07 17:15:00 Mem orial Ari Systolic (mm Hg) 2013-12-07 17:15:00 [employer] rial Ari Respitory Rate 2013-12-07 17:15:00 Memori al Ari Heart Rate 2013-12-07 14:25:00 [facility] Deeth BMI Calculated 2013-12-01 17:57:00 Memori al Ari Weight 2013-12-01 17:57:00 Memorial Ari Height 2013-12-01 17:57:00 177.8 cm [facility] Deeth Heart Rate 2013-11-30 17:43:00 [facility] De[facility] Weight 2013-11-30 17:37:00 [facility] Deeth Height 2013-11-30 17:37:00 177.8 cm Memorial Ari BMI Calculated 2013-11-30 17:37:00 Memori al Deeth Procedures Procedure Date / Time Performed Performing Clinician Sour e Nephrectomy Memorial Deeth Encounters Start End Encounter Admission Attending Care Care Encounter Source Date/Time Date/Time Type Type Clinicians Facility Department ID 2023-04-03 Outpatient [facility] [id number] [place] 10:40:10 [id number] Health 2022-10-10 Outpatient [facility] [id number] [place] 07:55:04 [id number] [facility] 2022-09-06 Outpatient [facility] [id number] [place] 06:09:48 [id number] [facility] 2022-08-15 Outpatient [facility] [id number] [place] 17:56:14 [id number] Health 2022-08-10 Outpatient [facility] [id number] [place] 08:47:10 [id number] [facility] 2022-07-23 Outpatient [facility] [id number] [place] 12:26:07 [id number] Health 2022-07-19 Outpatient [facility] [id number] [place] 14:19:15 [id number] [facility] 2022-07-04 Outpatient [facility] [id number] [place] 14:50:47 [id number] [facility] 2022-10-11 2022-10-11 Outpatient YAMILEX [facility] [id number] [place] 14:00:00 14:00:00 Catarina COUCH 2022-06-30 2022-06-30 Outpatient KRISTOPHER [facility] [id number] [place] 12:30:00 12:30:00 ELIZABETHOUSMANE Sohailveronica [facility] 2013-12-07 2013-12-07 OBS Day [facility] [id number] Memoria 14:07:00 18:45:00 Surgery r Deeth [id number] l [address] 2013-12-07 2013-12-07 OBS Day [facility] [id number] Memoria 14:07:00 18:45:00 Surgery r Deeth [id number] l [address] 2013-12-07 2013-12-07 Outpatient Artem [id number] 09:07:00 13:45:00 Jimmy [id number] Alfredo [id number] Results Test Description Test Time Test Comments Results Result [facility] e Comments U/S, NECK 2019-02-10 Reason for FINAL REPORT PATIENT ID: 14:36:00 Exam:->R22.1 [id number] INDICATION:Right neck mass. Request for image guided [...] MDReport Verified Date/Time: 02/10/2019 14:36:41 Reading Location: [facility] [id number] Ultrasound Reading Room NECK SOFT TIS 2019-01-20 CLINICAL INDICATION: WO 09:06:13 R22.1 Localized swelling, mass and lump, neckMODALITY: [email or web address] [address] (Iterative dose reduction [...] nts ABO/Rh (test code = ABO/Rh) A [facility] [id number] 15:05:00 Test Item Value Reference Range Interpretation Comments Antibody Scrn (test Negative (12/07/2013 code = Antibody Scrn) 10:05:00 Vibha/Burson) [facility] [id number] 15:05:00 Test Item Value Reference Range Interpretation Comments ABO/Rh (test code = ABO/Rh) A [facility] [id number] 15:05:00 Test Item Value Reference Range Interpretation Comments Antibody Scrn (test Negative (12/07/2013 code = Antibody Scrn) 10:05:00 Vibha/Burson) [facility] [id number] 15:05:00 Test Item Value Reference Range Interpretation Comments ABO/Rh (test code = ABO/Rh) A [facility] [id number] 15:05:00 Test Item Value Reference Range Interpretation Comments Antibody Scrn (test Negative (12/07/2013 code = Antibody Scrn) 10:05:00 Vibha/Burson) [facility] [id number] 15:05:00 Test Item Value Reference Range Interpretation Comments ABO/Rh (test code = ABO/Rh) A [facility] BANK [id number] 15:05:00 Test Item Value Reference Range Interpretation Comments Antibody Scrn (test Negative (12/07/2013 code = Antibody Scrn) 10:05:00 Vibha/Burson) [facility] [id number] 17:50:00 Test Item Value Reference Range Interpretation Comments Antibody Scrn (test Negative (12/01/2013 code = Antibody Scrn) 11:50:00 Vibha/Burson) [employer] BANK [id number] 17:50:00 Test Item Value Reference Range Interpretation Comments ABO/Rh (test code = ABO/Rh) A [facility] [id number] 17:50:00 Test Item Value Reference Range Interpretation Comments Antibody Scrn (test Negative (12/01/2013 code = Antibody Scrn) 11:50:00 Vibha/Burson) [employer] BANK [id number] 17:50:00 Test Item Value Reference Range Interpretation Comments ABO/Rh (test code = ABO/Rh) A [facility] [employer] [id number] 17:50:00 Test Item Value Reference Range Interpretation Comments Antibody Scrn (test Negative (12/01/2013 code = Antibody Scrn) 11:50:00 Vibha/Burson) [employer] [id number] 17:50:00 Test Item Value Reference Range Interpretation Comments ABO/Rh (test code = ABO/Rh) A [facility] [employer] [id number] 17:50:00 Test Item Value Reference Range Interpretation Comments Antibody Scrn (test Negative (12/01/2013 code = Antibody Scrn) 11:50:00 Vibha/Burson) [employer] [id number] 17:50:00 Test Item Value Reference Range Interpretation Comments ABO/Rh (test code = ABO/Rh) A [facility] [employer] [id number] 17:15:00 Test Item Value Reference Range Interpretation Comments eGFR (test code = eGFR) 62 [facility] [id number] 17:15:00 Test Item Value Reference Range Interpretation Comments Creatinine Lvl (test code = Creatinine 1.2 0.5-1.4 Lvl) [employer] [id number] 17:15:00 Test Item Value Reference Range Interpretation Comments BUN (test code = BUN) 21 7-22 [employer] [id number] 17:15:00 Test Item Value Reference Range Interpretation Comments Glucose Lvl (test code = Glucose Lvl) 94 70-99 [facility] [id number] 17:15:00 Test Item Value Reference Range Interpretation Comments AGAP (test code = AGAP) 10.8 10.0-20.0 [facility]PazujnhZHFTFNJZUQTC1732-87-11 17:15:00 Test Item Value Reference Range Interpretation Comments Sodium Lvl (test code = Sodium Lvl) 138 135-145 [facility] Health[id number] 17:15:00 Test Item Value Reference Range Interpretation Comments Potassium Lvl (test code = Potassium 4.8 3.5-5.1 Lvl) [facility] HealthXrs[id number] 17:15:00 Test Item Value Reference Range Interpretation Comments CO2 (test code = CO2) 28 24-32 [facility] HealthVeqgagwRROEARUYVFTI6058-33-01 17:15:00 Test Item Value Reference Range Interpretation Comments Chloride Lvl (test code = Chloride Lvl) 104 95-109 [facility] L[id number] 17:15:00 Test Item Value Reference Range Interpretation Comments MPV (test code = MPV) 7.7 7.4-10.4 [facility]ufkinCwtjmbmEEYPRPYVOU4410-47-05 17:15:00 Test Item Value Reference Range Interpretation Comments RBC X 10x6 (test code = RBC X 10x6) 4.29 4.70-6.10 [facility] Lufk[id number] 17:15:00 Test Item Value Reference Range Interpretation Comments Hgb (test code = Hgb) 14.4 14.0-18.0 [facility] LufkinMsaxdiqJHOJATZVSK4431-02-44 17:15:00 Test Item Value Reference Range Interpretation Comments MCHC (test code = MCHC) 34.3 32.0-36.0 [facility] LufkinFbdhgbtKHNURLJVOE0072-20-52 17:15:00 Test Item Value Reference Range Interpretation Comments Hct (test code = Hct) 42.0 42.0-54.0 [facility] LufkinQjxkcqsTQMOGEXKOR1097-82-45 17:15:00 Test Item Value Reference Range Interpretation Comments RDW (test code = RDW) 14.0 11.5-14.5 [facility] LufkinEakiarjSNJGDYJDBD8932-10-93 17:15:00 Test Item Value Reference Range Interpretation Comments Platelet (test code = Platelet) 270 133-450 [facility] Lufk[id number] 17:15:00 Test Item Value Reference Range Interpretation Comments MCV (test code = MCV) 97.9 80.0-94.0 [facility] LufkinGuvgxcqPHOOXHUMYI1673-60-94 17:15:00 Test Item Value Reference Range Interpretation Comments MCH (test code = MCH) 33.6 pg 27.0-31.0 [facility] Lufk[id number] 17:15:00 Test Item Value Reference Range Interpretation Comments WBC X 10x3 (test code = WBC X 10x3) 5.3 3.7-10.4 [facility] Lufk[id number] 17:15:00 Test Item Value Reference Range Interpretation Comments INR (test code = INR) 0.92 0.85-1.17 [facility] LufkinXohxyyiQAMDJRNTWN0139-12-77 17:15:00 Test Item Value Reference Range Interpretation Comments aPTT (test code = aPTT) 28.2 s 22.9-35.8 [facility] LufkinKbidwuaJWMNPMPCDM0474-01-20 17:15:00 Test Item Value Reference Range Interpretation Comments PROTIME (test code = PROTIME) 12.3 s 12.0-14.7 [facility] LufkinLildwxnYMLPIFVXYC0801-29-53 17:15:00 Test Item Value Reference Range Interpretation Comments Eosinophils # (test code 0.2 See_Comment [A utomated message] The = Eosinophils #) system whic h generated this result tra nsmitted reference range : <=0.5. The reference r tyrese was not used to int erpret this result as normal/abnormal . [id number] 17:15:00 Test Item Value Reference Range Interpretation Comments Basophils # (test code 0.0 See_Comment [Aut omated message] The = Basophils #) system which generated this result tra nsmitted reference range : <=0.2. The reference r tyrese was not used to int erpret this result as normal/abnormal . [facility] [id number] 17:15:00 Test Item Value Reference Range Interpretation Comments Monocytes # (test code 0.6 See_Comment [Aut omated message] The = Monocytes #) system which generated this result tra nsmitted reference range : <=0.8. The reference r tyrese was not used to int erpret this result as normal/abnormal . [facility] LufkinMdaxuvvXAGVTQSKBQ0732-57-99 17:15:00 Test Item Value Reference Range Interpretation Comments Lymphocytes # (test code = Lymphocytes 1.3 1.0-5.5 #) [facility] LufkinTpvogtgIAFSANLNYN6806-99-72 17:15:00 Test Item Value Reference Range Interpretation Comments Segs-Bands # (test code = Segs-Bands #) 3.2 1.5-8.1 [facility] Lufk[id number] 17:15:00 Test Item Value Reference Range Interpretation Comments Basophils (test code = 0.2 See_Comment [Aut omated message] The Basophils) system which ge nerated this result tra nsmitted reference range : <=1.0. The reference r tyrese was not used to int erpret this result as normal/abnormal . [facility] LufkinNwjshkeUJVSCYCPYF6088-68-79 17:15:00 Test Item Value Reference Range Interpretation Comments Eosinophils (test code = 4.0 See_Comment [A utomated message] The Eosinophils) system which ge nerated this result tra nsmitted reference range : <=4.0. The reference r tyrese was not used to int erpret this result as normal/abnormal . [facility] [id number] 17:15:00 Test Item Value Reference Range Interpretation Comments Monocytes (test code = Monocytes) 11.1 2.0-12.0 [facility] LufkinXtizvbuXYWTJUTZQO0387-22-65 17:15:00 Test Item Value Reference Range Interpretation Comments Lymphocytes (test code = Lymphocytes) 24.0 20.0-40.0 [facility] Lufk[id number] 17:15:00 Test Item Value Reference Range Interpretation Comments Segs (test code = Segs) 60.7 45.0-75.0 [facility]2014-03-03 17:15:00 Test Item Value Reference Range Interpretation Comments ALANINE AMINOTRANSFERASE 20 See_Comment [A utomated message] (test code = ALANINE The sys tem which AMINOTRANSFERASE) generated this result transmitted ref erence range: <=65. Th e reference range was not used to int erpret this result as normal/abnormal . [facility]2014-03-03 17:15:00 Test Item Value Reference Range Interpretation Comments Albumin Lvl (test code = Albumin Lvl) 3.9 3.5-5.0 [facility]2014-03-03 17:15:00 Test Item Value Reference Range Interpretation Comments Alk Phos (test code = Alk Phos) 47 39-136 [facility]2014-03-03 17:15:00 Test Item Value Reference Range Interpretation Comments Bili Direct (test code 0.1 See_Comment [Aut omated message] The = Bili Direct) system which generated this result tra nsmitted reference range : <=0.3. The reference r tyrese was not used to int erpret this result as wilfrid l/abnormal. [facility]2014-03-03 17:15:00 Test Item Value Reference Range Interpretation Comments Total Protein (test code = Total 8.3 6.4-8.4 Protein) [facility]2014-03-03 17:15:00 Test Item Value Reference Range Interpretation Comments Bili Total (test code = Bili Total) 0.4 0.2-1.3 [place] [id number] 17:15:00 Test Item Value Reference Range Interpretation Comments ASPARTATE TRANSAMINASE 39 See_Comment [Aut omated message] (test code = ASPARTATE The s ystem which TRANSAMINASE) generated this result transmitted ref erence range: <=37. Th e reference range was not used to interpr et this result as normal/abnormal . [facility]2014-03-03 17:15:00 Test Item Value Reference Range Interpretation Comments Globulin (test code = Globulin) 4.4 2.0-4.0 [place] [id number] 17:15:00 Test Item Value Reference Range Interpretation Comments A/G Ratio (test code = A/G Ratio) 0.9 0.7-1.6 [facility]2014-03-03 17:15:00 Test Item Value Reference Range Interpretation Comments Bili Indirect (test 0.3 See_Comment [Automa jeffry message] The code = Bili Indirect) system which generated this result tra nsmitted reference range : <=1.0. The reference r tyrese was not used to int erpret this result as normal/abnormal . [facility]2014-03-03 17:15:00 Test Item Value Reference Range Interpretation Comments Calcium Lvl (test code = Calcium Lvl) 9.3 8.5-10.5 [facility]2014-03-03 17:15:00 Test Item Value Reference Range Interpretation Comments eGFR (test code = eGFR) 62 [facility]2014-03-03 17:15:00 Test Item Value Reference Range Interpretation Comments Creatinine Lvl (test code = Creatinine 1.2 0.5-1.4 Lvl) [facility]2014-03-03 17:15:00 Test Item Value Reference Range Interpretation Comments BUN (test code = BUN) 21 7-22 [facility]2014-03-03 17:15:00 Test Item Value Reference Range Interpretation Comments Glucose Lvl (test code = Glucose Lvl) 94 70-99 [facility] HealthHmcbitlSKKZZINNCYXG0745-67-03 17:15:00 Test Item Value Reference Range Interpretation Comments AGAP (test code = AGAP) 10.8 10.0-20.0 [facility] HealthZhldeduDTGWXHRMVWHA6037-71-62 17:15:00 Test Item Value Reference Range Interpretation Comments Sodium Lvl (test code = Sodium Lvl) 138 135-145 [facility] HealthEkegwsfCDUVDEWCARGN4827-29-19 17:15:00 Test Item Value Reference Range Interpretation Comments Potassium Lvl (test code = Potassium 4.8 3.5-5.1 Lvl) [facility] HealthXixnciyEMPCHQRJREQV2332-91-66 17:15:00 Test Item Value Reference Range Interpretation Comments CO2 (test code = CO2) 28 24-32 [facility] HealthBpxhircIHZYWTKSJVCU5334-25-16 17:15:00 Test Item Value Reference Range Interpretation Comments Chloride Lvl (test code = Chloride Lvl) 104 95-109 [facility] LufkinMuomzbiAYDGZUUSOZ8540-49-60 17:15:00 Test Item Value Reference Range Interpretation Comments MPV (test code = MPV) 7.7 7.4-10.4 [facility] LufkinEvspfzfSLOLSQQEZX7571-45-62 17:15:00 Test Item Value Reference Range Interpretation Comments RBC X 10x6 (test code = RBC X 10x6) 4.29 4.70-6.10 [facility]ufkinFwlsqrpZQDCFPGQYD4352-43-44 17:15:00 Test Item Value Reference Range Interpretation Comments Hgb (test code = Hgb) 14.4 14.0-18.0 [facility] LufkinNrgbhwoCOKKYRVFQS1830-50-43 17:15:00 Test Item Value Reference Range Interpretation Comments MCHC (test code = MCHC) 34.3 32.0-36.0 [facility] LufkinIiqwbriNRUOXEVCTV9125-99-19 17:15:00 Test Item Value Reference Range Interpretation Comments Hct (test code = Hct) 42.0 42.0-54.0 [facility] LufkinBefbfdvOCGJDDSPOQ5135-23-91 17:15:00 Test Item Value Reference Range Interpretation Comments RDW (test code = RDW) 14.0 11.5-14.5 [facility] LufkinWmtgiuvHYGNBHAMQR5490-39-69 17:15:00 Test Item Value Reference Range Interpretation Comments Platelet (test code = Platelet) 270 133-450 [facility] LufkinIqbrvsoWAIWWMCJUP7187-99-76 17:15:00 Test Item Value Reference Range Interpretation Comments MCV (test code = MCV) 97.9 80.0-94.0 [facility] LufkinOnqjrghRRXJPGYXLA8605-42-79 17:15:00 Test Item Value Reference Range Interpretation Comments MCH (test code = MCH) 33.6 pg 27.0-31.0 [facility] LufkinMbekiryVOFXURCBRI8654-20-77 17:15:00 Test Item Value Reference Range Interpretation Comments WBC X 10x3 (test code = WBC X 10x3) 5.3 3.7-10.4 [facility] LufkinEnkqthvCYVTVQUNRE9112-53-86 17:15:00 Test Item Value Reference Range Interpretation Comments INR (test code = INR) 0.92 0.85-1.17 [facility]kinOknomvxCVUXGHBXBN0259-40-12 17:15:00 Test Item Value Reference Range Interpretation Comments aPTT (test code = aPTT) 28.2 s 22.9-35.8 [facility]kinWomcbplWVWEFATDJL3978-73-88 17:15:00 Test Item Value Reference Range Interpretation Comments PROTIME (test code = PROTIME) 12.3 s 12.0-14.7 [facility]kinIfbonqxCZPUMOOFUA8783-90-15 17:15:00 Test Item Value Reference Range Interpretation Comments Eosinophils # (test code 0.2 See_Comment [A utomated message] The = Eosinophils #) system whic h generated this result tra nsmitted reference range : <=0.5. The reference r tyrese was not used to int erpret this result as normal/abnormal . [facility]kinIrqvxhzZCRMIGEBBQ9247-45-33 17:15:00 Test Item Value Reference Range Interpretation Comments Basophils # (test code 0.0 See_Comment [Aut omated message] The = Basophils #) system which generated this result tra nsmitted reference range : <=0.2. The reference r tyrese was not used to int erpret this result as normal/abnormal . [facility]kinZpjkzdsWSGAGJRPAF6221-13-00 17:15:00 Test Item Value Reference Range Interpretation Comments Monocytes # (test code 0.6 See_Comment [Aut omated message] The = Monocytes #) system which generated this result tra nsmitted reference range : <=0.8. The reference r tyrese was not used to int erpret this result as normal/abnormal . [facility]kinOlxgxscUHBYWYVJAS6319-92-81 17:15:00 Test Item Value Reference Range Interpretation Comments Lymphocytes # (test code = Lymphocytes 1.3 1.0-5.5 #) [facility]kinDfpumnuMPNYWIYWLH3513-20-18 17:15:00 Test Item Value Reference Range Interpretation Comments Segs-Bands # (test code = Segs-Bands #) 3.2 1.5-8.1 [facility]kinBdgnfxrYJZQNQETAS9576-74-87 17:15:00 Test Item Value Reference Range Interpretation Comments Basophils (test code = 0.2 See_Comment [Aut omated message] The Basophils) system which ge nerated this result tra nsmitted reference range : <=1.0. The reference r tyrese was not used to int erpret this result as normal/abnormal . [facility]kinWwacdeiQJRTTWBBHR3626-81-26 17:15:00 Test Item Value Reference Range Interpretation Comments Eosinophils (test code = 4.0 See_Comment [A utomated message] The Eosinophils) system which ge nerated this result tra nsmitted reference range : <=4.0. The reference r tyrese was not used to int erpret this result as normal/abnormal . [facility]kinCauocapZKRMNEGVOU4946-28-41 17:15:00 Test Item Value Reference Range Interpretation Comments Monocytes (test code = Monocytes) 11.1 2.0-12.0 [facility]kinSrjajalZUBJSONBEC2791-84-05 17:15:00 Test Item Value Reference Range Interpretation Comments Lymphocytes (test code = Lymphocytes) 24.0 20.0-40.0 [facility]ufkinFrjwytfTMBVLQNLTJ4131-84-35 17:15:00 Test Item Value Reference Range Interpretation Comments Segs (test code = Segs) 60.7 45.0-75.0 [facility]2014-03-03 17:15:00 Test Item Value Reference Range Interpretation Comments ALANINE AMINOTRANSFERASE 20 See_Comment [A utomated message] (test code = ALANINE The sys tem which AMINOTRANSFERASE) generated this result transmitted ref erence range: <=65. Th e reference range was not used to int erpret this result as normal/abnormal . [facility]2014-03-03 17:15:00 Test Item Value Reference Range Interpretation Comments Albumin Lvl (test code = Albumin Lvl) 3.9 3.5-5.0 [facility]2014-03-03 17:15:00 Test Item Value Reference Range Interpretation Comments Alk Phos (test code = Alk Phos) 47 39-136 [facility]2014-03-03 17:15:00 Test Item Value Reference Range Interpretation Comments Bili Direct (test code 0.1 See_Comment [Aut omated message] The = Bili Direct) system which generated this result tra nsmitted reference range : <=0.3. The reference r tyrese was not used to int erpret this result as wilfrid l/abnormal. [facility]2014-03-03 17:15:00 Test Item Value Reference Range Interpretation Comments Total Protein (test code = Total 8.3 6.4-8.4 Protein) [facility]2014-03-03 17:15:00 Test Item Value Reference Range Interpretation Comments Bili Total (test code = Bili Total) 0.4 0.2-1.3 [place] 851734-03-03 17:15:00 Test Item Value Reference Range Interpretation Comments ASPARTATE TRANSAMINASE 39 See_Comment [Aut omated message] (test code = ASPARTATE The s ystem which TRANSAMINASE) generated this result transmitted ref erence range: <=37. Th e reference range was not used to interpr et this result as normal/abnormal . [facility]2014-03-03 17:15:00 Test Item Value Reference Range Interpretation Comments Globulin (test code = Globulin) 4.4 2.0-4.0 [facility]2014-03-03 17:15:00 Test Item Value Reference Range Interpretation Comments A/G Ratio (test code = A/G Ratio) 0.9 0.7-1.6 [facility]2014-03-03 17:15:00 Test Item Value Reference Range Interpretation Comments Bili Indirect (test 0.3 See_Comment [Automa jeffry message] The code = Bili Indirect) system which generated this result tra nsmitted reference range : <=1.0. The reference r tyrese was not used to int erpret this result as normal/abnormal . [facility]2014-03-03 17:15:00 Test Item Value Reference Range Interpretation Comments Calcium Lvl (test code = Calcium Lvl) 9.3 8.5-10.5 [facility]2014-03-03 17:15:00 Test Item Value Reference Range Interpretation Comments eGFR (test code = eGFR) 62 [facility]2014-03-03 17:15:00 Test Item Value Reference Range Interpretation Comments Creatinine Lvl (test code = Creatinine 1.2 0.5-1.4 Lvl) [facility]2014-03-03 17:15:00 Test Item Value Reference Range Interpretation Comments BUN (test code = BUN) 21 7-22 [facility]2014-03-03 17:15:00 Test Item Value Reference Range Interpretation Comments Glucose Lvl (test code = Glucose Lvl) 94 70-99 [facility]UhcwuqcNUOBJBKCVIAZ4963-11-03 17:15:00 Test Item Value Reference Range Interpretation Comments AGAP (test code = AGAP) 10.8 10.0-20.0 [facility] HealthQhoixyqEEXDIFYAKNSZ2210-94-94 17:15:00 Test Item Value Reference Range Interpretation Comments Sodium Lvl (test code = Sodium Lvl) 138 135-145 [facility] HealthPykgqweZXQQMHZVVBSG9978-36-96 17:15:00 Test Item Value Reference Range Interpretation Comments Potassium Lvl (test code = Potassium 4.8 3.5-5.1 Lvl) [facility] HealthVagqonhGEXBNNXRDBBQ9939-01-07 17:15:00 Test Item Value Reference Range Interpretation Comments CO2 (test code = CO2) 28 24-32 [facility] HealthKfbqsroNHPBYNJVAOZU2088-18-78 17:15:00 Test Item Value Reference Range Interpretation Comments Chloride Lvl (test code = Chloride Lvl) 104 95-109 [facility]kinNodmykbPOWRMPONXH5151-63-24 17:15:00 Test Item Value Reference Range Interpretation Comments MPV (test code = MPV) 7.7 7.4-10.4 [facility]kinQrbveikXPYXPYYLFY0314-27-14 17:15:00 Test Item Value Reference Range Interpretation Comments RBC X 10x6 (test code = RBC X 10x6) 4.29 4.70-6.10 [facility]kinGapmhqnEHZYOLHAKL3811-75-71 17:15:00 Test Item Value Reference Range Interpretation Comments Hgb (test code = Hgb) 14.4 14.0-18.0 [facility]kinWplumtyRJJLOFBCAD3019-90-68 17:15:00 Test Item Value Reference Range Interpretation Comments MCHC (test code = MCHC) 34.3 32.0-36.0 [facility]kinYrnaioxVARSGJBOGS5214-31-86 17:15:00 Test Item Value Reference Range Interpretation Comments Hct (test code = Hct) 42.0 42.0-54.0 [facility]kinOivmzdrHKDCXJVCTF4372-06-07 17:15:00 Test Item Value Reference Range Interpretation Comments RDW (test code = RDW) 14.0 11.5-14.5 [facility]kinBqhzuihVYPFQUKELV4422-59-64 17:15:00 Test Item Value Reference Range Interpretation Comments Platelet (test code = Platelet) 270 133-450 [facility]kinUajddkoSIHHZWRYIH8390-51-35 17:15:00 Test Item Value Reference Range Interpretation Comments MCV (test code = MCV) 97.9 80.0-94.0 [facility]kinVjdxfecMOIFUGFJDD7677-37-45 17:15:00 Test Item Value Reference Range Interpretation Comments MCH (test code = MCH) 33.6 pg 27.0-31.0 [facility]kinIecxkwoHLXDLKYLML4370-44-07 17:15:00 Test Item Value Reference Range Interpretation Comments WBC X 10x3 (test code = WBC X 10x3) 5.3 3.7-10.4 [facility]kinCtfrnefUTYHKLACCJ2559-61-50 17:15:00 Test Item Value Reference Range Interpretation Comments INR (test code = INR) 0.92 0.85-1.17 [facility]kinFkdzakyQTXAYVYWDQ8240-31-27 17:15:00 Test Item Value Reference Range Interpretation Comments aPTT (test code = aPTT) 28.2 s 22.9-35.8 [facility]kinNoactduHTYJRDNFXB0644-54-75 17:15:00 Test Item Value Reference Range Interpretation Comments PROTIME (test code = PROTIME) 12.3 s 12.0-14.7 [facility]kinSoetobiNFWFRPQKOQ9052-75-68 17:15:00 Test Item Value Reference Range Interpretation Comments Eosinophils # (test code 0.2 See_Comment [A utomated message] The = Eosinophils #) system wh h generated this result tra nsmitted reference range : <=0.5. The reference r tyrese was not used to int erpret this result as normal/abnormal . [facility]kinXssewhuWWFDXXCWEB7729-17-62 17:15:00 Test Item Value Reference Range Interpretation Comments Basophils # (test code 0.0 See_Comment [Aut omated message] The = Basophils #) system which generated this result tra nsmitted reference range : <=0.2. The reference r tyrese was not used to int erpret this result as normal/abnormal . [facility]kinShouvjgTRFISIDWQV4900-32-94 17:15:00 Test Item Value Reference Range Interpretation Comments Monocytes # (test code 0.6 See_Comment [Aut omated message] The = Monocytes #) system which generated this result tra nsmitted reference range : <=0.8. The reference r tyrese was not used to int erpret this result as normal/abnormal . [facility]kinIvzrphvRLOXVKOZRV3882-00-67 17:15:00 Test Item Value Reference Range Interpretation Comments Lymphocytes # (test code = Lymphocytes 1.3 1.0-5.5 #) [facility]kinGtxipebAMJMAITFJS0220-68-24 17:15:00 Test Item Value Reference Range Interpretation Comments Segs-Bands # (test code = Segs-Bands #) 3.2 1.5-8.1 [facility]ufkinBqsyockMVDLZBSEVR8879-19-62 17:15:00 Test Item Value Reference Range Interpretation Comments Basophils (test code = 0.2 See_Comment [Aut omated message] The Basophils) system which ge nerated this result tra nsmitted reference range : <=1.0. The reference r tyrese was not used to int erpret this result as normal/abnormal . [facility]kinKecekypNENHXYNRFC8750-13-20 17:15:00 Test Item Value Reference Range Interpretation Comments Eosinophils (test code = 4.0 See_Comment [A utomated message] The Eosinophils) system which ge nerated this result tra nsmitted reference range : <=4.0. The reference r tyrese was not used to int erpret this result as normal/abnormal . [facility]kinYvbguzuYEBPVXRROM2263-00-73 17:15:00 Test Item Value Reference Range Interpretation Comments Monocytes (test code = Monocytes) 11.1 2.0-12.0 [facility]kinVpcggjqBNAXGERFCB9916-77-00 17:15:00 Test Item Value Reference Range Interpretation Comments Lymphocytes (test code = Lymphocytes) 24.0 20.0-40.0 [facility]kinJtwpllcEBDBWXLDOP6324-55-09 17:15:00 Test Item Value Reference Range Interpretation Comments Segs (test code = Segs) 60.7 45.0-75.0 [facility]2014-03-03 17:15:00 Test Item Value Reference Range Interpretation Comments ALANINE AMINOTRANSFERASE 20 See_Comment [A utomated message] (test code = ALANINE The sys tem which AMINOTRANSFERASE) generated this result transmitted ref erence range: <=65. Th e reference range was not used to int erpret this result as normal/abnormal . [facility]2014-03-03 17:15:00 Test Item Value Reference Range Interpretation Comments Albumin Lvl (test code = Albumin Lvl) 3.9 3.5-5.0 [facility]2014-03-03 17:15:00 Test Item Value Reference Range Interpretation Comments Alk Phos (test code = Alk Phos) 47 39-136 [facility]2014-03-03 17:15:00 Test Item Value Reference Range Interpretation Comments Bili Direct (test code 0.1 See_Comment [Aut omated message] The = Bili Direct) system which generated this result tra nsmitted reference range : <=0.3. The reference r tyrese was not used to int erpret this result as wilfrid l/abnormal. [facility]2014-03-03 17:15:00 Test Item Value Reference Range Interpretation Comments Total Protein (test code = Total 8.3 6.4-8.4 Protein) [facility]2014-03-03 17:15:00 Test Item Value Reference Range Interpretation Comments Bili Total (test code = Bili Total) 0.4 0.2-1.3 [place] 851734-03-03 17:15:00 Test Item Value Reference Range Interpretation Comments ASPARTATE TRANSAMINASE 39 See_Comment [Aut omated message] (test code = ASPARTATE The s ystem which TRANSAMINASE) generated this result transmitted ref erence range: <=37. Th e reference range was not used to interpr et this result as normal/abnormal . [place] 851734-03-03 17:15:00 Test Item Value Reference Range Interpretation Comments Globulin (test code = Globulin) 4.4 2.0-4.0 [place] 851734-03-03 17:15:00 Test Item Value Reference Range Interpretation Comments A/G Ratio (test code = A/G Ratio) 0.9 0.7-1.6 [place] 851734-03-03 17:15:00 Test Item Value Reference Range Interpretation Comments Bili Indirect (test 0.3 See_Comment [Automa jeffry message] The code = Bili Indirect) system which generated this result tra nsmitted reference range : <=1.0. The reference r tyrese was not used to int erpret this result as normal/abnormal . [facility]2014-03-03 17:15:00 Test Item Value Reference Range Interpretation Comments Calcium Lvl (test code = Calcium Lvl) 9.3 8.5-10.5 [facility]2014-03-03 17:15:00 Test Item Value Reference Range Interpretation Comments eGFR (test code = eGFR) 62 [facility]2014-03-03 17:15:00 Test Item Value Reference Range Interpretation Comments Creatinine Lvl (test code = Creatinine 1.2 0.5-1.4 Lvl) [facility]2014-03-03 17:15:00 Test Item Value Reference Range Interpretation Comments BUN (test code = BUN) 21 7-22 [facility]2014-03-03 17:15:00 Test Item Value Reference Range Interpretation Comments Glucose Lvl (test code = Glucose Lvl) 94 70-99 [facility] HealthEzlcqmxEKZBEXPANQTP6097-27-22 17:15:00 Test Item Value Reference Range Interpretation Comments AGAP (test code = AGAP) 10.8 10.0-20.0 [place] 101554-03-03 17:15:00 Test Item Value Reference Range Interpretation Comments Sodium Lvl (test code = Sodium Lvl) 138 135-145 [place] 101554-03-03 17:15:00 Test Item Value Reference Range Interpretation Comments Potassium Lvl (test code = Potassium 4.8 3.5-5.1 Lvl) [facility] HealthTwvjlajPPJLSMZQKFJW7899-02-71 17:15:00 Test Item Value Reference Range Interpretation Comments CO2 (test code = CO2) 28 24-32 [facility] HealthFhjxhicTDEJHZLVYZQM9573-25-49 17:15:00 Test Item Value Reference Range Interpretation Comments Chloride Lvl (test code = Chloride Lvl) 104 95-109 [facility]kinEaaglkfCUQPOIFFNQ4208-30-10 17:15:00 Test Item Value Reference Range Interpretation Comments MPV (test code = MPV) 7.7 7.4-10.4 [facility]kinCptryqxDHZNCUYVRK5989-06-41 17:15:00 Test Item Value Reference Range Interpretation Comments RBC X 10x6 (test code = RBC X 10x6) 4.29 4.70-6.10 [facility]kinZhtpehwZHUMHSTPWN2497-52-09 17:15:00 Test Item Value Reference Range Interpretation Comments Hgb (test code = Hgb) 14.4 14.0-18.0 [facility]kinEjgnqogDJRRLPXMWE5603-18-25 17:15:00 Test Item Value Reference Range Interpretation Comments MCHC (test code = MCHC) 34.3 32.0-36.0 [facility]ufkinSoidlctUNIAKNXMFX3374-99-44 17:15:00 Test Item Value Reference Range Interpretation Comments Hct (test code = Hct) 42.0 42.0-54.0 [facility]kinOhkvmneMPPPXQCLSH5173-76-38 17:15:00 Test Item Value Reference Range Interpretation Comments RDW (test code = RDW) 14.0 11.5-14.5 [facility]kinWceerkvGYZAKCJPQA6301-81-59 17:15:00 Test Item Value Reference Range Interpretation Comments Platelet (test code = Platelet) 270 133-450 [facility]ufkinTciknzuSFHYAOQVRY5174-33-09 17:15:00 Test Item Value Reference Range Interpretation Comments MCV (test code = MCV) 97.9 80.0-94.0 [facility]kinCludddxABLSQTZHOE5319-42-37 17:15:00 Test Item Value Reference Range Interpretation Comments MCH (test code = MCH) 33.6 pg 27.0-31.0 [facility]kinEwfkbjbEGEXAYHBRA9487-86-72 17:15:00 Test Item Value Reference Range Interpretation Comments WBC X 10x3 (test code = WBC X 10x3) 5.3 3.7-10.4 [facility]kinUybgizmSILYROXZXM5746-97-71 17:15:00 Test Item Value Reference Range Interpretation Comments INR (test code = INR) 0.92 0.85-1.17 [facility]kinFunspciKAWDLLZAFJ4353-04-88 17:15:00 Test Item Value Reference Range Interpretation Comments aPTT (test code = aPTT) 28.2 s 22.9-35.8 [facility]kinNptuonxQFGUONPPPE0674-73-51 17:15:00 Test Item Value Reference Range Interpretation Comments PROTIME (test code = PROTIME) 12.3 s 12.0-14.7 [facility]kinPwfuwumZDVHVWCJSN1287-65-78 17:15:00 Test Item Value Reference Range Interpretation Comments Eosinophils # (test code 0.2 See_Comment [A utomated message] The = Eosinophils #) system whic h generated this result tra nsmitted reference range : <=0.5. The reference r tyrese was not used to int erpret this result as normal/abnormal . [facility]kinOyanjyoEJIOJICVEQ1060-51-71 17:15:00 Test Item Value Reference Range Interpretation Comments Basophils # (test code 0.0 See_Comment [Aut omated message] The = Basophils #) system which generated this result tra nsmitted reference range : <=0.2. The reference r tyrese was not used to int erpret this result as normal/abnormal . [facility]kinQkbuvqjMIVOFTANXP2883-94-73 17:15:00 Test Item Value Reference Range Interpretation Comments Monocytes # (test code 0.6 See_Comment [Aut omated message] The = Monocytes #) system which generated this result tra nsmitted reference range : <=0.8. The reference r tyrese was not used to int erpret this result as normal/abnormal . [facility]kinGcrrmsdUIOAIPHMXK7210-37-63 17:15:00 Test Item Value Reference Range Interpretation Comments Lymphocytes # (test code = Lymphocytes 1.3 1.0-5.5 #) [facility]kinYujlrajIOHIAMQLKI5525-95-74 17:15:00 Test Item Value Reference Range Interpretation Comments Segs-Bands # (test code = Segs-Bands #) 3.2 1.5-8.1 [facility]kinWfoziikGZUPQTIYPK6688-85-87 17:15:00 Test Item Value Reference Range Interpretation Comments Basophils (test code = 0.2 See_Comment [Aut omated message] The Basophils) system which ge nerated this result tra nsmitted reference range : <=1.0. The reference r tyrese was not used to int erpret this result as normal/abnormal . [facility]kinBpereewPFAUDGUAKH0273-76-02 17:15:00 Test Item Value Reference Range Interpretation Comments Eosinophils (test code = 4.0 See_Comment [A utomated message] The Eosinophils) system which ge nerated this result tra nsmitted reference range : <=4.0. The reference r tyrese was not used to int erpret this result as normal/abnormal . [facility]kinNqicfhfFDXNFPZGEY1455-53-50 17:15:00 Test Item Value Reference Range Interpretation Comments Monocytes (test code = Monocytes) 11.1 2.0-12.0 [facility]kinXgpchfaLWVHOKWVFL2849-40-65 17:15:00 Test Item Value Reference Range Interpretation Comments Lymphocytes (test code = Lymphocytes) 24.0 20.0-40.0 [facility]kinOrhpfonVFATAVWNRK4343-74-49 17:15:00 Test Item Value Reference Range Interpretation Comments Segs (test code = Segs) 60.7 45.0-75.0 [facility]2014-03-03 17:15:00 Test Item Value Reference Range Interpretation Comments ALANINE AMINOTRANSFERASE 20 See_Comment [A utomated message] (test code = ALANINE The sys tem which AMINOTRANSFERASE) generated this result transmitted ref erence range: <=65. Th e reference range was not used to int erpret this result as normal/abnormal . [facility]2014-03-03 17:15:00 Test Item Value Reference Range Interpretation Comments Albumin Lvl (test code = Albumin Lvl) 3.9 3.5-5.0 [facility]2014-03-03 17:15:00 Test Item Value Reference Range Interpretation Comments Alk Phos (test code = Alk Phos) 47 39-136 [facility]2014-03-03 17:15:00 Test Item Value Reference Range Interpretation Comments Bili Direct (test code 0.1 See_Comment [Aut omated message] The = Bili Direct) system which generated this result tra nsmitted reference range : <=0.3. The reference r tyrese was not used to int erpret this result as wilfrid l/abnormal. [facility] [id number] 17:15:00 Test Item Value Reference Range Interpretation Comments Total Protein (test code = Total 8.3 6.4-8.4 Protein) [facility]2014-03-03 17:15:00 Test Item Value Reference Range Interpretation Comments Bili Total (test code = Bili Total) 0.4 0.2-1.3 [facility]2014-03-03 17:15:00 Test Item Value Reference Range Interpretation Comments ASPARTATE TRANSAMINASE 39 See_Comment [Aut omated message] (test code = ASPARTATE The s ystem which TRANSAMINASE) generated this result transmitted ref erence range: <=37. Th e reference range was not used to interpr et this result as normal/abnormal . [facility] [id number] 17:15:00 Test Item Value Reference Range Interpretation Comments Globulin (test code = Globulin) 4.4 2.0-4.0 [facility]2014-03-03 17:15:00 Test Item Value Reference Range Interpretation Comments A/G Ratio (test code = A/G Ratio) 0.9 0.7-1.6 [facility]2014-03-03 17:15:00 Test Item Value Reference Range Interpretation Comments Bili Indirect (test 0.3 See_Comment [Automa jeffry message] The code = Bili Indirect) system which generated this result tra nsmitted reference range : <=1.0. The reference r tyrese was not used to int erpret this result as normal/abnormal . [facility] [id number] 17:15:00 Test Item Value Reference Range Interpretation Comments Calcium Lvl (test code = Calcium Lvl) 9.3 8.5-10.5 [facility]
[2023-04-03] MEDS ORDERED: VANCOMYCIN 1 GM/VIAL ONE (17:08)
[2023-04-03] MEDS ORDERED: CEFTRIAXONE 1000 MG/VIAL ONE (17:08)
[2023-04-03] MEDS ORDERED: NA CHLORIDE 0.9% 1,000 ML ONE (17:09)
[2023-04-03] MEDS ORDERED: NA CHLORIDE 0.9% 50 ML ONE (17:09)
[2023-04-03] MEDS ORDERED: NA CHLORIDE 0.9% 250 ML ONE (17:09)
--- NOTE | 2023-04-03 17:47 | ER ---
Nurse's Notes [facility] Name: Jatinder Garner Age: 77 yrs Sex: Male : 1945 Arrival Date: 04/03/2023 Time: 16:37 Bed 18 Private MD: Diagnosis: Cellulitis, unspecified-Sacrum Presentation: 04/03 16:48 Chief complaint: Patient states: Dr. Harper sent for PICC line insertion to be treated ld1 for osteomyelitis. Coronavirus screen: At this time, the client does not indicate any symptoms associated with coronavirus-19. Ebola Screen: No symptoms or risks identified at this time. Initial Sepsis Screen: Does the patient meet any 2 criteria? No. Patient's initial sepsis screen is negative. Does the patient have a suspected source of infection? No. Patient's initial sepsis screen is negative. Risk Assessment: Do you want to hurt yourself or someone else? Patient reports no desire to harm self or others. Onset of symptoms was April 03, 2023 at 16:49. 16:48 Method Of Arrival: Wheelchair ld1 16:48 Acuity: NANNETTE 3 ld1 Triage Assessment: 16:49 General: Appears in no apparent distress. comfortable, Behavior is calm, cooperative, ld1 appropriate for age. Pain: Denies pain. EENT: No signs and/or symptoms were reported regarding the EENT system. Neuro: Level of Consciousness is awake, alert, obeys commands, Oriented to person, place, time, situation. Cardiovascular: Capillary refill < 3 seconds Patient's skin is warm and dry. Respiratory: Airway is patent Respiratory effort is even, unlabored. GI: Abdomen is flat, non-distended. : No signs and/or symptoms were reported regarding the genitourinary system. Derm: No signs and/or symptoms reported regarding the dermatologic system. Musculoskeletal: No signs and/or symptoms reported regarding the musculoskeletal system. Historical: - Allergies: 16:49 Morphine; ld1 - PMHx: 16:49 paraplegic; ld1 - PSHx: 16:49 kidney removed, s/p fall; spinal injury; ld1 - Immunization history:: Adult Immunizations up to date, Client reports receiving the 2nd dose of the Covid vaccine. - Social history:: Smoking status: Patient denies any tobacco usage or history of. Patient/guardian denies using alcohol. - Family history:: not pertinent. - Hospitalizations: : No recent hospitalization is reported. Screenin:45 [facility] ED Fall Risk Assessment (Adult) History of falling in the last 3 months, db including since admission Yes- physiologic fall (2 pts) Confusion or Disorientation No (0 pts) Intoxicated or Sedated No (0 pts) Impaired Gait No (0 pts) Mobility Assist Device Used No (0 pt) Altered Elimination Yes (1 pt) Score/Fall Risk Level 3 or more points = High Risk Oriented to surroundings, Maintained a safe environment. Abuse screen: Denies threats or abuse. Denies injuries from another. Nutritional screening: No deficits noted. Tuberculosis screening: No symptoms or risk factors identified. Assessment: 17:40 Reassessment: Patient appears in no apparent distress at this time. Patient and/or db family updated on plan of care and expected duration. Pain level reassessed. Patient is alert, oriented x 3, equal unlabored respirations, skin warm/dry/pink. sacral wound. arrived with garcia. sent by Dr. Harper. General: Appears in no apparent distress. comfortable, Behavior is calm, cooperative. Neuro: Level of Consciousness is awake, alert, obeys commands, Oriented to person, place, time, situation. 18:46 Reassessment: Patient appears in no apparent distress at this time. Patient and/or db family updated on plan of care and expected duration. Pain level reassessed. Patient is alert, oriented x 3, equal unlabored respirations, skin warm/dry/pink. Reassessment: wound to sacral area upon arrival. General: Appears in no apparent distress. comfortable. 21:12 Reassessment: Called to give report, Alvarez garay alanna back. sg5 Vital Signs: 16:48 BP 99 / 59; Pulse 96; Resp 18; Temp 98(O); Pulse Ox 95% on R/A; Weight 58.97 kg; Height ld1 5 ft. 10 in. ; Pain 10/10; 17:30 BP 107 / 52; Pulse 79; Resp 18; Pulse Ox 98% ; db 18:30 BP 106 / 57; Pulse 68; Resp 16; Pulse Ox 96% ; db 16:48 Body Mass Index 18.65 (58.97 kg, 177.8 cm) ld1 16:48 Pain Scale: Adult ld1 ED Course: 16:37 Patient arrived in ED. rg4 16:40 Pola Peterson MD is Attending Physician. rn 16:49 Triage completed. ld1 16:49 Arm band placed on right wrist. ld1 16:53 Lanie Morocho, RN is Primary Nurse. db 17:10 First set of blood cultures drawn by me. db 17:24 Inserted saline lock: 20 gauge in right antecubital area, using aseptic technique. db Blood collected. 17:24 Second set of blood cultures drawn by me. db 17:39 No provider procedures requiring assistance completed. db 17:46 Nadir Harper MD is Hospitalizing Provider. rn 18:00 present on arrival. db 18:45 Patient has correct armband on for positive identification. Bed in low position. Call db light in reach. Side rails up X2. Pulse ox on. NIBP on. Warm blanket given. 19:28 Primary Nurse role handed off by Lanie Morocho, ТАТЬЯНА rv1 19:28 Macarena Steele, ТАТЬЯНА is Primary Nurse. sg5 21:43 Patient admitted, IV remains in place. sg5 Administered Medications: 17:24 Drug: NS 0.9% IV 1000 ml Route: IV; Rate: 1000 ml; Site: right antecubital; db 19:00 Follow up: Response: No adverse reaction; IV Status: Completed infusion; IV Intake: db 1000ml 17:30 Drug: Rocephin IV 1 grams Route: IV; Rate: calculated rate; Site: right antecubital; db 17:38 Follow up: Response: No adverse reaction; IV Status: Completed infusion; IV Intake: 50mldb 17:38 Drug: vancoMYCIN IVPB 1 grams Route: IVPB; Infused Over: 2 hrs; Site: right antecubital;db 19:28 Follow up: IV Status: Completed infusion sg5 Medication: 21:43 VIS not applicable for this client. sg5 Intake: 17:38 IV: 50ml; Total: 50ml. db 19:00 IV: 1000ml; Total: 1050ml. db Outcome: 17:47 Decision to Hospitalize by Provider. rn 21:42 Admitted to Med/surg accompanied by tech, room 215, Report called to Alvarez sg5 21:42 Condition: good 21:42 Instructed on the need for admit. 21:43 Patient left the ED. sg5 Signatures: Pola Peterson MD MD rn Garcia, Rubi rg4 Deisy Stafford RN RN ld1 Lanie Morocho RN RN Claudia Carrasco rv1 Macarena Steele RN RN sg5 Corrections: (The following items were deleted from the chart) 16:50 16:49 Allergies: No Known Allergies; ld1 ld1
--- NOTE | 2023-04-03 17:47 | EDPHYS ---
Physician Documentation [facility] Name: Jatinder Garner Age: 77 yrs Sex: Male : 1945 Arrival Date: 04/03/2023 Time: 16:37 Bed 18 Private MD: ED Physician Pola Peterson HPI: 04/03 16:58 This 77 yrs old Male presents to ER via Wheelchair with complaints of Sent By Meredith for rn Picc Line. 16:58 Pt with sacral wound, unknown onset, sent in for PICC line placement by Dr. Harper, and rn IV abx. NO fever. REports skin around sacral ulcer with increased redness and breakdown. . Onset: The symptoms/episode began/occurred at an unknown time. Severity of symptoms: At their worst the symptoms were. The patient has experienced similar episodes in the past. The patient has been recently seen by a physician:. Historical: - Allergies: 16:49 Morphine; ld1 - PMHx: 16:49 paraplegic; ld1 - PSHx: 16:49 kidney removed, s/p fall; spinal injury; ld1 - Immunization history:: Adult Immunizations up to date, Client reports receiving the 2nd dose of the Covid vaccine. - Social history:: Smoking status: Patient denies any tobacco usage or history of. Patient/guardian denies using alcohol. - Family history:: not pertinent. - Hospitalizations: : No recent hospitalization is reported. ROS: 16:58 Constitutional: Negative for fever, chills, and weight loss, Cardiovascular: Negative rn for chest pain, palpitations, and edema, Respiratory: Negative for shortness of breath, cough, wheezing, and pleuritic chest pain, Abdomen/GI: Negative for abdominal pain, nausea, vomiting, diarrhea, and constipation, Back: Negative for injury and pain, MS/Extremity: Negative for injury and deformity, Skin: + sacral wound Neuro: Negative for headache, weakness, numbness, tingling, and seizure. Exam: 16:58 Constitutional: This is a well developed, well nourished patient who is awake, alert, rn and in no acute distress. Cardiovascular: Regular rate and rhythm. No pulse deficits. Respiratory: No increased work of breathing, no retractions or nasal flaring. Abdomen/GI: Soft, non-tender Skin: Warm, dry, deep sacral wound, approx 4-5 inch diameter, mild erythema surrounding wound, no crepitus, no purulence noted. Neuro: Awake and alert, GCS 15 Vital Signs: 16:48 BP 99 / 59; Pulse 96; Resp 18; Temp 98(O); Pulse Ox 95% on R/A; Weight 58.97 kg; Height ld1 5 ft. 10 in. ; Pain 10/10; 17:30 BP 107 / 52; Pulse 79; Resp 18; Pulse Ox 98% ; db 18:30 BP 106 / 57; Pulse 68; Resp 16; Pulse Ox 96% ; db 16:48 Body Mass Index 18.65 (58.97 kg, 177.8 cm) ld1 16:48 Pain Scale: Adult ld1 MDM: 16:40 Patient medically screened. rn 17:44 Differential Diagnosis . Data reviewed: vital signs, nurses notes, and as a result, I rn will admit patient. Counseling: I had a detailed discussion with the patient and/or guardian regarding: the historical points, exam findings, and any diagnostic results supporting the discharge/admit diagnosis, the need for further work-up and treatment in the hospital. ED course: Consulted with Dr. Harper, requests admission and rocephin/vancomycin. 04/03 16:52 Order name: CBC with Diff; Complete Time: 18:13 rn 04/03 16:52 Order name: Basic Metabolic Panel; Complete Time: 18:13 rn 04/03 16:52 Order name: Protime (+inr); Complete Time: 18:13 rn 04/03 16:52 Order name: Ptt, Activated; Complete Time: 18:13 rn 04/03 16:52 Order name: Blood Culture Adult (2) rn 04/03 16:52 Order name: CRP; Complete Time: 18:13 rn 04/03 16:52 Order name: IV Start; Complete Time: 17:39 rn Administered Medications: 17:24 Drug: NS 0.9% IV 1000 ml Route: IV; Rate: 1000 ml; Site: right antecubital; db 19:00 Follow up: Response: No adverse reaction; IV Status: Completed infusion; IV Intake: db 1000ml 17:30 Drug: Rocephin IV 1 grams Route: IV; Rate: calculated rate; Site: right antecubital; db 17:38 Follow up: Response: No adverse reaction; IV Status: Completed infusion; IV Intake: 50mldb 17:38 Drug: vancoMYCIN IVPB 1 grams Route: IVPB; Infused Over: 2 hrs; Site: right antecubital;db 19:28 Follow up: IV Status: Completed infusion sg5 Disposition Summary: 04/03/23 17:47 Hospitalization Ordered Hospitalization Status: Observation rn Provider: Nadir Harper rn Location: Telemetry/MedSurg (observation) rn Condition: Stable rn Problem: new rn Symptoms: are unchanged rn Bed/Room Type: Standard rn Room Assignment: 215(04/03/23 20:53) Diagnosis - Cellulitis, unspecified - Sacrum rn Forms: - Medication Reconciliation Form rn - SBAR form rn Signatures: Dispatcher [employer] EDMS Pola Peterson MD MD rn Garcia, Cindy, RN RN cg Sims, Lauren, RN RN ld1 Lanie Morocho RN RN Macarena Young RN sg5 Corrections: (The following items were deleted from the chart) 16:50 16:49 Allergies: No Known Allergies; ld1 ld1 18:12 16:58 Constitutional: This is a well developed, well nourished patient who is awake, rn alert, and in no acute distress. Cardiovascular: Regular rate and rhythm. No pulse deficits. Respiratory: No increased work of breathing, no retractions or nasal flaring. Abdomen/GI: Soft, non-tender Skin: Warm, dry, no purulence noted. Neuro: Awake and alert, GCS 15 rn 20:53 17:47 rn cg
[2023-04-03 17:48] LABS: Absolute Lymphocytes (CBC) 2.3 K/uL (0.7-4.9); Hematocrit 34.1 % (39.6-49.0); Lymphocytes % 21.9 % (15.3-44.8); MCV 81.1 fL (80-100); MPV 7.8 fL (7.6-11.3); RBC Red Blood Cell Count 4.21 M/uL (4.33-5.43)
[2023-04-03 17:56] LABS: Protime INR 1.11
[2023-04-03 20:48] VITALS: BMI 18.6
[2023-04-03] MEDS ORDERED: ONDANSETRON 4 MG/2 ML VIAL IV PRN (21:36)
--- NOTE | 2023-04-03 21:55 | P.HP ---
Certification for Inpatient Patient admitted to: Inpatient With expected LOS: >2 Midnights Practitioner: I am a practitioner with admitting privileges, knowledge of patient current condition, hospital course, and medical plan of care. Services: Services provided to patient in accordance with Admission requirements found in Title 42 Section 412.3 of the Code of Federal Regulations Patient History Date of Service: 04/03/23 Reason for admission: SACRAL ULCER History of Present Illness: MR PRATT HAS HAD SACRAL ULCER AND TWO HEEL ULCERS SINCE HE WAS IN NH FOR WEEKS AFTER A FALL WHEN HE BECAME PARAPLEGIC. R HEEL ULCER HEALED, L WE HAD TO DO BKA HE HAD HARDWARE IN THE FOOT AND IT WOULD NOT HEAL WITH INECTED BONES. SACRAL ULCER GOT LOT SMALLER. HE GOT 6 WEEKS OF IV MERREM AND 6 WEEKS OF CIPRO AND DOXYCYCLIN AFTER THAT FOR TOTAL 3 MONTHS. HE REMAINED STABLE FOR WEEKS BUT LAST WEEK I SAW SOME EXUDATE COMING UP DID CULTURE AND HE GREW TWO BATERIA ONE BEING MRSA. I ASKED HIM TO BE SEEN AT [place] FOR HBO WITH DR. MARY BUT REFERRED THE PATIENT TO OUTPATIENT ID CLINIC. THE APT IS NEXT WEEK AND I DON'T WANT HIM WITHOUT ANTIBIOTIC FOR TWO MORE WEEKS. HE AGREED TP GET ADMITTED, DO PICC LINE AND GET IV ABX. Allergies No Known Allergies Allergy (Unverified 01/24/23 12:33) Home medications list reviewed: Yes Home Medications: Trazodone [Desyrel*] 50 mg PO BEDTIME #90 tab 10/23/22 Tramadol HCl [Ultram] 50 mg PO Q6HP PRN 01/24/23 - Past Medical/Surgical History Diabetic: No -: paraplegic -: bed sores -: coccyx stage 4 ulcer -: spinal sx due to fall from roof -: nephrectomy - Social History Smoking Status: Never smoker Alcohol use: Yes CD- Drugs: No Caffeine use: Yes Review of Systems 10-point ROS is otherwise unremarkable General: Weakness Physical Examination - Vital Signs Temperature: 97.8 F Blood Pressure: 106/66 Pulse: 74 Respirations: 16 Pulse Ox (%): 100 - Physical Exam General: Oriented x3, Mild distress HEENT: Atraumatic, PERRLA, Mucous membr. moist/pink, EOMI, Sclerae nonicteric Neck: Supple, 2+ carotid pulse no bruit, No LAD, Without JVD or thyroid abnormality Respiratory: Clear to auscultation bilaterally, Normal air movement Cardiovascular: Regular rate/rhythm, Normal S1 S2 Gastrointestinal: Normal bowel sounds, No tenderness Musculoskeletal: No tenderness Integumentary: No rashes, Pressure ulcer (LARGE DECUBITUS ULCER. SOME EXUDATE.) Neurological: Abnormal strength (PARAPLEGIC.) Lymphatics: No axilla or inguinal lymphadenopathy - Studies Laboratory Data (last 24 hrs) 04/03/23 17:24: PT 12.2, INR 1.11, APTT 36.2 04/03/23 17:24: Sodium 130 L, Potassium 4.0, BUN 25 H, Creatinine 0.49 L, Glucose 119 H 04/03/23 17:24: WBC 10.40, Hgb 10.8 L, Hct 34.1 L, Plt Count 587 H Assessment and Plan - Problems (Diagnosis) (1) Pressure ulcer of sacral region, stage 4 Current Visit: No Status: Chronic Plan: IV ROCEPHIN, IV VANCOMYCIN IF HE GETS TO GO TO LTAC HE CAN COTNIUE BOTH IV IF HE REFUESES TO GO I WILL CONTINUE IV ROCEPHIN AND CHANGE TO ORAL BACTRIM IN PLACE OF VANCO. PROGNOSIS IS GUARDED. HE WILL BENEFIT BY HBO TREATMENT. - Advance Directives Does patient have a Living Will: No Does patient have a Durable POA for Healthcare: No
[2023-04-03 22:07] VITALS: O2SAT 96
[2023-04-03] MEDS ORDERED: TRAZODONE 50 MG TABLET PO PRN (22:38)
[2023-04-04 03:07] LABS: Absolute Lymphocytes (CBC) 1.4 K/uL (0.7-4.9); Hematocrit 29.2 % (39.6-49.0); Lymphocytes % 15.5 % (15.3-44.8); MCV 81.1 fL (80-100); MPV 8.2 fL (7.6-11.3)
[2023-04-04 03:26] LABS: Potassium 3.8 mEq/L (3.5-5.1)
[2023-04-04] MEDS: CEFTRIAXONE 1,000 MG in NA CHLORIDE 0.9% 50 ML IVPB SCH ×3 (05:01→21:04)
[2023-04-04] MEDS: VANCOMYCIN 1 GM in NA CHLORIDE 0.9% 250 ML IVPB SCH ×2 (05:03→17:40)
--- NOTE | 2023-04-04 09:06 | CON ---
This is a new consult from the our service. History Of Present Illness: Mr. Garner is a 77-year-old patient with history of osteomyelitis. He h as been on long-term antibiotics, so I do not have at this moment the length of the kind of them. He has a history of osteomyelitis on the sacrum. Recently, he had an MRI, shows once again improvement of osteomyelitis, but still present and he was referred to us for the possible use of hyperbaric. I worked here in the [facility], also worked at [facility] where we have hyperbaric, he want s to come here first since I have not him yet, so he can save his the trip, but eventually we are going to have to see him at the [facility]. I understand his limitations. Past Medical History: Includes he is paraplegic from a previous fall. We are trying to get more inf ormation from the chart that more in the future. He has history also of nephrectomy and b ack surgery affecting once again cause. Allergies: NONE. Social History: He does not smoke. He does not drink alcohol. Family History: Noncontributory. Review of Systems: The patient stated pain on the shoulder area from lying on that side all the time, but no open ulcers in that region. No nausea. No vomiting. No fever. No shortness of breath. No chest pain. Physical Examination: General: The patient is awake, alert. HEENT: Pupils anicteric. Neck: Supple. Chest: Clear. Heart: S1, S2. Abdomen: Soft and depressible. Extremities: Good capillary refill. Neuro: See HPI. Integumentary: Shows pressure ulcer on the sacrum, 10.5 x 15 x 1 cm, stage IV, undermining from 7 to 11 o'clock about 1 cm and from 12 to 13 o'clock about 2 cm. There is granulation tissue present, bu t also there is a nonviable tissue present that looks like some cyanotic black tissue from some new a reas developing. I discussed this with the nurses here with the previous visit and this is worsening in the last few days and we are trying to identify the factor of that. It looked like a pressure in jury on the periphery of this wound. It will be debrided today. Once again, bone is exposed and is clearly palpated. Procedure: Subcutaneous debridement of the sacral ulcer. Under aseptic condition using a curette, celso cabrera proceeded to do subcutaneous debridement of that area. Once again, the bone area is exposed, we ca nnot do much at this moment. We removed mainly tissue that he has necrotic and I believe it is from pressure. The patient tolerated the procedure well. Plan: We still have to work on the offloading. The caregiver at bedside is instructing him. Once a gain, she believes he has been lying on his back for too long. We reinforced that and advised. We r eviewed the MRI on him right now, but shows the findings of osteomyelitis. We need to check his nutr ition. We are ordering prealbumin and albumin. The wound has deteriorated on the wound VAC, so we a re going to hold that for a week and use Santyl and Drawtex since amount of drainage in that area is more than with the wound VAC can collect and is seating on the skin and damaging the skin plus the pr essure on top. I believe this patient should be seen by Infectious Disease that will once again to h elp us organize in case he needs more antibiotics for osteomyelitis. We criter ia for his hyperbaric treatment. We will see the patient in a week from now. ELKE/LUCY Voice ID: [id number] Report ID: [id number]
[2023-04-04] MEDS: Mupirocin NASAL 2 APPL/1 GM TUBE NAS SCH ×2 (09:16→21:04)
--- NOTE | 2023-04-04 09:23 | RAD REPORT ---
EXAM DESCRIPTION: RAD - Chest Single View - 04/04/2023 9:18 am CLINICAL HISTORY: picc line placement COMPARISON: Chest Pa And Lat (2 Views) dated 01/24/2023; Chest Single View dated 01/17/2023; Chest Sin gle View dated 10/17/2022; Chest Single View dated 10/17/2022 FINDINGS: Portable chest was obtained following placement of a right upper extremity PICC line. The catheter tip projects over the SVC.
[2023-04-04] MEDS ORDERED: VANCOMYCIN 1 GM in NA CHLORIDE 0.9% 250 ML IVPB SCH (18:00)
[2023-04-04] MEDS: ACETAMINOPHEN 500 MG TAB PO PRN (18:32)
--- NOTE | 2023-04-04 20:32 | P.PN ---
Subjective Date of Service: 04/04/23 Chief Complaint: SACRAL ULCER Subjective: Improving RENÉE IS DOING OKAY. HE LOVES HIS AIR MATTRESS. WE HAD PICC LINE DONE. Review of Systems 10-point ROS is otherwise unremarkable General: Weakness Physical Examination - Vital Signs Temperature: 97.8 F Blood Pressure: 100/57 Pulse: 80 Respirations: 16 Pulse Ox (%): 96 - Physical Exam General: Alert, In no apparent distress HEENT: Atraumatic, PERRLA, EOMI Neck: Supple, JVD not distended Respiratory: Clear to auscultation bilaterally, Normal air movement Cardiovascular: Regular rate/rhythm, Normal S1 S2 Gastrointestinal: Normal bowel sounds, No tenderness Musculoskeletal: No tenderness Integumentary: No rashes Neurological: Abnormal strength (PARAPLEGIC) Lymphatics: No axilla or inguinal lymphadenopathy - Studies Medications List Reviewed: Yes Assessment And Plan - Current Problems (Diagnosis) (1) Pressure ulcer of sacral region, stage 4 Current Visit: No Status: Chronic Plan: IV ROCEPHIN, IV VANCOMYCIN IF HE GETS TO GO TO LTAC HE CAN COTNIUE BOTH IV IF HE REFUESES TO GO I WILL CONTINUE IV ROCEPHIN AND CHANGE TO ORAL BACTRIM IN PLACE OF VANCO. PROGNOSIS IS GUARDED. HE WILL BENEFIT BY HBO TREATMENT. PICC LINE IS DONE. I AM GOING TO WAIT FOR SOFTWARE APPLICATIONS DESIGNER TO GUIDE US WHERE HE CAN GO FOR FURTHER THERAPY.
[2023-04-04] MEDS: JUVEN PACKET PO SCH (21:00)
[2023-04-04] MEDS: ENSURE ENLIVE 237 ML CAN PO SCH (21:03)
[2023-04-04] MEDS: TRAZODONE 50 MG TABLET PO SCH (21:04)
[2023-04-05] MEDS ORDERED: NA CHLORIDE 0.9% 250 ML ONE (06:43)
[2023-04-05] MEDS: VANCOMYCIN 1 GM in NA CHLORIDE 0.9% 250 ML IVPB SCH (06:46)
[2023-04-05] MEDS: CEFTRIAXONE 1,000 MG in NA CHLORIDE 0.9% 50 ML IVPB SCH (08:19)
[2023-04-05] MEDS: Mupirocin NASAL 2 APPL/1 GM TUBE NAS SCH ×2 (08:20→20:06)
[2023-04-05] MEDS: JUVEN PACKET PO SCH ×2 (08:20→20:08)
[2023-04-05] MEDS: ENSURE ENLIVE 237 ML CAN PO SCH ×2 (08:20→20:08)
[2023-04-05] MEDS: ACETAMINOPHEN 500 MG TAB PO PRN ×2 (11:41→20:06)
--- NOTE | 2023-04-05 15:41 | P.PN ---
Subjective Date of Service: 04/05/23 Chief Complaint: SACRAL ULCER Subjective: No C/O voiced RENÉE IS DOING OKAY. HE LOVES HIS AIR MATTRESS. WE HAD PICC LINE DONE. STABLE. NO CHANGES. Review of Systems 10-point ROS is otherwise unremarkable General: Weakness Physical Examination - Vital Signs Temperature: 97.5 F Blood Pressure: 104/58 Pulse: 85 Respirations: 16 Pulse Ox (%): 100 - Physical Exam General: Oriented x3, Mild distress HEENT: Atraumatic, PERRLA, EOMI Neck: Supple, JVD not distended Respiratory: Clear to auscultation bilaterally, Normal air movement Cardiovascular: Regular rate/rhythm, Normal S1 S2 Gastrointestinal: Normal bowel sounds, No tenderness Musculoskeletal: No tenderness Integumentary: No rashes, Pressure ulcer (LARGE. CONTINUE KCI.) Neurological: Normal speech, Normal tone, Normal affect Lymphatics: No axilla or inguinal lymphadenopathy - Studies Medications List Reviewed: Yes Assessment And Plan - Current Problems (Diagnosis) (1) Pressure ulcer of sacral region, stage 4 Current Visit: No Status: Chronic Plan: IV ROCEPHIN, IV VANCOMYCIN IF HE GETS TO GO TO LTAC HE CAN COTNIUE BOTH IV IF HE REFUESES TO GO I WILL CONTINUE IV ROCEPHIN AND CHANGE TO ORAL BACTRIM IN PLACE OF VANCO. PROGNOSIS IS GUARDED. HE WILL BENEFIT BY HBO TREATMENT. PICC LINE IS DONE. I AM GOING TO WAIT FOR HEARING AID ASSEMBLY SUPERVISOR TO GUIDE US WHERE HE CAN GO FOR FURTHER THERAPY. [facility]CI PUMP HE REFUSES TO GO TO LTAC HE WANTS TO GO HOME. HE WILL HAVE TO CONTINUE HBO LIKE I ADVISED AT [facility].
[2023-04-05] MEDS: TRAZODONE 50 MG TABLET PO SCH (20:07)
[2023-04-06] MEDS ORDERED: VANCOMYCIN 1.5 GM in NA CHLORIDE 0.9% 500 ML IVPB SCH (08:00)
[2023-04-06] MEDS: CEFTRIAXONE 1,000 MG in NA CHLORIDE 0.9% 50 ML IVPB SCH (08:09)
[2023-04-06] MEDS: ENSURE ENLIVE 237 ML CAN PO SCH ×2 (08:10→20:16)
[2023-04-06] MEDS: JUVEN PACKET PO SCH ×2 (08:10→20:16)
[2023-04-06] MEDS: Mupirocin NASAL 2 APPL/1 GM TUBE NAS SCH ×2 (08:10→20:16)
[2023-04-06] MEDS: ACETAMINOPHEN 500 MG TAB PO PRN ×2 (16:20→22:54)
[2023-04-06] MEDS: TRAZODONE 50 MG TABLET PO SCH (20:16)
[2023-04-07] MEDS: CEFTRIAXONE 1,000 MG in NA CHLORIDE 0.9% 50 ML IVPB SCH (08:38)
[2023-04-07] MEDS: ENSURE ENLIVE 237 ML CAN PO SCH ×2 (08:41→20:18)
[2023-04-07] MEDS: JUVEN PACKET PO SCH ×2 (08:41→20:18)
[2023-04-07] MEDS: Mupirocin NASAL 2 APPL/1 GM TUBE NAS SCH ×2 (08:41→20:16)
[2023-04-07] MEDS: VANCOMYCIN 1.5 GM in NA CHLORIDE 0.9% 500 ML IVPB SCH (08:42)
--- NOTE | 2023-04-07 17:48 | P.PN ---
Subjective Date of Service: 04/07/23 Chief Complaint: SACRAL ULCER Subjective: Improving RENÉE IS DOING OKAY. HE LOVES HIS AIR MATTRESS. WE HAD PICC LINE DONE. STABLE. NO CHANGES. THERE ARE NO CHANGES HE IS APPROVED FOR ANTIBIOTICS. 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 HE WILL GO HOME IN AM. HE WILL CONTINUE WITH [facility] FOR HBO. Review of Systems 10-point ROS is otherwise unremarkable Physical Examination - Vital Signs Temperature: 97.5 F Blood Pressure: 114/64 Pulse: 91 Respirations: 18 Pulse Ox (%): 97 - Physical Exam General: Alert, In no apparent distress HEENT: Atraumatic, PERRLA, EOMI Neck: Supple, JVD not distended Respiratory: Clear to auscultation bilaterally, Normal air movement Cardiovascular: Regular rate/rhythm, Normal S1 S2 Gastrointestinal: Normal bowel sounds, No tenderness Musculoskeletal: No tenderness Integumentary: No rashes Neurological: Abnormal strength (PARAPLEGIC) Lymphatics: No axilla or inguinal lymphadenopathy - Studies Medications List Reviewed: Yes Assessment And Plan - Current Problems (Diagnosis) (1) Pressure ulcer of sacral region, stage 4 Current Visit: No Status: Chronic Plan: IV ROCEPHIN, IV VANCOMYCIN IF HE GETS TO GO TO LTAC HE CAN COTNIUE BOTH IV IF HE REFUESES TO GO I WILL CONTINUE IV ROCEPHIN AND CHANGE TO ORAL BACTRIM IN PLACE OF VANCO. PROGNOSIS IS GUARDED. HE WILL BENEFIT BY HBO TREATMENT. PICC LINE IS DONE. I AM GOING TO WAIT FOR RADIO DIVISION OFFICER TO GUIDE US WHERE HE CAN GO FOR FURTHER THERAPY. [facility]CI PUMP HE REFUSES TO GO TO LTAC HE WANTS TO GO HOME. HE WILL HAVE TO CONTINUE HBO LIKE I ADVISED AT [facility]. HPI
[2023-04-07 18:48] LABS: Hematocrit 29.9 % (39.6-49.0); Lymphocytes % 15.9 % (15.3-44.8); MPV 7.3 fL (7.6-11.3); RBC Red Blood Cell Count 3.74 M/uL (4.33-5.43)
[2023-04-07 19:02] LABS: Potassium 4.1 mEq/L (3.5-5.1)
[2023-04-07] MEDS: TRAZODONE 50 MG TABLET PO SCH (20:16)
[2023-04-08] MEDS: Mupirocin NASAL 2 APPL/1 GM TUBE NAS SCH ×2 (08:31→20:18)
[2023-04-08] MEDS: ENSURE ENLIVE 237 ML CAN PO SCH ×2 (08:31→20:18)
[2023-04-08] MEDS: CEFTRIAXONE 1,000 MG in NA CHLORIDE 0.9% 50 ML IVPB SCH (08:32)
[2023-04-08] MEDS: JUVEN PACKET PO SCH ×2 (08:32→20:19)
[2023-04-08] MEDS: VANCOMYCIN 1.5 GM in NA CHLORIDE 0.9% 500 ML IVPB SCH (11:54)
[2023-04-08 12:45] LABS: Urine Bacteria None Seen /HPF (<20); Urine Bilirubin NEGATIVE (Negative); Urine Blood Negative (Negative); Urine Clarity Clear (Clear); Urine Color Light-Yellow (Yellow); Urine Glucose NEGATIVE (Negative); Urine Mucus Slight /HPF (None Seen); Urine Protein NEGATIVE (Negative); Urine RBC <5 /HPF (None Seen); Urine Urobilinogen Normal (Normal)
[2023-04-08] MEDS: ACETAMINOPHEN 500 MG TAB PO PRN (20:17)
[2023-04-08] MEDS: TRAZODONE 50 MG TABLET PO SCH (20:18)
--- NOTE | 2023-04-08 21:34 | P.PN ---
Subjective Date of Service: 04/08/23 Chief Complaint: SACRAL ULCER Subjective: No C/O voiced RENÉE IS DOING OKAY. HE LOVES HIS AIR MATTRESS. WE HAD PICC LINE DONE. STABLE. NO CHANGES. THERE ARE NO CHANGES HE IS APPROVED FOR ANTIBIOTICS. HIS [place] TENDER IS OUT OF TOWN. HE WILL GO HOME IN AM. HE WILL CONTINUE WITH [facility] FOR HBO. HE HAS NO NEW COMPLAINTS. Review of Systems 10-point ROS is otherwise unremarkable Neurological: As per HPI Physical Examination - Vital Signs Temperature: 98.0 F Blood Pressure: 107/68 Pulse: 89 Respirations: 16 Pulse Ox (%): 97 - Physical Exam General: Alert, In no apparent distress HEENT: Atraumatic, PERRLA, EOMI Neck: Supple, JVD not distended Respiratory: Clear to auscultation bilaterally, Normal air movement Cardiovascular: Regular rate/rhythm, Normal S1 S2 Gastrointestinal: Normal bowel sounds, No tenderness Musculoskeletal: No tenderness Integumentary: No rashes, Pressure ulcer (LARGE RIGHT NEXT TO RECTUM. HE HAS NO CONTINENCE AND STOOL SOILS THE ULCER DAILY. 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 RECTAL TUBE WILL NOT WORK IT WILL CLOG WITH HIS STOOL.), Other Neurological: Normal speech, Normal tone, Normal affect Lymphatics: No axilla or inguinal lymphadenopathy - Studies Microbiology Data (last 24 hrs): 04/03/23 17:24 Blood - Blood Aerobic Blood Culture - Final No growth in 5 days. 04/03/23 17:24 Blood - Blood Anaerobic Blood Culture - Final No growth in 5 days. 04/03/23 17:10 Blood - Blood Aerobic Blood Culture - Final No growth in 5 days. 04/03/23 17:10 Blood - Blood Anaerobic Blood Culture - Final No growth in 5 days. Medications List Reviewed: Yes Assessment And Plan - Current Problems (Diagnosis) (1) Pressure ulcer of sacral region, stage 4 Current Visit: No Status: Chronic Plan: IV ROCEPHIN, IV VANCOMYCIN IF HE GETS TO GO TO LTAC HE CAN COTNIUE BOTH IV IF HE REFUESES TO GO I WILL CONTINUE IV ROCEPHIN AND CHANGE TO ORAL BACTRIM IN PLACE OF VANCO. PROGNOSIS IS GUARDED. HE HAS MILD WBC ELEVATION AND CRP IS SLIGHTLY LOWER. WILL [facility] LAB IN AM. I KEPT HIM ONE MORE DAY BUT I SEE NO SIGNS OF ANY OTHER SOURCE WHAT WORRIES ME THAT THE ULCER THAT IS SOILED WITH STOOL DAILY WILL STAY INFECTED. IT WILL BE VERY DIFFICULT TO HEAL THIS ULCER.
[2023-04-09 05:07] LABS: Absolute Lymphocytes (CBC) 2.1 K/uL (0.7-4.9); Hematocrit 26.8 % (39.6-49.0); Lymphocytes % 20.5 % (15.3-44.8); MCV 79.9 fL (80-100); MPV 7.7 fL (7.6-11.3); RBC Red Blood Cell Count 3.36 M/uL (4.33-5.43)
[2023-04-09 05:08] LABS: AST/SGOT 11 U/L (15-37); Alkaline Phosphatase 78 U/L (45-117); BUN Blood Urea Nitrogen 29 mg/dL (7-18); Bicarbonate 31 mEq/L (21-32); Bilirubin Total 0.1 mg/dL (0.2-1.0); Glomerular Filtration Rate 120 ml/min (=/>90); Glucose Level 112 mg/dL (74-106); Protein, Total 6.8 g/dL (6.4-8.2); Sodium Level 134 mEq/L (136-145)
[2023-04-09 05:16] LABS: ALT/SGPT < 10 U/L (16-61); Bilirubin Direct < 0.1 mg/dL (0-0.2); Bilirubin Indirect, Calculated ND mg/dL (0.2-0.8)
[2023-04-09] MEDS: VANCOMYCIN 1.5 GM in NA CHLORIDE 0.9% 500 ML IVPB SCH (08:04)
[2023-04-09] MEDS: ENSURE ENLIVE 237 ML CAN PO SCH (08:04)
[2023-04-09] MEDS: JUVEN PACKET PO SCH (08:04)
[2023-04-09] MEDS: CEFTRIAXONE 1,000 MG in NA CHLORIDE 0.9% 50 ML IVPB SCH (08:04)
[2023-04-09 08:31] VITALS: BP 100/62; TEMP 98
--- NOTE | 2023-04-09 21:27 | P.DS ---
Admission Date: 04/03/23 Discharge Date: 04/09/23 Disposition: ROUTINE DISCHARGE Discharge Condition: FAIR Reason for Admission: SACRAL ULCER - Problems (1) Pressure ulcer of sacral region, stage 4 Status: Chronic Brief History of Present Illness: MR PRATT HAS HAD SACRAL ULCER AND TWO HEEL ULCERS SINCE HE WAS IN [place] FOR WEEKS AFTER A FALL WHEN HE BECAME PARAPLEGIC. R HEEL ULCER HEALED, L WE HAD TO DO BKA HE HAD HARDWARE IN THE FOOT AND IT WOULD NOT HEAL WITH INECTED BONES. SACRAL ULCER GOT LOT SMALLER. HE GOT 6 WEEKS OF IV MERREM AND 6 WEEKS OF CIPRO AND DOXYCYCLIN AFTER THAT FOR TOTAL 3 MONTHS. HE REMAINED STABLE FOR WEEKS BUT LAST WEEK I SAW SOME EXUDATE COMING UP DID CULTURE AND HE GREW TWO BATERIA ONE BEING MRSA. I ASKED HIM TO BE SEEN AT [facility] FOR HBO WITH DR. MARY BUT REFERRED THE PATIENT TO OUTPATIENT ID CLINIC. THE APT IS NEXT WEEK AND I DON'T WANT HIM WITHOUT ANTIBIOTIC FOR TWO MORE WEEKS. HE AGREED TP GET ADMITTED, DO PICC LINE AND GET IV ABX. Vital Signs/Physical Exam: Temp Pulse Resp BP Pulse Ox 98.0 F 89 16 100/62 97 04/09/23 08:00 04/09/23 08:00 04/09/23 08:00 04/09/23 08:00 04/09/23 08:00 Laboratory Data at Discharge: WBC 10.20 thou/uL (4.3-10.9) 04/09/23 04:30 Hgb 8.6 g/dL (13.6-17.9) L 04/09/23 04:30 Hct 26.8 % (39.6-49.0) L 04/09/23 04:30 Plt Count 485 thou/uL (152-406) H 04/09/23 04:30 PT 12.2 SECONDS (9.5-12.5) 04/03/23 17:24 INR 1.11 04/03/23 17:24 APTT 36.2 SECONDS (24.3-36.9) 04/03/23 17:24 Sodium 134 mEq/L (136-145) L 04/09/23 04:30 Potassium 4.0 mEq/L (3.5-5.1) 04/09/23 04:30 BUN 29 mg/dL (7-18) H 04/09/23 04:30 Creatinine 0.33 mg/dL (0.70-1.30) L 04/09/23 04:30 Glucose 112 mg/dL (74-106) H 04/09/23 04:30 Total Bilirubin 0.1 mg/dL (0.2-1.0) L 04/09/23 04:30 AST 11 U/L (15-37) L 04/09/23 04:30 ALT < 10 U/L (16-61) L 04/09/23 04:30 Alkaline Phosphatase 78 U/L (45-117) 04/09/23 04:30 Home Medications: Trazodone [Desyrel*] 50 mg PO BEDTIME #90 tab 10/23/22 Followup: Nadir Harper MD [Primary Care Provider] -
== END 2023-04-09 10:20 | disposition home health service (06) | DRG 571 ==
LOC: ER 16:37 → ERHOLD 18:14 → 2ND 21:16
PROVIDERS: ADMIT Internal Medicine; ATTEND Internal Medicine
PROC: 0JB70ZZ Excision of Back Subcutaneous Tissue and Fascia, Open Approach (ICD-10-PCS; principal; 2023-04-03)
PROC: 02HV33Z Insertion of Infusion Device into Superior Vena Cava, Percutaneous Approach (ICD-10-PCS; 2023-04-04)
DX: L89.154 Pressure ulcer of sacral region, stage 4 (principal); E44.1 Mild protein-calorie malnutrition; M86.8X8 Other osteomyelitis, other site; Z68.1 Body mass index [BMI] 19.9 or less, adult; G82.20 Paraplegia, unspecified; L89.513 Pressure ulcer of right ankle, stage 3; L89.616 Pressure-induced deep tissue damage of right heel; Z88.5 Allergy status to narcotic agent; Z90.5 Acquired absence of kidney
CPT/HCPCS: 36415; 36569; 71045; 80048; 80076; 80202; 81001; 82947; 85025; 85610; 85730; 86140; 87040; 87070; 87075; 87077; 87186; 87205; 96365; 96366; 96375; 99285; J0696; J2405; J7030; J7040; J7050

== ENCOUNTER 2023-05-31 10:30 | Emergency (ER) | payer OTHER ==
--- OUTSIDE RECORDS SUMMARY | 2023-05-31 10:38 | XMS REPORT | Continuity of Care Document ---
:1945 Author Organization [facility] t Address [address] [place] [address] [place] [address] Care Team Providers Name Role Phone No, Pcp [facility] Primary Care Physician Unavailable ARIS ORTIZ Attending Clinician Unavailable HARISH SUMMERS Attending Clinician Unavailable Radha Art Attending Clinician Unavailable Jimmy Mcgill Attending Clinician Payers Payer Name Policy Type Policy Number Effective Date Expiration Date S bran [employer] MEDICARE [id number] 2019 ADVANTAGE HMO 00:00:00 Problems Condition Condition Condition Status Onset Resolution Last Treating Co mments Source Name Details Category Date Date Treatment Clinician Date BILATERAL BILATERAL Diagnosis Active 2013-12-07 Memoria INCISIONAL INCISIONAL 3-03 09:07:00 l HERNIA HERNIA 00:00: Ari Active 00 11/30/2013 [facility] Injury of Injury of Problem Resolve 2013-12-09 Memoria kidney kidney d 21:08:07 l without without [place] open wound open wound into into abdominal abdominal cavity cavity (disorder) (disorder) Resolved Problem 12/09/2013 [facility] OBSTR OBSTR Diagnosis Active 2013-12-07 Mem oria INCISIONAL INCISIONAL 09:07:00 l HERNIA HERNIA [place] Active [facility] Allergies, Adverse Reactions, Alerts Allergy Allergy Status [...] before Medical Center Social History 2013-11-30 2013-11-30 [facility] 18:01:34 18:01:34 Sex Assigned At [address] [facility] 00:00:00 00:00:00 [facility] Center Smoking Status Start Date Stop Date Source [facility] Medications Ordered Filled Start Stop Current Ordering Indication Dosage Frequency Signature Comments Components Source Medication Medication Date Date Medication? Clinician (SIG) Name Name aspirin 325 Yes 325mg Take 325 C [...] as Center needed for Insomnia. aspirin 325 2019-0 Yes 325mg Take [address] [facility] 5-14 [facility]: mouth [facility] needed for Center Pain. zolpidem 2019-0 Yes 10mg Take [address] [facility] (AMBIEN) 10 5-14 by mouth [facility] mg tablet 13:06: every Medical 19 night as Center needed for Insomnia. aspirin 325 2019-0 Yes 325mg Take [address] [facility] 5-14 [facility] 13:[facility]: mouth as [facility] needed for Center Pain. zolpidem 2019-0 Yes 10mg Take [address] [facility] (AMBIEN) 10 5-14 by mouth [facility] mg tablet 13:06: every Medical 19 night as Center needed for Insomnia. Zofran No 4 mg, 2 Memoria 3-10 [...] Duration: 4 day, Stop date: 12/11/13 11:50:00[place] as: Demerol "Use Precaution in Elderly, Seizure disorders, and Renal impairment " Morphine No 1 mg, 0.5 [facility] maria [place] carmen 3-10 mL, Route: l 16:51: IVP, Drug [place] 00 form: INJ, Q2H, Dosing Weight 77.8, [...] 3-10 Route: IV, l 16:51: Drug form: [place] 00 INJ, ONCE, Dosing Weight 77.8, kg, [...] 3-10 mL, Route: l 16:51: IVP, Drug [place] 00 form: INJ, Q2H, Dosing Weight 77.8, kg, PRN Pain, Start date: 12/07/13 11:51:00, Duration: 30 day, Stop date: 01/06/14 11:50:00(S sanjiv as:MORPhin e Sulfate) Phenergan 2013-0 No 25 mg, 1 [facility] maria del carmen 3-10 mL, Route: l 16:51: IM, Drug [place] 00 form: INJ, Q3H, Dosing Weight 77.8, [...] 3-10 mL, Route: l 16:51: IVP, Drug 00 form: INJ, Q2H, Dosing Weight 77.8, [...] give IV push. (Same as: Phenergan) Phenergan 2014-0 No 25 mg, 1 [facility] maria [place] carmen 3-10 mL, Route: l 16:51: IM, Drug [place] 00 form: INJ, Q3H, Dosing Weight 77.8, kg, PRN Nausea, Start date: 12/07/13 11:51:00, Duration: 30 day, Stop date: 01/06/14 11:50:00, to be given with DemerolDo not give IV push. (Same as: Phenergan) Ketorolac 2014-0 No 30 mg, Memori a 3-10 Route: IV, l 16:51: Drug form: [place] 00 INJ, ONCE, Dosing Weight 77.8, kg, Start date: 12/07/13 11:51:00, Duration: 1 doses or times, Stop date: 12/07/13 11:51:00 Ketorolac 2014-0 No 30 mg, Memori a 3-10 Route: IV, l 16:51: Drug form: [place] 00 INJ, ONCE, Dosing Weight 77.8, kg, Start date: 12/07/13 11:51:00, Duration: 1 doses or times, Stop date: 12/07/13 11:51:00 Zofran 2014-0 No 4 mg, 2 Memoria 3-10 mL, Route: l 16:51: IVP, Drug Ari 00 form: INJ, Q4H, Dosing Weight 77.8, kg, PRN Nausea, Start date: 12/07/13 11:51:00, Duration: 30 day, Stop date: 01/06/14 11:50:00(S sanjiv as: Zofran) Demerol HCl 2014-0 No 75 mg, 1.5 Memoria 3-10 mL, Route: l 16:51: IM, Drug [place] 00 form: SOLN, Q3H, Dosing Weight 77.8, [...] 01/06/14 11:50:00(S sanjiv as:MORPhin e Sulfate) Zofran 2013-0 No 4 mg, 2 Memoria 3-10 mL, Route: l 16:51: IVP, Drug [place] 00 form: INJ, Q4H, Dosing Weight 77.8, [...] Stop date: Limited # of times Naloxone 2013-0 No 0.04 mg, Memor ia [...] times(Same as: Sublimaze) Preservati ve free. Fentanyl 2013- No 25 Memoria 3-10 microgram, [...] minutes Give bolus over 2-3 minutes. Oxycodone No 5 mg, 1 Memor ia 3-10 tab, l 15:03: Route: PO, Drug form: TAB, Q4H, Dosing Weight 77.8, kg, PRN Pain Score 4-6, Start date: 12/07/13 10:03:00, Duration: 30 day, Stop date: 01/06/14 10:02:00(S sanjiv as: OxyIR) Acetaminoph 2013- No 1,000 mg, M emoria en 3-10 [...] en 3-10 100 mL, l 15:03: Route: [place] 00 IVPB, Drug form: INJ, ONCE, Dosing [...] Stop date: Limited # of times Fentanyl 2013-0 No 25 Memoria 3-10 microgram, [...] date: 01/06/14 10:02:00(S sanjiv as: Romazicon) Hydromorpho 2013- No 0.5 mg, Mem oria ne 3-10 0.5 mL, l 15:03: Route: IVP, Drug form: INJ, Q5Min, Dosing Weight 77.8, kg, PRN Pain Score 7-10, Start date: 12/07/13 10:03:00, Duration: 4 doses or times, Stop date: Limited # of times Fentanyl No 25 Memoria 3-10 microgram, l 15:03: [...] ia 3-10 tab, l 15:03: Route: PO, [place] 00 Drug form: TAB, Q4H, Dosing Weight 77.8, kg, PRN Pain Score 4-6, Start date: 12/07/13 10:03:00, Duration: 30 day, Stop date: 01/06/14 10:02:00(S sanjiv as: OxyIR) Acetaminoph 2013-0 No 1,000 mg, M emoria en 3-10 100 mL, l 15:03: Route: [place] 00 IVPB, Drug form: INJ, ONCE, Dosing [...] 3-10 Rate: 25 l 0.0014 15:02: ml/hr, [place] MEQ/ML / 00 Infuse Potassium over: 40 [...] / 1,000, Sodium Start Lactate date: 0.028 14 MEQ/ML 10:02:00, Injectable Duration: Solution 30 day, Stop date: 01/06/14 10:01:00 Calcium 2014-0 No 1,000 mL, Memor ia Chloride 3-10 Rate: 25 l 0.0014 15:02: ml/hr, [place] MEQ/ML / 00 Infuse Potassium over: 40 Chloride hr, Route: 0.004 IV, Dosing MEQ/ML / Weight Sodium 77.8 kg, Chloride Total 0.103 Volume: MEQ/ML / 1,000, Sodium Start Lactate date: 0.028 14 MEQ/ML 10:02:00, Injectable Duration: Solution 30 day, Stop date: 01/06/14 10:01:00 Calcium 2014-0 No 1,000 mL, Memor ia Chloride 3-10 Rate: 25 l 0.0014 15:02: ml/hr, [place] MEQ/ML / 00 Infuse Potassium over: 40 Chloride hr, Route: 0.004 IV, Dosing MEQ/ML / Weight Sodium 77.8 kg, Chloride Total 0.103 Volume: MEQ/ML / 1,000, Sodium Start Lactate date: 0.028 12/07/13 MEQ/ML 10:02:00, Injectable Duration: Solution 30 day, Stop date: 01/06/14 10:01:00 Vital Signs Vital Name Observation Time Observation Value Comments Source Systolic (mm Hg) 2013-12-07 17:45:00 [employer] rial [place] Diastolic (mm Hg) 2013-12-07 17:45:00 Mem orial Ari Respitory Rate 2013-12-07 17:45:00 Memori al Ari Diastolic (mm Hg) 2013-12-07 17:30:00 Mem orial [place] Systolic (mm Hg) 2013-12-07 17:30:00 [employer] rial Ari Respitory Rate 2013-12-07 17:30:00 Memori al Ari Diastolic (mm Hg) 2013-12-07 17:15:00 Mem orial Ari Systolic (mm Hg) 2013-12-07 17:15:00 [employer] rial Ari Respitory Rate 2013-12-07 17:15:00 Memori al Ari Heart Rate 2013-12-07 14:25:00 [facility] [place] BMI Calculated 2013-12-01 17:57:00 Memori al Ari Weight 2013-12-01 17:57:00 [facility] [place] Height 2013-12-01 17:57:00 177.8 cm Memorial Ari Heart Rate 2013-11-30 17:43:00 [facility] [place] Weight 2013-11-30 17:37:00 [facility] [place] Height 2013-11-30 17:37:00 177.8 cm [facility] Ari BMI Calculated 2013-11-30 17:37:00 Memori al Ari Procedures Procedure Date / Time Performed Performing Clinician Sourc e Nephrectomy Memorial Ari Encounters Start End Encounter Admission Attending Care Care Encounter Source Date/Time Date/Time Type Type Clinicians Facility Department ID 2023-04-03 [id number] [place] 10:[id number] [facility] 2022-10-10 [facility] [id number] [place] 07:[place]:[id number] [facility] 2022-09-06 [facility] [id number] [place] 06:[place]:[id number] [facility] 2022-08-15 [facility] [id number] [place] 17:[place]:[id number] [facility] 2022-08-10 [facility] [id number] [place] 08:[place]:[id number] [facility] 2022-07-23 [facility] [id number] [place] 12:[place]:[id number] [facility] 2022-07-19 [facility] [id number] [place] 14:[place]:[id number] [facility] 2022-07-04 [facility] [id number] [place] 14:[place]:[id number] [facility] 2022-10-11 2022-10-11 Outpatient [facility] [id number] [place] 14:00:00 14:00:00 Catarina COUCH 2022-06-30 2022-06-30 [facility] [id number] [place] 12:30:00 12:30:00 HARISH Velasco [facility] 2013-12-07 2013-12-07 OBS Day nullFlavo [facility] [id number] Memoria 14:07:00 18:45:00 Surgery r [place] [id number] l [address] 2013-12-07 2013-12-07 OBS Day nullFlavo [facility] [id number] Memoria 14:07:00 18:45:00 Surgery r [place] [id number] l [address] 2013-12-07 2013-12-07 Outpatient Artem, [id number] 09:07:00 13:45:00 Jimmy [id number] Alfredo [id number] Results Test Description Test Time Test Comments Results Result Sour e Comments U/S, NECK 2019-02-10 Reason for FINAL REPORT PATIENT ID: 14:36:00 Exam:->R22.1 [id number] INDICATION:Right neck mass. Request for image guided [...] MDReport Verified Date/Time: 02/10/2019 14:36:41 Reading Location: [address] Ultrasound Reading Room NECK SOFT TIS 2019-01-20 CLINICAL INDICATION: WO 09:06:13 R22.1 Localized swelling, mass and lump, neckMODALITY: [employer] [address] (Iterative dose reduction [...] nts ABO/Rh (test code = ABO/Rh) [facility] [id number] 15:05:00 Test Item Value Reference Range Interpretation Comments Antibody Scrn (test Negative (12/07/2013 code = Antibody Scrn) 10:05:00 Vibha/Tom Bean) [facility] [id number] 15:05:00 Test Item Value Reference Range Interpretation Comments ABO/Rh (test code = ABO/Rh) [facility] [id number] 15:05:00 Test Item Value Reference Range Interpretation Comments Antibody Scrn (test Negative (12/07/2013 code = Antibody Scrn) 10:05:00 [employer]ha/Tom Bean) [facility] [id number] 15:05:00 Test Item Value Reference Range Interpretation Comments ABO/Rh (test code = ABO/Rh) A [facility] Only [employer] [id number] 15:05:00 Test Item Value Reference Range Interpretation Comments Antibody Scrn (test Negative (12/07/2013 code = Antibody Scrn) 10:05:00 V[employer]ha/[employer]) [facility] [place] [id number] 15:05:00 Test Item Value Reference Range Interpretation Comments ABO/Rh (test code = ABO/Rh) A POS [facility] [place] [id number] 15:05:00 Test Item Value Reference Range Interpretation Comments Antibody Scrn (test Negative (12/07/2013 code = Antibody Scrn) 10:05:00 [employer]) [facility] [place] [id number] 15:05:00 Test Item Value Reference Range Interpretation Comments ABO/Rh (test code = ABO/Rh) A POS [facility] [place] [id number] 15:05:00 Test Item Value Reference Range Interpretation Comments Antibody Scrn (test Negative (12/07/2013 code = Antibody Scrn) 10:05:00 [employer]) [facility] [place] [id number] 17:50:00 Test Item Value Reference Range Interpretation Comments Antibody Scrn (test Negative (12/01/2013 code = Antibody Scrn) 11:50:00 [employer]) [facility] [place] [id number] 17:50:00 Test Item Value Reference Range Interpretation Comments ABO/Rh (test code = ABO/Rh) A [facility] [place] [id number] 17:50:00 Test Item Value Reference Range Interpretation Comments Antibody Scrn (test Negative (12/01/2013 code = Antibody Scrn) 11:50:00 [employer]) [facility] [place] [id number] 17:50:00 Test Item Value Reference Range Interpretation Comments ABO/Rh (test code = ABO/Rh) A [facility] [place] [id number] 17:50:00 Test Item Value Reference Range Interpretation Comments Antibody Scrn (test Negative (12/01/2013 code = Antibody Scrn) 11:50:00 [employer]) [facility] [place] [id number] 17:50:00 Test Item Value Reference Range Interpretation Comments ABO/Rh (test code = ABO/Rh) A [facility] [employer] [id number] 17:50:00 Test Item Value Reference Range Interpretation Comments Antibody Scrn (test Negative (12/01/2013 code = Antibody Scrn) 11:50:00 [employer]/Tom Bean) [facility] [employer] [facility] [id number] 17:50:00 Test Item Value Reference Range Interpretation Comments ABO/Rh (test code = ABO/Rh) A POS [facility] [employer] [id number] 17:50:00 Test Item Value Reference Range Interpretation Comments Antibody Scrn (test Negative (12/01/2013 code = Antibody Scrn) 11:50:00 [employer]/Tom Bean) [facility] [employer] [id number] 17:50:00 Test Item Value Reference Range Interpretation Comments ABO/Rh (test code = ABO/Rh) A POS [facility] [employer] [id number] 17:15:00 Test Item Value Reference Range Interpretation Comments Bili Total (test code = Bili Total) 0.4 0.2-1.3 [facility] [employer] [id number] 17:15:00 Test Item Value Reference Range Interpretation Comments ASPARTATE TRANSAMINASE 39 See_Comment [Aut omated message] (test code = ASPARTATE The s ystem which TRANSAMINASE) generated this result transmitted ref erence range: <=37. Th e reference range was not used to interpr et this result as normal/abnormal . [facility] [employer] [id number] 17:15:00 Test Item Value Reference Range Interpretation Comments Globulin (test code = Globulin) 4.4 2.0-4.0 [facility] [employer] [id number] 17:15:00 Test Item Value Reference Range Interpretation Comments A/G Ratio (test code = A/G Ratio) 0.9 0.7-1.6 [facility] [employer] [id number] 17:15:00 Test Item Value Reference Range Interpretation Comments Bili Indirect (test 0.3 See_Comment [Automa jeffry message] The code = Bili Indirect) system which generated this result tra nsmitted reference range : <=1.0. The reference r tyrese was not used to int erpret this result as normal/abnormal . [facility] [employer] [id number] 17:15:00 Test Item Value Reference Range Interpretation Comments Calcium Lvl (test code = Calcium Lvl) 9.3 8.5-10.5 [facility]2014-03-03 17:15:00 Test Item Value Reference Range Interpretation Comments eGFR (test code = eGFR) 62 [facility]2014-03-03 17:15:00 Test Item Value Reference Range Interpretation Comments Creatinine Lvl (test code = Creatinine 1.2 0.5-1.4 Lvl) [facility]2014-03-03 17:15:00 Test Item Value Reference Range Interpretation Comments BUN (test code = BUN) 21 7-22 [facility]2014-03-03 17:15:00 Test Item Value Reference Range Interpretation Comments Glucose Lvl (test code = Glucose Lvl) 94 70-99 [id number] 17:15:00 Test Item Value Reference Range Interpretation Comments AGAP (test code = AGAP) 10.8 10.0-20.0 [facility] Mic[id number] 17:15:00 Test Item Value Reference Range Interpretation Comments Sodium Lvl (test code = Sodium Lvl) 138 135-145 [facility] Mic[id number] 17:15:00 Test Item Value Reference Range Interpretation Comments Potassium Lvl (test code = Potassium 4.8 3.5-5.1 Lvl) [facility] Mi[id number] 17:15:00 Test Item Value Reference Range Interpretation Comments CO2 (test code = CO2) 28 24-32 [facility] Mic[id number] 17:15:00 Test Item Value Reference Range Interpretation Comments Chloride Lvl (test code = Chloride Lvl) 104 95-109 [facility] [id number] 17:15:00 Test Item Value Reference Range Interpretation Comments MPV (test code = MPV) 7.7 7.4-10.4 [facility] [id number] 17:15:00 Test Item Value Reference Range Interpretation Comments RBC X 10x6 (test code = RBC X 10x6) 4.29 4.70-6.10 [facility] C[id number] 17:15:00 Test Item Value Reference Range Interpretation Comments Hgb (test code = Hgb) 14.4 14.0-18.0 [facility] [id number] 17:15:00 Test Item Value Reference Range Interpretation Comments MCHC (test code = MCHC) 34.3 32.0-36.0 [facility] [id number] 17:15:00 Test Item Value Reference Range Interpretation Comments Hct (test code = Hct) 42.0 42.0-54.0 [facility] [id number] 17:15:00 Test Item Value Reference Range Interpretation Comments RDW (test code = RDW) 14.0 11.5-14.5 [facility] CenterQbuonacMICRGZIHSH1966-27-12 17:15:00 Test Item Value Reference Range Interpretation Comments Platelet (test code = Platelet) 270 133-450 [facility] Cent[id number] 17:15:00 Test Item Value Reference Range Interpretation Comments MCV (test code = MCV) 97.9 80.0-94.0 [facility] Cent[id number] 17:15:00 Test Item Value Reference Range Interpretation Comments MCH (test code = MCH) 33.6 pg 27.0-31.0 [facility] Cent[id number] 17:15:00 Test Item Value Reference Range Interpretation Comments WBC X 10x3 (test code = WBC X 10x3) 5.3 3.7-10.4 [facility] Cent[id number] 17:15:00 Test Item Value Reference Range Interpretation Comments INR (test code = INR) 0.92 0.85-1.17 [facility] [id number] 17:15:00 Test Item Value Reference Range Interpretation Comments aPTT (test code = aPTT) 28.2 s 22.9-35.8 [facility] [id number] 17:15:00 Test Item Value Reference Range Interpretation Comments PROTIME (test code = PROTIME) 12.3 s 12.0-14.7 [facility] [id number] 17:15:00 Test Item Value Reference Range Interpretation Comments Eosinophils # (test code 0.2 See_Comment [A utomated message] The = Eosinophils #) system whic h generated this result tra nsmitted reference range : <=0.5. The reference r tyrese was not used to int erpret this result as normal/abnormal . [facility] [id number] 17:15:00 Test Item Value Reference Range Interpretation Comments Basophils # (test code 0.0 See_Comment [Aut omated message] The = Basophils #) system which generated this result tra nsmitted reference range : <=0.2. The reference r tyrese was not used to int erpret this result as normal/abnormal . [facility] [id number] 17:15:00 Test Item Value Reference Range Interpretation Comments Monocytes # (test code 0.6 See_Comment [Aut omated message] The = Monocytes #) system which generated this result tra nsmitted reference range : <=0.8. The reference r tyrese was not used to int erpret this result as normal/abnormal . [facility] CenterEraaniuRGQQFAKSPV1014-10-91 17:15:00 Test Item Value Reference Range Interpretation Comments Lymphocytes # (test code = Lymphocytes 1.3 1.0-5.5 #) [facility] [id number] 17:15:00 Test Item Value Reference Range Interpretation Comments Segs-Bands # (test code = Segs-Bands #) 3.2 1.5-8.1 [facility] [id number] 17:15:00 Test Item Value Reference Range Interpretation Comments Basophils (test code = 0.2 See_Comment [Aut omated message] The Basophils) system which ge nerated this result tra nsmitted reference range : <=1.0. The reference r tyrese was not used to int erpret this result as normal/abnormal . [facility] C[id number] 17:15:00 Test Item Value Reference Range Interpretation Comments Eosinophils (test code = 4.0 See_Comment [A utomated message] The Eosinophils) system which ge nerated this result tra nsmitted reference range : <=4.0. The reference r tyrese was not used to int erpret this result as normal/abnormal . [facility] CenterNymzucdDCWBBNFMFY6958-69-99 17:15:00 Test Item Value Reference Range Interpretation Comments Monocytes (test code = Monocytes) 11.1 2.0-12.0 [facility] C[id number] 17:15:00 Test Item Value Reference Range Interpretation Comments Lymphocytes (test code = Lymphocytes) 24.0 20.0-40.0 [facility] C[id number] 17:15:00 Test Item Value Reference Range Interpretation Comments Segs (test code = Segs) 60.7 45.0-75.0 [facility]2014-03-03 17:15:00 Test Item Value Reference Range Interpretation Comments ALANINE AMINOTRANSFERASE 20 See_Comment [A utomated message] (test code = ALANINE The sys tem which AMINOTRANSFERASE) generated this result transmitted ref erence range: <=65. Th e reference range was not used to int erpret this result as normal/abnormal . [facility]2014-03-03 17:15:00 Test Item Value Reference Range Interpretation Comments Albumin Lvl (test code = Albumin Lvl) 3.9 3.5-5.0 [facility]2014-03-03 17:15:00 Test Item Value Reference Range Interpretation Comments Alk Phos (test code = Alk Phos) 47 39-136 [facility]2014-03-03 17:15:00 Test Item Value Reference Range Interpretation Comments Bili Direct (test code 0.1 See_Comment [Aut omated message] The = Bili Direct) system which generated this result tra nsmitted reference range : <=0.3. The reference r tyrese was not used to int erpret this result as wilfrid l/abnormal. [facility]2014-03-03 17:15:00 Test Item Value Reference Range Interpretation Comments Total Protein (test code = Total 8.3 6.4-8.4 Protein) [facility]2014-03-03 17:15:00 Test Item Value Reference Range Interpretation Comments Bili Total (test code = Bili Total) 0.4 0.2-1.3 [facility]2014-03-03 17:15:00 Test Item Value Reference Range Interpretation Comments ASPARTATE TRANSAMINASE 39 See_Comment [Aut omated message] (test code = ASPARTATE The s ystem which TRANSAMINASE) generated this result transmitted ref erence range: <=37. Th e reference range was not used to interpr et this result as normal/abnormal . [facility]2014-03-03 17:15:00 Test Item Value Reference Range Interpretation Comments Globulin (test code = Globulin) 4.4 2.0-4.0 [facility]2014-03-03 17:15:00 Test Item Value Reference Range Interpretation Comments A/G Ratio (test code = A/G Ratio) 0.9 0.7-1.6 [facility]2014-03-03 17:15:00 Test Item Value Reference Range Interpretation Comments Bili Indirect (test 0.3 See_Comment [Automa jeffry message] The code = Bili Indirect) system which generated this result tra nsmitted reference range : <=1.0. The reference r tyrese was not used to int erpret this result as normal/abnormal . [facility]2014-03-03 17:15:00 Test Item Value Reference Range Interpretation Comments Calcium Lvl (test code = Calcium Lvl) 9.3 8.5-10.5 [facility]2014-03-03 17:15:00 Test Item Value Reference Range Interpretation Comments eGFR (test code = eGFR) 62 [facility]2014-03-03 17:15:00 Test Item Value Reference Range Interpretation Comments Creatinine Lvl (test code = Creatinine 1.2 0.5-1.4 Lvl) [facility]2014-03-03 17:15:00 Test Item Value Reference Range Interpretation Comments BUN (test code = BUN) 21 7-22 [facility]2014-03-03 17:15:00 Test Item Value Reference Range Interpretation Comments Glucose Lvl (test code = Glucose Lvl) 94 70-99 [facility]GbdocnoAMETWNBMJMPI7480-10-22 17:15:00 Test Item Value Reference Range Interpretation Comments AGAP (test code = AGAP) 10.8 10.0-20.0 [facility]IypgdbdKEMMXUYMCAKW5390-69-54 17:15:00 Test Item Value Reference Range Interpretation Comments Sodium Lvl (test code = Sodium Lvl) 138 135-145 [facility] MichiganVzslacoBLSSDDAAJYUC3106-44-10 17:15:00 Test Item Value Reference Range Interpretation Comments Potassium Lvl (test code = Potassium 4.8 3.5-5.1 Lvl) [facility] MichiganAyaoxfnJJMVIUTWQHEE9671-31-46 17:15:00 Test Item Value Reference Range Interpretation Comments CO2 (test code = CO2) 28 24-32 [facility] MichiganTiwlcroXTGTISRPUUZY3847-82-67 17:15:00 Test Item Value Reference Range Interpretation Comments Chloride Lvl (test code = Chloride Lvl) 104 95-109 [facility]XjehfjrWOTPWKXNVR0893-89-36 17:15:00 Test Item Value Reference Range Interpretation Comments MPV (test code = MPV) 7.7 7.4-10.4 [facility] CenterTzobfbdFANIRNJULN8083-79-94 17:15:00 Test Item Value Reference Range Interpretation Comments RBC X 10x6 (test code = RBC X 10x6) 4.29 4.70-6.10 [facility] CenterDmorzimISFAPEQBFN1366-19-71 17:15:00 Test Item Value Reference Range Interpretation Comments Hgb (test code = Hgb) 14.4 14.0-18.0 [facility] CenterEloojdvZBFTMVTYLX3153-48-07 17:15:00 Test Item Value Reference Range Interpretation Comments MCHC (test code = MCHC) 34.3 32.0-36.0 [facility] CenterBirfeqzDSMOFUPBDL3199-09-48 17:15:00 Test Item Value Reference Range Interpretation Comments Hct (test code = Hct) 42.0 42.0-54.0 [facility] CenterAhdbkggKDVTTAAEKD6732-87-87 17:15:00 Test Item Value Reference Range Interpretation Comments RDW (test code = RDW) 14.0 11.5-14.5 [facility] CenterNhrkmkgWNUAZFANKH5345-94-22 17:15:00 Test Item Value Reference Range Interpretation Comments Platelet (test code = Platelet) 270 133-450 [facility] CenterBxcezfcTHKNTQHOIT8014-74-51 17:15:00 Test Item Value Reference Range Interpretation Comments MCV (test code = MCV) 97.9 80.0-94.0 [facility] CenterJxwaipkEGAXYKAEYD9875-46-38 17:15:00 Test Item Value Reference Range Interpretation Comments MCH (test code = MCH) 33.6 pg 27.0-31.0 [facility] CenterQndcliyNFKJKJLNQY5668-44-02 17:15:00 Test Item Value Reference Range Interpretation Comments WBC X 10x3 (test code = WBC X 10x3) 5.3 3.7-10.4 [facility] CenterAwqjmwuXDWGHZGFEW6283-28-98 17:15:00 Test Item Value Reference Range Interpretation Comments INR (test code = INR) 0.92 0.85-1.17 [facility] CenterTwqmrpjFWYTSSWSNH8375-55-02 17:15:00 Test Item Value Reference Range Interpretation Comments aPTT (test code = aPTT) 28.2 s 22.9-35.8 [facility] CenterZzxozowAEPVLTDQLV7342-38-24 17:15:00 Test Item Value Reference Range Interpretation Comments PROTIME (test code = PROTIME) 12.3 s 12.0-14.7 [facility] CenterOgfqvawWLNFTRSWQQ5203-59-66 17:15:00 Test Item Value Reference Range Interpretation Comments Eosinophils # (test code 0.2 See_Comment [A utomated message] The = Eosinophils #) system whic h generated this result tra nsmitted reference range : <=0.5. The reference r tyrese was not used to int erpret this result as normal/abnormal . [facility] CenterFslhvarGXIKDHOLOO3409-35-50 17:15:00 Test Item Value Reference Range Interpretation Comments Basophils # (test code 0.0 See_Comment [Aut omated message] The = Basophils #) system which generated this result tra nsmitted reference range : <=0.2. The reference r tyrese was not used to int erpret this result as normal/abnormal . [facility] CenterStqggopOOKPYEJJEY4240-58-21 17:15:00 Test Item Value Reference Range Interpretation Comments Monocytes # (test code 0.6 See_Comment [Aut omated message] The = Monocytes #) system which generated this result tra nsmitted reference range : <=0.8. The reference r tyrese was not used to int erpret this result as normal/abnormal . [facility] CenterDhhkxzmNLLCDGXLHD8339-55-40 17:15:00 Test Item Value Reference Range Interpretation Comments Lymphocytes # (test code = Lymphocytes 1.3 1.0-5.5 #) [facility] CenterMmztyfrTNXAOTNGPA5697-13-15 17:15:00 Test Item Value Reference Range Interpretation Comments Segs-Bands # (test code = Segs-Bands #) 3.2 1.5-8.1 [facility] CenterMudlhfzYASNPWCZPB9249-08-78 17:15:00 Test Item Value Reference Range Interpretation Comments Basophils (test code = 0.2 See_Comment [Aut omated message] The Basophils) system which ge nerated this result tra nsmitted reference range : <=1.0. The reference r tyrese was not used to int erpret this result as normal/abnormal . [facility] CenterTbifbnyIOWJCDCFRQ6471-68-90 17:15:00 Test Item Value Reference Range Interpretation Comments Eosinophils (test code = 4.0 See_Comment [A utomated message] The Eosinophils) system which ge nerated this result tra nsmitted reference range : <=4.0. The reference r tyrese was not used to int erpret this result as normal/abnormal . [facility] CenterLizxexhGFSIAOAIZN2817-32-67 17:15:00 Test Item Value Reference Range Interpretation Comments Monocytes (test code = Monocytes) 11.1 2.0-12.0 [facility] CenterQxmnfgyXIQKDRBWNY6724-33-81 17:15:00 Test Item Value Reference Range Interpretation Comments Lymphocytes (test code = Lymphocytes) 24.0 20.0-40.0 [facility] CenterAfiyjjrOZHLDVNZYO6267-88-91 17:15:00 Test Item Value Reference Range Interpretation Comments Segs (test code = Segs) 60.7 45.0-75.0 [facility]2014-03-03 17:15:00 Test Item Value Reference Range Interpretation Comments ALANINE AMINOTRANSFERASE 20 See_Comment [A utomated message] (test code = ALANINE The sys tem which AMINOTRANSFERASE) generated this result transmitted ref erence range: <=65. Th e reference range was not used to int erpret this result as normal/abnormal . [facility]2014-03-03 17:15:00 Test Item Value Reference Range Interpretation Comments Albumin Lvl (test code = Albumin Lvl) 3.9 3.5-5.0 [facility]2014-03-03 17:15:00 Test Item Value Reference Range Interpretation Comments Alk Phos (test code = Alk Phos) 47 39-136 [facility]2014-03-03 17:15:00 Test Item Value Reference Range Interpretation Comments Bili Direct (test code 0.1 See_Comment [Aut omated message] The = Bili Direct) system which generated this result tra nsmitted reference range : <=0.3. The reference r tyrese was not used to int erpret this result as wilfrid l/abnormal. [facility]2014-03-03 17:15:00 Test Item Value Reference Range Interpretation Comments Total Protein (test code = Total 8.3 6.4-8.4 Protein) [facility]2014-03-03 17:15:00 Test Item Value Reference Range Interpretation Comments Bili Total (test code = Bili Total) 0.4 0.2-1.3 [place] 977554-03-03 17:15:00 Test Item Value Reference Range Interpretation Comments ASPARTATE TRANSAMINASE 39 See_Comment [Aut omated message] (test code = ASPARTATE The s ystem which TRANSAMINASE) generated this result transmitted ref erence range: <=37. Th e reference range was not used to interpr et this result as normal/abnormal . [facility]2014-03-03 17:15:00 Test Item Value Reference Range Interpretation Comments Globulin (test code = Globulin) 4.4 2.0-4.0 [facility]2014-03-03 17:15:00 Test Item Value Reference Range Interpretation Comments A/G Ratio (test code = A/G Ratio) 0.9 0.7-1.6 [facility]2014-03-03 17:15:00 Test Item Value Reference Range Interpretation Comments Bili Indirect (test 0.3 See_Comment [Automa jeffry message] The code = Bili Indirect) system which generated this result tra nsmitted reference range : <=1.0. The reference r tyrese was not used to int erpret this result as normal/abnormal . [facility]2014-03-03 17:15:00 Test Item Value Reference Range Interpretation Comments Calcium Lvl (test code = Calcium Lvl) 9.3 8.5-10.5 [facility]2014-03-03 17:15:00 Test Item Value Reference Range Interpretation Comments eGFR (test code = eGFR) 62 [facility]2014-03-03 17:15:00 Test Item Value Reference Range Interpretation Comments Creatinine Lvl (test code = Creatinine 1.2 0.5-1.4 Lvl) [facility]2014-03-03 17:15:00 Test Item Value Reference Range Interpretation Comments BUN (test code = BUN) 21 7-22 [facility]2014-03-03 17:15:00 Test Item Value Reference Range Interpretation Comments Glucose Lvl (test code = Glucose Lvl) 94 70-99 [facility]TihezxoBTDWAFZBIXLT1768-67-24 17:15:00 Test Item Value Reference Range Interpretation Comments AGAP (test code = AGAP) 10.8 10.0-20.0 [facility]AwxzdcxWCISHAJEZCOC9968-37-31 17:15:00 Test Item Value Reference Range Interpretation Comments Sodium Lvl (test code = Sodium Lvl) 138 135-145 [facility] MichiganMozzecwNHXBKNVHGKLT8461-58-00 17:15:00 Test Item Value Reference Range Interpretation Comments Potassium Lvl (test code = Potassium 4.8 3.5-5.1 Lvl) [facility] MichiganDaaiixvPAMBJIZWRRJS9727-33-88 17:15:00 Test Item Value Reference Range Interpretation Comments CO2 (test code = CO2) 28 24-32 [facility] MichiganZulyowfZIRWXZONUGTE0072-36-00 17:15:00 Test Item Value Reference Range Interpretation Comments Chloride Lvl (test code = Chloride Lvl) 104 95-109 [facility] CenterQifxapeGUJNSSRATK6544-27-01 17:15:00 Test Item Value Reference Range Interpretation Comments MPV (test code = MPV) 7.7 7.4-10.4 [facility] CenterOxpudjoPQUJBUJECM0022-75-18 17:15:00 Test Item Value Reference Range Interpretation Comments RBC X 10x6 (test code = RBC X 10x6) 4.29 4.70-6.10 [facility] CenterKqufjuyFUSOGGACUR4202-60-17 17:15:00 Test Item Value Reference Range Interpretation Comments Hgb (test code = Hgb) 14.4 14.0-18.0 [facility] CenterGbdfzpjQVKLFXHZTG9386-83-16 17:15:00 Test Item Value Reference Range Interpretation Comments MCHC (test code = MCHC) 34.3 32.0-36.0 [facility] CenterWxkryciFLIECOPIEU7553-95-63 17:15:00 Test Item Value Reference Range Interpretation Comments Hct (test code = Hct) 42.0 42.0-54.0 [facility] CenterLqvqmnvAQRUNAYLYV4814-01-85 17:15:00 Test Item Value Reference Range Interpretation Comments RDW (test code = RDW) 14.0 11.5-14.5 [facility] CenterZdyqtbwSEYLBHAIBI1071-32-36 17:15:00 Test Item Value Reference Range Interpretation Comments Platelet (test code = Platelet) 270 133-450 [facility] CenterUmqaexqAPVRWSJOVP6084-60-93 17:15:00 Test Item Value Reference Range Interpretation Comments MCV (test code = MCV) 97.9 80.0-94.0 [facility] CenterUkrabfmUKPFOXLVTZ1969-81-02 17:15:00 Test Item Value Reference Range Interpretation Comments MCH (test code = MCH) 33.6 pg 27.0-31.0 [facility] CenterWcepfnnETZUMXMVRJ8333-00-11 17:15:00 Test Item Value Reference Range Interpretation Comments WBC X 10x3 (test code = WBC X 10x3) 5.3 3.7-10.4 [facility] CenterSleqtziQTMWWYEYQL2732-70-82 17:15:00 Test Item Value Reference Range Interpretation Comments INR (test code = INR) 0.92 0.85-1.17 [facility] CenterEemmsqkGVUGGWUOWK8201-80-37 17:15:00 Test Item Value Reference Range Interpretation Comments aPTT (test code = aPTT) 28.2 s 22.9-35.8 [facility] CenterZucizbsOTPUCEMNCH0802-56-53 17:15:00 Test Item Value Reference Range Interpretation Comments PROTIME (test code = PROTIME) 12.3 s 12.0-14.7 [facility] CenterWrvwuanMZHAQOHBCP7129-52-27 17:15:00 Test Item Value Reference Range Interpretation Comments Eosinophils # (test code 0.2 See_Comment [A utomated message] The = Eosinophils #) system whic h generated this result tra nsmitted reference range : <=0.5. The reference r tyrese was not used to int erpret this result as normal/abnormal . [facility] CenterAqhzvsbVKETBQNAIB3000-48-66 17:15:00 Test Item Value Reference Range Interpretation Comments Basophils # (test code 0.0 See_Comment [Aut omated message] The = Basophils #) system which generated this result tra nsmitted reference range : <=0.2. The reference r tyrese was not used to int erpret this result as normal/abnormal . [facility] CenterXyauaicMIOYKQTTTD7594-41-25 17:15:00 Test Item Value Reference Range Interpretation Comments Monocytes # (test code 0.6 See_Comment [Aut omated message] The = Monocytes #) system which generated this result tra nsmitted reference range : <=0.8. The reference r tyrese was not used to int erpret this result as normal/abnormal . [facility] CenterSxyyamxBAPAACMJWW2389-53-69 17:15:00 Test Item Value Reference Range Interpretation Comments Lymphocytes # (test code = Lymphocytes 1.3 1.0-5.5 #) [facility] CenterVdofogcXPJQUDJCCN8226-27-94 17:15:00 Test Item Value Reference Range Interpretation Comments Segs-Bands # (test code = Segs-Bands #) 3.2 1.5-8.1 [facility] CenterGqxtiwqMFCVOJLTNZ0435-80-90 17:15:00 Test Item Value Reference Range Interpretation Comments Basophils (test code = 0.2 See_Comment [Aut omated message] The Basophils) system which ge nerated this result tra nsmitted reference range : <=1.0. The reference r tyrese was not used to int erpret this result as normal/abnormal . [facility] CenterQtvhdkvAPFIIIBZMQ4281-87-84 17:15:00 Test Item Value Reference Range Interpretation Comments Eosinophils (test code = 4.0 See_Comment [A utomated message] The Eosinophils) system which ge nerated this result tra nsmitted reference range : <=4.0. The reference r tyrese was not used to int erpret this result as normal/abnormal . [facility] CenterLvrerwxVVRHECHZGG3468-91-61 17:15:00 Test Item Value Reference Range Interpretation Comments Monocytes (test code = Monocytes) 11.1 2.0-12.0 [facility] CenterEndfoqnBKAWVIRVOP1770-19-07 17:15:00 Test Item Value Reference Range Interpretation Comments Lymphocytes (test code = Lymphocytes) 24.0 20.0-40.0 [facility] CenterGncukmvJJOJAUYUJJ7058-23-98 17:15:00 Test Item Value Reference Range Interpretation Comments Segs (test code = Segs) 60.7 45.0-75.0 [facility]2014-03-03 17:15:00 Test Item Value Reference Range Interpretation Comments ALANINE AMINOTRANSFERASE 20 See_Comment [A utomated message] (test code = ALANINE The sys tem which AMINOTRANSFERASE) generated this result transmitted ref erence range: <=65. Th e reference range was not used to int erpret this result as normal/abnormal . [facility]Ex[facility] JXBMO3014-04-70 17:15:00 Test Item Value Reference Range Interpretation Comments Albumin Lvl (test code = Albumin Lvl) 3.9 3.5-5.0 [facility]2014-03-03 17:15:00 Test Item Value Reference Range Interpretation Comments Alk Phos (test code = Alk Phos) 47 39-136 [facility] CenterFace-Me CBHHC6528-89-90 17:15:00 Test Item Value Reference Range Interpretation Comments Bili Direct (test code 0.1 See_Comment [Aut omated message] The = Bili Direct) system which generated this result tra nsmitted reference range : <=0.3. The reference r tyrees was not used to int erpret this result as wilfrid l/abnormal. [facility]2014-03-03 17:15:00 Test Item Value Reference Range Interpretation Comments Total Protein (test code = Total 8.3 6.4-8.4 Protein) [facility]2014-03-03 17:15:00 Test Item Value Reference Range Interpretation Comments Bili Total (test code = Bili Total) 0.4 0.2-1.3 [facility]2014-03-03 17:15:00 Test Item Value Reference Range Interpretation Comments ASPARTATE TRANSAMINASE 39 See_Comment [Aut omated message] (test code = ASPARTATE The s ystem which TRANSAMINASE) generated this result transmitted ref erence range: <=37. Th e reference range was not used to interpr et this result as normal/abnormal . [facility]2014-03-03 17:15:00 Test Item Value Reference Range Interpretation Comments Globulin (test code = Globulin) 4.4 2.0-4.0 [facility]2014-03-03 17:15:00 Test Item Value Reference Range Interpretation Comments A/G Ratio (test code = A/G Ratio) 0.9 0.7-1.6 [facility]2014-03-03 17:15:00 Test Item Value Reference Range Interpretation Comments Bili Indirect (test 0.3 See_Comment [Automa jeffry message] The code = Bili Indirect) system which generated this result tra nsmitted reference range : <=1.0. The reference r tyrese was not used to int erpret this result as normal/abnormal . [facility]2014-03-03 17:15:00 Test Item Value Reference Range Interpretation Comments Calcium Lvl (test code = Calcium Lvl) 9.3 8.5-10.5 [facility]2014-03-03 17:15:00 Test Item Value Reference Range Interpretation Comments eGFR (test code = eGFR) 62 [facility]2014-03-03 17:15:00 Test Item Value Reference Range Interpretation Comments Creatinine Lvl (test code = Creatinine 1.2 0.5-1.4 Lvl) [facility]2014-03-03 17:15:00 Test Item Value Reference Range Interpretation Comments BUN (test code = BUN) 21 7-22 [facility]2014-03-03 17:15:00 Test Item Value Reference Range Interpretation Comments Glucose Lvl (test code = Glucose Lvl) 94 70-99 [facility] MichiganOpqavveGNBNASVCFDOL1668-36-87 17:15:00 Test Item Value Reference Range Interpretation Comments AGAP (test code = AGAP) 10.8 10.0-20.0 [facility] MichiganWbnowsjFWGBEBMZOOSP0268-30-73 17:15:00 Test Item Value Reference Range Interpretation Comments Sodium Lvl (test code = Sodium Lvl) 138 135-145 [facility] MichiganMaldlxiGAZKAAODGOOJ9196-85-70 17:15:00 Test Item Value Reference Range Interpretation Comments Potassium Lvl (test code = Potassium 4.8 3.5-5.1 Lvl) [facility] MichiganCavbhssVUPQTYMICGAI2992-17-56 17:15:00 Test Item Value Reference Range Interpretation Comments CO2 (test code = CO2) 28 24-32 [facility] MichiganFqsrnytVMTERETMQDLJ8667-89-58 17:15:00 Test Item Value Reference Range Interpretation Comments Chloride Lvl (test code = Chloride Lvl) 104 95-109 [facility] CenterFacbpzkATQWTWGWXX2135-06-65 17:15:00 Test Item Value Reference Range Interpretation Comments MPV (test code = MPV) 7.7 7.4-10.4 [facility] CenterMogoojdEBXXCISPDQ0338-82-13 17:15:00 Test Item Value Reference Range Interpretation Comments RBC X 10x6 (test code = RBC X 10x6) 4.29 4.70-6.10 [facility] CenterXlehtohHMBVJOIJAR2604-34-47 17:15:00 Test Item Value Reference Range Interpretation Comments Hgb (test code = Hgb) 14.4 14.0-18.0 [facility] CenterDskrymaCCJSIBXPYF8612-18-94 17:15:00 Test Item Value Reference Range Interpretation Comments MCHC (test code = MCHC) 34.3 32.0-36.0 [facility] CenterAakplgpSCHVLUEPVG6012-38-87 17:15:00 Test Item Value Reference Range Interpretation Comments Hct (test code = Hct) 42.0 42.0-54.0 [facility] CenterYdfipprYCXKLEFLFU1171-83-22 17:15:00 Test Item Value Reference Range Interpretation Comments RDW (test code = RDW) 14.0 11.5-14.5 [facility] CenterDlzzuboAVFXNXAXYG6117-20-09 17:15:00 Test Item Value Reference Range Interpretation Comments Platelet (test code = Platelet) 270 133-450 [facility] CenterEvktvlvVXIIXSPAHP8733-67-43 17:15:00 Test Item Value Reference Range Interpretation Comments MCV (test code = MCV) 97.9 80.0-94.0 [facility] CenterTuxrfutRLDJMLHBHK4194-19-34 17:15:00 Test Item Value Reference Range Interpretation Comments MCH (test code = MCH) 33.6 pg 27.0-31.0 [facility] CenterNlzqenoLBUXNAOUFU0407-03-32 17:15:00 Test Item Value Reference Range Interpretation Comments WBC X 10x3 (test code = WBC X 10x3) 5.3 3.7-10.4 [facility] CenterAtjxrezWLTVPXHUIY2382-81-04 17:15:00 Test Item Value Reference Range Interpretation Comments INR (test code = INR) 0.92 0.85-1.17 [facility] CenterMtrknweXSREXQALDB8998-39-32 17:15:00 Test Item Value Reference Range Interpretation Comments aPTT (test code = aPTT) 28.2 s 22.9-35.8 [facility] CenterJkjzoezTNJHJAHJUJ1786-37-05 17:15:00 Test Item Value Reference Range Interpretation Comments PROTIME (test code = PROTIME) 12.3 s 12.0-14.7 [facility] CenterOhiegjvTZVIATTIYV9483-42-99 17:15:00 Test Item Value Reference Range Interpretation Comments Eosinophils # (test code 0.2 See_Comment [A utomated message] The = Eosinophils #) system whic h generated this result tra nsmitted reference range : <=0.5. The reference r tyrese was not used to int erpret this result as normal/abnormal . [facility] CenterWchojdmARKPIDOSZE2728-35-29 17:15:00 Test Item Value Reference Range Interpretation Comments Basophils # (test code 0.0 See_Comment [Aut omated message] The = Basophils #) system which generated this result tra nsmitted reference range : <=0.2. The reference r tyrese was not used to int erpret this result as normal/abnormal . [facility] CenterKzkvibiMCMFASLGJX5207-71-51 17:15:00 Test Item Value Reference Range Interpretation Comments Monocytes # (test code 0.6 See_Comment [Aut omated message] The = Monocytes #) system which generated this result tra nsmitted reference range : <=0.8. The reference r tyrese was not used to int erpret this result as normal/abnormal . [facility] CenterOdzividWQCHLICABQ8866-21-05 17:15:00 Test Item Value Reference Range Interpretation Comments Lymphocytes # (test code = Lymphocytes 1.3 1.0-5.5 #) [facility] CenterHgafxjoKYWOHIQGAT7707-07-42 17:15:00 Test Item Value Reference Range Interpretation Comments Segs-Bands # (test code = Segs-Bands #) 3.2 1.5-8.1 [facility] CenterHxjyivyJTQZIRZUKK3791-23-10 17:15:00 Test Item Value Reference Range Interpretation Comments Basophils (test code = 0.2 See_Comment [Aut omated message] The Basophils) system which ge nerated this result tra nsmitted reference range : <=1.0. The reference r tyrese was not used to int erpret this result as normal/abnormal . [facility] CenterPvaxbqoMMEADEXPOI7948-72-55 17:15:00 Test Item Value Reference Range Interpretation Comments Eosinophils (test code = 4.0 See_Comment [A utomated message] The Eosinophils) system which ge nerated this result tra nsmitted reference range : <=4.0. The reference r tyrese was not used to int erpret this result as normal/abnormal . [facility] CenterXjwdvevLDPAEJEAIB6388-17-77 17:15:00 Test Item Value Reference Range Interpretation Comments Monocytes (test code = Monocytes) 11.1 2.0-12.0 [facility] CenterKufgpjeFFQZZZIEQL6752-64-69 17:15:00 Test Item Value Reference Range Interpretation Comments Lymphocytes (test code = Lymphocytes) 24.0 20.0-40.0 [facility] CenterXgduogfYTGAQOFEUX4153-70-84 17:15:00 Test Item Value Reference Range Interpretation Comments Segs (test code = Segs) 60.7 45.0-75.0 [facility]2014-03-03 17:15:00 Test Item Value Reference Range Interpretation Comments ALANINE AMINOTRANSFERASE 20 See_Comment [A utomated message] (test code = ALANINE The sys tem which AMINOTRANSFERASE) generated this result transmitted ref erence range: <=65. Th e reference range was not used to int erpret this result as normal/abnormal . [facility]2014-03-03 17:15:00 Test Item Value Reference Range Interpretation Comments Albumin Lvl (test code = Albumin Lvl) 3.9 3.5-5.0 [place] 977554-03-03 17:15:00 Test Item Value Reference Range Interpretation Comments Alk Phos (test code = Alk Phos) 47 39-136 [facility]2014-03-03 17:15:00 Test Item Value Reference Range Interpretation Comments Bili Direct (test code 0.1 See_Comment [Aut omated message] The = Bili Direct) system which generated this result tra nsmitted reference range : <=0.3. The reference r tyrese was not used to int erpret this result as wilfrid l/abnormal. [place] 977554-03-03 17:15:00 Test Item Value Reference Range Interpretation Comments Total Protein (test code = Total 8.3 6.4-8.4 Protein) [facility]2014-03-03 17:15:00 Test Item Value Reference Range Interpretation Comments Bili Total (test code = Bili Total) 0.4 0.2-1.3 [place] [address]7554-03-03 17:15:00 Test Item Value Reference Range Interpretation Comments ASPARTATE TRANSAMINASE 39 See_Comment [Aut omated message] (test code = ASPARTATE The s ystem which TRANSAMINASE) generated this result transmitted ref erence range: <=37. Th e reference range was not used to interpr et this result as normal/abnormal . [place] [address]7554-03-03 17:15:00 Test Item Value Reference Range Interpretation Comments Globulin (test code = Globulin) 4.4 2.0-4.0 [place] [address]7554-03-03 17:15:00 Test Item Value Reference Range Interpretation Comments A/G Ratio (test code = A/G Ratio) 0.9 0.7-1.6 [place] [address]7554-03-03 17:15:00 Test Item Value Reference Range Interpretation Comments Bili Indirect (test 0.3 See_Comment [Automa jeffry message] The code = Bili Indirect) system which generated this result tra nsmitted reference range : <=1.0. The reference r tyrese was not used to int erpret this result as normal/abnormal . [facility]2014-03-03 17:15:00 Test Item Value Reference Range Interpretation Comments Calcium Lvl (test code = Calcium Lvl) 9.3 8.5-10.5 [place] [address]7554-03-03 17:15:00 Test Item Value Reference Range Interpretation Comments eGFR (test code = eGFR) 62 [facility]2014-03-03 17:15:00 Test Item Value Reference Range Interpretation Comments Creatinine Lvl (test code = Creatinine 1.2 0.5-1.4 Lvl) [facility]2014-03-03 17:15:00 Test Item Value Reference Range Interpretation Comments BUN (test code = BUN) 21 7-22 [facility]2014-03-03 17:15:00 Test Item Value Reference Range Interpretation Comments Glucose Lvl (test code = Glucose Lvl) 94 70-99 [facility]71 17:15:00 Test Item Value Reference Range Interpretation Comments AGAP (test code = AGAP) 10.8 10.0-20.0 [facility]kgevtvSJYGUQOVAHZI9313-50-78 17:15:00 Test Item Value Reference Range Interpretation Comments Sodium Lvl (test code = Sodium Lvl) 138 135-145 [facility]QcgchjcZXATAKYYSPXU1007-58-20 17:15:00 Test Item Value Reference Range Interpretation Comments Potassium Lvl (test code = Potassium 4.8 3.5-5.1 Lvl) [facility]PckfxfcDODYTFLYFTSC6873-29-73 17:15:00 Test Item Value Reference Range Interpretation Comments CO2 (test code = CO2) 28 24-32 [facility]RprmmiyOFLYDSNFCAFL3644-28-86 17:15:00 Test Item Value Reference Range Interpretation Comments Chloride Lvl (test code = Chloride Lvl) 104 95-109 [facility]RxhsvbsTOJGFCIPBU7903-60-28 17:15:00 Test Item Value Reference Range Interpretation Comments MPV (test code = MPV) 7.7 7.4-10.4 [facility] CenterFowewqtRAXYTWISLG0296-29-18 17:15:00 Test Item Value Reference Range Interpretation Comments RBC X 10x6 (test code = RBC X 10x6) 4.29 4.70-6.10 [place] 892914-03-03 17:15:00 Test Item Value Reference Range Interpretation Comments Hgb (test code = Hgb) 14.4 14.0-18.0 [facility] CenterJjafhfrXBIYIGJIRN3424-39-61 17:15:00 Test Item Value Reference Range Interpretation Comments MCHC (test code = MCHC) 34.3 32.0-36.0 [facility] CenterPxtdqosVLUSUAWJRD2191-66-39 17:15:00 Test Item Value Reference Range Interpretation Comments Hct (test code = Hct) 42.0 42.0-54.0 [facility] CenterPjozddsERUBYUMBLK0325-71-74 17:15:00 Test Item Value Reference Range Interpretation Comments RDW (test code = RDW) 14.0 11.5-14.5 [facility] CenterPwtkpzyIQCWJCHQAF3257-77-95 17:15:00 Test Item Value Reference Range Interpretation Comments Platelet (test code = Platelet) 270 133-450 [facility] CenterEslfjzjXNRSGLIVLB5770-57-46 17:15:00 Test Item Value Reference Range Interpretation Comments MCV (test code = MCV) 97.9 80.0-94.0 [facility] CenterIycgvqgXOCEGCCYGB9823-83-68 17:15:00 Test Item Value Reference Range Interpretation Comments MCH (test code = MCH) 33.6 pg 27.0-31.0 [facility] CenterRdglvlaUEUVQFNXBP6945-40-43 17:15:00 Test Item Value Reference Range Interpretation Comments WBC X 10x3 (test code = WBC X 10x3) 5.3 3.7-10.4 [facility] CenterNnqarqoEODRMQEEAH2394-22-19 17:15:00 Test Item Value Reference Range Interpretation Comments INR (test code = INR) 0.92 0.85-1.17 [facility] CenterOwrphlsPDVDRCVZDV3732-06-88 17:15:00 Test Item Value Reference Range Interpretation Comments aPTT (test code = aPTT) 28.2 s 22.9-35.8 [facility] CenterZplddrcOKMZQHXTLN1611-49-21 17:15:00 Test Item Value Reference Range Interpretation Comments PROTIME (test code = PROTIME) 12.3 s 12.0-14.7 [facility] CenterLromvksJDPVPWPNIM2384-68-16 17:15:00 Test Item Value Reference Range Interpretation Comments Eosinophils # (test code 0.2 See_Comment [A utomated message] The = Eosinophils #) system whic h generated this result tra nsmitted reference range : <=0.5. The reference r tyrese was not used to int erpret this result as normal/abnormal . [facility] CenterFuhyzgbTYRNPVMNWF1364-44-88 17:15:00 Test Item Value Reference Range Interpretation Comments Basophils # (test code 0.0 See_Comment [Aut omated message] The = Basophils #) system which generated this result tra nsmitted reference range : <=0.2. The reference r tyrese was not used to int erpret this result as normal/abnormal . [facility] CenterJrcwbhyKARIJKQDOU6688-13-57 17:15:00 Test Item Value Reference Range Interpretation Comments Monocytes # (test code 0.6 See_Comment [Aut omated message] The = Monocytes #) system which generated this result tra nsmitted reference range : <=0.8. The reference r tyrese was not used to int erpret this result as normal/abnormal . [facility] CenterBvfdzreZRKWZKGSPA8797-26-59 17:15:00 Test Item Value Reference Range Interpretation Comments Lymphocytes # (test code = Lymphocytes 1.3 1.0-5.5 #) [facility] CenterExmcequHYSDVGNCJA4213-70-55 17:15:00 Test Item Value Reference Range Interpretation Comments Segs-Bands # (test code = Segs-Bands #) 3.2 1.5-8.1 [facility] CenterEvbceefNDPRGTFNZL4018-03-66 17:15:00 Test Item Value Reference Range Interpretation Comments Basophils (test code = 0.2 See_Comment [Aut omated message] The Basophils) system which ge nerated this result tra nsmitted reference range : <=1.0. The reference r tyrese was not used to int erpret this result as normal/abnormal . [facility] CenterEvaeizcFSOKNUUNJP8211-43-79 17:15:00 Test Item Value Reference Range Interpretation Comments Eosinophils (test code = 4.0 See_Comment [A utomated message] The Eosinophils) system which ge nerated this result tra nsmitted reference range : <=4.0. The reference r tyrese was not used to int erpret this result as normal/abnormal . [facility] CenterVepcgccEYRHEZQAAL8996-78-27 17:15:00 Test Item Value Reference Range Interpretation Comments Monocytes (test code = Monocytes) 11.1 2.0-12.0 [facility] CenterOlrpgwfRHLBPNFYIS3743-47-90 17:15:00 Test Item Value Reference Range Interpretation Comments Lymphocytes (test code = Lymphocytes) 24.0 20.0-40.0 [facility] CenterEjumdepDTOFBJPRXK6407-97-42 17:15:00 Test Item Value Reference Range Interpretation Comments Segs (test code = Segs) 60.7 45.0-75.0 [facility] [id number] 17:15:00 Test Item Value Reference Range Interpretation Comments ALANINE AMINOTRANSFERASE 20 See_Comment [A utomated message] (test code = ALANINE The sys tem which AMINOTRANSFERASE) generated this result transmitted ref erence range: <=65. Th e reference range was not used to int erpret this result as normal/abnormal . [facility]2014-03-03 17:15:00 Test Item Value Reference Range Interpretation Comments Albumin Lvl (test code = Albumin Lvl) 3.9 3.5-5.0 [facility]2014-03-03 17:15:00 Test Item Value Reference Range Interpretation Comments Alk Phos (test code = Alk Phos) 47 39-136 [facility]2014-03-03 17:15:00 Test Item Value Reference Range Interpretation Comments Bili Direct (test code 0.1 See_Comment [Aut omated message] The = Bili Direct) system which generated this result tra nsmitted reference range : <=0.3. The reference r tyrese was not used to int erpret this result as wilfrid l/abnormal. [facility] CenterFace-[facility] [id number] 17:15:00 Test Item Value Reference Range Interpretation Comments Total Protein (test code = Total 8.3 6.4-8.4 Protein) [facility]
--- NOTE | 2023-05-31 11:51 | EDPHYS ---
Physician Documentation [facility] Name: Jatinder Garner Age: 77 yrs Sex: Male : 1945 Arrival Date: 05/31/2023 Time: 10:30 Bed 5 Private MD: ED Physician Pola Peterson HPI: 05/31 10:58 This 77 yrs old Male presents to ER via Unassigned with complaints of Needs Urinary rn Catheter Replacement - has a blockage. 10:58 The patient presents with. Onset: The symptoms/episode began/occurred 1 hour(s) ago. rn Modifying factors: The symptoms are alleviated by nothing, the symptoms are aggravated by nothing. Severity of symptoms: At their worst the symptoms were mild, in the emergency department the symptoms are unchanged. The patient has not experienced similar symptoms in the past. The patient has not recently seen a physician. Patient and his provider report it was time to swap out his Cortez catheter, took the old one out, and not able to put it back in. Provider states this is happened before. There was no blood in the urine prior to removing the old one. Just happened an hour ago and patient comfortable without pain at this time.. Historical: - Allergies: 11:05 Morphine; hb - PMHx: 11:05 paraplegic; hb - PSHx: 11:05 kidney removed, s/p fall; spinal injury; hb - Immunization history:: Adult Immunizations unknown. - Family history:: not pertinent. - Social history:: Smoking status: unknown. - Hospitalizations: : No recent hospitalization is reported. ROS: 10:58 Constitutional: Negative for fever, chills, and weight loss, Cardiovascular: Negative rn for chest pain, palpitations, and edema, Respiratory: Negative for shortness of breath, cough, wheezing, and pleuritic chest pain, Abdomen/GI: Negative for abdominal pain, nausea, vomiting, diarrhea, and constipation, : Negative for injury, bleeding, discharge, and swelling, MS/Extremity: Negative for injury and deformity, Skin: Negative for injury, rash, and discoloration. Exam: 10:58 Constitutional: This is a well developed, well nourished patient who is awake, alert, rn and in no acute distress. Abdomen/GI: Soft, nontender Vital Signs: 11:03 BP 128 / 84; Pulse 76; Resp 16; Temp 97.8(O); Pulse Ox 100% on R/A; Weight 60.78 kg; hb Height 5 ft. 11 in. ; Pain 7/10; 11:03 Body Mass Index 18.69 (60.78 kg, 180.34 cm) hb 11:03 Pain Scale: Adult hb MDM: 10:34 Patient medically screened. rn 11:49 Differential diagnosis: urinary retention, Cortez catheter problem. Differential rn diagnosis: Stricture, BPH. Data reviewed: vital signs, nurses notes, and as a result, I will discharge patient. Care significantly affected by the following chronic conditions: Paralysis. Counseling: I had a detailed discussion with the patient and/or guardian regarding the historical points, exam findings, and any diagnostic results supporting the discharge/admit diagnosis, the need for outpatient follow up, to return to the emergency department if symptoms worsen or persist or if there are any questions or concerns that arise at home. Response to treatment: the patient's symptoms have markedly improved after treatment, and as a result, I will discharge patient. Special discussion: I discussed with the patient/guardian in detail that at this point there is no indication for admission to the hospital. It is understood, however, that if the symptoms persist or worsen the patient needs to return immediately for re-evaluation. Based on the history and exam findings, there is no indication for further emergent testing or inpatient evaluation. I discussed with the patient/guardian the need to see the primary care provider for further evaluation of the symptoms. I discussed with the patient/guardian the need to see the urologist for further evaluation of the symptoms. ED course: Cortez catheter replaced successfully with urine obtained. No discomfort. Small amount of blood but no significant clots. Cortez catheter and bladder flushed with clear urine obtained. Recommend to provider to flush if she notices any blood so catheter does not become clogged. Also recommend PCP and urology follow-up as could have enlarged prostate or strictures due to repeated catheterization.. 05/31 10:43 Order name: Diego; Complete Time: 11:34 rn Administered Medications: No medications were administered Disposition Summary: 05/31/23 11:51 Discharge Ordered Location: Home rn Problem: new rn Symptoms: have improved rn Condition: Stable rn Diagnosis - Displacement of other urinary catheter, initial encounter rn Followup: rn - With: Private Physician - When: As needed - Reason: Recheck today's complaints, Re-evaluation by your physician Discharge Instructions: - Discharge Summary Sheet rn - Indwelling Urinary Catheter Care, Adult rn Forms: - Medication Reconciliation Form rn - Thank You Letter rn - Antibiotic corn husker - Prescription Opioid Use rn - Patient Portal Instructions rn - Leadership Thank You Letter rn Signatures: Martita Cruz RN RN iw Nieto, Roman, MD MD rn Baxter, Heather, RN RN
--- NOTE | 2023-05-31 11:51 | ER ---
Nurse's Notes [facility] Name: Jatinder Garner Age: 77 yrs Sex: Male : 1945 Arrival Date: 05/31/2023 Time: 10:30 Bed 5 Private MD: Diagnosis: Displacement of other urinary catheter, initial encounter Presentation: 05/31 11:03 Chief complaint: Home health attempted to replace garcia catheter but was unable to hb place new catheter. Coronavirus screen: At this time, the client does not indicate any symptoms associated with coronavirus-19. Ebola Screen: No symptoms or risks identified at this time. Initial Sepsis Screen: Does the patient meet any 2 criteria? No. Patient's initial sepsis screen is negative. Does the patient have a suspected source of infection? No. Patient's initial sepsis screen is negative. Risk Assessment: Do you want to hurt yourself or someone else? Patient reports no desire to harm self or others. Onset of symptoms was May 31, 2023. 11:03 Method Of Arrival: Wheelchair hb 11:03 Acuity: NANNETTE 4 hb Historical: - Allergies: 11:05 Morphine; hb - PMHx: 11:05 paraplegic; hb - PSHx: 11:05 kidney removed, s/p fall; spinal injury; hb - Immunization history:: Adult Immunizations unknown. - Family history:: not pertinent. - Social history:: Smoking status: unknown. - Hospitalizations: : No recent hospitalization is reported. Screenin:55 [facility] ED Fall Risk Assessment (Adult) Score/Fall Risk Level. Abuse screen: Denies iw threats or abuse. Denies injuries from another. Nutritional screening: No deficits noted. Tuberculosis screening: No symptoms or risk factors identified. Assessment: 11:30 General: Appears in no apparent distress. Behavior is calm, cooperative. Pain: Denies iw pain. Neuro: Level of Consciousness is awake, alert, obeys commands, Oriented to person, place, time, situation. Cardiovascular: Patient's skin is warm and dry. Respiratory: Respiratory effort is even, unlabored, Respiratory pattern is regular. : Reports. Derm: Skin is intact. Musculoskeletal: Vital Signs: 11:03 BP 128 / 84; Pulse 76; Resp 16; Temp 97.8(O); Pulse Ox 100% on R/A; Weight 60.78 kg; hb Height 5 ft. 11 in. ; Pain 7; 11:03 Body Mass Index 18.69 (60.78 kg, 180.34 cm) hb 11:03 Pain Scale: Adult hb ED Course: 10:32 Patient arrived in ED. im 10:34 Pola Peterson MD is Attending Physician. rn 11:05 Triage completed. hb 11:20 No provider procedures requiring assistance completed. Garcia cath inserted, using iw sterile technique, 14 Fr., by silk screen printer machine, balloon inflated, to gravity drainage. Patient did not have IV access during this emergency room visit. 11:48 Martita Cruz, RN is Primary Nurse. iw 11:53 Arm band placed on. iw 11:56 Patient has correct armband on for positive identification. Provided Education on: iw follow up with urology . Administered Medications: No medications were administered Medication: 11:55 VIS not applicable for this client. iw Outcome: 11:51 Discharge ordered by MD. rn 11:57 Discharged to home via wheelchair, with fitting room operator iw 11:57 Condition: good 11:57 Discharge instructions given to patient, fitting room operator, Instructed on discharge instructions, follow up and referral plans. Demonstrated understanding of instructions, follow-up care. 11:58 Patient left the ED. iw Signatures: Martita Cruz RN RN Pola Peterson MD MD rn Baxter, Heather, RN RN Rosetta Zarate im
[2023-05-31 12:05] VITALS: BP 128/84; TEMP 97.8; O2SAT 100
== END 2023-05-31 11:58 | disposition home or self-care (01) ==
LOC: ER 10:30
DX: T83.028A Displacement of other urinary catheter, initial encounter (principal)
CPT/HCPCS: 51702; 99284

== ENCOUNTER 2024-05-31 11:15 | Emergency (ER) | payer OTHER ==
--- NOTE | 2024-05-31 12:02 | RAD REPORT ---
EXAM DESCRIPTION: RAD - Foot Left 3 View - 05/31/2024 11:51 am CLINICAL HISTORY: Deformity;Pain COMPARISON: No comparisons FINDINGS: The bones are significantly demineralized. Mild soft tissue swelling is evident. 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 Underlying mild tuft fracture is present. No d islocation seen.
[2024-05-31] MEDS ORDERED: VANCOMYCIN 1 GM/VIAL ONE (12:17)
[2024-05-31] MEDS ORDERED: TDAP (DIPHTH,PERTUSS(ACELL),TET VAC) 0.5 ML VIAL IMVAC ONE (12:17)
[2024-05-31] MEDS ORDERED: NA CHLORIDE 0.9% 250 ML ONE (12:17)
--- NOTE | 2024-05-31 13:47 | ER ---
Nurse's Notes [facility] Name: Jatinder Garner Age: 78 yrs Sex: Male : 1945 Arrival Date: 05/31/2024 Time: 11:15 Bed 4 Private MD: Diagnosis: Open wound of toe with damage to nail-left 1st, 2nd, and 3rd Presentation: 05/31 11:19 Chief complaint: EMS states: toned out to home for injury to left foot. Pt does not ld1 have feeling in left leg - drug left foot along ground. Open wound/abrasions to left foot. 11:31 Coronavirus screen: At this time, the client does not indicate any symptoms associated ld1 with coronavirus-19. Ebola Screen: No symptoms or risks identified at this time. Initial Sepsis Screen: Does the patient meet any 2 criteria? No. Patient's initial sepsis screen is negative. Does the patient have a suspected source of infection? No. Patient's initial sepsis screen is negative. Risk Assessment: Do you want to hurt yourself or someone else? Patient reports no desire to harm self or others. Onset of symptoms was May 31, 2024. 11:31 Method Of Arrival: EMS: [facility] ld1 11:31 Acuity: NANNETTE 3 ld1 Triage Assessment: 11:31 General: Appears in no apparent distress. comfortable, Behavior is calm, cooperative, ld1 appropriate for age. Pain: Denies pain. EENT: No signs and/or symptoms were reported regarding the EENT system. Neuro: Level of Consciousness is awake, alert, obeys commands, Oriented to person, place, time, situation, Appropriate for age. Cardiovascular: Capillary refill < 3 seconds Patient's skin is warm and dry. Rhythm is sinus rhythm. Respiratory: Airway is patent Respiratory effort is even, unlabored. GI: Abdomen is flat, non-distended. : No signs and/or symptoms were reported regarding the genitourinary system. Derm: No signs and/or symptoms reported regarding the dermatologic system. Musculoskeletal: No deficits noted. Injury Description: Avulsion sustained to left foot. Historical: - Allergies: 11: Morphine; ld1 - PMHx: 11:29 paraplegic; ld1 - PSHx: 11:29 kidney removed; kidney removed; spinal injury; ld1 - Immunization history:: Adult Immunizations up to date. - Infectious Disease History:: Denies. - Social history:: Smoking status: Patient denies any tobacco usage or history of. Screenin:51 [facility] ED Fall Risk Assessment (Adult) History of falling in the last 3 months, mb9 including since admission Yes- fall prone (multiple falls) (3 pts) Confusion or Disorientation No (0 pts) Intoxicated or Sedated No (0 pts) Impaired Gait Yes (1 pt) Mobility Assist Device Used Yes (1 pt) Altered Elimination Yes (1 pt) Score/Fall Risk Level 3 or more points = High Risk Oriented to surroundings, Maintained a safe environment, Educated pt \T\ family on fall prevention, incl call for assistance when getting out of bed. Abuse screen: Denies threats or abuse. Nutritional screening: No deficits noted. Tuberculosis screening: No symptoms or risk factors identified. Assessment: 11:50 General: Appears in no apparent distress. Behavior is calm, cooperative. Pain: Denies mb9 pain. Neuro: Lee Agitation-Sedation Scale (RASS): 0 - Alert and Calm Level of Consciousness is awake, alert, obeys commands, Oriented to person, place, time, situation, Appropriate for age. Cardiovascular: Patient's skin is warm and dry. Respiratory: Airway is patent Respiratory effort is even, unlabored, Respiratory pattern is regular, symmetrical. GI: No signs and/or symptoms were reported involving the gastrointestinal system. : Cortez in place to gravity drainage. EENT: No signs and/or symptoms were reported regarding the EENT system. Derm: Skin is pink, warm \T\ dry. Derm: wound vac noted to right gluteus joshua. Musculoskeletal: Range of motion: limited in bilateral legs. Injury Description: Abrasion sustained to left foot Avulsion sustained to left great toe. 13:00 Reassessment: No changes from previously documented assessment. Patient and/or family mb9 updated on plan of care and expected duration. Pain level reassessed. Patient is alert, oriented x 3, equal unlabored respirations, skin warm/dry/pink. 13:51 Reassessment: D/C pending completion of IV medication. mb9 14:26 Reassessment: D/C pending ride home. mb9 Vital Signs: 11:31 BP 114 / 68; Pulse 64; Resp 18; Temp 97.8(TE); Pulse Ox 99% on R/A; Weight 56.7 kg; ld1 Height 5 ft. 6 in. ; Pain 0/10; 14:26 BP 115 / 73; Pulse 84; Resp 18; Pulse Ox 100% on R/A; mb9 11:31 Body Mass Index 20.18 (56.70 kg, 167.64 cm) ld1 11:31 Pain Scale: Adult ld1 ED Course: 11:18 Patient arrived in ED. ld1 11:29 Jannet Owen PA-C is PHCP. sb4 11:29 Boo Grace MD is Attending Physician. sb4 11:31 Arm band placed on right wrist. ld1 11:32 Triage completed. ld1 11:40 Sonia Houston RN is Primary Nurse. mb9 11:52 Foot Left 3 View XRAY In Process Unspecified. EDMS 11:52 Bed in low position. Call light in reach. Side rails up X 1. press call light if mb9 needing anything. Client placed on continuous cardiac and pulse oximetry monitoring. NIBP monitoring applied. 12:50 Wound care: to abrasion, located on left foot was cleaned with Hibiclens, soaked in mb9 normal saline solution, dressed with 4X4s, Kerlix, cling, Patient tolerated well. 12:50 No provider procedures requiring assistance completed. Maintain EMS IV. Dressing mb9 intact. Good blood return noted. Site clean \T\ dry. Gauge \T\ site: 20g left FA. Flushed with 10 mL NS. 12:51 Provided Education on: press call light if needing anything . mb9 13:45 Karthik Panchal MD is Referral Physician. sb4 14:35 IV discontinued, intact, bleeding controlled, No redness/swelling at site. Pressure mb9 dressing applied. Administered Medications: 12:05 CANCELLED (Physician Discretion): cefazolin1 grams IM once sb4 12:37 Drug: Boostrix Tdap IM 0.5 ml IM once; as a single dose Route: IM; Site: right deltoid; ld1 12:50 Follow up: Response: (VIS) Vaccine information sheet provided today. Questions and/or mb9 concerns addressed. VIS edition date: May 05, 2021.; No adverse reaction 12:37 Drug: vancoMYCIN IVPB 1 grams IVPB once over 2 hrs Route: IVPB; Infused Over: 2 hrs; ld1 Site: left forearm; 14:26 Follow up: Response: No adverse reaction; IV Status: Completed infusion mb9 Medication: 11:52 VIS not applicable for this client. mb9 Outcome: 13:46 Discharge ordered by . [email or web address] 14:39 Discharged to home via ambulance, mb9 14:39 Condition: stable 14:39 Discharge instructions given to patient, Instructed on discharge instructions, follow up and referral plans. Demonstrated understanding of instructions, follow-up care, medications, Prescriptions given X 1, 14:40 Patient left the ED. mb9 Signatures: Dispatcher [employer] EDMS Deisy Stafford RN RN ld1 Jannet Owen, PA-C PA-C sb4 Sonia Houston RN RN mb9 Corrections: (The following items were deleted from the chart) 11:31 11:29 PSHx: kidney removed, s/p fall; ld1 ld1
--- NOTE | 2024-05-31 13:47 | EDPHYS ---
Physician Documentation [facility] Name: Jatinder Garner Age: 78 yrs Sex: Male : 1945 Arrival Date: 05/31/2024 Time: 11:15 Bed 4 Private MD: ED Physician Boo Grace HPI: 05/31 11:39 This 78 yrs old Male presents to ER via EMS with complaints of Foot Injury. sb4 11:40 Patient states that he was going outside in his motorized wheelchair when his foot sb4 moved from the step and he accidentally ran over it and dragged it. He is a paraplegic and has no feeling in his feet so he did not realize it until his home health nurse came and saw. EMS was then called. Historical: - Allergies: 11:29 Morphine; ld1 - PMHx: 11:29 paraplegic; ld1 - PSHx: 11:29 kidney removed; kidney removed; spinal injury; ld1 - Immunization history:: Adult Immunizations up to date. - Infectious Disease History:: Denies. - Social history:: Smoking status: Patient denies any tobacco usage or history of. ROS: 11:40 Constitutional: Negative for fever, chills, and weight loss, sb4 11:40 Skin: Positive for injury and bleeding 1st, 2nd, and 3rd left toes, 11:40 All other systems are negative, Exam: 11:42 Constitutional: This is a well developed, well nourished patient who is awake, alert, sb4 and in no acute distress. Head/Face: Normocephalic, atraumatic. Eyes: Extra-ocular motions intact. Periorbital areas with no swelling, redness, or edema. ENT: Mucous membranes moist. 11:42 : a garcia is noted, 11:42 Skin: 1st, 2nd, 3rd left toes nail avulsions and abrasions. bleeding controlled. pedal pulses intact. Vital Signs: 11:31 BP 114 / 68; Pulse 64; Resp 18; Temp 97.8(TE); Pulse Ox 99% on R/A; Weight 56.7 kg; ld1 Height 5 ft. 6 in. ; Pain 0/10; 14:26 BP 115 / 73; Pulse 84; Resp 18; Pulse Ox 100% on R/A; mb9 11:31 Body Mass Index 20.18 (56.70 kg, 167.64 cm) ld1 11:31 Pain Scale: Adult ld1 MDM: 11:29 Patient medically screened. sb4 13:45 Data reviewed: vital signs, nurses notes, EMS record, radiologic studies, I have sb4 discussed the patient's presentation/case with the attending Emergency Department Physician; and as a result, I will discharge patient. Counseling: I had a detailed discussion with the patient and/or guardian regarding the historical points, exam findings, and any diagnostic results supporting the discharge/admit diagnosis, radiology results, the need for outpatient follow up, wound care, to return to the emergency department if symptoms worsen or persist or if there are any questions or concerns that arise at home. 05/31 11:21 Order name: Foot Left 3 View XRAY; Complete Time: 12:03 sb4 05/31 11:55 Order name: Wound Care; Complete Time: 12:50 sb4 05/31 11:55 Order name: Wound dressing; Complete Time: 12:50 sb4 05/31 12:06 Order name: IV Start; Complete Time: 12:08 sb4 Administered Medications: 12:05 CANCELLED (Physician Discretion): cefazolin1 grams IM once sb4 12:37 Drug: Boostrix Tdap IM 0.5 ml IM once; as a single dose Route: IM; Site: right deltoid; ld1 12:50 Follow up: Response: (VIS) Vaccine information sheet provided today. Questions and/or mb9 concerns addressed. VIS edition date: May 05, 2021.; No adverse reaction 12:37 Drug: vancoMYCIN IVPB 1 grams IVPB once over 2 hrs Route: IVPB; Infused Over: 2 hrs; ld1 Site: left forearm; 14:26 Follow up: Response: No adverse reaction; IV Status: Completed infusion mb9 Disposition Summary: 05/31/24 13:46 Discharge Ordered Notes: Location: Home sb4 Problem: new sb4 Symptoms: have improved sb4 Condition: Stable sb4 Diagnosis - Open wound of toe with damage to nail - left 1st, 2nd, and 3rd sb4 Followup: sb4 - With: Karthik Panchal MD - When: 2 - 3 days - Reason: Wound Recheck, Recheck today's complaints, Re-evaluation by your physician Discharge Instructions: - Discharge Summary Sheet sb4 - Wound Care, Adult sb4 Forms: - Antibiotic Education sb4 - Prescription Opioid Use sb4 - Patient Portal Instructions sb4 - Leadership Thank You Letter sb4 Prescriptions: - Bactrim DS 800-160 mg Oral Tablet - take 1 tablet ORAL route every 12 hours for 10 days; 20 tablet; Refills: 0, sb4 Product Selection Permitted Signatures: Dispatcher [employer] EDMS Deisy Stafford RN RN ld1 Jannet Owen PA-C PA-C sb4 Sonia Houston RN mb9 Corrections: (The following items were deleted from the chart) 11:22 11:22 Foot Left 3 View+RAD.RAD.BRZ ordered. EDMS EDMS 11:31 11:29 PSHx: kidney removed, s/p fall; ld1 ld1 12:05 11:55 CeFAZolin IM 1 grams IM once ordered. sb4 sb4
[2024-05-31 14:58] VITALS: TEMP 97.8
[2024-05-31 14:59] VITALS: BP 115/73; O2SAT 100
== END 2024-05-31 14:40 | disposition home or self-care (01) ==
LOC: ER 11:15
DX: S91.202A Unspecified open wound of left great toe with damage to nail, initial encounter (principal); S91.205A Unspecified open wound of left lesser toe(s) with damage to nail, initial encounter; G82.20 Paraplegia, unspecified
CPT/HCPCS: 96365; 73630; 96372; 99284; 96366; J7050

== ENCOUNTER 2024-07-28 09:28 | Emergency (ER) | payer OTHER ==
[2024-07-28 09:45] LABS: Absolute Basophils 0.1 K/uL (0-0.5); Absolute Eosinophils 0.5 K/uL (0-0.5); Absolute Lymphocytes (CBC) 1.5 K/uL (0.7-4.9); Absolute Monocytes 0.7 K/uL (0.1-1.3); Absolute Neutrophil 4.2 K/uL (1.8-8.0); Basophils % 1.2 % (0-1.3); Eosinophils % 7.1 % (0-4.4); Hematocrit 35.3 % (39.6-49.0); Hemoglobin 11.4 g/dL (13.6-17.9); Lymphocytes % 21.4 % (15.3-44.8); MCH 28.3 pg (27.0-35.0); MCHC 32.4 g/dL (32.0-36.0); MCV 87.4 fL (80-100); Monocytes % 9.9 % (3.3-12.3); Neutrophils % 60.4 % (41.7-73.7); Platelets 311 thou/uL (152-406); RBC Red Blood Cell Count 4.04 M/uL (4.33-5.43); Red Cell Distribution Width 17.8 % (12.1-15.2)
[2024-07-28 09:55] LABS: PT Prothrombin Time 11.8 SECONDS (9.4-12.5); PTT, Activated Partial Thromb 37.5 SECONDS (24.3-36.9); Protime INR 1.06
--- NOTE | 2024-07-28 09:56 | RAD REPORT ---
EXAM: CT brain without contrast HISTORY: Slurred speech. COMPARISON: None TECHNIQUE: Multiple contiguous axial images were obtained and a CT of the brain without contrast. Sagittal and coronal reformats were performed. Automated exposure control, adjustment of the mA and/or kV according to patient size, and/or itera tive reconstruction. Unless otherwise specified, incidental findings do not require dedicated imaging follow-u FINDINGS: An intracranial bleed is not seen Mild prominence of the ventricles likely related to cerebral atrophy. No extra-axial fluid collection noted Mild low-density paraventricular, deep and subcortical white matter likely ischemic changes secondary to small vessel disease. Mild to moderate cerebral atrophy. No fluid within the visualized sinuses or mastoids noted. IMPRESSION: No acute intracranial abnormality noted. If the patient's symptoms persist MRI of the brain would be recommended. from the emergency room was notified at 9:43 AM July 28, 2024
--- NOTE | 2024-07-28 10:09 | RAD REPORT ---
Procedure: Chest Single View HISTORY: Slurred speech COMPARISON: 2022 FINDINGS: The lungs appear clear of acute infiltrate. No significant pleural effusion noted. The heart is mildly enlarged. IMPRESSION: No acute abnormality is displayed.
[2024-07-28 10:12] LABS: AST/SGOT 19 U/L (15-37); Albumin 2.7 g/dL (3.4-5.0); Albumin/Globulin Ratio 0.5 (1.1-1.8); Alkaline Phosphatase 81 U/L (45-117); Anion Gap 8.4 mEq/L (5.0-15.0); BUN Blood Urea Nitrogen 25 mg/dL (7-18); Bicarbonate 25 mEq/L (21-32); Bilirubin Total 0.4 mg/dL (0.2-1.0); Globulin 5.6 g/dL (2.3-3.5); Glomerular Filtration Rate 47 ml/min (=/>90); Glucose Level 109 mg/dL (74-106); Potassium 4.4 mEq/L (3.5-5.1); Protein, Total 8.3 g/dL (6.4-8.2); Sodium Level 135 mEq/L (136-145)
[2024-07-28 10:14] LABS: ALT/SGPT < 14 U/L (16-61); Bilirubin Direct < 0.2 mg/dL (0-0.2); Bilirubin Indirect, Calculated 0.2 mg/dL (0.2-0.8)
--- NOTE | 2024-07-28 12:01 | RAD REPORT ---
EXAMINATION: MRI BRAIN WITHOUT CONTRAST CLINICAL INDICATION: Slurred speech TECHNIQUE: Multiplanar multisequence MR images of the brain were obtained without intravenous contras t. Unless otherwise specified, incidental findings do not require dedicated imaging follow-up. COMPARISON: Head CT July 28, 2024. FINDINGS: Mild to moderate abnormal signal within periventricular, deep and subcortical white matter probably i schemic changes secondary to small vessel disease. Diffusion weighted/ADC mapping does not demonstrate evidence of an acute infarction. Mild to moderate cerebral atrophy. Prominence of the ventricles likely the sequela of atrophy. No hyd rocephalus. No extra-axial fluid collection. No fluid within the sinuses/mastoid seen IMPRESSION: No acute abnormalities displayed
--- NOTE | 2024-07-28 12:06 | ER ---
Nurse's Notes [facility] Name: Jatinder Garner Age: 79 yrs Sex: Male : 1945 Arrival Date: 07/28/2024 Time: 09:28 Bed 7 Private MD: Diagnosis: Dysarthria Presentation: 07/28 09:30 Chief complaint: EMS states: healthcare receptionist reported that his speech is more slurred than iw usual , last night the seamer operator gave him 50 mg Seroquel instead of 25 mg. 09:32 Coronavirus screen: At this time, the client does not indicate any symptoms associated iw with coronavirus-19. 09:32 Method Of Arrival: EMS: [facility] iw 09:33 Acuity: NANNETTE 2 iw 09:33 Onset of symptoms was July 28, 2024. iw 09:35 Ebola Screen: No symptoms or risks identified at this time. No acute neurological iw deficit is noted. Pre-hospital glucose is not applicable to this patient. Initial Sepsis Screen: Does the patient meet any 2 criteria? No. Patient's initial sepsis screen is negative. Does the patient have a suspected source of infection? No. Patient's initial sepsis screen is negative. Risk Assessment: Do you want to hurt yourself or someone else? Patient reports no desire to harm self or others. Stroke Activation: Symptom onset > 6 hours Physician: ED Attending; Name: ; Notified At: ; Arrived At: Physician: Mid-Level Provider; Name: ; Notified At: ; Arrived At: Physician: [not used]; Name: ; Notified At: ; Arrived At: Physician: [not used]; Name: ; Notified At: ; Arrived At: Physician: [not used]; Name: ; Notified At: ; Arrived At: Historical: - Allergies: 09:32 Morphine; iw - PMHx: 09:32 paraplegic; iw - PSHx: 09:32 spinal injury; iw - Immunization history:: Adult Immunizations up to date. - Infectious Disease History:: Denies. - Family history:: not pertinent. - Social history:: Smoking status: Patient denies any tobacco usage or history of. Screenin:41 [facility] ED Fall Risk Assessment (Adult) History of falling in the last 3 months, mb9 including since admission No falls in past 3 months (0 pts) Confusion or Disorientation No (0 pts) Intoxicated or Sedated No (0 pts) Impaired Gait Yes (1 pt) Mobility Assist Device Used Yes (1 pt) Altered Elimination Yes (1 pt) Score/Fall Risk Level 3 or more points = High Risk Oriented to surroundings, Maintained a safe environment, Educated pt \T\ family on fall prevention, incl call for assistance when getting out of bed. Abuse screen: Denies threats or abuse. Nutritional screening: No deficits noted. Tuberculosis screening: No symptoms or risk factors identified. Assessment: 09:30 VAN Scoring: Arm Drift: Patients demonstrates NO arm weakness. Patient is VAN Negative. mb9 Visual Disturbance: No visual disturbance noted. Aphasia: No aphasia noted. Neglect: No neglect noted. [place] Swallow Protocol Exclusion Criteria: Unable to remain alert for testing: No Brief Cognitive Screen What is your name? Normal, Where are you right now? Normal, What year is it? Normal. Oral Mechanism Examination Facial Symmetry: Normal, Motion: Normal, Lip Closure: Normal, Oral Mechanism Result: Normal. 3 oz Water Swallow Challenge: Pt able to drink all water without stopping, coughing, choking or throat clearing: Yes Result: PASS Notified: Dereck Tran MD. 09:44 General: Appears in no apparent distress. Behavior is calm, cooperative. Pain: Denies mb9 pain. Neuro: No deficits noted. Lee Agitation-Sedation Scale (RASS): 0 - Alert and Calm Level of Consciousness is awake, alert, obeys commands, Oriented to person, place, time, situation, Appropriate for age Crm Coordinator are equal bilaterally Moves all extremities. Gait is steady, Speech is normal, Facial symmetry appears normal, Pupils are PERRLA, Intact. Cardiovascular: Patient's skin is warm and dry. Rhythm is regular. Respiratory: Airway is patent Respiratory effort is even, unlabored, Respiratory pattern is regular, symmetrical. GI: Abdomen is flat, non-distended, Bowel sounds present X 4 quads. Abd is soft and non tender X 4 quads. : Cortez in place. EENT: No signs and/or symptoms were reported regarding the EENT system. Derm: wound vac noted to back. Musculoskeletal: Range of motion: BKA right leg. 10:37 Reassessment: No changes from previously documented assessment. Patient and/or family mb9 updated on plan of care and expected duration. Pain level reassessed. Patient is alert, oriented x 3, equal unlabored respirations, skin warm/dry/pink. 11:27 Reassessment: Pt taken to MRI via stretcher. mb9 12:16 Reassessment: No changes from previously documented assessment. Patient and/or family mb9 updated on plan of care and expected duration. Pain level reassessed. Patient is alert, oriented x 3, equal unlabored respirations, skin warm/dry/pink. 12:16 Reassessment: D/C pending ride home. mb9 Vital Signs: 09:34 BP 135 / 76; Pulse 81; Resp 16; Temp 98; Pulse Ox 95% on R/A; Weight 72.57 kg; Height 5 mb9 ft. 6 in. ; 10:37 BP 128 / 70; Pulse 65; Resp 16; Pulse Ox 100% on R/A; mb9 12:30 BP 118 / 80; Pulse 65; Resp 16; Pulse Ox 100% on R/A; mb9 09:34 Body Mass Index 25.82 (72.57 kg, 167.64 cm) mb9 NIH Stroke Scale Scores: 09:30 NIHSS Score: 0 mb9 ED Course: 09:29 Patient arrived in ED. iw 09:29 Dereck Tran MD is Attending Physician. rt 09:30 Sonia Houston, RN is Primary Nurse. mb9 09:32 No provider procedures requiring assistance completed. Initial lab(s) drawn, by me, mb9 sent to lab. EKG done, by ED staff, reviewed by Sonia Houston RN. Inserted saline lock: 20 gauge in right forearm, using aseptic technique. Blood collected. Flushed with 10 mL NS. 09:33 Triage completed. iw 09:34 Arm band placed on. iw 09:42 Placed in gown. Bed in low position. Call light in reach. Side rails up X 1. Provided mb9 Education on: press call light if needing anything. Client placed on continuous cardiac and pulse oximetry monitoring. NIBP monitoring applied. professor of sport management on. Door closed. Noise minimized. Warm blanket given. Pillow given. 09:46 Ptt, Activated Sent. mb9 09:46 Basic Metabolic Panel Sent. mb9 09:46 Hepatic Function Sent. mb9 09:46 High Sensitivity Troponin Sent. mb9 09:47 Protime (+inr) Sent. mb9 09:50 CT Stroke Brain w/o Contrast In Process Unspecified. EDMS 10:07 Stroke CXR 1 View In Process Unspecified. EDMS 11:48 MRI - Brain Wo Cont In Process Unspecified. EDMS 12:26 IV discontinued, intact, bleeding controlled, No redness/swelling at site. Pressure mb9 dressing applied. Administered Medications: No medications were administered Medication: 09:42 VIS not applicable for this client. mb9 Point of Care Testing: Blood Glucose: 09:35 Blood Glucose: 109 mg/dL; iw Ranges: Outcome: 12:06 Discharge ordered by MD. rt 12:26 Condition: stable mb9 13:15 Discharged to home via ambulance, mb9 13:15 Discharge instructions given to patient, Instructed on discharge instructions, follow up and referral plans. 13:16 Patient left the ED. mb9 NIH Stroke Scale - NIH Stroke Score Date: 07/28/2024 Time: 09:30 Total Score = 0 10. Dysarthria (speech clarity - read or repeat words) - 0(Normal) 11. Extinction and Inattention (visual/tactile/auditory/spatial/personal) - 0(No abnormality) 1a. Level of Consciousness (LOC) - 0(Alert) 1b. Level of Consciousness (LOC) (Month \T\ Age) - 0(Both) 1c. LOC Commands (Open \T\ Closes Eyes/Transportation Design Engineer) - 0(Both) 2. Best Gaze (Lateral Gaze Paresis) - 0(Normal) 3. Visual Field Loss - 0(No visual loss) 4. Facial Palsy - 0(Normal) 5a. Left Arm: Motor (10-second hold) - 0(No drift) 5b. Right Arm: Motor (10-second hold) - 0(No drift) 6a. Left Leg: Motor (5-second hold - always test supine) - 0(No drift) 6b. Right Leg: Motor (5-second hold - always test supine) - 0(No drift) 7. Limb Ataxia (finger/nose \T\ heel/estrada - test with eyes open) - 0(Absent) 8. Sensory Loss (pinprick arms/legs/face) - 0(Normal) 9. Best Language: Aphasia (description/naming/reading) - 0(No aphasia) Initials: mb9 Signatures: Dispatcher [employer] EDMartita Cordon RN RN iw Wilkerson, Mary Beth, RN RN mb9 Dereck Tran MD MD rt Corrections: (The following items were deleted from the chart) 09:52 09:34 BP 135 / 76; Pulse 81bpm; Resp 16bpm; Pulse Ox 95% RA; celia mb9 11:23 10:37 Pulse 65bpm; Resp 16bpm; Pulse Ox 100% RA; [email or web address] mb9
--- NOTE | 2024-07-28 12:06 | EDPHYS ---
Physician Documentation [facility] Name: Jatinder Garner Age: 79 yrs Sex: Male : 1945 Arrival Date: 07/28/2024 Time: : Bed 7 Private MD: ED Physician Dereck Tran HPI: 07/28 09:52 This 79 yrs old Male presents to ER via EMS with complaints of Slurred Speech. rt 09:52 Patient presents to the ED with reported slurred speech from his caregivers. Patient's rt last known normal was last night. Patient states that he feels well, denies any complaints at this time. Of note, patient is a paraplegic has no movement or sensation to both of his legs. Symptoms are moderate in severity, no other aggravating or alleviating factors.. Historical: - Allergies: :32 Morphine; iw - PMHx: 09:32 paraplegic; iw - PSHx: 09:32 spinal injury; iw - Immunization history:: Adult Immunizations up to date. - Infectious Disease History:: Denies. - Family history:: not pertinent. - Social history:: Smoking status: Patient denies any tobacco usage or history of. ROS: 09:52 Constitutional: Negative for fever, chills, and weight loss, Cardiovascular: Negative rt for chest pain, palpitations, and edema, Respiratory: Negative for shortness of breath, cough, wheezing, and pleuritic chest pain, Abdomen/GI: Negative for abdominal pain, nausea, vomiting, diarrhea, and constipation, 09:52 Neuro: Positive for Slurred speech, negative for facial asymmetry, upper extremity weakness, Exam: 09:52 Constitutional: This is a well developed, well nourished patient who is awake, alert, rt and in no acute distress. Head/Face: Normocephalic, atraumatic. Chest/axilla: Normal chest wall appearance and motion. Nontender with no deformity. No lesions are appreciated. Cardiovascular: Regular rate and rhythm with a normal S1 and S2. No gallops, murmurs, or rubs. Normal PMI, no JVD. No pulse deficits. Respiratory: Lungs have equal breath sounds bilaterally, clear to auscultation and percussion. No rales, rhonchi or wheezes noted. No increased work of breathing, no retractions or nasal flaring. Skin: Warm, dry with normal turgor. Normal color with no rashes, no lesions, and no evidence of cellulitis. 09:52 Eyes: Extraocular muscles are intact, no visual field deficits. 09:52 ECG was reviewed by the Attending Physician. 09:52 Musculoskeletal/extremity: Right below the knee amputation. 09:52 Neuro: Mild dysarthria noted, no aphasia, no cranial nerve deficits, strength and sensation intact in upper extremities, lower extremities paralyzed, insensate, Vital Signs: 09:34 BP 135 / 76; Pulse 81; Resp 16; Temp 98; Pulse Ox 95% on R/A; Weight 72.57 kg; Height 5 mb9 ft. 6 in. ; 10:37 BP 128 / 70; Pulse 65; Resp 16; Pulse Ox 100% on R/A; mb9 12:30 BP 118 / 80; Pulse 65; Resp 16; Pulse Ox 100% on R/A; mb9 09:34 Body Mass Index 25.82 (72.57 kg, 167.64 cm) mb9 NIH Stroke Scale Scores: 09:30 NIHSS Score: 0 mb9 MDM: 09:29 Medical Screening Exam initiated rt 12:09 Data reviewed: vital signs, nurses notes, lab test result(s), EKG, radiologic studies. rt Consideration of Admission/Observation Escalation of care including admission/observation considered. Discussed with patient possibility of an acute stroke, patient states that he strongly desirous of discharge and does not wish to in the hospital. I obtained an MRI that shows no acute ischemic changes. Hospital existed the patient has polypharmacy as he took double his dose of Seroquel last night causing the dysarthria. Patient structured to follow-up as an outpatient, strict return precautions were discussed.. Independent interpretation of the following test(s) in the Emergency Department CT Scan: My interpretation is No intracranial hemorrhage seen on my interpretation of CT scan images. Care significantly affected by the following chronic conditions: Spinal cord injury. Counseling: I had a detailed discussion with the patient and/or guardian regarding the historical points, exam findings, and any diagnostic results supporting the discharge/admit diagnosis, lab results, radiology results, the need for outpatient follow up, to return to the emergency department if symptoms worsen or persist or if there are any questions or concerns that arise at home. Response to treatment: the patient's symptoms have mildly improved after treatment. 07/28 09:30 Order name: Basic Metabolic Panel; Complete Time: 10:15 rt 07/28 09:30 Order name: CBC with Diff; Complete Time: 10:10 rt 07/28 09:30 Order name: Hepatic Function; Complete Time: 10:15 rt 07/28 09:30 Order name: High Sensitivity Troponin; Complete Time: 10:15 rt 07/28 09:30 Order name: Protime (+inr); Complete Time: 10:10 rt 07/28 09:30 Order name: Ptt, Activated; Complete Time: 10:10 rt 07/28 09:49 Order name: Glucose, Ancillary Testing; Complete Time: 10:10 EDMS 07/28 10:13 Order name: CREATININE WHOLE BLOOD; Complete Time: 10:15 EDMS 07/28 09:30 Order name: CT Stroke Brain w/o Contrast; Complete Time: 10:10 rt 07/28 09:30 Order name: Stroke CXR 1 View; Complete Time: 10:10 rt 07/28 10:46 Order name: MRI - Brain Wo Cont; Complete Time: 12:02 rt 07/28 09:30 Order name: EKG; Complete Time: 09:31 rt 07/28 09:30 Order name: Accucheck; Complete Time: 09:46 rt 07/28 09:30 Order name: Cardiac monitoring; Complete Time: 09:46 rt 07/28 09:30 Order name: EKG - Nurse/Tech; Complete Time: 09:46 rt 07/28 09:30 Order name: IV Saline Lock; Complete Time: 09:46 rt 07/28 09:30 Order name: Labs collected and sent; Complete Time: 09:46 rt 07/28 09:30 Order name: NPO; Complete Time: 09:46 rt 07/28 09:30 Order name: O2 Per Protocol; Complete Time: 09:52 rt 07/28 09:30 Order name: O2 Sat Monitoring; Complete Time: 09:46 rt 07/28 09:30 Order name: Stroke Swallow Screen; Complete Time: 09:46 rt EC:52 Rate is 77 beats/min. Rhythm is regular, Normal Sinus Rhythm with Right bundle branch rt block. QRS [place] is Normal. [place] interval is normal. QRS interval is normal. QT interval is normal. No Q waves. No ST changes noted. Administered Medications: No medications were administered Point of Care Testing: Blood Glucose: 09:35 Blood Glucose: 109 mg/dL; iw Ranges: Critical Glucose Levels:Adult <50 mg/dl or >400 mg/dl <40 mg/dl or >180 mg/dl Disposition Summary: 07/28/24 12:06 Discharge Ordered Notes: Location: Home rt Problem: new rt Symptoms: have improved rt Condition: Stable rt Diagnosis - Dysarthria rt Followup: rt - With: Private Physician - When: 2 - 3 days - Reason: Discharge Instructions: - Discharge Summary Sheet rt - Warning Signs of a Stroke rt Forms: - Medication Reconciliation Form rt - Antibiotic Education rt - Prescription Opioid Use rt - Patient Portal Instructions rt - Leadership Thank You Letter rt NIH Stroke Scale - NIH Stroke Score Date: 07/28/2024 Time: 09:30 Total Score = 0 10. Dysarthria (speech clarity - read or repeat words) - 0(Normal) 11. Extinction and Inattention (visual/tactile/auditory/spatial/personal) - 0(No abnormality) 1a. Level of Consciousness (LOC) - 0(Alert) 1b. Level of Consciousness (LOC) (Month \T\ Age) - 0(Both) 1c. LOC Commands (Open \T\ Closes Eyes/Recording Engineer) - 0(Both) 2. Best Gaze (Lateral Gaze Paresis) - 0(Normal) 3. Visual Field Loss - 0(No visual loss) 4. Facial Palsy - 0(Normal) 5a. Left Arm: Motor (10-second hold) - 0(No drift) 5b. Right Arm: Motor (10-second hold) - 0(No drift) 6a. Left Leg: Motor (5-second hold - always test supine) - 0(No drift) 6b. Right Leg: Motor (5-second hold - always test supine) - 0(No drift) 7. Limb Ataxia (finger/nose \T\ heel/estrada - test with eyes open) - 0(Absent) 8. Sensory Loss (pinprick arms/legs/face) - 0(Normal) 9. Best Language: Aphasia (description/naming/reading) - 0(No aphasia) Initials: cynthia Signatures: Dispatcher [employer] Martita Tavares RN RN iw Wilkerson, Mary Beth, RN RN mb9 Dereck Tran MD MD rt Corrections: (The following items were deleted from the chart) : 09:31 Neck Angio+CT.RAD.BRZ ordered. EDMS EDMS 09: 09:43 Head angio ordered. EDMS EDMS
[2024-07-28 13:20] VITALS: TEMP 98
[2024-07-28 13:21] VITALS: O2SAT 100
[2024-07-28 13:22] VITALS: BP 118/80
--- NOTE | 2024-07-29 14:51 | EKG ---
Test Date: 2024-07-28 Test Time: 09:35:10 Mathematical Statistician: MB MEASUREMENT RESULTS: Intervals: Rate: 77 WI: 174 QRSD: 132 QT: 436 QTc: 493 [place]: P: 30 WI: 174 QRS: 87 T: 51 INTERPRETIVE STATEMENTS: Normal sinus rhythm Right bundle branch block Abnormal ECG Compared to ECG 01/17/2023 15:34:20 No significant changes Electronically Signed On 07-29-24 14:46:50 CDT by Miguel Winters
== END 2024-07-28 13:16 | disposition home or self-care (01) ==
LOC: ER 09:28
DX: R47.1 Dysarthria and anarthria (principal); G82.20 Paraplegia, unspecified
CPT/HCPCS: 36415; 70450; 70551; 71045; 80048; 80076; 82565; 82947; 84484; 85025; 85610; 85730; 93005

== ENCOUNTER 2024-09-18 12:09 | Emergency (ER) | payer OTHER ==
[2024-09-18 13:51] LABS: Absolute Basophils 0.1 K/uL (0-0.5); Absolute Eosinophils 0.5 K/uL (0-0.5); Absolute Lymphocytes (CBC) 2.2 K/uL (0.7-4.9); Absolute Monocytes 0.8 K/uL (0.1-1.3); Absolute Neutrophil 4.1 K/uL (1.8-8.0); Basophils % 0.8 % (0-1.3); Eosinophils % 6.4 % (0-4.4); Hematocrit 37.6 % (39.6-49.0); Hemoglobin 12.1 g/dL (13.6-17.9); Lymphocytes % 28.5 % (15.3-44.8); MCH 29.2 pg (27.0-35.0); MCHC 32.3 g/dL (32.0-36.0); MCV 90.3 fL (80-100); MPV 7.1 fL (7.6-11.3); Monocytes % 10.5 % (3.3-12.3); Neutrophils % 53.8 % (41.7-73.7); Platelets 364 thou/uL (152-406); RBC Red Blood Cell Count 4.16 M/uL (4.33-5.43); Red Cell Distribution Width 16.9 % (12.1-15.2)
[2024-09-18 13:54] LABS: PT Prothrombin Time 12.4 SECONDS (9.4-12.5); Protime INR 1.11
[2024-09-18 14:08] LABS: AST/SGOT 20 U/L (15-37); Albumin 2.7 g/dL (3.4-5.0); Albumin/Globulin Ratio 0.5 (1.1-1.8); Alkaline Phosphatase 85 U/L (45-117); Anion Gap 8.3 mEq/L (5.0-15.0); BUN Blood Urea Nitrogen 16 mg/dL (7-18); Bicarbonate 28 mEq/L (21-32); Bilirubin Total 0.2 mg/dL (0.2-1.0); Glomerular Filtration Rate 96 ml/min (=/>90); Glucose Level 103 mg/dL (74-106); Potassium 4.3 mEq/L (3.5-5.1); Protein, Total 8.7 g/dL (6.4-8.2); Sodium Level 134 mEq/L (136-145)
[2024-09-18 14:13] LABS: ALT/SGPT < 14 U/L (16-61)
--- NOTE | 2024-09-18 14:28 | EDPHYS ---
Physician Documentation [facility] Name: Jatinder Garner Age: 79 yrs Sex: Male : 1945 Arrival Date: 09/18/2024 Time: 12:09 Bed 17 Private MD: ED Physician Boo Grace HPI: 09/18 12:57 This 79 yrs old Male presents to ER via Unassigned with complaints of wound infection. 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 Patient states he continues to have pain, drainage from his chronic wound site. He denies fever or any other symptoms. Specifically denies headache, chest pain, shortness of breath, abdominal pain, vomiting, diarrhea or any other somatic signs or symptoms on ROS at this time.. 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 - Infectious Disease History:: Denies. - Social history:: Smoking status: Patient denies any tobacco usage or history of. ROS: 13:00 Constitutional: Negative for fever, chills, and weight loss, Eyes: Negative for injury, sp3 pain, redness, and discharge, ENT: Negative for injury, pain, and discharge, Neck: Negative for injury, pain, and swelling, Cardiovascular: Negative for chest pain, palpitations, and edema, Respiratory: Negative for shortness of breath, cough, wheezing, and pleuritic chest pain, Abdomen/GI: Negative for abdominal pain, nausea, vomiting, diarrhea, and constipation, MS/Extremity: Negative for injury and deformity, Neuro: Negative for headache, weakness, numbness, tingling, and seizure, Allergy/Immunology: Negative for hives, rash, and allergies, 13:00 All other systems are negative, Exam: 13:00 Constitutional: This is a well developed, well nourished patient who is awake, alert, sp3 and in no acute distress. Head/Face: Normocephalic, atraumatic. Eyes: Pupils equal round and reactive to light, extra-ocular motions intact. Lids and lashes normal. Conjunctiva and sclera are non-icteric and not injected. Cornea within normal limits. Periorbital areas with no swelling, redness, or edema. Neck: Trachea midline, no thyromegaly or masses palpated, and no cervical lymphadenopathy. Supple, full range of motion without nuchal rigidity, or vertebral point tenderness. No Meningismus. Chest/axilla: Normal chest wall appearance and motion. Nontender with no deformity. No lesions are appreciated. Cardiovascular: Regular rate and rhythm with a normal S1 and S2. No gallops, murmurs, or rubs. Normal PMI, no JVD. No pulse deficits. Respiratory: Lungs have equal breath sounds bilaterally, clear to auscultation and percussion. No rales, rhonchi or wheezes noted. No increased work of breathing, no retractions or nasal flaring. Abdomen/GI: Soft, non-tender, with normal bowel sounds. No distension or tympany. No guarding or rebound. No evidence of tenderness throughout. MS/ Extremity: Pulses equal, no cyanosis. Neurovascular intact. Full, normal range of motion. Neuro: Awake and alert, GCS 15, oriented to person, place, time, and situation. Cranial nerves II-XII grossly intact. Motor strength 5/5 in all extremities. Sensory grossly intact. Cerebellar exam normal. Normal gait. Psych: Awake, alert, with orientation to person, place and time. Behavior, mood, and affect are within normal limits. 13:00 Skin: Extensive sacral ulcer with drainage noted. MRI from 09/08/2024 demonstrates underlying decubitus ulcer with concerns of acute osteomyelitis. 14:14 ECG was reviewed by the Attending Physician. EKG demonstrates normal sinus rhythm at 62 sp3 bpm with normal intervals except first-degree heart block with [place] interval 204, right bundle branch block and nonspecific diffuse ST/T changes without evidence of acute ischemia. Vital Signs: 12:15 BP 138 / 71; Pulse 74; Resp 17; Temp 98(O); Pulse Ox 97% on R/A; rs5 13:00 BP 129 / 63; Pulse 58; Resp 16; Pulse Ox 98% ; me1 14:00 BP 138 / 69; Pulse 64; Resp 16; Pulse Ox 96% ; me1 15:00 BP 139 / 70; Pulse 59; Resp 15; Pulse Ox 98% ; me1 16:00 BP 131 / 81; Pulse 61; Resp 15; Pulse Ox 97% ; me1 17:00 BP 140 / 70; Pulse 60; Resp 15; Pulse Ox 97% ; me1 19:39 BP 132 / 74; Pulse 60; Resp 18; Temp 97.9; Pulse Ox 100% on R/A; kj2 MDM: 12:13 Medical Screening Exam initiated sp3 13:01 Data reviewed: vital signs, nurses notes, lab test result(s), radiologic studies. ED sp3 course: 79-year-old male with osteomyelitis of the sacral region and sacral wound. Vancomycin and cefepime have been ordered coupled with blood work. Patient will be admitted for IV antibiotics and continued general surgical consultation for wound care.. 15:25 ED course: Dr. Panchal is evaluated patient in ED and it was realized that he did not sp3 send the patient here. Patient came on his own volition and lied to staff regarding his visit. Patient will be discharged and he does not need inpatient care. Osteomyelitis has been chronic. He will be discharged on Cipro and he is told to go to infectious disease in [place] where he has been told multiple times to go but patient refuses.. 09/18 12:25 Order name: Blood Culture Adult (2) 3 09/18 12:25 Order name: CBC with Diff; Complete Time: 14:15 3 09/18 12:25 Order name: CMP; Complete Time: 14:15 3 09/18 12:25 Order name: Lactate w/ 2H reflex if indic.; Complete Time: 14:15 sp3 09/18 12:25 Order name: Protime (+inr); Complete Time: 14:15 sp3 09/18 12:25 Order name: Urinalysis w/ reflexes; Complete Time: 15:48 sp3 09/18 12:26 Order name: Wound Culture 3 09/18 12:25 Order name: Cardiac monitoring; Complete Time: 14:31 sp3 09/18 12:25 Order name: EKG - Nurse/Tech; Complete Time: 14:24 sp3 09/18 12:25 Order name: IV Saline Lock - Large Bore; Complete Time: 13:36 3 09/18 12:25 Order name: Labs collected and sent; Complete Time: 13:36 sp3 09/18 12:25 Order name: O2 Per Protocol; Complete Time: 13:36 sp3 09/18 12:25 Order name: O2 Sat Monitoring; Complete Time: 13:36 sp3 09/18 12:25 Order name: Vital Signs; Complete Time: 13:36 sp3 Administered Medications: 14:39 Drug: Cefepime IVPB 1 grams IVPB at 200 ml/hr once over 30 mins; (mix in NS 100 mL) me1 Route: IVPB; Rate: 200 ml/hr; Infused Over: 30 mins; Site: right forearm; 15:16 Follow up: Response: No adverse reaction; IV Status: Completed infusion; IV Intake: me1 100ml 15:17 Drug: vancoMYCIN IVPB 1 grams IVPB once over 2 hrs Route: IVPB; Infused Over: 2 hrs; me1 Site: right forearm; 17:39 Follow up: Response: No adverse reaction; IV Status: Completed infusion; IV Intake: me1 250ml Disposition Summary: 09/18/24 15:26 Discharge Ordered Notes: Location: Home(09/18/24 15:26) sp3 Condition: Stable(09/18/24 15:26) sp3 Diagnosis - Osteomyelitis sp3 Followup: sp3 - With: Private Physician - When: Upon discharge from the Emergency Department - Reason: Continuance of care Discharge Instructions: - Discharge Summary Sheet sp3 - Osteomyelitis, Adult sp3 Forms: - Medication Reconciliation Form sp3 - Antibiotic Education sp3 - Prescription Opioid Use sp3 - Patient Portal Instructions sp3 - Leadership Thank You Letter sp3 Prescriptions: - Cipro 500 mg Oral Tablet - take 1 tablet ORAL route every 12 hours for 10 days; 20 tablet; Refills: 0, sp3 Product Selection Permitted Signatures: Dispatcher [employer] Boo Broderick MD MD sp3 Sina Will RN RN rs5 Amy Wilburn RN RN me1 Corrections: (The following items were deleted from the chart) 12: 12:26 Wound Culture+BA.LAB.BRZ ordered. EDKS EDMS 14:14 12:17 PMHx: STACY; rs5 rs5 14:14 12:15 PSHx: above knee amputation; rs5 rs5 15:26 14:27 Inpatient Admission sp3 sp3 15:26 14:27 Neo Peterson sp3 sp3 15: 14:27 Telemetry/MedSurg (Inpatient) sp3 sp3 15: 14:27 Stable sp3 sp3 15: 14:27 an acute exacerbation sp3 sp3 15: 14:27 have worsened sp3 sp3 15: 14:27 Standard sp3 sp3 15: 14:27 sp3 sp3 15: 14:27 Ischial osteomyelitis, chronic sacral wound, wound infection sp3 sp3
--- NOTE | 2024-09-18 14:28 | ER ---
Nurse's Notes [facility] Name: Jatinder Garner Age: 79 yrs Sex: Male : 1945 Arrival Date: 09/18/2024 Time: 12:09 Bed 17 Private MD: Diagnosis: Osteomyelitis Presentation: 09/18 12:15 Chief complaint: Patient states: Pt toned out EMS due to concern for possible infection rs5 to wound on right buttocks. 12:15 Coronavirus screen: At this time, the client does not indicate any symptoms associated rs5 with coronavirus-19. Ebola Screen: No symptoms or risks identified at this time. Initial Sepsis Screen: Does the patient meet any 2 criteria? No. Patient's initial sepsis screen is negative. Does the patient have a suspected source of infection? No. Patient's initial sepsis screen is negative. Risk Assessment: Do you want to hurt yourself or someone else? Patient reports no desire to harm self or others. Onset of symptoms was September 18, 2024. 12:15 Method Of Arrival: EMS: [facility] rs5 12:15 Acuity: NANNETTE 3 rs5 Historical: - Allergies: 12:15 Morphine; rs5 - PMHx: 12:15 paraplegic; rs5 12:17 UTI; rs5 12:15 neuropathy; rs5 - PSHx: 12:15 spinal injury; rs5 12:15 right below knee amputation; rs5 - Immunization history:: Adult Immunizations up to date. - Infectious Disease History:: Denies. - Social history:: Smoking status: Patient denies any tobacco usage or history of. Screenin:15 [facility] ED Fall Risk Assessment (Adult) History of falling in the last 3 months, rs5 including since admission No falls in past 3 months (0 pts) Confusion or Disorientation No (0 pts) Intoxicated or Sedated No (0 pts) Impaired Gait Yes (1 pt) Mobility Assist Device Used Yes (1 pt) Altered Elimination Yes (1 pt) Score/Fall Risk Level 3 or more points = High Risk Oriented to surroundings, Maintained a safe environment, Provided non-skid footwear, Hourly rounding (assess needs \T\ fall precautionary measures) done. Abuse screen: Denies threats or abuse. Nutritional screening: No deficits noted. Tuberculosis screening: No symptoms or risk factors identified. Assessment: 12:30 General: Appears comfortable, slender, well groomed, well developed, Behavior is calm, me1 cooperative, appropriate for age, Reports concern for infection to decubitus to right buttock. Pain: Denies pain. Neuro: Level of Consciousness is awake, alert, obeys commands, Oriented to person, place, time, situation, Appropriate for age. Cardiovascular: Patient's skin is warm and dry. Respiratory: Airway is patent Respiratory effort is even, unlabored, Respiratory pattern is regular, symmetrical. GI: No signs and/or symptoms were reported involving the gastrointestinal system. : No signs and/or symptoms were reported regarding the genitourinary system. EENT: No signs and/or symptoms were reported regarding the EENT system. Derm: Skin is healthy with good turgor, Skin is pink, warm \T\ dry. Wound noted right gluteal cleft and left lateral ankle Wound is decubitus. Musculoskeletal: Amputation of right estrada. 12:30 Musculoskeletal: Range of motion: limited in left hip, left knee, left ankle, right me1 hip, right knee and right ankle. 15:26 Reassessment: Discharge delayed for vancomycin to infuse. me1 19:00 Reassessment: Patient appears in no apparent distress at this time. Patient is alert, kj2 oriented x 3, equal unlabored respirations, skin warm/dry/pink. Patient is alert/active/playful, equal unlabored respirations, skin warm/dry/pink. report received from ТАТЬЯНА Reyes. Patient waiting on EMS. 19:39 Reassessment: Patient appears in no apparent distress at this time. Patient and/or kj2 family updated on plan of care and expected duration. Pain level reassessed. Patient is alert, oriented x 3, equal unlabored respirations, skin warm/dry/pink. Vital Signs: 12:15 BP 138 / 71; Pulse 74; Resp 17; Temp 98(O); Pulse Ox 97% on R/A; rs5 13:00 BP 129 / 63; Pulse 58; Resp 16; Pulse Ox 98% ; me1 14:00 BP 138 / 69; Pulse 64; Resp 16; Pulse Ox 96% ; me1 15:00 BP 139 / 70; Pulse 59; Resp 15; Pulse Ox 98% ; me1 16:00 BP 131 / 81; Pulse 61; Resp 15; Pulse Ox 97% ; me1 17:00 BP 140 / 70; Pulse 60; Resp 15; Pulse Ox 97% ; me1 19:39 BP 132 / 74; Pulse 60; Resp 18; Temp 97.9; Pulse Ox 100% on R/A; kj2 ED Course: 12:13 Patient arrived in ED. sp3 12:13 Boo Grace MD is Attending Physician. sp3 12:30 Amy Wilburn, ТАТЬЯНА is Primary Nurse. me1 12:30 No provider procedures requiring assistance completed. me1 12:30 Patient has correct armband on for positive identification. Bed in low position. Call me1 light in reach. Side rails up X2. Provided Education on: POC. Verbalized understanding.. Client placed on continuous cardiac and pulse oximetry monitoring. NIBP monitoring applied. high lift driver on. Pulse ox on. NIBP on. 13:32 Initial lab(s) drawn, by me, sent to lab. First set of blood cultures drawn by me. me1 13:36 Blood Culture Adult (2) Sent. me1 13:36 CBC with Diff Sent. me1 13:36 CMP Sent. me1 13:36 Lactate w/ 2H reflex if indic. Sent. me1 13:36 Protime (+inr) Sent. me1 13:37 Inserted saline lock: 22 gauge in right forearm, using aseptic technique. me1 13:47 Second set of blood cultures drawn by me. me1 14:11 Triage completed. rs5 14:27 Neo Peterson MD is Hospitalizing Provider. sp3 14:31 Wound Culture Sent. me1 14:31 Urinalysis w/ reflexes Sent. me1 14:31 Urine collected: Cortez catheter specimen, cloudy, Wound culture swab sent to lab. me1 15:33 Arm band placed on Patient placed in an exam room. me1 17:40 IV discontinued, intact, bleeding controlled, No redness/swelling at site. Pressure me1 dressing applied. Administered Medications: 14:39 Drug: Cefepime IVPB 1 grams IVPB at 200 ml/hr once over 30 mins; (mix in NS 100 mL) me1 Route: IVPB; Rate: 200 ml/hr; Infused Over: 30 mins; Site: right forearm; 15:16 Follow up: Response: No adverse reaction; IV Status: Completed infusion; IV Intake: me1 100ml 15:17 Drug: vancoMYCIN IVPB 1 grams IVPB once over 2 hrs Route: IVPB; Infused Over: 2 hrs; me1 Site: right forearm; 17:39 Follow up: Response: No adverse reaction; IV Status: Completed infusion; IV Intake: me1 250ml Medication: 12:30 VIS not applicable for this client. me1 Intake: 15:16 IV: 100ml; Total: 100ml. me1 17:39 IV: 250ml; Total: 350ml. me1 Outcome: 14:27 Decision to Hospitalize by Provider. sp3 15:26 Discharge ordered by MD. sp3 17:40 Discharged to home via ambulance, nj1 17:40 Condition: stable 17:40 Discharge instructions given to patient, Instructed on discharge instructions, follow up and referral plans. medication usage, Demonstrated understanding of instructions, follow-up care, medications, Prescriptions given X 1, 19:39 Patient left the ED. kj2 Signatures: Boo Grace MD MD sp3 Sina Will RN RN rs5 Amy Wilburn RN RN nj1 Guerline Rodriguez RN RN kj2 Corrections: (The following items were deleted from the chart) 14:14 12:17 PMHx: STACY; rs5 rs5 14:14 12:15 PSHx: above knee amputation; rs5 rs5
[2024-09-18] MEDS ORDERED: NA CHLORIDE 0.9% 100 ML ONE (14:34)
[2024-09-18] MEDS ORDERED: NA CHLORIDE 0.9% 250 ML ONE (14:34)
[2024-09-18] MEDS ORDERED: VANCOMYCIN 1 GM/VIAL ONE (14:34)
[2024-09-18] MEDS ORDERED: CEFEPIME 1 GM/VIAL ONE (14:34)
[2024-09-18 15:23] LABS: Specific Gravity 1.013 (1.005-1.030); Urine Bilirubin NEGATIVE (Negative); Urine Blood Trace (Negative); Urine Clarity Extremely Turbid (Clear); Urine Color Light-Yellow (Yellow); Urine Glucose NEGATIVE (Negative); Urine Ketones NEGATIVE (Negative); Urine Microscopic Reflex YN NO UMIC; Urine Nitrite 1+ (Negative); Urine Protein NEGATIVE (Negative); Urine Urobilinogen Normal (Normal)
[2024-09-18 20:41] VITALS: BP 132/74; TEMP 97.9; O2SAT 100
--- NOTE | 2024-09-20 13:08 | EKG ---
Test Date: 2024-09-18 Test Time: 13:49:41 Water Plumber: GABBY MEASUREMENT RESULTS: Intervals: Rate: 62 AK: 204 QRSD: 108 QT: 464 QTc: 470 [place]: P: 73 AK: 204 QRS: 69 T: 63 INTERPRETIVE STATEMENTS: Normal sinus rhythm Low voltage QRS Borderline ECG Compared to ECG 07/28/2024 09:35:10 Low QRS voltage now present Right bundle-branch block no longer present Electronically Signed On 09-20-24 13:04:43 UNIT OPERATOR by Rommel Alexander
== END 2024-09-18 19:39 | disposition home or self-care (01) ==
LOC: ER 12:09
DX: M86.9 Osteomyelitis, unspecified (principal); G62.9 Polyneuropathy, unspecified; G82.20 Paraplegia, unspecified; Z88.5 Allergy status to narcotic agent
CPT/HCPCS: 96365; 96367; 93005; 87040 ×2; 87070; 85025; 36415; 87205; 85610; 83605; 87077 ×2; 87186 ×2; 81003; 80053; 99285; 96366; J7050; J0692

== ENCOUNTER 2025-01-11 09:36 | Emergency (ER) | payer OTHER ==
[2025-01-11 11:28] LABS: Specific Gravity 1.011 (1.005-1.030); Sqamous Epithelial None Seen /HPF (None Seen); Urine Bacteria <20 /HPF (<20); Urine Bilirubin NEGATIVE (Negative); Urine Blood 1+ (Negative); Urine Clarity Turbid (Clear); Urine Color Light-Yellow (Yellow); Urine Glucose NEGATIVE (Negative); Urine Ketones NEGATIVE (Negative); Urine Micro Reflex YN NO BILL MICROSCOPIC; Urine Mucus Slight /HPF (None Seen); Urine Nitrite 2+ (Negative); Urine Protein NEGATIVE (Negative); Urine Urobilinogen Normal (Normal); Urine pH 5.5 (5.0-7.0)
--- NOTE | 2025-01-11 11:33 | EDPHYS ---
Physician Documentation [facility] Name: Jatinder Garner Age: 79 yrs Sex: Male : 1945 Arrival Date: 01/11/2025 Time: 09:36 Bed 20 Private MD: ED Physician Dereck Tran HPI: 01/11 09:53 This 79 yrs old Male presents to ER via Wheelchair with complaints of Problem With rt Urinary Catheter. 09:53 Patient is a chronic indwelling Cortez catheter due to neurogenic bladder. Reports rt essentially no urinary output since yesterday, the patient reports a discomfort to the suprapubic region as well as a fullness. This particular catheter has been in for over a month. Denies other acute complaints at this time, symptoms are moderate in severity, no other aggravating alleviating factors.. Historical: - Allergies: 09:51 Morphine; ss - PMHx: 09:51 neuropathy; paraplegic; UTI; ss - PSHx: 09:51 right below knee amputation; spinal injury; ss - Immunization history:: Adult Immunizations unknown. - Infectious Disease History:: Denies. - Social history:: Smoking status: Patient denies any tobacco usage or history of. - Family history:: not pertinent. ROS: 09:53 Constitutional: Negative for fever, chills, and weight loss, Cardiovascular: Negative rt for chest pain, palpitations, and edema, Respiratory: Negative for shortness of breath, cough, wheezing, and pleuritic chest pain, Skin: Negative for injury, rash, and discoloration, 09:53 : Positive for Urinary retention, Negative for hematuria, Exam: 09:53 Constitutional: This is a well developed, well nourished patient who is awake, alert, rt and in no acute distress. Head/Face: Normocephalic, atraumatic. Chest/axilla: Normal chest wall appearance and motion. Nontender with no deformity. No lesions are appreciated. Cardiovascular: Regular rate and rhythm with a normal S1 and S2. No gallops, murmurs, or rubs. Normal PMI, no JVD. No pulse deficits. Respiratory: Lungs have equal breath sounds bilaterally, clear to auscultation and percussion. No rales, rhonchi or wheezes noted. No increased work of breathing, no retractions or nasal flaring. Skin: Warm, dry with normal turgor. Normal color with no rashes, no lesions, and no evidence of cellulitis. 09:53 Abdomen/GI: Fullness, tenderness to suprapubic region, Vital Signs: 09:50 BP 130 / 87; Pulse 85; Resp 16; Temp 97.6(O); Pulse Ox 94% on R/A; Pain 8/10; ss 09:50 Pain Scale: Adult ss MDM: 09:43 Medical Screening Exam initiated rt 11:32 Differential Diagnosis UTI, Cortez catheter complication, urinary retention. Data rt reviewed: vital signs, nurses notes. Test considered but Not performed: CT: Symptoms resolved after Cortez catheter was replaced, do not believe that CT scan is indicated. Care significantly affected by the following chronic conditions: Neurogenic bladder. Counseling: I had a detailed discussion with the patient and/or guardian regarding the historical points, exam findings, and any diagnostic results supporting the discharge/admit diagnosis, lab results, the need for outpatient follow up, to return to the emergency department if symptoms worsen or persist or if there are any questions or concerns that arise at home. Response to treatment: the patient's symptoms have resolved after treatment. 01/11 09:52 Order name: UAShakila; Complete Time: 11:30 rt 01/11 09:52 Order name: Cortez; Complete Time: 10:20 rt Administered Medications: No medications were administered Disposition Summary: 01/11/25 11:32 Discharge Ordered Notes: Location: Home rt Problem: new rt Symptoms: are resolved rt Condition: Stable rt Diagnosis - Mechanical complication of urinary (indwelling) catheter rt Followup: rt - With: Private Physician - When: 2 - 3 days - Reason: Discharge Instructions: - Discharge Summary Sheet rt - Indwelling Urinary Catheter Care, Adult rt Forms: - Medication Reconciliation Form rt - Antibiotic Education rt - Prescription Opioid Use rt - Patient Portal Instructions rt - Leadership Thank You Letter rt Signatures: Dispatcher [employer] Yesi Hand RN RN ss Prokisch, Amanda, RN RN ap3 Dereck Tran MD MD rt
--- NOTE | 2025-01-11 11:33 | ER ---
Nurse's Notes [facility] Name: Jatinder Garner Age: 79 yrs Sex: Male : 1945 Arrival Date: 01/11/2025 Time: 09:36 Bed 20 Private MD: Diagnosis: Mechanical complication of urinary (indwelling) catheter Presentation: 01/11 09:50 Chief complaint: Patient states: abd pain that began this morning. Ladies Suit Operator reports ss decreased urinary output since last night. Coronavirus screen: Client denies travel out of the [place] in the last 14 days. Ebola Screen: Patient denies exposure to infectious person. Patient denies travel to an Ebola-affected area in the 21 days before illness onset. Initial Sepsis Screen: Does the patient meet any 2 criteria? No. Patient's initial sepsis screen is negative. Does the patient have a suspected source of infection? No. Patient's initial sepsis screen is negative. Risk Assessment: Do you want to hurt yourself or someone else? Patient reports no desire to harm self or others. Onset of symptoms was January 10, 2025. 09:50 Method Of Arrival: Wheelchair ss 09:50 Acuity: NANNETTE 3 ss Triage Assessment: 10:45 Pain: Complains of pain in abdomen. ap3 12:08 General: Appears comfortable, Behavior is calm, cooperative, appropriate for age. ap3 Historical: - Allergies: 09:51 Morphine; ss - PMHx: 09:51 neuropathy; paraplegic; UTI; ss - PSHx: 09:51 right below knee amputation; spinal injury; ss - Immunization history:: Adult Immunizations unknown. - Infectious Disease History:: Denies. - Social history:: Smoking status: Patient denies any tobacco usage or history of. - Family history:: not pertinent. Screenin:[address] [facility] ED Fall Risk Assessment (Adult) History of falling in the last 3 months, ap3 including since admission No falls in past 3 months (0 pts) Confusion or Disorientation No (0 pts) Intoxicated or Sedated No (0 pts) Impaired Gait Yes (1 pt) Mobility Assist Device Used Yes (1 pt) Altered Elimination No (0 pt) Score/Fall Risk Level 0 - 2 = Low Risk Oriented to surroundings, Maintained a safe environment, Educated pt \T\ family on fall prevention, incl call for assistance when getting out of bed, Assessed \T\ reinforced patient's understanding of fall precautions, Hourly rounding (assess needs \T\ fall precautionary measures) done, Used ambulatory aids as needed (educated on \T\ assisted with). Abuse screen: Denies threats or abuse. Nutritional screening: No deficits noted. Tuberculosis screening: No symptoms or risk factors identified. Vital Signs: 09:50 BP 130 / 87; Pulse 85; Resp 16; Temp 97.6(O); Pulse Ox 94% on R/A; Pain 8/10; ss 09:50 Pain Scale: Adult ss ED Course: 09:39 Patient arrived in ED. al6 09:40 Dereck Tran MD is Attending Physician. rt 09:51 Triage completed. ss 09:51 Arm band placed on right wrist. ss 10:15 Garcia cath removed intact, balloon deflated, 14fr garcia in place prior to arrival. ty 10:20 Garcia cath inserted, using sterile technique, 14 Fr., by me, balloon inflated, to ty gravity drainage, clamped. other 1000 ml voided from bladder tube clamped. 10:49 Nayely Camilo, RN is Primary Nurse. ap3 10:50 Patient has correct armband on for positive identification. Bed in low position. Call ap3 light in reach. Side rails up X2. Adult w/ patient. 12:08 Provided Education on: discharge instructions. ap3 12:08 No provider procedures requiring assistance completed. Patient did not have IV access ap3 during this emergency room visit. Administered Medications: No medications were administered Medication: 10:50 VIS not applicable for this client. ap3 Outcome: 11:32 Discharge ordered by . rt 12:08 Discharged to home via wheelchair, with family, ap3 12:08 Condition: good 12:08 Discharge instructions given to patient, Instructed on discharge instructions, follow up and referral plans. Demonstrated understanding of instructions, follow-up care, 12:09 Patient left the ED. ap3 Signatures: Yesi Head RN RN Nayely Camilo RN RN ap3 Dereck Tran MD MD rt Nick Figueroa Alissa al6
[2025-01-11 12:14] VITALS: BP 130/87; TEMP 97.6; O2SAT 94
== END 2025-01-11 12:09 | disposition home or self-care (01) ==
LOC: ER 09:36
DX: T83.098A Other mechanical complication of other urinary catheter, initial encounter (principal); G82.20 Paraplegia, unspecified
CPT/HCPCS: 51702; 81001; 99284